=== PATIENT | female | born 1960 | race Caucasian/White ===

== ENCOUNTER → 2016-07-08 | Outpatient (CLI) | payer BC ==
[~2016-07-08] MED LIST: ATV2 PO; BACL10TA PO; BISA1TAB15 PO; CHOL100010 PO; CLC100 PO; CLC100X PO; CNT PO; GABA-112 PO; MGNO400 PO; SIME125C52 PO; SNK PO; ZNT/150 PO; [UNRECOGNIZED DRUG - OTHER] PO
--- NOTE | 2016-07-08 10:30 | DIAGNOSTIC IMAGING REPORT ---
MRI OF THE LUMBAR SPINE WITHOUT IV CONTRAST CLINICAL HISTORY: Right-sided lumbar radiculopathy. COMPARISON STUDY: Abdominal CT dated 08/18/13. TECHNIQUE: MRI of the lumbar spine is performed utilizing various T1 and T2-weighted sequences in the axial and sagittal planes. IV contrast was not administered for this examination. The examination is significantly degraded by open MRI technique. FINDINGS: Lumbar spine: Vertebral body height and alignment are maintained throughout the lumbar spine. There is straightening of the lumbar lordosis. The transverse and spinous processes are grossly intact. There is no evidence of spondylolysis. A hemangioma is again noted in the body of T12. No destructive bony lesion is seen. Intervertebral discs: There is mild degenerative disc desiccation noted throughout the lumbar spine. The disc heights appear preserved. Spinal cord: The visualized spinal cord is normal in morphology and signal intensity. The conus medullaris terminates at the level of L1. The nerve roots of the cauda equina are normal in morphology. L1-L2: Unremarkable. L2-L3: Unremarkable. L3-L4: Unremarkable. L4-L5: There is a small posterior disc bulge with annular fissure. This causes moderate bilateral subarticular stenosis with possible impingement on the exiting left L4 nerve root. The central canal and neural foramina are widely patent. Mild facet arthropathy is of no consequence. L5-S1: There is minimal posterior disc bulge with annular fissure. The central canal and neural foramina are widely patent. Sacrum: Visualized sacrum is normal in morphology and signal intensity. Soft tissues: The paraspinous soft tissues are normal in appearance. The partially imaged retroperitoneal structures are grossly unremarkable but incompletely assessed. IMPRESSION: 1. There is no disc herniation, central canal stenosis, or significant neural foraminal narrowing seen throughout the lumbar spine. 2. Mild degenerative disc disease as above, greatest at L4-L5. See discussion for detailed level by level analysis. Dictated: 07/08/2016 10:19 AM Transcribed: 07/08/2016 10:29 AM [facility] Electronically signed by: Zafar Lima M.D. 07/08/2016 10:43 AM Dictated Date/Time: 07/08/2016 10:19 AM
== END | disposition home or self-care (01) ==
LOC: C.OPENMRI 08:52
PROVIDERS: ATTEND Family Medicine
DX: M54.16 Radiculopathy, lumbar region (principal)

== ENCOUNTER → 2016-07-10 | Day surgery (SDC) | payer BC ==
[2016-07-09 15:46] VITALS: Ht 162.6 cm; Wt 56.4 kg
[~2016-07-10] VITALS: Ht 162.6 cm; Wt 56.4 kg
[~2016-07-10] MED LIST changes: +BUPIVACAINE 0.25% 2.5MG/ML PF 10 ML VIAL ONE; -CLC100 PO; +IOPAMIDOL INJ 61% 15 ML VIAL ONE; +LIDOCAINE HCL 1% MPF 5 ML VIAL ONE; -MGNO400 PO; -SNK PO; -[UNRECOGNIZED DRUG - OTHER] PO
--- NOTE | 2016-07-10 11:10 | History & Physical Bridge - [place] ---
H&P Re-Evaluation Bridge Note: I have examined the patient, reviewed the History & Physical and in the interval since the performance of the History & Physical I have noted the following changes of clinical significance: No changes noted
--- NOTE | 2016-07-10 11:36 | Discharge Instructions ---
Discharge Instructions Visit Reason for Visit: Sacroiliitis Discharge Discharge Diagnosis / Problem: Low back pain Discharge Goals Goal(s): Decrease discomfort, Improve function Activity Recommendations Activity Limitations: resume your previous activity Anesthesia . Post Anesthesia Instructions: If you have had General Anesthesia or IV Sedation: * Do not drive today. * Resume driving when surgeon permits. * Do not make important decisions or sign legal documents today. * Call surgeon for: 1. Temperature elevations greater than 101 degrees F. 2. Uncontrollable pain. 3. Excessive bleeding. 4. Persistent nausea and vomiting. 5. Medication intolerance (nausea, vomiting or rash). * For nausea and vomiting use only clear liquids such as: tea, soda, bouillon until nausea subsides, then gradually increase diet as tolerated. * If you have any concerns or questions, call your surgeon's office. If physician is unavailable and it is an emergency, call 911 or go to the nearest emergency room. . Diet Recommendations Recommended Home Diet: no limitations Pending Studies Studies pending at discharge: no Medical Emergencies . Who to Call and When: Medical Emergencies: If at any time you feel your situation is an emergency, please call 911 immediately. . Non-Emergent Contact Non-Emergency issues call your: Specialist . . "Provider Documentation" section prepared by Jose Hoffman.
[2016-07-10 11:40] VITALS: TEMP 36.4
[2016-07-10 11:54] VITALS: BP 144/83; PULSE 69; O2SAT 100
--- NOTE | 2016-07-10 12:13 | OPERATIVE REPORT ---
DATE OF OPERATION: 07/10/2016 PREOPERATIVE DIAGNOSIS: Right sacroiliitis, history of trauma. POSTOPERATIVE DIAGNOSIS: Same. PROCEDURE: Right SI joint injection under fluoroscopic guidance. INDICATIONS: The patient is a 56-year-old white female who had the development of low back pain following a traumatic fall in which she landed on her sacrum. She has not gotten any relief with conservative treatments including medications, physical therapy, chiropractic and had an MRI of her lumbosacral spine which was normal. She presents today for sacroiliac joint injection as this is determined to be the etiology of her pain through her history and physical. PHYSICAL EXAMINATION: Pleasant female seated comfortably. She is seated off to the side uncomfortably. She has point tenderness to palpation of the right SI joint. She has normal motor and sensory exam of her lower extremities, as well as negative seated straight leg raises. CONSENT: Verbal and written consent was obtained from the patient. Risks and benefits were reviewed. Risks include, but are not limited to, abscess, allergic reaction. She wishes to proceed. PROCEDURE: The patient was taken back to the special procedures room of the [facility] where she was maintained in a prone position. Backside was cleansed with Betadine x3 and a dry sterile dressing was applied. Fluoroscope was used to identify the right SI joint and the overlying skin was anesthetized with 4 mL of lidocaine 1% with a 25 gauge 1-1/2 inch needle. A 25 gauge 3-1/2 inch spinal needle was then directed under fluoroscopic guidance into the joint. Isovue-300 contrast 0.25 mL was injected in which demonstrated intraarticular uptake. This was then followed by injection of 1.5 mL of bupivacaine 0.25% and 40 mg of Depo-Medrol. There was reproduction of familiar discomfort as the injection was placed. DISPOSITION: 1. The patient is taken out into the discharge recovery area where she will be discharged home once discharge criteria have been met. 2. Followup in the [facility] office in 2-4 weeks. I attest to the content of the Intraoperative Record and any orders documented therein. Any exceptio ns are noted below.
== END | disposition home or self-care (01) ==
LOC: X.SURG 09:44
PROVIDERS: ATTEND Physical Medicine & Rehabilitation
DX: M46.1 Sacroiliitis, not elsewhere classified (principal); Z87.828 Personal history of other (healed) physical injury and trauma

== ENCOUNTER → 2016-07-20 | Outpatient (CLI) | payer BC ==
[~2016-07-20] MED LIST changes: -BUPIVACAINE 0.25% 2.5MG/ML PF 10 ML VIAL ONE; -IOPAMIDOL INJ 61% 15 ML VIAL ONE; -LIDOCAINE HCL 1% MPF 5 ML VIAL ONE
== END | disposition home or self-care (01) ==
LOC: C.LAB1850 10:36
PROVIDERS: ATTEND Physical Medicine & Rehabilitation
DX: M54.16 Radiculopathy, lumbar region (principal); M46.1 Sacroiliitis, not elsewhere classified

== ENCOUNTER → 2016-07-27 | Outpatient (CLI) | payer BC ==
--- NOTE | 2016-07-27 14:03 | DIAGNOSTIC IMAGING REPORT ---
THREE-PHASE NUCLEAR BONE SCAN OF THE LUMBAR SPINE CLINICAL HISTORY: Sacroiliitis. Lumbar radiculopathy. COMPARISON STUDY: MRI of the lumbar spine dated 07/08/2016. TECHNIQUE: Following the IV administration of 27 mCi of technetium 99m MDP, three-phase bone scan of the lumbar spine and pelvis was performed. Flow and blood pool phase imaging was acquired both anteriorly and posteriorly. Bone phase imaging of the lumbar spine and bony pelvis was performed at three hours in multiple obliquities. FINDINGS: There is no hyperemia identified in the region of the lumbar spine and bony pelvis on the flow or blood pool phase images. On the bone phase images there is no abnormal tracer deposition seen throughout the lumbar spine or involving the pelvis. There is expected excreted activity within the kidneys and bladder. IMPRESSION: Three-phase negative bone scan of lumbar spine and pelvis. Electronically signed by: Zafar Lima M.D. 07/27/2016 2:02 PM Dictated Date/Time: 07/27/2016 1:54 PM
== END | disposition home or self-care (01) ==
LOC: C.NUCL 09:28
PROVIDERS: ATTEND Physical Medicine & Rehabilitation
DX: M54.16 Radiculopathy, lumbar region (principal); M54.5 Low back pain; M46.1 Sacroiliitis, not elsewhere classified

== ENCOUNTER → 2016-07-31 | Outpatient (CLI) | payer BC | END | disposition home or self-care (01) | LOC: C.LABPVFM 15:54 | PROVIDERS: ATTEND Nurse Practitioner | DX: R53.83 Other fatigue (principal); E55.9 Vitamin D deficiency, unspecified; R41.840 Attention and concentration deficit ==

== ENCOUNTER → 2016-08-12 | Day surgery (SDC) | payer BC ==
[2016-08-03 10:40] VITALS: Ht 162.6 cm; Wt 56.4 kg
[~2016-08-12] VITALS: Ht 162.6 cm; Wt 56.4 kg
[~2016-08-12] MED LIST changes: +BUPIVACAINE 0.25% 2.5MG/ML PF 10 ML VIAL INFIL ONE; +IOPAMIDOL INJ 61% 15 ML VIAL ONE; +LIDOCAINE HCL 1% MPF 5 ML VIAL ONE; +METHYLPREDNISOLONE ACETATE 80 MG/ML VIAL ONE
[2016-08-12 14:26] VITALS: BP 161/84; PULSE 59; TEMP 37; O2SAT 100
--- NOTE | 2016-08-12 14:34 | Discharge Instructions ---
Discharge Instructions Visit Reason for Visit: Low Back Pain Discharge Discharge Diagnosis / Problem: low back pain Activity Recommendations Activity Limitations: resume your previous activity Anesthesia . Post Anesthesia Instructions: If you have had General Anesthesia or IV Sedation: * Do not drive today. * Resume driving when surgeon permits. * Do not make important decisions or sign legal documents today. * Call surgeon for: 1. Temperature elevations greater than 101 degrees F. 2. Uncontrollable pain. 3. Excessive bleeding. 4. Persistent nausea and vomiting. 5. Medication intolerance (nausea, vomiting or rash). * For nausea and vomiting use only clear liquids such as: tea, soda, bouillon until nausea subsides, then gradually increase diet as tolerated. * If you have any concerns or questions, call your surgeon's office. If physician is unavailable and it is an emergency, call 911 or go to the nearest emergency room. . Diet Recommendations Recommended Home Diet: resume previous diet Procedures Procedures Performed: RIGHT L5-S1 FACET JOINT INJECTION Pending Studies Studies pending at discharge: no Medical Emergencies . Who to Call and When: Medical Emergencies: If at any time you feel your situation is an emergency, please call 911 immediately. . Non-Emergent Contact Non-Emergency issues call your: Specialist . . "Provider Documentation" section prepared by Jose Hoffman.
--- NOTE | 2016-08-12 15:28 | OPERATIVE REPORT ---
DATE OF OPERATION: 08/12/2016 PREOPERATIVE DIAGNOSIS: Chronic low back pain, right L5-S1 facet arthropathy. POSTOPERATIVE DIAGNOSIS: Same. PROCEDURE: Right L5-S1 facet joint injection under fluoroscopic guidance. INDICATIONS: The patient is a 56-year-old white female who presents today for a facet joint injection. She did not have sustained benefit from a sacroiliac joint injection. Her MRI shows increased facet signal. Decision is made that the pain could be being generated above the SI joint in the facet area and she presents today for a facet joint injection. PHYSICAL EXAMINATION: Pleasant female seated comfortably in no apparent distress. She has tenderness in the L5-S1 facet area which was worse with extension and rotation, relieved with flexion and lateralization away from that side. She has normal motor and sensory examination. CONSENT: Verbal and written consent was obtained from the patient. Risks and benefits were reviewed. Risks include but are not limited to abscess and allergic reaction. The patient wishes to proceed. DESCRIPTION OF PROCEDURE: The patient was taken back to the special procedures room of [facility]. She was maintained in a prone position. Backside was cleansed with Betadine x3 and a dry sterile dressing was applied. Fluoroscope was used to identify the L5-S1 facet joint in an oblique view. The overlying skin was anesthetized with 5 mL of lidocaine 1% with a 25 gauge 1.5-inch needle. A 25 gauge 3.5 inch spinal needle was then directed under fluoroscopic guidance into the joint. She then underwent Isovue 300 contrast less than a 0.25 mL which showed intraarticular placement and then this was followed by injection after negative aspiration of 40 mg of Depo-Medrol and 1.5 mL and 0.5 mL of lidocaine 1%. Injection was well tolerated. DISPOSITION: 1. The patient was taken out into the discharge recovery area where she will be discharged home once discharge criteria have been met. 2. Follow up in the [facility] office in 2-4 weeks. I attest to the content of the Intraoperative Record and any orders documented therein. Any exceptio ns are noted below.
== END | disposition home or self-care (01) ==
LOC: X.SURG 12:51
PROVIDERS: ATTEND Physical Medicine & Rehabilitation
DX: M47.817 Spondylosis without myelopathy or radiculopathy, lumbosacral region (principal); G89.29 Other chronic pain

== ENCOUNTER → 2016-08-18 | Outpatient (CLI) | payer BC ==
[~2016-08-18] MED LIST changes: -BUPIVACAINE 0.25% 2.5MG/ML PF 10 ML VIAL INFIL ONE; -IOPAMIDOL INJ 61% 15 ML VIAL ONE; -LIDOCAINE HCL 1% MPF 5 ML VIAL ONE; -METHYLPREDNISOLONE ACETATE 80 MG/ML VIAL ONE
== END | disposition home or self-care (01) ==
LOC: C.LABPVFM 12:01
PROVIDERS: ATTEND Family Medicine
DX: J02.9 Acute pharyngitis, unspecified (principal)

== ENCOUNTER → 2016-10-08 | Outpatient (CLI) | payer BC ==
[~2016-10-08] MED LIST changes: +ACET-1047 PO; +ATV/2 PO; +BIOF500C2 PO; +BISA-16 PO; +CHOL1TAB42 PO; +CHOLCAP10 PO; +DOCU-94 PO; +DOCU1TAB6 PO; +HYDR2TAB48 PO; +MULT-506 PO; +MULTTAB58 PO; +ONDA4TAB10 SL; +POLY335019 PO; +SENN-61 PO; +SIME1CAP28 PO; +VITACAP26 PO; +ZNTT/150 PO; +[UNRECOGNIZED DRUG - CODE] PO
[2016-10-08 18:52] LABS: LYME DISEASE AB IGG NEG (NEG)
[2016-10-08 19:33] LABS: LYME DISEASE AB IGM EQUIVOCAL (NEG)
[2016-10-13 01:26] LABS: 18KDIGG BAND NONREACTIVE (NONREACTIVE); 23KDIGG BAND NONREACTIVE (NONREACTIVE); 23KDIGM BAND NONREACTIVE (NONREACTIVE); 28KDIGG BAND NONREACTIVE (NONREACTIVE); 30KDIGG BAND NONREACTIVE (NONREACTIVE); 39KDIGG BAND NONREACTIVE (NONREACTIVE); 39KDIGM BAND NONREACTIVE (NONREACTIVE); 41KDIGG BAND REACTIVE (NONREACTIVE); 41KDIGM BAND NONREACTIVE (NONREACTIVE); 45KDIGG BAND REACTIVE (NONREACTIVE); 58KDIGG BAND NONREACTIVE (NONREACTIVE); 66KDIGG BAND NONREACTIVE (NONREACTIVE); 93KDIGG BAND NONREACTIVE (NONREACTIVE)
== END | disposition home or self-care (01) ==
LOC: C.LABPVFM 14:05
PROVIDERS: ATTEND Nurse Practitioner
DX: M25.50 Pain in unspecified joint (principal); M54.5 Low back pain; M54.10 Radiculopathy, site unspecified

== ENCOUNTER → 2016-11-06 | Day surgery (SDC) | payer BC ==
[2016-10-13 15:17] VITALS: Ht 162.6 cm; Wt 56.4 kg
[~2016-11-06] VITALS: Ht 162.6 cm; Wt 56.4 kg
[~2016-11-06] MED LIST changes: +ACET-1256 PO; -GABA-112 PO; +IOPAMIDOL INJ 61% 15 ML VIAL ONE; +LIDOCAINE HCL 1% MPF 5 ML VIAL ONE; +SODIUM CHLORIDE 0.9% INJ 10 ML VIAL ONE
[2016-11-06 13:32] VITALS: TEMP 37.3
--- NOTE | 2016-11-06 13:38 | Discharge Instructions ---
Discharge Instructions Date of Service November 06, 2016. Visit Reason for Visit: Lumbar Radiculopathy Discharge Discharge Diagnosis / Problem: low back pain Discharge Goals Goal(s): Decrease discomfort, Improve function Activity Recommendations Activity Limitations: resume your previous activity Anesthesia . Post Anesthesia Instructions: If you have had General Anesthesia or IV Sedation: * Do not drive today. * Resume driving when surgeon permits. * Do not make important decisions or sign legal documents today. * Call surgeon for: 1. Temperature elevations greater than 101 degrees F. 2. Uncontrollable pain. 3. Excessive bleeding. 4. Persistent nausea and vomiting. 5. Medication intolerance (nausea, vomiting or rash). * For nausea and vomiting use only clear liquids such as: tea, soda, bouillon until nausea subsides, then gradually increase diet as tolerated. * If you have any concerns or questions, call your surgeon's office. If physician is unavailable and it is an emergency, call 911 or go to the nearest emergency room. . Diet Recommendations Recommended Home Diet: resume previous diet Procedures Procedures Performed: Lumbar Epidural Steroid Injection Pending Studies Studies pending at discharge: no Medical Emergencies . Who to Call and When: Medical Emergencies: If at any time you feel your situation is an emergency, please call 911 immediately. . Non-Emergent Contact Non-Emergency issues call your: Specialist . . "Provider Documentation" section prepared by Jose Hoffman. .
[2016-11-06 13:44] VITALS: BP 154/85; PULSE 64; O2SAT 100
--- NOTE | 2016-11-06 16:12 | OPERATIVE REPORT ---
DATE OF OPERATION: 11/06/2016 PREOPERATIVE DIAGNOSIS: L4-L5 annular tear with bilateral lower extremity radiculopathy. POSTOPERATIVE DIAGNOSIS: Same. PROCEDURE: Right paramedian L4-L5 interlaminar epidural steroid injection under fluoroscopic guidance. SURGEON: Dr. Jose Hoffman. INDICATIONS: The patient is a 56-year-old white female who has developed increasing pain. She is describing pain that radiates into the buttocks and down the legs posteriorly, describes the pain as excruciating. MRI imaging shows a small annular tear centrally at L4-L5. This is felt to be the pain generator. She presents today for an epidural steroid injection to provide her with relief of ongoing pain down the legs. PHYSICAL EXAMINATION: Pleasant female seated comfortably. She has pain inhibition with straight leg testing. She has tenderness to palpation of her lower lumbar spine. CONSENT: Verbal and written consent was obtained from the patient. Risks and benefits were reviewed. Risks include but are not limited to epidural abscess, epidural hematoma, allergic reaction, dural puncture. The patient wishes to proceed. PROCEDURE: The patient was taken back to the special procedures room of [facility] where he was maintained in a prone position. Backside was cleansed with Betadine x3 and a dry sterile dressing was applied. Fluoroscope was used to identify the L4-L5 interlaminar space. Overlying skin on the right side was anesthetized with 4 mL of lidocaine 1% with a 25 gauge 1.5-inch needle. A 22-gauge 3.5 inch spinal needle was then directed down towards the intralaminar space. It was advanced under lateral fluoroscopic guidance and loss of resistance was noted at a depth of 5.5 cm. Isovue-300 contrast 1 mL was injected in which demonstrated epidural uptake pattern which was confirmed with both AP and lateral views, then underwent injection after negative aspiration of 40 mg of Depo-Medrol, 4 mL of preservative free sodium chloride. Injection was well tolerated. DISPOSITION: 1. The patient is taken out into the discharge recovery area where she will be discharged home once discharge criteria have been met. 2. Follow up in the [facility] office in 2-4 weeks. I attest to the content of the Intraoperative Record and any orders documented therein. Any exceptio ns are noted below.
== END | disposition home or self-care (01) ==
LOC: X.SURG 12:23
PROVIDERS: ATTEND Physical Medicine & Rehabilitation
DX: M51.87 Other intervertebral disc disorders, lumbosacral region (principal); M54.16 Radiculopathy, lumbar region

== ENCOUNTER → 2016-12-22 | Outpatient (CLI) | payer BC ==
[~2016-12-22] MED LIST changes: -IOPAMIDOL INJ 61% 15 ML VIAL ONE; -LIDOCAINE HCL 1% MPF 5 ML VIAL ONE; -SODIUM CHLORIDE 0.9% INJ 10 ML VIAL ONE
--- NOTE | 2016-12-22 14:26 | DIAGNOSTIC IMAGING REPORT ---
KUB CLINICAL HISTORY: Constipation. COMPARISON STUDY: KUB February 27, 2016. FINDINGS: Pelvic calcifications likely reflect phleboliths. The bowel gas pattern is normal. There is a moderate amount of stool within the colon and rectum. IMPRESSION: 1. No evidence of a bowel obstruction. 2. Moderate amount of stool within the colon and rectum. Electronically signed by: Vignesh Sylvester M.D. 12/22/2016 2:25 PM Dictated Date/Time: 12/22/2016 2:24 PM
== END | disposition home or self-care (01) ==
LOC: C.RADPV 14:05
PROVIDERS: ATTEND Nurse Practitioner
DX: K59.00 Constipation, unspecified (principal)

== ENCOUNTER → 2016-12-24 | Outpatient (CLI) | payer BC ==
[~2016-12-24] MED LIST changes: -ACET-1047 PO; -ACET-1256 PO; -ATV/2 PO; -BACL10TA PO; -BIOF500C2 PO; -BISA-16 PO; -CHOL1TAB42 PO; -CHOLCAP10 PO; -DOCU-94 PO; -DOCU1TAB6 PO; -HYDR2TAB48 PO; -MULT-506 PO; -MULTTAB58 PO; -ONDA4TAB10 SL; -POLY335019 PO; -SENN-61 PO; -SIME1CAP28 PO; -VITACAP26 PO; -ZNTT/150 PO; -[UNRECOGNIZED DRUG - CODE] PO
[2016-12-24 12:49] LABS: BLOOD UREA NITROGEN 8 mg/dl (7-18); BUN/CREATININE RATIO 9.6 (10-20); CALCIUM 9.3 mg/dl (8.5-10.1); CARBON DIOXIDE 30 mmol/L (21-32); CHLORIDE 105 mmol/L (98-107); CREATININE 0.85 mg/dl (0.60-1.20); GLUCOSE 93 mg/dl (70-99); POTASSIUM 3.9 mmol/L (3.5-5.1); SODIUM 139 mmol/L (136-145)
== END | disposition home or self-care (01) ==
LOC: C.LABPVFM 09:52
PROVIDERS: ATTEND Nurse Practitioner
DX: K59.00 Constipation, unspecified (principal)

== ENCOUNTER 2017-05-16 09:14 | Emergency (ER) | payer BC ==
[~2017-05-16] VITALS: Ht 162.6 cm; Wt 55.0 kg
[2017-05-16 09:19] VITALS: TEMP 36.6; Ht 162.6 cm; Wt 55.0 kg
[2017-05-16] MEDS ORDERED: VITACAP26 PO (09:59)
[2017-05-16] MEDS ORDERED: DOCU1TAB6 PO (09:59)
[2017-05-16] MEDS ORDERED: CHOLCAP10 PO (09:59)
[2017-05-16] MEDS ORDERED: MULTTAB58 PO (09:59)
[2017-05-16] MEDS ORDERED: BACL10TA PO (09:59)
[2017-05-16] MEDS ORDERED: [UNRECOGNIZED DRUG - CODE] PO (09:59)
[2017-05-16] MEDS ORDERED: ONDANSETRON INJ 2 MG/ML 2 ML VIAL IV STA (10:09)
[2017-05-16] MEDS ORDERED: HYDROmorphone INJ 0.5 MG/0.5 ML SYR IV STA ×2 (10:09→13:39)
[2017-05-16] MEDS ORDERED: DEXAMETHASONE **PF** INJ 10 MG/ML VIAL IV ONE (10:15)
[2017-05-16 10:43] LABS: BASO % 0.6 %; BASO ABS # 0.03 K/uL (0-0.2); COMPLETE YES; EOS % 0.4 %; IG% 0.2 %; LYMPH ABS # 1.52 K/uL (1.2-3.4); MEAN CELL VOLUME 90.5 fL (80-100); MEAN CORPUSCULAR HGB CONC 33.2 g/dl (32-36); MEAN PLATELET VOLUME 10.4 fL (7.4-10.4); MONO % 6.1 %; NEUT % 61.7 %; PLATELET COUNT 191 K/uL (130-400); RED BLOOD COUNT 4.53 M/uL (4.2-5.4)
--- NOTE | 2017-05-16 10:57 | EMERGENCY ROOM VISIT NOTE ---
History Report prepared by Adela: Nida Ward Under the Supervision of: Dr. Alvaro Loco M.D. First contact with patient: 09:55 Chief Complaint: BACK PAIN Stated Complaint: LOWER BACK PAIN,NAUSEA History of Present Illness The patient is a 57 year old female who presents to the Emergency Room with complaints of constant lower back pain beginning 2 weeks ago. The patient states that her pain radiates down her left leg and that her toes are numb. The patient reports that she has had right leg pain in the past as well, but that this time it is her left leg that has the pain. She states that she has had back problems for over a year and had a shot once which did not help. The patient reports having X-Rays done and was told she had a tear in her disc. She states that she received 3 shots after this which helped. She reports that it even hurts to sit and that she has to use a cane to walk. She states that she talked Dilaudid. The patient reports that she has been unable to see Dr. Hoffman for her back pain. The patient denies incontinence and pain in the groin area. Pt denies LOC, headache, fevers, chills, diaphoresis, visual changes, neck pain , chest pain, breathing difficulties, nausea, vomiting, abdominal pain, melena, hematochezia, urinary symptoms, numbness, weakness, lymphadenopathy, rash, or other complaints. The patient denies a history of cancer and diabetes, but reports a history of blood clots, ileostomy, tubal ligation, and chronic constipation. Source of History: patient Onset: 2 weeks ago Position: back (lower) Timing: constant Associated Symptoms: + numbness (toes ), No fevers Note: additional symptom: left leg pain Review of Systems See HPI for pertinent positives and negatives. A total of ten systems were reviewed and were otherwise negative. Past Medical & Surgical Medical Problems: (1) Abnormal EKG (2) Chest pain (3) Clostridium difficile colitis (4) Constipation (5) Creation of ileostomy (6) Hx-Venous Thrombosis&Embolism (7) Hypertension Nos (8) Hypothyroidism Nos (9) ileostomy reversal (10) Ileus (11) Laparoscopic Earlene fundoplication using abdominal approach Surgical Problems: (1) H/O ileostomy Family History FHx: cancer Hypertension Social History Smoking Status: Never Smoker Alcohol Use: none Drug Use: none Marital Status: Housing Status: lives with family Current/Historical Medications Scheduled Baclofen (Lioresal), 10 MG PO HS Bisacodyl (Bisacodyl), 2 TAB PO HS Cholecalciferol (D 5000), 5,000 UNITS PO DAILY Docusate Sodium (Docusate Sodium), 100 MG PO BID Lorazepam (Lorazepam), 2 MG PO HS Multiple Vitamin (Multivitamin), 1 TAB PO DAILY Ondasetron Odt (Zofran Odt), 4 MG SL Q6H Ranitidine Hcl (Zantac), 150 MG PO QAM Simethicone (Gas Relief Extra Strength), 1 CAP PO TID Vitamins C & E (Vitamin C), 1 CAP PO DAILY Scheduled PRN Hydromorphone Hcl (Dilaudid), 1 TAB PO Q4 PRN for Pain Allergies Coded Allergies: Rabeprazole (Verified Allergy, Intermediate, SWELLING, 05/16/17) Morphine (Verified Allergy, Mild, UNKNOWN, 05/16/17) Tolerates dilaudid Amitriptyline (Verified Allergy, Unknown, SWELLING, 05/16/17) Tricyclic Antidepressants (Verified Allergy, Unknown, SWELLING, 05/16/17) Ciprofloxacin (Verified Adverse Reaction, Unknown, gi upset, 05/16/17) pt Physical Exam Vital Signs Date Time Temp Pulse Resp B/P (MAP) Pulse Ox O2 Delivery O2 Flow Rate FiO2 05/16/17 13:56 70 18 163/76 98 Room Air 05/16/17 13:15 64 16 159/71 98 Room Air 05/16/17 11:20 67 16 168/93 100 Room Air 05/16/17 09:19 36.6 79 18 153/87 100 Room Air Physical Exam GENERAL: Awake, alert, uncomfortable-appearing, in no distress HENT: Normocephalic, atraumatic. Oropharynx unremarkable. EYES: Normal conjunctiva. Sclera non-icteric. NECK: Supple. No nuchal rigidity. FROM. No JVD. RESPIRATORY: Clear to auscultation. CARDIAC: Regular rate, normal rhythm. Extremities warm and well perfused. Pulses equal. ABDOMEN: Soft, non-distended. No tenderness to palpation. No rebound or guarding. No masses. RECTAL: Deferred. MUSCULOSKELETAL: Chest examination reveals no tenderness. The back is symmetrical on inspection without obvious abnormality. There is no CVA tenderness to palpation. No joint edema. Tenderness in left sciatic notch. Mildly positive left straight leg raise. No saddle paresthesias. LOWER EXTREMITIES: Calves are equal size bilaterally and non-tender. No edema. No discoloration. NEURO: Normal sensorium. No sensory or motor deficits noted. SKIN: No rash or jaundice noted. Medical Decision & Procedures ER Provider Diagnostic Interpretation: Radiology results as stated below per my review and radiologist interpretation: MRI LUMBAR SPINE W/O CONTRAST CLINICAL HISTORY: Low back pain with left leg radiculopathy. INABILITY TO WALK TECHNIQUE: Sagittal and axial T1, T2 and STIR images were obtained. COMPARISON STUDY: 07/08/2016 OBSERVATIONS: The vertebral bodies and posterior elements appear intact. There is no abnormal bony signal present to suggest a marrow replacement process. There is a T12 vertebral body hemangioma. L1-2: No disc protrusions or extrusions. No evidence of spinal canal or neural foraminal compromise. L2-3: No disc protrusions or extrusions. No evidence of spinal canal or neural foraminal compromise. L3-4: There is a minimal circumferential disc bulge. There is no spinal or foraminal stenosis. L4-5: There is a circumferential disc bulge. There is no spinal stenosis. There is mild left-sided foraminal narrowing. L5-S1: There is a mild circumferential disc bulge. There is no significant spinal stenosis. There is mild sided foraminal narrowing. The conus medullaris and cauda equina appear normal. The findings remain similar to the prior June 2016 study. IMPRESSION: 1. No focal disc herniations identified 2. Mild disc bulges at the L4-5 and L5-S1 levels 3. No evidence of spinal stenosis 4. Mild left-sided foraminal narrowing at the L4-5 and L5-S1 levels. Electronically signed by: Timo Haines M.D. 05/16/2017 12:39 PM Dictated Date/Time: 05/16/2017 12:34 PM Laboratory Results 05/16/17 10:22 Red Blood Count 4.53, Mean Corpuscular Volume 90.5, Mean Corpuscular Hemoglobin 30.0, Mean Corpuscular Hemoglobin Concent 33.2, Mean Platelet Volume 10.4, Neutrophils (%) (Auto) 61.7, Lymphocytes (%) (Auto) 31.0, Monocytes (%) (Auto) 6.1, Eosinophils (%) (Auto) 0.4, Basophils (%) (Auto) 0.6, Neutrophils # (Auto) 3.02, Lymphocytes # (Auto) 1.52, Monocytes # (Auto) 0.30, Eosinophils # (Auto) 0.02, Basophils # (Auto) 0.03 05/16/17 10:22 Test 05/16/17 10:22 White Blood Count 4.90 K/uL (4.8-10.8) Red Blood Count 4.53 M/uL (4.2-5.4) Hemoglobin 13.6 g/dL (12.0-16.0) Hematocrit 41.0 % (37-47) Mean Corpuscular Volume 90.5 fL (80-100) Mean Corpuscular Hemoglobin 30.0 pg (25-34) Mean Corpuscular Hemoglobin Concent 33.2 g/dl (32-36) Platelet Count 191 K/uL (130-400) Mean Platelet Volume 10.4 fL (7.4-10.4) Neutrophils (%) (Auto) 61.7 % Lymphocytes (%) (Auto) 31.0 % Monocytes (%) (Auto) 6.1 % Eosinophils (%) (Auto) 0.4 % Basophils (%) (Auto) 0.6 % Neutrophils # (Auto) 3.02 K/uL (1.4-6.5) Lymphocytes # (Auto) 1.52 K/uL (1.2-3.4) Monocytes # (Auto) 0.30 K/uL (0.11-0.59) Eosinophils # (Auto) 0.02 K/uL (0-0.5) Basophils # (Auto) 0.03 K/uL (0-0.2) RDW Standard Deviation 42.5 fL (36.4-46.3) RDW Coefficient of Variation 12.9 % (11.5-14.5) Immature Granulocyte % (Auto) 0.2 % Immature Granulocyte # (Auto) 0.01 K/uL (0.00-0.02) Erythrocyte Sedimentation Rate 6 mm/hr (0-21) Anion Gap 7.0 mmol/L (3-11) Est Creatinine Clear Calc Drug Dose 68.9 ml/min Estimated GFR () 99.5 Estimated GFR (Non- 85.9 BUN/Creatinine Ratio 9.8 (10-20) Calcium Level 9.7 mg/dl (8.5-10.1) C-Reactive Protein < 0.29 mg/dl (0-0.29) Laboratory results reviewed by me Medications Administered Medications (Trade) Dose Ordered Sig/Marvin Route Start Time Stop Time Status Last Admin Dose Admin Ondansetron HCl (Zofran Inj) 4 mg NOW STAT IV 05/16/17 10:09 05/16/17 10:12 DC 05/16/17 10:25 4 MG Hydromorphone HCl (Dilaudid Inj) 0.5 mg NOW STAT IV 05/16/17 10:09 05/16/17 10:12 DC 05/16/17 10:26 0.5 MG Dexamethasone Sodium Phosphate (Dexamethasone Inj Pf) 10 mg NOW ONCE IV 05/16/17 10:15 05/16/17 10:16 DC 05/16/17 10:28 10 MG Hydromorphone HCl (Dilaudid Inj) 0.5 mg NOW STAT IV 05/16/17 13:39 05/16/17 13:40 DC 05/16/17 13:57 0.5 MG ED Course 1005: The patient was evaluated in room B8. A complete history and physical exam was performed. 1009: Ordered Dilaudid Inj 0.5 mg IV, Ondansetron HCl 4 mg IV. 1015: Ordered Dexamethasone Sodium Phosphate 10 mg IV. 1339: Ordered Dilaudid Inj 0.5 mg IV. 1400: I updated the patient and ordered more pain medications. She will be referred to pain management. 1415: I reevaluated the patient. Discussed results and discharge instructions: She verbalized understanding and agreement. The patient is ready for discharge. Medical Decision Triage Nursing notes reviewed. The patient's presentation and history were concerning for back pain. Etiologies such as lumbago, sciatica, cauda equina, epidural abscess, osteomyelitis, fracture, aortic disease, metastatic disease, infection, renal colic, gastrointestinal, as well as others were entertained. The patient was evaluated. Clinically she was uncomfortable. She had a equivocal left-sided straight leg raise. No saddle anesthesia. She is having difficulty with walking secondary to severe pain. The patient was given a dose of Zofran, Dilaudid, and Decadron. She had blood work and imaging performed. MRI as above. Minor findings noted on the left side. The patient was doing better after the above treatment although still had some pain. I discussed conservative management with her. With her blood work being negative and MR imaging not revealing any surgical findings she should hopefully do well but will need pain management referral. She notes that her pain management physician is out of town and not available in the next few weeks. She was referred to [facility] pain management. She notes having problems with constipation. She feels that Dilaudid is the least constipating for her. I did review the prescription monitoring program. She does not have frequent narcotic prescriptions. She was given a small amount of oral Dilaudid. I discussed careful use of this medication. She states she cannot take oral steroids as she has adverse effects and they make her feel "crazy". She was also given prescriptions Zofran case she has any nausea. She worsens in any way she will be back. I gave my usual and customary discussion regarding this issue. By the evaluation outlined above other emergent etiologies such as those listed in the differential, as well as others, were deemed relatively unlikely. The patient was educated about the findings as listed above. All questions were answered and the patient was pleased with the treatment. Return instructions were outlined and the patient was discharged in stable condition. The patient was referred to Pain management and PCP for follow-up for a recheck of the current condition. [place] Drug Monitoring Program Search Results: patient reviewed within database Drug Monitoring Findings: Lorazepam prescription noted. No significant opioid issues noted. Medication Reconcilliation Current Medication List: was personally reviewed by me Blood Pressure Screening Patient's blood pressure: Elevated blood pressure Blood pressure disposition: Referred to PCP Impression Primary Impression: Low back pain Additional Impression: Sciatica Scribe Attestation The scribe's documentation has been prepared under my direction and personally reviewed by me in its entirety. I confirm that the note above accurately reflects all work, treatment, procedures, and medical decision making performed by me. Departure Information Dispostion Home / Self-Care Prescriptions Ondasetron Odt (ZOFRAN ODT) 4 Mg Tab 4 MG SL Q6H for Nausea, #10 TAB Prov: Alvaro Loco MD 05/16/17 Hydromorphone Hcl (DILAUDID) 2 Mg Tab 1 TAB PO Q4 Y for Pain, #20 TAB Prov: Alvaro Loco MD 05/16/17 Referrals Jose Hoffman M.D. (PCP) Forms HOME CARE DOCUMENTATION FORM, IMPORTANT VISIT INFORMATION Patient Instructions My [facility] Additional Instructions BACK PAIN INSTRUCTIONS: DO NOT drive, drink alcohol, operate machinery, or perform dangerous activities today. You were given medications in the ER that can affect your ability to safely function or operate a vehicle. Dilaudid 2 mg: Take 1 pill every four hours for breakthrough pain. Avoid alcohol, operating machinery or dangerous equipment, working on ladders or roofs , DRIVING, or situations where being under the influence may be dangerous. It is recommended to use an folq-ofi-bjqvwoz stool softener such as Colace, 100mg twice daily while taking this medication to avoid constipation. Acetaminophen(Tylenol) may be used for fever or pain. Use 1000mg every six hours as needed. Avoid using more than 4000mg in a 24 hour period. This medication can be taken if you need to drive, work, or perform activities which may be dangerous when taking narcotic pain medication. Rest and avoid heavy lifting until your symptoms resolve and then gradually return to full activity. A good rule of thumb is if it hurts your back to perform a certain activity, then it should be avoided until you are healthy again. A heating pad, warm compresses, or a hot shower may help with tight muscles and can be done several times a day as needed. Continue current medications. Return to the ER immediately for any numbness, tingling, severe pain, loss of control of your bowels or bladder, inability to walk, or as needed. Follow up with [facility] pain management for a recheck of your current condition. Call the number listed below under Dr. Barnes tomorrow. Problem Qualifiers
[2017-05-16 11:10] LABS: BLOOD UREA NITROGEN 8 mg/dl (7-18); BUN/CREATININE RATIO 9.8 (10-20); C-REACTIVE PROTEIN < 0.29 mg/dl (0-0.29); CALCIUM 9.7 mg/dl (8.5-10.1); CARBON DIOXIDE 28 mmol/L (21-32); CHLORIDE 104 mmol/L (98-107); CREATININE 0.76 mg/dl (0.60-1.20); GLUCOSE 83 mg/dl (70-99); POTASSIUM 4.1 mmol/L (3.5-5.1); SODIUM 139 mmol/L (136-145)
--- NOTE | 2017-05-16 12:40 | DIAGNOSTIC IMAGING REPORT ---
MRI LUMBAR SPINE W/O CONTRAST CLINICAL HISTORY: Low back pain with left leg radiculopathy. INABILITY TO WALK TECHNIQUE: Sagittal and axial T1, T2 and STIR images were obtained. COMPARISON STUDY: 07/08/2016 OBSERVATIONS: The vertebral bodies and posterior elements appear intact. There is no abnormal bony signal present to suggest a marrow replacement process. There is a T12 vertebral body hemangioma. L1-2: No disc protrusions or extrusions. No evidence of spinal canal or neural foraminal compromise. L2-3: No disc protrusions or extrusions. No evidence of spinal canal or neural foraminal compromise. L3-4: There is a minimal circumferential disc bulge. There is no spinal or foraminal stenosis. L4-5: There is a circumferential disc bulge. There is no spinal stenosis. There is mild left-sided foraminal narrowing. L5-S1: There is a mild circumferential disc bulge. There is no significant spinal stenosis. There is mild sided foraminal narrowing. The conus medullaris and cauda equina appear normal. The findings remain similar to the prior June 2016 study. IMPRESSION: 1. No focal disc herniations identified 2. Mild disc bulges at the L4-5 and L5-S1 levels 3. No evidence of spinal stenosis 4. Mild left-sided foraminal narrowing at the L4-5 and L5-S1 levels. Electronically signed by: Timo Haines M.D. 05/16/2017 12:39 PM Dictated Date/Time: 05/16/2017 12:34 PM
[2017-05-16 13:56] VITALS: BP 163/76; PULSE 70; O2SAT 98
[2017-05-16] MEDS ORDERED: ONDA4TAB10 SL (14:22)
[2017-05-16] MEDS ORDERED: HYDR2TAB48 PO (14:22)
== END 2017-05-16 14:25 | disposition home or self-care (01) ==
LOC: C.EDB 09:15
DX: M54.42 Lumbago with sciatica, left side (principal); R11.0 Nausea; K59.09 Other constipation; Z86.718 Personal history of other venous thrombosis and embolism; Z80.9 Family history of malignant neoplasm, unspecified; Z82.49 Family history of ischemic heart disease and other diseases of the circulatory system

== ENCOUNTER 2017-05-21 15:53 | Observation (INO) | payer BC ==
[~2017-05-21] VITALS: Ht 162.6 cm; Wt 54.5 kg
[~2017-05-21 15:53] MED LIST changes: -ATV2 PO; +BACL10TA PO; -CHOL100010 PO; +CHOLCAP10 PO; -CLC100X PO; -CNT PO; +DOCU1TAB6 PO; +HYDR2TAB48 PO; +MULTTAB58 PO; +ONDA4TAB10 SL; +VITACAP26 PO; +[UNRECOGNIZED DRUG - CODE] PO
[2017-05-21] MEDS ORDERED: FENTANYL CITRATE INJ 50 MCG/1 ML 2 ML VIAL IV STA (16:12)
[2017-05-21 16:43] LABS: BASO % 0.2 %; BASO ABS # 0.01 K/uL (0-0.2); COMPLETE YES; EOS % 0.6 %; HEMATOCRIT 37.6 % (37-47); LYMPH % 28.5 %; LYMPH ABS # 1.37 K/uL (1.2-3.4); MEAN CELL VOLUME 87.2 fL (80-100); MEAN CORPUSCULAR HEMOGLOBIN 29.9 pg (25-34); MEAN CORPUSCULAR HGB CONC 34.3 g/dl (32-36); MEAN PLATELET VOLUME 10.2 fL (7.4-10.4); MONO % 9.4 %; NEUT % 61.3 %; PLATELET COUNT 183 K/uL (130-400); RED BLOOD COUNT 4.31 M/uL (4.2-5.4)
[2017-05-21] MEDS ORDERED: ZNTT/150 PO (16:46)
[2017-05-21] MEDS ORDERED: SIME1CAP28 PO (16:46)
[2017-05-21] MEDS ORDERED: POLY335019 PO (16:46)
[2017-05-21] MEDS ORDERED: MULT-506 PO (16:46)
[2017-05-21] MEDS ORDERED: BIOF500C2 PO (16:46)
[2017-05-21] MEDS ORDERED: SENN-61 PO (16:46)
[2017-05-21] MEDS ORDERED: CHOL1TAB42 PO (16:46)
[2017-05-21] MEDS ORDERED: BACL10TA PO (16:46)
[2017-05-21] MEDS ORDERED: BISA-16 PO (16:46)
[2017-05-21] MEDS ORDERED: ATV/2 PO (16:46)
[2017-05-21] MEDS ORDERED: DOCU-94 PO (16:46)
[2017-05-21] MEDS ORDERED: HYDR2TAB48 PO (16:49)
[2017-05-21 16:50] LABS: URINE APPEARANCE CLEAR (CLEAR); URINE BILIRUBIN NEG (NEG); URINE COLOR YELLOW; URINE NITRITE NEG (NEG); URINE PH 6.5 (4.5-7.5); URINE SPECIFIC GRAVITY 1.011 (1.000-1.030); UROBILINOGEN NEG (NEG); ZZUR CULT IF INDIC CLEAN CATCH NO
[2017-05-21 16:51] LABS: MANUAL MICROSCOPIC REQUIRED? NO; REVIEW REQ? NO
[2017-05-21] MEDS ORDERED: HYDROmorphone INJ 0.5 MG/0.5 ML SYR IV STA (16:53)
[2017-05-21] MEDS ORDERED: DEXAMETHASONE **PF** INJ 10 MG/ML VIAL IV ONE (17:00)
[2017-05-21 17:01] LABS: BUN/CREATININE RATIO 14.8 (10-20); CALCIUM 9.5 mg/dl (8.5-10.1); CREATININE 1.02 mg/dl (0.60-1.20)
[2017-05-21] MEDS ORDERED: POLYETHYLENE (MIRALAX) 17 GM PACK PO PRN (18:00)
[2017-05-21] MEDS ORDERED: MAGNESIUM HYDROXIDE SUSP 30 ML UDC PO PRN (18:00)
[2017-05-21] MEDS ORDERED: ONDANSETRON INJ 2 MG/ML 2 ML VIAL IV PRN (18:00)
[2017-05-21] MEDS ORDERED: ALUMINUM/MAGNESIUM/SIMETH (MAALOX MAX) 30 ML UDC PO PRN (18:00)
[2017-05-21] MEDS ORDERED: AMLODIPINE BESYLATE 5 MG TAB PO ONE (18:15)
--- NOTE | 2017-05-21 18:22 | History and Physical ---
History & Physical Date & Time of Service: May 21, 2017 at 18:04 Chief Complaint: Pinched Nerve In Back Primary Care Physician: Jose Hoffman M.D. History of Present Illness Source: patient, spouse This is a 57 y/o female with a history of HTN, depression/anxiety, GERD, insomnia, and OCD who presented to the ED on 05/21 with intractable back pain. The patient had first presented to the ED on 05/16 with severe back pain. A lumbar spine MRI was obtained at that time which revealed mild bulging and mild foraminal narrowing at L4-L5 and L5-S1. The patient was discharged and followed up with Dr. Monzon as an outpatient. She was scheduled to follow up with Dr. Monzon again on 05/25 for cortisone injections, but her pain became too severe so she came in to the ED. Her pain was initially a 10/10 sharp stabbing pain in the left lower back that radiates all the way down her leg. After receiving pain meds in the ED she is still at a 7/10 pain. She also notes numbness, tingling and weakness in the LLE. The patient states that she has chronic nausea with meals and after taking the pain meds, as well as chronic constipation. The patient denies fevers, chills, sweats, chest pain, palpitations, claudication, cough, wheezing, shortness of breath, vomiting, abdominal pain, dysuria, hematuria, urinary retention, paralysis. Past Medical/Surgical History Medical Problems: (1) Clostridium difficile colitis Status: Resolved (2) Constipation Status: Chronic (3) Creation of ileostomy Status: Resolved (4) Hx-Venous Thrombosis& PE Status: Resolved (5) Hypertension Nos Status: Chronic (6) Hypothyroidism Nos Status: Chronic (7) ileostomy reversal Status: Resolved (8) Ileus Status: Resolved (9) Laparoscopic Earlene fundoplication using abdominal approach Status: Resolved GERD Anxiety and depression OCD Insomnia Surgical Problems: (1) H/O ileostomy Status: Resolved Family History CABG Coronary artery disease Emphysema FHx: cancer (lymphoma) Hepatic cirrhosis Hypertension Stroke Social History Smoking Status: Never Smoker Smokeless Tobacco Use: No Alcohol Use: none Drug Use: none Marital Status: Housing status: lives with significant other Occupational Status: employed Immunizations History of Influenza Vaccine: Yes History of Tetanus Vaccine?: No History of Pneumococcal: Unknown History of Hepatitis B Vaccine: No Multi-Drug Resistant Organisms History of MDRO: No Allergies Coded Allergies: Rabeprazole (Verified Allergy, Intermediate, SWELLING, 05/21/17) Morphine (Verified Allergy, Mild, UNKNOWN, 05/21/17) Tolerates dilaudid Amitriptyline (Verified Allergy, Unknown, SWELLING, 05/21/17) Tricyclic Antidepressants (Verified Allergy, Unknown, SWELLING, 05/21/17) Ciprofloxacin (Verified Adverse Reaction, Unknown, gi upset, 05/21/17) pt Home Medications Scheduled Baclofen (Lioresal), 10 MG PO QPM Bioflavonoid Products (Vitamin C), 1 TAB PO DAILY Bisacodyl (Dulcolax), 10 MG PO HS Cholecalciferol (Vitamin D), 5,000 UNITS PO DAILY Docusate Sodium (Colace), 100 MG PO TID Lorazepam (Ativan), 2 MG PO HS Multivitamin (Multivitamin), 1 TAB PO DAILY Ranitidine (Zantac), 150 MG PO DAILY Simethicone (Simethicone), 80 MG PO TID Scheduled PRN Hydromorphone Hcl (Dilaudid), 2 MG PO Q4 PRN for Pain Polyethylene Glycol 3350 (Miralax), 17 GM PO DAILY PRN for Constipation Senna (Senokot), 1 TAB PO UD PRN for Constipation Review of Systems Constitutional: No fever, No chills, No sweats Eyes: No worsening of vision, No eye pain, No diplopia ENT: No hearing loss, No nasal symptoms, No trouble swallowing Respiratory: No cough, No wheezing, No shortness of breath Cardiovascular: No chest pain, No claudication, No palpitations Abdomen: +Chronic nausea. No pain, No vomiting Musculoskeletal: +Low back pain radiating down left leg. No muscle pain, No swelling Genitourinary - Female: No dysuria, No urinary retention, No hematuria Neurologic: +LLE weakness, numbness and tingling. No paralysis Integumentary: No rash, No itch, No color change Physical Exam Vital Signs Date Time Temp Pulse Resp B/P (MAP) Pulse Ox O2 Delivery O2 Flow Rate FiO2 05/21/17 17:38 69 16 100 05/21/17 17:31 176/87 05/21/17 17:23 72 21 99 05/21/17 17:08 69 24 99 05/21/17 17:07 196/96 05/21/17 16:23 73 21 99 05/21/17 16:16 79 05/21/17 16:00 178/94 05/21/17 15:58 36.7 78 20 178/94 99 Room Air General appearance: Well-developed, well-nourished, no apparent distress Head: Normocephalic, atraumatic Eyes: Normal inspection, PERRL, EOMI ENT: Normal ENT inspection, hearing grossly normal, pharynx normal Neck: Supple, no JVD, trachea midline Respiratory/Chest: Lungs clear to auscultation, normal breath sounds, no respiratory distress Cardiovascular: Regular rate & rhythm, no gallop, no murmur Abdomen/GI: Normal bowel sounds, non-tender, soft Extremities/Musculoskeletal: +Lumbar spine TTP, left lumbar paraspinal area TTP. LLE TTP. Normal inspection, no calf tenderness, no pedal edema Neurological/Psych: +Decreased sensation LLE. LLE 3/5 strength. Alert, normal mood/affect, oriented x 3 Skin: Normal color, warm/dry, no rash Diagnostics Laboratory Results Results Past 24 Hours Test 05/21/17 16:14 05/21/17 16:31 Range/Units White Blood Count 4.80 4.8-10.8 K/uL Red Blood Count 4.31 4.2-5.4 M/uL Hemoglobin 12.9 12.0-16.0 g/dL Hematocrit 37.6 37-47 % Mean Corpuscular Volume 87.2 80-100 fL Mean Corpuscular Hemoglobin 29.9 25-34 pg Mean Corpuscular Hemoglobin Concent 34.3 32-36 g/dl Platelet Count 183 130-400 K/uL Mean Platelet Volume 10.2 7.4-10.4 fL Neutrophils (%) (Auto) 61.3 % Lymphocytes (%) (Auto) 28.5 % Monocytes (%) (Auto) 9.4 % Eosinophils (%) (Auto) 0.6 % Basophils (%) (Auto) 0.2 % Neutrophils # (Auto) 2.94 1.4-6.5 K/uL Lymphocytes # (Auto) 1.37 1.2-3.4 K/uL Monocytes # (Auto) 0.45 0.11-0.59 K/uL Eosinophils # (Auto) 0.03 0-0.5 K/uL Basophils # (Auto) 0.01 0-0.2 K/uL RDW Standard Deviation 40.5 36.4-46.3 fL RDW Coefficient of Variation 12.5 11.5-14.5 % Immature Granulocyte % (Auto) 0.0 % Immature Granulocyte # (Auto) 0.00 0.00-0.02 K/uL Sodium Level 133 136-145 mmol/L Potassium Level 4.0 3.5-5.1 mmol/L Chloride Level 100 98-107 mmol/L Carbon Dioxide Level 28 21-32 mmol/L Anion Gap 6.0 3-11 mmol/L Blood Urea Nitrogen 15 7-18 mg/dl Creatinine 1.02 0.60-1.20 mg/dl Est Creatinine Clear Calc Drug Dose 51.1 ml/min Estimated GFR () 69.7 Estimated GFR (Non- 60.2 BUN/Creatinine Ratio 14.8 10-20 Random Glucose 99 70-99 mg/dl Calcium Level 9.5 8.5-10.1 mg/dl Total Bilirubin 0.3 0.2-1 mg/dl Direct Bilirubin 0.1 0-0.2 mg/dl Aspartate Amino Transf (AST/SGOT) 18 15-37 U/L Alanine Aminotransferase (ALT/SGPT) 18 12-78 U/L Alkaline Phosphatase 57 45-117 U/L Total Protein 7.1 6.4-8.2 gm/dl Albumin 3.8 3.4-5.0 gm/dl Lipase 236 73-393 U/L Urine Color YELLOW Urine Appearance CLEAR CLEAR Urine pH 6.5 4.5-7.5 Urine Specific [place] 1.011 1.000-1.030 Urine Protein NEG NEG Urine Glucose (UA) NEG NEG Urine Ketones NEG NEG Urine Occult Blood NEG NEG Urine Nitrite NEG NEG Urine Bilirubin NEG NEG Urine Urobilinogen NEG NEG Urine Leukocyte Esterase NEG NEG Diagnostic Radiology Reviewed the following studies and agree with interpretation as follows: Patient Name: MIKAEAL FELICIANO Unit Number: [id number] Dictated: 05/16/171233 Transcribed: 05/16/171233 ARG Printed Date/Time: [~ rep prt dt]/[~ rep prt tm] [~ rep ct labl] - [~ rep ct ivnm] [facility] [place] [address] Dictated: 05/16/17 1234 Transcribed: 05/16/17 1234 ARG Printed Date/Time: [~ rep prt dt]/[~ rep prt tm] [~ rep ct labl] - [~ rep ct ivnm] Patient: MIKAELA FELICIANO Address1: [address] [place] [address] Rec: [id number] Address2: [place] [address] Acct ID: [id number] [facility] Zip: [place] [address] Date: 1960 Sex: F Room/Bed: Ref Phy: Jose Hoffman M.D. SC: CHASE Att Phy: Report #: [id number] Shweta Phy: Jose Hoffman M.D. Test: LSWOC Admit Phy: Clinical Research Administrator: ANG Interpreting Phy: Timo Haines M.D. Diagnosis: LOWER BACK PAIN,NAUSEA Ordering Phy: Alvaro Loco MD Service Date: 05/16/17 Admit Date: 05/16/17 MNE: [id number] CONF: DICTATED BY: Timo Haines M.D.]] CC: Jose Hoffman M.D. Maciejczyk, John F., MD Endcc: [~ rep ct add3]] MRI LUMBAR SPINE W/O CONTRAST CLINICAL HISTORY: Low back pain with left leg radiculopathy. INABILITY TO WALK TECHNIQUE: Sagittal and axial T1, T2 and STIR images were obtained. COMPARISON STUDY: 07/08/2016 OBSERVATIONS: The vertebral bodies and posterior elements appear intact. There is no abnormal bony signal present to suggest a marrow replacement process. There is a T12 vertebral body hemangioma. L1-2: No disc protrusions or extrusions. No evidence of spinal canal or neural foraminal compromise. L2-3: No disc protrusions or extrusions. No evidence of spinal canal or neural foraminal compromise. L3-4: There is a minimal circumferential disc bulge. There is no spinal or foraminal stenosis. L4-5: There is a circumferential disc bulge. There is no spinal stenosis. There is mild left-sided foraminal narrowing. L5-S1: There is a mild circumferential disc bulge. There is no significant spinal stenosis. There is mild sided foraminal narrowing. The conus medullaris and cauda equina appear normal. The findings remain similar to the prior June 2016 study. IMPRESSION: 1. No focal disc herniations identified 2. Mild disc bulges at the L4-5 and L5-S1 levels 3. No evidence of spinal stenosis 4. Mild left-sided foraminal narrowing at the L4-5 and L5-S1 levels. Electronically signed by: Timo Haines M.D. 05/16/2017 12:39 PM Dictated Date/Time: 05/16/2017 12:34 PM The status of this report is Signed. Draft = Not yet reviewed or approved by Radiologist. Signed = Reviewed and approved by Radiologist. <AttendingPhy></AttendingPhy> <FamilyPhy>Jose Hoffman M.D.</FamilyPhy> < PrimaryPhy>Jose Hoffman M.D.</PrimaryPhy> <UnitNumber>[id number]</ UnitNumber> <VisitNumber>[id number]</VisitNumber> <PatientName>MIKAELA FELICIANO</PatientName> <DateOfBirth>1960</DateOfBirth> <Location>[facility]</ Location> <ServiceDate>05/16/17</ServiceDate> <MNE>ESINDI</MNE> <OrderingPhy> Alvaro Loco MD</OrderingPhy> <OrderingPhyMNE>f rep ord dr becker</ OrderingPhyMNE> <DictatingPhyMNE>f rep dict dr becker</DictatingPhyMNE> <CCListMNE> f rep ct rosita</CCListMNE> <AdmittingPhyMNE>f pt admit dr becker</AdmittingPhyMNE> < AttendingPhyMNE>f pt attend dr becker</AttendingPhyMNE> <ConsultingPhyMNE>f pt consult dr becker</ConsultingPhyMNE> <FamilyPhyMNE>f pt fam dr becker</FamilyPhyMNE> <OtherPhyMNE>f pt other dr mne</OtherPhyMNE> < PrimaryPhyMNE>f pt prim care dr becker</PrimaryPhyMNE> <ReferringPhyMNE>f pt referring dr becker</ReferringPhyMNE> Impression Assessment and Plan 57 y/o female with a history of HTN, depression/anxiety, GERD, insomnia, and OCD who presented to the ED on 05/21 with intractable back pain. Pt hypertensive with BP up to 196/96. Otherwise VSS. Pt received Decadron 10 mg IV x 1, Dilaudid and fentanyl in ED. Intractable back pain, bulging disc -Admit to med/surg for observation -Decadron 10 mg IV q6h -Dilaudid 1 mg IV q3h while awake prn pain -Continue Baclofen 10 mg PO hs -Consult orthopedics, appreciate recs. Pt had been seeing Dr. Monzon HTN--Pt had been taking amlodipine 5 mg in the past but this was stopped after BP became too low. She was instructed to take 1 tab prn if BP high. -Amlodipine 5 mg PO qd for now. Elevated BP likely secondary to pain Depression/anxiety, insomnia -Continue Ativan 2 mg PO hs Chronic constipation -Continue Colace 100 mg PO TID, Dulcolax 10 mg PO hs -Milk of magnesia 30 mL PO q6h prn and MiraLAX 17 mg PO qd prn constipation GERD -Continue Zantac 150 mg PO qd DVT prophylaxis -Enoxaparin 40 mg SC q24h -MORENO Barker Code Status -Level I, FULL RESUSCITATION STATUS Level of Care Med/Surg Resuscitation Status FULL RESUSCITATION VTE Prophylaxis VTE Risk Assessment Done? Y/N: Yes Risk Level: Moderate Given or contraindicated: Enoxaparin (Lovenox)SQ, T.E.D. Stockings, SCD's
[2017-05-21 18:43] VITALS: O2SAT 100
[2017-05-21 18:52] LABS: PROTHROMBIN TIME (PATIENT) 10.8 SECONDS (9.0-12.0)
[2017-05-21] MEDS ORDERED: IV FLUIDS COMPLETED PRN (19:30)
[2017-05-21] MEDS: HYDROmorphone INJ 1 MG/ML SYR IV PRN ×2 (20:04→23:35)
[2017-05-21 20:36] VITALS: BP 166/84; PULSE 67; TEMP 36.7; O2SAT 97
--- NOTE | 2017-05-21 20:45 | EMERGENCY ROOM VISIT NOTE ---
History Report prepared by Adela: Nathaly Vences Under the Supervision of: Dr. Alvaro Loco M.D. First contact with patient: 16:05 Chief Complaint: BACK PAIN Stated Complaint: PINCHED NERVE IN BACK History of Present Illness The patient is a 57 year old female who presents to the Emergency Room with complaints of constant severe back pain beginning 6 days ago. The patient was seen in the ED 6 days ago for the same symptoms where she had an MRI done which showed a herniated disc. The patient followed up with Dr. Monzon who looked at her MRI and told her she had a pinched nerve. The patient has another appointment with Dr. Monzon in 4 days to get shots in her back but she states she couldn't wait till then because her pain is so bad. The patient got fentanyl in EMS which she states didn't help. The patient cant take prednisone by mouth. She reports left leg numbness and tingling. She noted her toes are also numb. Pt denies LOC, headache, fevers, chills, diaphoresis, visual changes , neck pain, chest pain, breathing difficulties, nausea, vomiting, abdominal pain, back pain, melena, hematochezia, incontinence, urinary symptoms, lymphadenopathy, rash, or other complaints. Source of History: patient Onset: 6 days ago Position: back Symptom Intensity: severe Timing: constant Associated Symptoms: + numbness Review of Systems See HPI for pertinent positives and negatives. A total of ten systems were reviewed and were otherwise negative. Past Medical & Surgical Medical Problems: (1) Abnormal EKG (2) Chest pain (3) Clostridium difficile colitis (4) Constipation (5) Creation of ileostomy (6) Hx-Venous Thrombosis&Embolism (7) Hypertension Nos (8) Hypothyroidism Nos (9) ileostomy reversal (10) Ileus (11) Intractable back pain (12) Laparoscopic Earlene fundoplication using abdominal approach Surgical Problems: (1) H/O ileostomy Family History FHx: cancer Hypertension Social History Smoking Status: Never Smoker Alcohol Use: none Drug Use: none Marital Status: Housing Status: lives with family Current/Historical Medications Scheduled Baclofen (Lioresal), 10 MG PO QPM Bioflavonoid Products (Vitamin C), 1 TAB PO DAILY Bisacodyl (Dulcolax), 10 MG PO HS Cholecalciferol (Vitamin D), 5,000 UNITS PO DAILY Docusate Sodium (Colace), 100 MG PO TID Lorazepam (Ativan), 2 MG PO HS Multivitamin (Multivitamin), 1 TAB PO DAILY Ranitidine (Zantac), 150 MG PO DAILY Simethicone (Simethicone), 80 MG PO TID Scheduled PRN Hydromorphone Hcl (Dilaudid), 2 MG PO Q4 PRN for Pain Polyethylene Glycol 3350 (Miralax), 17 GM PO DAILY PRN for Constipation Senna (Senokot), 1 TAB PO UD PRN for Constipation Allergies Coded Allergies: Rabeprazole (Verified Allergy, Intermediate, SWELLING, 05/21/17) Morphine (Verified Allergy, Mild, UNKNOWN, 05/21/17) Tolerates dilaudid Amitriptyline (Verified Allergy, Unknown, SWELLING, 05/21/17) Tricyclic Antidepressants (Verified Allergy, Unknown, SWELLING, 05/21/17) Ciprofloxacin (Verified Adverse Reaction, Unknown, gi upset, 05/21/17) pt Physical Exam Vital Signs Date Time Temp Pulse Resp B/P (MAP) Pulse Ox O2 Delivery O2 Flow Rate FiO2 05/21/17 17:38 69 16 100 05/21/17 17:31 176/87 05/21/17 17:23 72 21 99 05/21/17 17:08 69 24 99 05/21/17 17:07 196/96 05/21/17 16:23 73 21 99 05/21/17 16:16 79 05/21/17 16:00 178/94 05/21/17 15:58 36.7 78 20 178/94 99 Room Air Physical Exam GENERAL: Awake, alert, uncomfortable-appearing, in no distress HENT: Normocephalic, atraumatic. Oropharynx unremarkable. EYES: Normal conjunctiva. Sclera non-icteric. NECK: Supple. No nuchal rigidity. FROM. No JVD. RESPIRATORY: Clear to auscultation. CARDIAC: Regular rate, normal rhythm. Extremities warm and well perfused. Pulses equal. ABDOMEN: Soft, non-distended. No tenderness to palpation. No rebound or guarding. No masses. RECTAL: Deferred. MUSCULOSKELETAL: Chest examination reveals no tenderness. The back is symmetrical on inspection without obvious abnormality. There is no CVA tenderness to palpation. No joint edema. LOWER EXTREMITIES: No saddle anthesis, Weakness of EHL. Calves are equal size bilaterally and non-tender. No edema. No discoloration. NEURO: Normal sensorium. No sensory or motor deficits noted. SKIN: No rash or jaundice noted. Medical Decision & Procedures Laboratory Results 05/21/17 16:14 Red Blood Count 4.31, Mean Corpuscular Volume 87.2, Mean Corpuscular Hemoglobin 29.9, Mean Corpuscular Hemoglobin Concent 34.3, Mean Platelet Volume 10.2, Neutrophils (%) (Auto) 61.3, Lymphocytes (%) (Auto) 28.5, Monocytes (%) (Auto) 9.4, Eosinophils (%) (Auto) 0.6, Basophils (%) (Auto) 0.2, Neutrophils # (Auto) 2.94, Lymphocytes # (Auto) 1.37, Monocytes # (Auto) 0.45, Eosinophils # (Auto) 0.03, Basophils # (Auto) 0.01 05/21/17 16:14 Test 05/21/17 16:14 05/21/17 16:31 White Blood Count 4.80 K/uL (4.8-10.8) Red Blood Count 4.31 M/uL (4.2-5.4) Hemoglobin 12.9 g/dL (12.0-16.0) Hematocrit 37.6 % (37-47) Mean Corpuscular Volume 87.2 fL (80-100) Mean Corpuscular Hemoglobin 29.9 pg (25-34) Mean Corpuscular Hemoglobin Concent 34.3 g/dl (32-36) Platelet Count 183 K/uL (130-400) Mean Platelet Volume 10.2 fL (7.4-10.4) Neutrophils (%) (Auto) 61.3 % Lymphocytes (%) (Auto) 28.5 % Monocytes (%) (Auto) 9.4 % Eosinophils (%) (Auto) 0.6 % Basophils (%) (Auto) 0.2 % Neutrophils # (Auto) 2.94 K/uL (1.4-6.5) Lymphocytes # (Auto) 1.37 K/uL (1.2-3.4) Monocytes # (Auto) 0.45 K/uL (0.11-0.59) Eosinophils # (Auto) 0.03 K/uL (0-0.5) Basophils # (Auto) 0.01 K/uL (0-0.2) RDW Standard Deviation 40.5 fL (36.4-46.3) RDW Coefficient of Variation 12.5 % (11.5-14.5) Immature Granulocyte % (Auto) 0.0 % Immature Granulocyte # (Auto) 0.00 K/uL (0.00-0.02) Prothrombin Time 10.8 SECONDS (9.0-12.0) Prothromb Time International Ratio 1.0 (0.9-1.1) Anion Gap 6.0 mmol/L (3-11) Est Creatinine Clear Calc Drug Dose 51.1 ml/min Estimated GFR () 69.7 Estimated GFR (Non- 60.2 BUN/Creatinine Ratio 14.8 (10-20) Calcium Level 9.5 mg/dl (8.5-10.1) Total Bilirubin 0.3 mg/dl (0.2-1) Direct Bilirubin 0.1 mg/dl (0-0.2) Aspartate Amino Transf (AST/SGOT) 18 U/L (15-37) Alanine Aminotransferase (ALT/SGPT) 18 U/L (12-78) Alkaline Phosphatase 57 U/L (45-117) Total Protein 7.1 gm/dl (6.4-8.2) Albumin 3.8 gm/dl (3.4-5.0) Lipase 236 U/L (73-393) Urine Color YELLOW Urine Appearance CLEAR (CLEAR) Urine pH 6.5 (4.5-7.5) Urine Specific [place] 1.011 (1.000-1.030) Urine Protein NEG (NEG) Urine Glucose (UA) NEG (NEG) Urine Ketones NEG (NEG) Urine Occult Blood NEG (NEG) Urine Nitrite NEG (NEG) Urine Bilirubin NEG (NEG) Urine Urobilinogen NEG (NEG) Urine Leukocyte Esterase NEG (NEG) Laboratory results reviewed by me Medications Administered Medications (Trade) Dose Ordered Sig/Marvin Route Start Time Stop Time Status Last Admin Dose Admin Fentanyl Citrate (Fentanyl Inj) 50 mcg NOW STAT IV 05/21/17 16:12 05/21/17 16:13 DC 05/21/17 16:23 50 MCG Dexamethasone Sodium Phosphate (Dexamethasone Inj Pf) 10 mg NOW ONCE IV 05/21/17 17:00 11/24/17 17:01 DC 05/21/17 16:58 10 MG Hydromorphone HCl (Dilaudid Inj) 0.5 mg NOW STAT IV 05/21/17 16:53 05/21/17 16:55 DC 05/21/17 16:58 0.5 MG Hydromorphone HCl (Dilaudid Inj) 1 mg Q3HWA PRN IV 05/21/17 18:00 06/04/17 17:59 05/21/17 20:04 1 MG ED Course 1611: The patient was evaluated in room B11B. A complete history and physical exam was performed. 1612: Ordered Fentanyl Citrate 50 mcg IV. 1647: Discussed the patient's case with Dr. [facility]. He will consult the patient on the hospitalist service. 1653: Ordered Dilaudid Inj 0.5 mg IV. 1656: I updated the patient on her test results and the treatment plan. 1700: Ordered Dexamethasone Sodium Phosphate 10 mg IV. 1705: Discussed the patient's case with Dr. Sims. The patient will be evaluated for further treatment and disposition. Medical Decision Triage Nursing notes reviewed. The patient's presentation and history were concerning for back pain despite spine consultation and outpatient oral pain medication. Etiologies such as lumbago, sciatica, cauda equina, epidural abscess, osteomyelitis, fracture, aortic disease, metastatic disease, infection, renal colic, gastrointestinal, as well as others were entertained. The patient was evaluated. I did see her on the first visit and perform the MRI. She does have some disc disease. She has weakness in the left EHL. She had no saddle anesthesias currently. She had reflexes but they were diminished but equal. The patient was given IV fentanyl prehospital and in the ED. She also received IV Dilaudid. The patient was also given IV Decadron. Blood work was unremarkable. Urinalysis is negative. I did discuss the case with Dr. Lieberman of spine surgery as Dr. monzon her spine physician was currently unavailable. He recommended conservative management and will consult on her in the hospital. I did discuss the case with internal medicine. She will need admission for IV steroids and pain control as she cannot function at home despite her outpatient medications. Blood Pressure Screening Patient's blood pressure: Elevated blood pressure Blood pressure disposition: Referred to PCP (will be evaluated by hospitalist) Consults Time Called: 1640 Consulting Physician: Dr. [facility] Returned Call: [phone] Discussed the patient's case. The patient will be evaluated for further treatment and disposition. Additional Consults: Time Called: 1705 Consulted Physician: Dr. Boston Returned Call: [phone] Additional Comments: Discussed the patient's case. The patient will be evaluated for further treatment and disposition. Impression Primary Impression: Intractable back pain Scribe Attestation The scribe's documentation has been prepared under my direction and personally reviewed by me in its entirety. I confirm that the note above accurately reflects all work, treatment, procedures, and medical decision making performed by me. Departure Information Dispostion Being Evaluated By Hospitalist Referrals Jose Hoffman M.D. (PCP) Patient Instructions My [facility]
[2017-05-21 21:03] VITALS: BP 166/84; PULSE 67; TEMP 36.7; Ht 162.6 cm; Wt 54.5 kg
--- NOTE | 2017-05-21 21:26 | Orthopedic Consultation ---
Orthopedic Consultation Date of Consultation: May 21, 2017. Attending Physician: Joao Rodriguez MD, PhD Reason for Consultation: Left leg radiculopathy with intractable pain History of Present Illness Mrs. Morris is a 57-year-old female who started having pain in her left leg Around 05/09/2017. It worsened over that subsequent weekend she came to the emergency room on 05/16/2017. She then followed up with after in clinic. He scheduled her for injections into her back for May 25. She was placed on oral medication for pain control. Unfortunately, she's continued to have pain despite oral medication and return to the emergency room this evening due to difficulty functioning at home as a result of the pain. Patient was seen and examined on the floor. She denies any urinary retention. She did have a bowel movement today. She says she has pain weightbearing on that leg. She has a history of 2 sets of injections [address] Dr[address] Hoffamn in the past. She says the first set of injections didn't work but the second set of injections did give her significant relief. She reports the pain starts in her left buttock and moves down the posterior lateral aspect of the thigh and lateral leg to involve the entirety of the left foot. Past Medical/Surgical History Medical Problems: (1) Diffuse abdominal pain Status: Acute (2) Low back pain Status: Acute (3) Sciatica Status: Acute (4) Small bowel obstruction Status: Acute Family History CABG Coronary artery disease Emphysema FHx: cancer (lymphoma) Hepatic cirrhosis Hypertension Stroke Social History Smoking Status: Never Smoker Smokeless Tobacco Use: No Alcohol Use: none Drug Use: none Marital Status: Housing Status: lives with family Occupation Status: employed Allergies Coded Allergies: Rabeprazole (Verified Allergy, Intermediate, SWELLING, 05/21/17) Morphine (Verified Allergy, Mild, UNKNOWN, 05/21/17) Tolerates dilaudid Amitriptyline (Verified Allergy, Unknown, SWELLING, 05/21/17) Tricyclic Antidepressants (Verified Allergy, Unknown, SWELLING, 05/21/17) Ciprofloxacin (Verified Adverse Reaction, Unknown, gi upset, 05/21/17) pt Home Medications Scheduled Baclofen (Lioresal), 10 MG PO QPM Bioflavonoid Products (Vitamin C), 1 TAB PO DAILY Bisacodyl (Dulcolax), 10 MG PO HS Cholecalciferol (Vitamin D), 5,000 UNITS PO DAILY Docusate Sodium (Colace), 100 MG PO TID Lorazepam (Ativan), 2 MG PO HS Multivitamin (Multivitamin), 1 TAB PO DAILY Ranitidine (Zantac), 150 MG PO DAILY Simethicone (Simethicone), 80 MG PO TID Scheduled PRN Hydromorphone Hcl (Dilaudid), 2 MG PO Q4 PRN for Pain Polyethylene Glycol 3350 (Miralax), 17 GM PO DAILY PRN for Constipation Senna (Senokot), 1 TAB PO UD PRN for Constipation Current Inpatient Medications Current Inpatient Medications Medications (Trade) Dose Ordered Sig/Marvin Route Start Time Stop Time Status Last Admin Dose Admin Enoxaparin Sodium (Lovenox Inj) 40 mg Q24H SQ 05/21/17 21:00 06/20/17 17:59 Acetaminophen (Tylenol Tab) 650 mg Q4H PRN PO 05/21/17 18:00 06/20/17 17:59 Al Hydrox/Mg Hydrox/Simethicone (Maalox Max Susp) 15 ml Q4H PRN PO 05/21/17 18:00 06/20/17 17:59 Magnesium Hydroxide (Milk Of Magnesia Susp) 30 ml Q6H PRN PO 05/21/17 18:00 06/20/17 17:59 Polyethylene (Miralax Powder Packet) 17 gm DAILY PRN PO 05/21/17 18:00 06/20/17 17:59 Ondansetron HCl (Zofran Inj) 4 mg Q6H PRN IV 05/21/17 18:00 06/20/17 17:59 Dexamethasone Sodium Phosphate 10 mg/Syringe 2.5 ml @ 1 mls/min Q6H IV 05/21/17 22:00 06/20/17 17:59 Hydromorphone HCl (Dilaudid Inj) 1 mg Q3HWA PRN IV 05/21/17 18:00 06/04/17 17:59 05/21/17 20:04 1 MG Baclofen (Lioresal Tab) 10 mg QPM PO 05/21/17 21:00 06/20/17 20:59 Bisacodyl (Dulcolax Tab) 10 mg HS PO 05/21/17 21:00 06/20/17 20:59 Docusate Sodium (coLACE CAP) 100 mg TID PO 05/21/17 21:00 06/20/17 20:59 Lorazepam (Ativan Tab) 2 mg HS PO 05/21/17 21:00 06/20/17 20:59 Multivitamins (Multivitamin Tab) 1 tab DAILY PO 05/22/17 09:00 06/21/17 08:59 Ranitidine HCl (zANTac TAB) 150 mg DAILY PO 05/22/17 09:00 06/21/17 08:59 Simethicone (Mylicon Chew Tab) 80 mg TID PO 05/21/17 21:00 06/20/17 20:59 Amlodipine Besylate (Norvasc Tab) 5 mg QAM PO 05/22/17 09:00 06/21/17 08:59 Miscellaneous (Iv Fluids Completed) 1 ea PRN PRN N/A 05/21/17 19:30 05/21/18 19:29 Review of Systems Constitutional: No fever, No chills Physical Exam Date Time Temp Pulse Resp B/P (MAP) Pulse Ox O2 Delivery O2 Flow Rate FiO2 05/21/17 20:36 36.7 67 16 166/84 (111) 97 Room Air 05/21/17 18:43 36.7 69 16 176/87 100 05/21/17 17:38 69 16 100 05/21/17 17:31 176/87 05/21/17 17:23 72 21 99 05/21/17 17:08 69 24 99 05/21/17 17:07 196/96 05/21/17 16:23 73 21 99 05/21/17 16:16 79 05/21/17 16:00 178/94 05/21/17 15:58 36.7 78 20 178/94 99 Room Air On exam she has decreased sensation to light touch in the L4 and L5 distributions. Also decreased sensation in the S1 distribution although to a lesser extent. Normal sensation in the L3 as well as the S2 through 5 distributions on the buttock. Rectal exam was deferred. She is dropped her patellar reflex on the left. It is intact and 2+ on the right. Her Achilles reflexes are symmetric and 1+ bilaterally. She has weakness on the left lower extremity motor testing compared to the right including 4 out of 5 in EHL tib and gastrocsoleus and quadriceps. 5 out of 5 strength and hamstrings. Exam is however slightly limited secondary to pain with motor testing. Full range motion of her knee and ankle. She has a positive straight leg raise on the left. Negative cross straight leg raise on the right. General Appearance: + mild distress, + thin Head: normocephalic, atraumatic Eyes: normal inspection ENT: hearing grossly normal Respiratory/Chest: no respiratory distress, no accessory muscle use Cardiovascular: normal peripheral pulses Extremities/Musculoskelatal: no pedal edema Neurologic/Psych: alert, oriented x 3, + motor weakness, + abnormal reflexes, + pertinent finding Laboratory Results Last 24 Hours Test 05/21/17 16:14 05/21/17 16:31 White Blood Count 4.80 K/uL Red Blood Count 4.31 M/uL Hemoglobin 12.9 g/dL Hematocrit 37.6 % Mean Corpuscular Volume 87.2 fL Mean Corpuscular Hemoglobin 29.9 pg Mean Corpuscular Hemoglobin Concent 34.3 g/dl Platelet Count 183 K/uL Mean Platelet Volume 10.2 fL Neutrophils (%) (Auto) 61.3 % Lymphocytes (%) (Auto) 28.5 % Monocytes (%) (Auto) 9.4 % Eosinophils (%) (Auto) 0.6 % Basophils (%) (Auto) 0.2 % Neutrophils # (Auto) 2.94 K/uL Lymphocytes # (Auto) 1.37 K/uL Monocytes # (Auto) 0.45 K/uL Eosinophils # (Auto) 0.03 K/uL Basophils # (Auto) 0.01 K/uL RDW Standard Deviation 40.5 fL RDW Coefficient of Variation 12.5 % Immature Granulocyte % (Auto) 0.0 % Immature Granulocyte # (Auto) 0.00 K/uL Prothrombin Time 10.8 SECONDS Prothromb Time International Ratio 1.0 Sodium Level 133 mmol/L Potassium Level 4.0 mmol/L Chloride Level 100 mmol/L Carbon Dioxide Level 28 mmol/L Anion Gap 6.0 mmol/L Blood Urea Nitrogen 15 mg/dl Creatinine 1.02 mg/dl Est Creatinine Clear Calc Drug Dose 51.1 ml/min Estimated GFR () 69.7 Estimated GFR (Non- 60.2 BUN/Creatinine Ratio 14.8 Random Glucose 99 mg/dl Calcium Level 9.5 mg/dl Total Bilirubin 0.3 mg/dl Direct Bilirubin 0.1 mg/dl Aspartate Amino Transf (AST/SGOT) 18 U/L Alanine Aminotransferase (ALT/SGPT) 18 U/L Alkaline Phosphatase 57 U/L Total Protein 7.1 gm/dl Albumin 3.8 gm/dl Lipase 236 U/L Urine Color YELLOW Urine Appearance CLEAR Urine pH 6.5 Urine Specific [place] 1.011 Urine Protein NEG Urine Glucose (UA) NEG Urine Ketones NEG Urine Occult Blood NEG Urine Nitrite NEG Urine Bilirubin NEG Urine Urobilinogen NEG Urine Leukocyte Esterase NEG MRI performed on 05/16/2017 is reviewed. This shows a left lateral disc bulge at L4 5 as well as L5-S1 with foraminal narrowing noted to be compressing the left sided the L4 and L5 nerve roots. Assessment & Plan Assessment 57-year-old female with intractable pain secondary to L4 and L5 radiculopathy of the left leg secondary to disc herniation. Plan: recommend continuing Decadron and current pain control measures. Recommend adding Neurontin as well as scheduled Toradol with monitoring of her kidney function. Also recommend consulting pain management for consideration of epidural steroid injection if I can be formed earlier than Wednesday. I discussed her case with Dr. Monzon. He may be able to move her injection up to Wednesday but is not certain about this at present. Recommend social work consult. Also recommend a new MRI given her new neurologic findings of a dropped left patellar reflex. She should be seen by physical therapy for assistance in mobilization as well as occupational therapy. Orthopedics will continue to follow. Feel free to contact orthopedics with any questions.
[2017-05-21] MEDS: BACLOFEN 10 MG TAB PO SCH (21:36)
[2017-05-21] MEDS: SIMETHICONE 80 MG CHEW PO SCH (21:36)
[2017-05-21] MEDS: DOCUSATE SODIUM 100 MG CAP PO SCH (21:37)
[2017-05-21] MEDS: LORAZEPAM 2 MG TAB PO SCH (21:42)
[2017-05-21] MEDS: BISACODYL 5 MG TABEC PO SCH (21:42)
[2017-05-21] MEDS: DEXAMETHASONE INJ 10 MG in SYRINGE 0 ML IV SCH (21:43)
[2017-05-21] MEDS: ENOXAPARIN 40 MG/0.4 ML SYR SQ SCH (21:43)
[2017-05-21 22:50] VITALS: BP 133/80; PULSE 80; TEMP 37.2; O2SAT 97
[2017-05-22] MEDS: HYDROmorphone INJ 1 MG/ML SYR IV PRN ×2 (03:14→08:34)
[2017-05-22] MEDS: DEXAMETHASONE INJ 10 MG in SYRINGE 0 ML IV SCH ×2 (04:26→10:03)
[2017-05-22 05:57] LABS: HEMATOCRIT 37.9 % (37-47); MEAN CELL VOLUME 88.1 fL (80-100); MEAN CORPUSCULAR HEMOGLOBIN 29.8 pg (25-34); MEAN CORPUSCULAR HGB CONC 33.8 g/dl (32-36); MEAN PLATELET VOLUME 10.2 fL (7.4-10.4); PLATELET COUNT 179 K/uL (130-400); WHITE BLOOD COUNT 4.64 K/uL (4.8-10.8)
[2017-05-22 06:27] LABS: BUN/CREATININE RATIO 24.1 (10-20); CALCIUM 9.7 mg/dl (8.5-10.1); CREATININE 0.74 mg/dl (0.60-1.20); POTASSIUM 4.6 mmol/L (3.5-5.1)
[2017-05-22 07:22] VITALS: BP 133/74; PULSE 72; TEMP 36.8; O2SAT 97
[2017-05-22] MEDS: DOCUSATE SODIUM 100 MG CAP PO SCH ×3 (08:28→21:27)
[2017-05-22] MEDS: SIMETHICONE 80 MG CHEW PO SCH ×3 (08:29→21:27)
[2017-05-22] MEDS: AMLODIPINE BESYLATE 5 MG TAB PO SCH ×2 (08:30→16:33)
[2017-05-22] MEDS: MULTIVITAMIN TAB PO SCH (08:30)
[2017-05-22] MEDS: RANITIDINE HCL 150 MG TAB PO SCH (10:03)
--- NOTE | 2017-05-22 12:31 | Progress Note ---
Subjective Date of Service: May 22, 2017. Subjective left radicular leg pain and weakness, ortho spine has seen and recommends Neurontin and re imaging Problem List Medical Problems: (1) Diffuse abdominal pain Status: Acute (2) Low back pain Status: Acute (3) Sciatica Status: Acute (4) Small bowel obstruction Status: Acute Review of Systems Constitutional: No fever, No chills Respiratory: No cough, No sputum Abdomen: No pain, No nausea Musculoskeletal: + muscle pain, No joint pain Neurologic: + weakness, + numbness/tingling Objective Vital Signs Date Time Temp Pulse Resp B/P (MAP) Pulse Ox O2 Delivery O2 Flow Rate FiO2 05/22/17 07:22 36.8 72 16 133/74 (93) 97 Room Air 05/21/17 23:40 Room Air 05/21/17 22:50 37.2 80 16 133/80 (97) 97 Room Air 05/21/17 21:03 36.7 67 16 166/84 Room Air 05/21/17 20:36 36.7 67 16 166/84 (111) 97 Room Air 05/21/17 18:43 36.7 69 16 176/87 100 05/21/17 17:38 69 16 100 05/21/17 17:31 176/87 05/21/17 17:23 72 21 99 05/21/17 17:08 69 24 99 05/21/17 17:07 196/96 05/21/17 16:23 73 21 99 05/21/17 16:16 79 05/21/17 16:00 178/94 05/21/17 15:58 36.7 78 20 178/94 99 Room Air Physical Exam General Appearance: WD/WN, + mild distress Eyes: PERRL, EOMI Respiratory/Chest: chest non-tender, lungs clear, normal breath sounds Cardiovascular: regular rate, rhythm, no murmur Abdomen: normal bowel sounds, non tender, soft Extremities: + pertinent finding (left weakness and pain) Neurologic/Psychiatric: alert, oriented x 3 Laboratory Results Last 24 Hours Test 05/21/17 16:14 05/21/17 16:31 05/22/17 05:25 White Blood Count 4.80 K/uL 4.64 K/uL Red Blood Count 4.31 M/uL 4.30 M/uL Hemoglobin 12.9 g/dL 12.8 g/dL Hematocrit 37.6 % 37.9 % Mean Corpuscular Volume 87.2 fL 88.1 fL Mean Corpuscular Hemoglobin 29.9 pg 29.8 pg Mean Corpuscular Hemoglobin Concent 34.3 g/dl 33.8 g/dl Platelet Count 183 K/uL 179 K/uL Mean Platelet Volume 10.2 fL 10.2 fL Neutrophils (%) (Auto) 61.3 % Lymphocytes (%) (Auto) 28.5 % Monocytes (%) (Auto) 9.4 % Eosinophils (%) (Auto) 0.6 % Basophils (%) (Auto) 0.2 % Neutrophils # (Auto) 2.94 K/uL Lymphocytes # (Auto) 1.37 K/uL Monocytes # (Auto) 0.45 K/uL Eosinophils # (Auto) 0.03 K/uL Basophils # (Auto) 0.01 K/uL RDW Standard Deviation 40.5 fL 40.8 fL RDW Coefficient of Variation 12.5 % 12.7 % Immature Granulocyte % (Auto) 0.0 % Immature Granulocyte # (Auto) 0.00 K/uL Prothrombin Time 10.8 SECONDS Prothromb Time International Ratio 1.0 Sodium Level 133 mmol/L 136 mmol/L Potassium Level 4.0 mmol/L 4.6 mmol/L Chloride Level 100 mmol/L 102 mmol/L Carbon Dioxide Level 28 mmol/L 30 mmol/L Anion Gap 6.0 mmol/L 5.0 mmol/L Blood Urea Nitrogen 15 mg/dl 18 mg/dl Creatinine 1.02 mg/dl 0.74 mg/dl Est Creatinine Clear Calc Drug Dose 51.1 ml/min 70.5 ml/min Estimated GFR () 69.7 102.8 Estimated GFR (Non- 60.2 88.7 BUN/Creatinine Ratio 14.8 24.1 Random Glucose 99 mg/dl 136 mg/dl Calcium Level 9.5 mg/dl 9.7 mg/dl Total Bilirubin 0.3 mg/dl Direct Bilirubin 0.1 mg/dl Aspartate Amino Transf (AST/SGOT) 18 U/L Alanine Aminotransferase (ALT/SGPT) 18 U/L Alkaline Phosphatase 57 U/L Total Protein 7.1 gm/dl Albumin 3.8 gm/dl Lipase 236 U/L Urine Color YELLOW Urine Appearance CLEAR Urine pH 6.5 Urine Specific [place] 1.011 Urine Protein NEG Urine Glucose (UA) NEG Urine Ketones NEG Urine Occult Blood NEG Urine Nitrite NEG Urine Bilirubin NEG Urine Urobilinogen NEG Urine Leukocyte Esterase NEG Assessment and Plan 57 y/o female with intractable back pain, failed conservative treatment with Dr Monzon, history of HTN, depression/anxiety, GERD, insomnia, Decadron 10 mg IV x 1, Dilaudid and fentanyl in ED. Intractable back pain, bulging disc-Decadron 4 mg IV q6h( states po steroids cause delerium) -Dilaudid 1 mg IV q3h Baclofen 10 mg PO hs, added Neurontin per ortho -Consulted Dr. Monzon, recommend re imaging HTN---Amlodipine 5 mg PO Depression/anxiety, insomnia Ativan 2 mg PO hs Chronic constipation Colace 100 mg PO TID, Dulcolax 10 mg PO hs -Milk of magnesia 30 mL PO q6h prn and MiraLAX 17 mg PO qd prn GERD Zantac 150 mg PO qd DVT prophylaxis-Enoxaparin 40 mg SC q24h -MORENO nash and SCDs Code Status -Level I, FULL RESUSCITATION STATUS
[2017-05-22] MEDS ORDERED: POLYETHYLENE (MIRALAX) 17 GM PACK PO SCH (13:15)
--- NOTE | 2017-05-22 14:30 | DIAGNOSTIC IMAGING REPORT ---
MRI OF THE LUMBAR SPINE WITHOUT CONTRAST CLINICAL HISTORY: Left leg weakness and numbness. Intractable back pain. COMPARISON STUDY: MRI of the lumbar spine May 16, 2017. TECHNIQUE: Utilizing a 1.5 Carmen magnet and dedicated coil, multiplanar, multiecho imaging of the lumbar spine was performed without IV contrast. FINDINGS: For purposes of numbering on this exam, the L5-S1 disc space is assigned to image 28 of 30. Alignment of the lumbar spine is anatomic. Vertebral body heights are maintained and there is no suspicious marrow replacement. Scattered T1 and T2 hyperintense lesions reflect hemangiomas. There is no intracanalicular mass or fluid collection. Conus terminates at the upper L1 level. Paravertebral soft tissues are unremarkable. L1-2: The central canal and neural foramen are patent. L2-3: The central canal and neural foramen are patent. L3-4: The central canal and neural foramen are patent. L4-5: Disc desiccation with a disc bulge and a small left foraminal disc protrusion that results in moderate narrowing of the left neural foramen. This disc protrusion was not evident on prior exam. This contacts the exiting left L4 nerve root. The right neural foramen and central canal are patent. L5-S1: There is disc desiccation. There is a small broad-based left foraminal disc protrusion which is more conspicuous than on prior exam. There is mild facet arthrosis. There is moderate narrowing of the left neural foramen. Central canal and right neural foramen are patent. IMPRESSION: 1. Small left foraminal disc protrusion at L4-L5 that results in moderate narrowing of the left neural foramen. This contacts the exiting left L4 nerve root. 2. Small left foraminal disc protrusion at L5-S1 which contacts the exiting left L5 nerve root and results in moderate narrowing of the left neural foramen. Electronically signed by: Vignesh Sylvester M.D. 05/22/2017 2:28 PM Dictated Date/Time: 05/22/2017 2:08 PM
[2017-05-22 15:23] VITALS: BP 181/95; PULSE 81; TEMP 36.7; O2SAT 100
[2017-05-22] MEDS: DEXAMETHASONE INJ 4 MG in SYRINGE 0 ML IV SCH ×2 (16:33→21:28)
[2017-05-22 18:06] VITALS: BP 157/81; PULSE 77
[2017-05-22 21:15] VITALS: BP 166/86
[2017-05-22] MEDS: LORAZEPAM 2 MG TAB PO SCH (21:26)
[2017-05-22] MEDS: BACLOFEN 10 MG TAB PO SCH (21:27)
[2017-05-22] MEDS: ENOXAPARIN 40 MG/0.4 ML SYR SQ SCH (21:28)
[2017-05-22] MEDS: ACETAMINOPHEN 325 MG TAB PO PRN (21:29)
[2017-05-22] MEDS: BISACODYL 5 MG TABEC PO SCH (21:32)
[2017-05-22 23:00] VITALS: BP 154/81; PULSE 72; TEMP 37; O2SAT 98
[2017-05-23] MEDS: DEXAMETHASONE INJ 4 MG in SYRINGE 0 ML IV SCH ×4 (03:50→20:58)
[2017-05-23 05:33] LABS: HEMATOCRIT 39.5 % (37-47); MEAN CELL VOLUME 88.4 fL (80-100); MEAN CORPUSCULAR HEMOGLOBIN 29.8 pg (25-34); MEAN CORPUSCULAR HGB CONC 33.7 g/dl (32-36); MEAN PLATELET VOLUME 10.5 fL (7.4-10.4); PLATELET COUNT 186 K/uL (130-400); RED BLOOD COUNT 4.47 M/uL (4.2-5.4); WHITE BLOOD COUNT 10.56 K/uL (4.8-10.8)
[2017-05-23 06:00] LABS: BUN/CREATININE RATIO 32.4 (10-20); CALCIUM 9.3 mg/dl (8.5-10.1); CREATININE 0.74 mg/dl (0.60-1.20); POTASSIUM 4.5 mmol/L (3.5-5.1)
[2017-05-23 07:00] VITALS: BP 155/83; PULSE 68; TEMP 36.8; O2SAT 99
[2017-05-23] MEDS ORDERED: BISACODYL 10 MG SUPP PR STA (07:39)
--- NOTE | 2017-05-23 07:43 | Progress Note ---
Subjective Date of Service: May 23, 2017. Subjective pt has not had great improvement in symptoms other than reduction in pain from -12/05. reportedly surgery is considering pain management intervention Problem List Medical Problems: (1) Diffuse abdominal pain Status: Acute (2) Low back pain Status: Acute (3) Sciatica Status: Acute (4) Small bowel obstruction Status: Acute Review of Systems Constitutional: + weakness, + fatigue, No fever, No chills Respiratory: No cough, No shortness of breath Cardiac: No chest pain, No edema Abdomen: + constipation, No pain, No nausea, No vomiting, No diarrhea Musculoskeletal: + muscle pain, No joint pain Female : No dysuria, No urinary frequency Objective Vital Signs Date Time Temp Pulse Resp B/P (MAP) Pulse Ox O2 Delivery O2 Flow Rate FiO2 05/23/17 07:00 36.8 68 18 155/83 (107) 99 Room Air 05/22/17 23:00 37.0 72 16 154/81 (105) 98 Room Air 05/22/17 21:15 166/86 (112) 05/22/17 21:00 Room Air 05/22/17 18:06 77 157/81 (106) 05/22/17 15:23 36.7 81 18 181/95 (123) 100 Room Air 05/22/17 08:34 Room Air Physical Exam General Appearance: WD/WN, + moderate distress Eyes: PERRL, EOMI Respiratory/Chest: chest non-tender, lungs clear, normal breath sounds Cardiovascular: regular rate, rhythm, no murmur Abdomen: normal bowel sounds, non tender, soft Extremities: no pedal edema, no calf tenderness Neurologic/Psychiatric: alert, oriented x 3, + motor weakness, + sensory deficit Laboratory Results Last 24 Hours Test 05/23/17 05:20 White Blood Count 10.56 K/uL Red Blood Count 4.47 M/uL Hemoglobin 13.3 g/dL Hematocrit 39.5 % Mean Corpuscular Volume 88.4 fL Mean Corpuscular Hemoglobin 29.8 pg Mean Corpuscular Hemoglobin Concent 33.7 g/dl RDW Standard Deviation 41.1 fL RDW Coefficient of Variation 12.7 % Platelet Count 186 K/uL Mean Platelet Volume 10.5 fL Sodium Level 134 mmol/L Potassium Level 4.5 mmol/L Chloride Level 100 mmol/L Carbon Dioxide Level 27 mmol/L Anion Gap 7.0 mmol/L Blood Urea Nitrogen 24 mg/dl Creatinine 0.74 mg/dl Est Creatinine Clear Calc Drug Dose 70.5 ml/min Estimated GFR () 102.8 Estimated GFR (Non- 88.7 BUN/Creatinine Ratio 32.4 Random Glucose 125 mg/dl Calcium Level 9.3 mg/dl Assessment and Plan 57 y/o female with intractable back pain, failed conservative treatment with Dr Monzon, history of HTN, depression/anxiety, GERD, insomnia, Decadron 10 mg IV x 1, Dilaudid and fentanyl in ED. Intractable back pain, bulging disc-Decadron 4 mg IV q6h( states po steroids cause delerium) -Dilaudid 1 mg IV q3h Baclofen 10 mg PO hs, added Neurontin will titrate 05/23 -Consulted Dr. Monzon, MRI shows nerve root impingement of L4 and L5 nerve roots , trying to coordinate pain management HTN---Amlodipine 5 mg PO, elevated with pain flair Depression/anxiety, insomnia Ativan 2 mg PO hs. pt states feels well Chronic constipation this is a significant issue adding dulcolax suppository and now fleets, Colace 100 mg PO TID, Dulcolax 10 mg PO hs -Milk of magnesia 30 mL PO q6h prn and MiraLAX 17 mg PO qd prn GERD Zantac 150 mg PO qd DVT prophylaxis-Enoxaparin 40 mg SC q24h -MORENO Barker Code Status -Level I, FULL RESUSCITATION STATUS
[2017-05-23] MEDS: RANITIDINE HCL 150 MG TAB PO SCH (07:48)
[2017-05-23] MEDS: MULTIVITAMIN TAB PO SCH (07:48)
[2017-05-23] MEDS: DOCUSATE SODIUM 100 MG CAP PO SCH ×3 (07:48→20:58)
[2017-05-23] MEDS: SIMETHICONE 80 MG CHEW PO SCH ×3 (07:48→20:58)
--- NOTE | 2017-05-23 08:55 | ORTHOPEDICS PROGRESS NOTE ---
DATE: 05/23/2017 SUBJECTIVE: Pain pretty good shape here at rest. She describes her pain 0 to 10 at 8, but she seems relatively comfortable to me. Her bowels are functioning. She does get out of bed to a bedside commode. OBJECTIVE: NEUROLOGICAL: She has weakness of her great toe on the left hand side. She has slight sensory deficit. She has moderate pain with straight leg raising. Hip and knee examination normal. SKIN: Intact. IMAGES: Demonstrated a small disk protrusion, L4-L5 on the left hand side. IMPRESSION: Small to moderate disk protrusion, left hand side in a 57-year-old female. She also has significant problems with constipation in the past and has needed a colostomy in the past in reversal. She also has a difficulty with narcotics secondary to causing constipation. She also has difficulty with steroids as they increase her anxiety. She also has hypertension, now possibly secondary to pain. PLAN: I put in a consultation today for pain management, hopefully pain management can see her today which is Wednesday or tomorrow morning. I would like to try giving her a transforaminal injection L4-L5 on the affected side, which is the left hand side, L4-L5 would be the area that I can see radiographically as a point of compression. Optimistically, we can get her home and control her pain in the next few days. If she succumbed to need surgical intervention that could possibly be the following week or the first week of May. Will be careful with analgesics control of her hypertension. I explained to the patient that our plan again consultation with pain management, hopefully injection tomorrow the next day and then home resting hopefully controlling her pain and then possible surgery. The one confusing issue is that her disk protrusion does not look that large, yet her pain seems a little bit out of proportion. I have seen to proceed these situation before where the MRI just under read to the disk protrusion or the patient has an acute inflammatory chemical response, which gives her significant pain unrelated to the images.
[2017-05-23] MEDS ORDERED: POLYETHYLENE (MIRALAX) 17 GM PACK PO SCH (09:00)
[2017-05-23] MEDS: AMLODIPINE BESYLATE 5 MG TAB PO SCH (09:06)
[2017-05-23] MEDS: ACETAMINOPHEN 325 MG TAB PO PRN (09:06)
[2017-05-23] MEDS: POLYETHYLENE (MIRALAX) 17 GM PACK PO SCH ×2 (09:07→20:58)
[2017-05-23] MEDS ORDERED: SOD PHOSPHATE/SOD BIPHOSPHATE ENEMA 132 ML BTL PR STA (12:10)
[2017-05-23] MEDS: GABAPENTIN 100 MG CAP PO SCH ×2 (14:49→21:00)
[2017-05-23 15:01] VITALS: BP 138/79; PULSE 80; TEMP 36.8; O2SAT 97
[2017-05-23] MEDS: BACLOFEN 10 MG TAB PO SCH (20:58)
[2017-05-23] MEDS: BISACODYL 5 MG TABEC PO SCH (21:02)
[2017-05-23] MEDS: LORAZEPAM 2 MG TAB PO SCH (21:02)
[2017-05-23 22:55] VITALS: BP 149/82; PULSE 72; TEMP 36.5; O2SAT 97
[2017-05-24] MEDS: DEXAMETHASONE INJ 4 MG in SYRINGE 0 ML IV SCH ×4 (04:09→21:57)
[2017-05-24] MEDS: ACETAMINOPHEN 325 MG TAB PO PRN ×2 (04:15→20:33)
[2017-05-24 06:09] LABS: HEMATOCRIT 39.5 % (37-47); MEAN CORPUSCULAR HGB CONC 33.7 g/dl (32-36); MEAN PLATELET VOLUME 10.2 fL (7.4-10.4); PLATELET COUNT 198 K/uL (130-400); RED BLOOD COUNT 4.44 M/uL (4.2-5.4); WHITE BLOOD COUNT 8.97 K/uL (4.8-10.8)
[2017-05-24 06:44] LABS: BUN/CREATININE RATIO 32.4 (10-20); CALCIUM 9.5 mg/dl (8.5-10.1); CREATININE 0.75 mg/dl (0.60-1.20); POTASSIUM 4.2 mmol/L (3.5-5.1)
--- NOTE | 2017-05-24 07:09 | ORTHOPEDIC CONSULTATION ---
DATE OF ADMISSION: 05/21/2017 ROOM: 362 CHIEF COMPLAINT: Left leg pain. HISTORY OF PRESENT ILLNESS: Brooke is a pleasant young lady. She is 57. She is majorly compromised here today. I have met her in the office approximately 5 days ago. She had a lumbar spine radiculopathy with myopenia disc protrusion lumbar spine at L4-5. The radiology report did not mention more of a mild bulging, I think that is possibly incorrect, but I will talk to her radiologist within the next 24 hours. She was sent home on some analgesics including Dilaudid. The pain became too severe, she reappeared in the Emergency Room on the , the day after Thanksgi. She is admitted to medical service, Dr. Jones, is seeing her as well. He had got a hold of me, I was out of town and I agreed to come in and see her sometime this weekend. The date of my dictation is the and it is approximately at 3:30. Her pain is significant. It is sharp, stabbing, compromising and now associated with some weakness, particularly in the great toe on the left hand side slightly in the quadriceps. She has no fevers, sweats, chills, no bowel and bladder issues. She does have difficulty with chronic constipation, which led eventually to a colostomy at one point and reversal, so she is fairly complicated as far as that is concerned. PAST MEDICAL AND SURGICAL HISTORY: Reviewed. FAMILY HISTORY: Heart disease, diabetes, hypertension. SOCIAL HISTORY: Nonsmoker, non-ET[employer] user. She is employed. Vaccination positive for influenza, negative tetanus. ALLERGIES: TOO MANY MEDICATIONS LISTED ON THE HISTORY AND PHYSICAL. SCHEDULED MEDICATIONS AT HOME: Dilaudid, MiraLax, and Senokot. REVIEW OF SYSTEMS: No fever, sweats, chills, borderline constipation. Denies any head issues or any confusion. Denies chest pain, palpitations. No shortness of breath. No nausea, vomiting. Currently, some constipation. Her major positive review is her lower extremity pain, numbness, tingling, weakness. PHYSICAL EXAMINATION: VITAL SIGNS: Stable. Blood pressure 170/80, pulse of 80, respirations 20. GENERAL: She is afebrile. Her general appearance is relatively healthy, although appears to be in distress, certainly I think worried. HEAD: She is normocephalic. No exostoses. EYES: Normal. Pupils reactive to light. EAR, NOSE AND THROAT: Negative. NECK: Supple. LUNGS: Clear. CARDIOVASCULAR: Regular rate and rhythm. ABDOMEN: Soft, nontender. EXTREMITIES: Of course are intact. She has paresthesias and numbness in the L4-5 nerve root distribution on the left hand side. She has weakness of great toe on the left. She has some pain with straight leg raising on the left. SKIN: No unusual skin markings. NEUROLOGIC: No signs of upper motor neuron issues. Alert, oriented. Mood and affect appropriate, slightly depressed. IMAGING STUDIES: MRI was reviewed in detail. There was, according to the report, a mild disc bulge at L4-L5, no stenosis at L5-S1, mild issues L5-S1. No spinal stenosis or herniation at L3-4, L2-3, L1-2. SUMMARY: Includes that of a delightful patient who is miserable with back and lower extremity difficulty, sciatica, nerve root irritation, weakness of the great toe and slight of the quadriceps on the left hand side with fairly mild radiographic finding. When I looked closely at the images, I do think there is a disc herniation at L4-5, right underneath the facet joints on the left hand side as well, but I will need to clear that with a radiologist. DISPOSITION: Right now on the short run, we will try IV medication and try to get this under control, consult pain management, possibly a transforaminal injection. L4-5 would be my best estimate to give her some pain relief and pain control. There is a possibility of surgical intervention. I have informed the patient that I will be heading out of town next Wednesday, but will be returning in a week. So, if she does need surgery, she will have to wait for me or another spine surgeon of course can take care of her problem if need be. Hopefully, this will respond to conservative nonoperative measures.
[2017-05-24 07:23] VITALS: BP 148/80; PULSE 62; TEMP 36.6; O2SAT 99
[2017-05-24] MEDS: SIMETHICONE 80 MG CHEW PO SCH ×3 (09:00→21:00)
[2017-05-24] MEDS: DOCUSATE SODIUM 100 MG CAP PO SCH ×3 (09:00→20:59)
[2017-05-24] MEDS: AMLODIPINE BESYLATE 5 MG TAB PO SCH (09:00)
[2017-05-24] MEDS: RANITIDINE HCL 150 MG TAB PO SCH (09:00)
[2017-05-24] MEDS: POLYETHYLENE (MIRALAX) 17 GM PACK PO SCH ×2 (09:00→20:59)
[2017-05-24] MEDS: GABAPENTIN 100 MG CAP PO SCH ×3 (09:00→20:59)
[2017-05-24] MEDS: MULTIVITAMIN TAB PO SCH (09:00)
--- NOTE | 2017-05-24 09:38 | Pain Management Consultation ---
Pain Management Consultation Date of Consultation May 24, 2017. Reason for Consultation Left leg radiculapathy Pain Location 1 - Left lateral thigh pain. 2 - Pain tawny all toes 3 - Posterio thigh pain History Brooke Degroot is a 57-year-old female admitted to [facility] for acute left leg radiculopathy. Today she reports that she has been experiencing new onset of left leg pain, numbness and weakness with flexion of the left hip that started without any inciting event several days ago. She reports the pain as being burning and constant nature in the lateral thigh and posterior lateral aspect of her left calf and into all her toes. Pain is associated with weakness in the left hip flexors. Pain occurs spontaneously and is worsened with any weightbearing. Laying in supine position appears most comfortable for her. She rates her pain as 8/10 when severe and 2/10 when minimal. She reports increased symptoms and anxiety due to inability to use opioids as it contributes to her underlying constipation. She denies any saddle anesthesia, bowel or bladder incontinence, or any progressive symptoms since the recurrence of her typical radiculopathy. So far, she has undergone previous SI joint injection in the right side, facet injection and a right side, as well as right paramedian intralaminar injection in October 2016 for right-sided radicular pain. This admission, she has been placed on gabapentin, as well as hydromorphone. However, hydromorphone discontinued as it contributes to her constipation. She has also been placed on IV steroids which reports contributes to hypertension anxiety. This morning she reports that she is scheduled to undergo "shot" later this afternoon and possibly scheduled for surgery tomorrow. She has underlying past medical history with GI symptoms including hypomotility and has been refraining from taking opioids as it contributes to her hypomotility. Past Medical/Surgical History (1) Ileus (2) Constipation (3) Intractable back pain (4) Hx-Venous Thrombosis&Embolism (5) Hypertension Nos (6) Hypothyroidism Nos (7) Laparoscopic Earlene fundoplication using abdominal approach (8) Clostridium difficile colitis (9) H/O ileostomy Family History CABG Coronary artery disease Emphysema FHx: cancer (lymphoma) Hepatic cirrhosis Hypertension Stroke Social / Work History Smokeless Tobacco Use: No Alcohol Use: none Marital Status: Housing Status: lives with significant other Occupation: employed Allergies Coded Allergies: Rabeprazole (Verified Allergy, Intermediate, SWELLING, 05/21/17) Morphine (Verified Allergy, Mild, UNKNOWN, 05/21/17) Tolerates dilaudid Amitriptyline (Verified Allergy, Unknown, SWELLING, 05/21/17) Tricyclic Antidepressants (Verified Allergy, Unknown, SWELLING, 05/21/17) Ciprofloxacin (Verified Adverse Reaction, Unknown, gi upset, 05/21/17) pt Medications Current Inpatient Medications Medications (Trade) Dose Ordered Sig/Marvin Route Start Time Stop Time Status Last Admin Dose Admin Enoxaparin Sodium (Lovenox Inj) 40 mg Q24H SQ 05/21/17 21:00 06/20/17 17:59 Future Hold 05/22/17 21:28 40 MG Acetaminophen (Tylenol Tab) 650 mg Q4H PRN PO 05/21/17 18:00 06/20/17 17:59 05/24/17 04:15 650 MG Al Hydrox/Mg Hydrox/Simethicone (Maalox Max Susp) 15 ml Q4H PRN PO 05/21/17 18:00 06/20/17 17:59 Magnesium Hydroxide (Milk Of Magnesia Susp) 30 ml Q6H PRN PO 05/21/17 18:00 06/20/17 17:59 Ondansetron HCl (Zofran Inj) 4 mg Q6H PRN IV 05/21/17 18:00 06/20/17 17:59 05/22/17 03:20 4 MG Hydromorphone HCl (Dilaudid Inj) 1 mg Q3HWA PRN IV 05/21/17 18:00 06/04/17 17:59 05/22/17 08:34 1 MG Baclofen (Lioresal Tab) 10 mg QPM PO 05/21/17 21:00 06/20/17 20:59 05/23/17 20:58 10 MG Bisacodyl (Dulcolax Tab) 10 mg HS PO 05/21/17 21:00 06/20/17 20:59 05/23/17 21:02 10 MG Docusate Sodium (coLACE CAP) 100 mg TID PO 05/21/17 21:00 06/20/17 20:59 05/23/17 20:58 100 MG Lorazepam (Ativan Tab) 2 mg HS PO 05/21/17 21:00 06/20/17 20:59 05/23/17 21:02 2 MG Multivitamins (Multivitamin Tab) 1 tab DAILY PO 05/22/17 09:00 06/21/17 08:59 05/23/17 07:48 1 TAB Ranitidine HCl (zANTac TAB) 150 mg DAILY PO 05/22/17 09:00 06/21/17 08:59 05/23/17 07:48 150 MG Simethicone (Mylicon Chew Tab) 80 mg TID PO 05/21/17 21:00 06/20/17 20:59 05/23/17 20:58 80 MG Amlodipine Besylate (Norvasc Tab) 5 mg QAM PO 05/22/17 09:00 06/21/17 08:59 05/23/17 09:06 5 MG Miscellaneous (Iv Fluids Completed) 1 ea PRN PRN N/A 05/21/17 19:30 05/21/18 19:29 Dexamethasone Sodium Phosphate 4 mg/Syringe 1 ml @ 1 mls/min Q6H IV 05/22/17 16:00 06/20/17 17:59 05/24/17 04:09 1 MLS/MIN Polyethylene (Miralax Powder Packet) 17 gm BID PO 05/23/17 09:00 06/22/17 08:59 05/23/17 09:07 17 GM Gabapentin (Neurontin Cap) 100 mg TID PO 05/23/17 14:30 06/22/17 14:29 05/23/17 14:49 100 MG Review of Systems Denies any recent history of fever, night sweats, unexplained weight loss, or constitutional symptoms. Otherwise, 8 point review of system has been reported to be negative. Physical Exam Height & Weight: Height 5 feet, 4.00 inches. Weight 54.540 (Kilograms) 120 (Pounds) Last Vital Signs Documentation Date Time Temp Pulse Resp B/P (MAP) Pulse Ox O2 Delivery O2 Flow Rate FiO2 05/24/17 08:00 Room Air 05/24/17 07:23 36.6 62 17 148/80 (102) 99 Exam: Exam shows patient to be awake, alert, oriented to times, place and person. She appears frail and anxious. She appears comfortable in supine position. Inspection of the spine demonstrated loss of lumbar lordosis. Palpation in the midline of the spinous processes and interspinous ligaments is unremarkable. Palpation over the left proximal paraspinous region produces mild myofascial pain. Provocative testing of the facet joints is unremarkable. Neurological, straight leg raising is marginally positive at 60 in supine position and no changes noted with dorsiflexion of the left foot. SLR is negative on the right side. Sensory exam demonstrates numbness in the L5 and S1 distribution on left side. Motor exam demonstrates weakness in left hip flexors. Deep tendon reflexes symmetrical. Laboratory Laboratory Results (Last CBC): 05/24/17 05:58 Imaging MRI: non enhanced MRI Findings MRI L/S Spine: IMPRESSION: 1. Small left foraminal disc protrusion at L4-L5 that results in moderate narrowing of the left neural foramen. This contacts the exiting left L4 nerve root. 2. Small left foraminal disc protrusion at L5-S1 which contacts the exiting left L5 nerve root and results in moderate narrowing of the left neural foramen. Electronically signed by: Vignesh Sylvester M.D. 05/22/2017 2:28 PM Dictated Date/Time: 05/22/2017 2:08 PM [place] Drug Monitoring Program Search Results: patient reviewed within database Opioid Risk Assessment minimal risk identified, moderate risk identified Assessment 1. Lumbar radiculopathy, left lower extremity. 2. Anxiety. 3. Opiate intolerance due to underlying ileus. Recommendations 1. Recommend his contention of gabapentin and initiation of Lyrica. 2. Recommend left-sided L4/L5 and L5/S1 transforaminal epidural steroid injection. 3. Recommend mild opiate such as tramadol.
--- NOTE | 2017-05-24 11:16 | PROGRESS NOTE ---
DATE: 05/24/2017 TIME: At 8:00 a.m. this morning. CHIEF COMPLAINT: Left lower extremity difficulty. WORKING DIAGNOSIS: Small disc protrusion L4-L5, L5-S1 with radiculopathy on the left hand side. Neurologically, she is intact. Slight weakness of the great toe, also battles constipation and anxiety with steroids. OBJECTIVE: Vital signs stable. No bowel and bladder incontinence. Images reviewed. IMPRESSION: Discogenic back pain, lower extremity radiculopathy, small disc at L4-L5, moderate narrowing of the nerve roots, small disc at L5-S1, minimal pressure. DISPOSITION: I will recommend medication such as gabapentin and Lyrica. I will recommend some epidural steroids hopefully transforaminal by Dr. Mendes and Dr. Barnes. We are not planning on surgical intervention at least in the short run. I would like to get her out a week or two. Hopefully, we can get her improve with conservative nonoperative measures in accordance with a difficult situation. PLAN: Either an injection today or tomorrow and then get the patient discharged home. We are not planning any surgery this week.
[2017-05-24 14:59] VITALS: BP 178/80; PULSE 76; TEMP 36.9; O2SAT 97
--- NOTE | 2017-05-24 15:07 | Hospitalist Progress Note ---
Hospitalist Progress Note Date of Service May 24, 2017. (Jordyn Wang ., JAYLAC) Subjective Pt evaluation today including: conversation w/ patient, physical exam, chart review, lab review, review of studies, review of inpatient medication list Pain: 6/10 sharp RLE pain PO Intake: NPO Voiding: no voiding problems Patient complains of a 6/10 pain in her RLE that radiates down from her right hip to her foot. She complains of numbness and tingling in the RLE as well as weakness. She states that her RLE feels like it weighs 80 pounds, and she cannot lift it up off the bed without using her arms. The patient denies fevers , chills, sweats, chest pain, palpitations, claudication, cough, wheezing, shortness of breath, nausea, vomiting, abdominal pain, dysuria, hematuria, urinary retention, paralysis. Additional Comments: See HPI for pertinent positives and negatives. All other systems reviewed and negative. (Jordyn Wang ., JAYLAC) Objective Vital Signs Date Time Temp Pulse Resp B/P (MAP) Pulse Ox O2 Delivery O2 Flow Rate FiO2 05/24/17 08:00 Room Air 05/24/17 07:23 36.6 62 17 148/80 (102) 99 Room Air 05/23/17 23:30 Room Air 05/23/17 22:55 36.5 72 16 149/82 (104) 97 Room Air 05/23/17 15:45 Room Air 05/23/17 15:01 36.8 80 18 138/79 (98) 97 Room Air (Jordyn Wang PA-C) Physical Exam Notes: General appearance: Well-developed, well-nourished, no apparent distress Head: Normocephalic, atraumatic Eyes: Normal inspection, PERRL, EOMI ENT: Normal ENT inspection, hearing grossly normal, pharynx normal Neck: Supple, no JVD, trachea midline Respiratory/Chest: Lungs clear to auscultation, normal breath sounds, no respiratory distress Cardiovascular: Regular rate & rhythm, no gallop, no murmur Abdomen/GI: Normal bowel sounds, non-tender, soft Extremities/Musculoskeletal: +LLE TTP. Normal inspection, no calf tenderness, no pedal edema Neurological/Psych: +Decreased sensation LLE lateral aspect. LLE 2/5 strength. Alert, normal mood/affect, oriented x 3 Skin: Normal color, warm/dry, no rash (Jordyn Wang ., PA-C) Laboratory Results Last 24 Hours Test 05/24/17 05:58 White Blood Count 8.97 K/uL Red Blood Count 4.44 M/uL Hemoglobin 13.3 g/dL Hematocrit 39.5 % Mean Corpuscular Volume 89.0 fL Mean Corpuscular Hemoglobin 30.0 pg Mean Corpuscular Hemoglobin Concent 33.7 g/dl RDW Standard Deviation 41.8 fL RDW Coefficient of Variation 12.9 % Platelet Count 198 K/uL Mean Platelet Volume 10.2 fL Sodium Level 134 mmol/L Potassium Level 4.2 mmol/L Chloride Level 100 mmol/L Carbon Dioxide Level 26 mmol/L Anion Gap 8.0 mmol/L Blood Urea Nitrogen 24 mg/dl Creatinine 0.75 mg/dl Est Creatinine Clear Calc Drug Dose 69.5 ml/min Estimated GFR () 101.1 Estimated GFR (Non- 87.2 BUN/Creatinine Ratio 32.4 Random Glucose 125 mg/dl Calcium Level 9.5 mg/dl (Jordyn Wang ., PA-C) Assessment and Plan 57 y/o female with a history of HTN, depression/anxiety, GERD, insomnia, and OCD who presented to the ED on 05/21 with intractable back pain. Pt hypertensive with BP up to 196/96. Otherwise VSS. Pt received Decadron 10 mg IV x 1, Dilaudid and fentanyl in ED. Intractable back pain, bulging disc--ongoing -Admit to med/surg for observation -Decadron 4 mg IV q6h -Dilaudid 1 mg IV q3h while awake prn pain -Continue Baclofen 10 mg PO hs -Consult orthopedics, appreciate recs: Steroid injection today or tomorrow. Avoid surgery. -Pain management consulted, appreciate recs: Recommend gabapentin, Lyrica and tramadol. Will plan for transforaminal epidural steroid injection. -Pt states she has tried gabapentin and Lyrica in the past and did not do well on them. She states gabapentin "made her crazy" but is currently tolerating low dose -Continue gabapentin 100 mg PO TID -Pt currently NPO for ultrasound guided epidural steroid injection today w/ conscious sedation HTN--Pt had been taking amlodipine 5 mg in the past but this was stopped after BP became too low. She was instructed to take 1 tab prn if BP high. -Amlodipine 5 mg PO qd for now. Elevated BP likely secondary to pain Depression/anxiety, insomnia -Continue Ativan 2 mg PO hs Chronic constipation -Continue Colace 100 mg PO TID, Dulcolax 10 mg PO hs -Milk of magnesia 30 mL PO q6h prn -Scheduled MiraLAX added BID GERD -Continue Zantac 150 mg PO qd DVT prophylaxis -Enoxaparin 40 mg SC q24h -MORENO nash and SCDs Code Status -Level I, FULL RESUSCITATION STATUS (Jordyn Wang ., PA-C) Reviewed: Pt Seen/Exam by Me (Norma Hansen, ) History Pt is awaiting her injection. Ongoing pain and numbness as described above. Otherwise no new concerns. Tolerating PO prior, but NPO status currently. No chest pain or SOB. Agree with HPI/ROS as noted. (Norma Hansen, ) General Appearance: no apparent distress, thin Respiratory: normal breath sounds, no respiratory distress Cardiovascular: normal peripheral pulses, regular rate, rhythm Gastrointestinal: non tender, soft Extremities: non-tender, no pedal edema Neurologic/Psychiatric: alert, normal mood/affect, oriented x 3 Skin Characteristics: normal color, warm/dry (Norma Hansen, DO) Assessment/Plan Agree with plan as outlined above PM recs for injection, ongoing gabapentin, start lyrica and possibly tramadol Also discussed acupuncture and yoga Not planning OR this week Chronic constipation: discussed probiotics Acupuncture and yoga can help with this as well (Norma Hansen, DO)
[2017-05-24] MEDS: BACLOFEN 10 MG TAB PO SCH (20:59)
[2017-05-24] MEDS: BISACODYL 5 MG TABEC PO SCH (20:59)
[2017-05-24] MEDS: LORAZEPAM 2 MG TAB PO SCH (20:59)
[2017-05-25 00:05] VITALS: BP 158/84; PULSE 65; TEMP 36.9; O2SAT 97
[2017-05-25] MEDS: DEXAMETHASONE INJ 4 MG in SYRINGE 0 ML IV SCH ×3 (04:00→16:00)
[2017-05-25 07:16] VITALS: BP 165/73; PULSE 69; TEMP 36.9; O2SAT 99
[2017-05-25] MEDS: GABAPENTIN 100 MG CAP PO SCH ×2 (09:00→13:44)
[2017-05-25] MEDS: AMLODIPINE BESYLATE 5 MG TAB PO SCH (09:00)
[2017-05-25] MEDS: POLYETHYLENE (MIRALAX) 17 GM PACK PO SCH (09:00)
[2017-05-25] MEDS: RANITIDINE HCL 150 MG TAB PO SCH (09:21)
[2017-05-25] MEDS: MULTIVITAMIN TAB PO SCH (09:21)
[2017-05-25] MEDS: DOCUSATE SODIUM 100 MG CAP PO SCH ×2 (09:21→13:43)
[2017-05-25] MEDS: SIMETHICONE 80 MG CHEW PO SCH ×2 (09:22→13:44)
[2017-05-25] MEDS ORDERED: ACET-1047 PO (11:15)
[2017-05-25] MEDS ORDERED: POLY335019 PO (11:15)
[2017-05-25] MEDS ORDERED: HYDR2TAB48 PO (11:15)
--- NOTE | 2017-05-25 11:16 | Discharge Instructions ---
Discharge Instructions Date of Service May 25, 2017. Admission Reason for Admission: Intractable Back Pain Discharge Discharge Diagnosis / Problem: radicular leg pain and weakness Discharge Goals Goal(s): Diagnostic testing, Therapeutic intervention Activity Recommendations Activity Limitations: as noted below Lifting Limitations: until after follow-up appointment (with dr lima or pain management) Exercise/Sports Limitations: none Shower/Bathe: no limitations . Current Hospital Diet Patient's current hospital diet: AHA Diet (Heart Healthy) Discharge Diet Recommended Diet: Regular Diet Pending Studies Studies pending at discharge: no Medical Emergencies . Who to Call and When: Medical Emergencies: If at any time you feel your situation is an emergency, please call 911 immediately. . Non-Emergent Contact Non-Emergency issues call your: Primary Care Provider, Surgeon Call Non-Emergent contact if: temperature is above 101, your pain is worsening . . "Provider Documentation" section prepared by Jose R Foss. . VTE Core Measure Inpt VTE Proph given/why not?: Enoxaparin (Lovenox)RAFA, Jennifer Lima, SCD's
[2017-05-25] MEDS: ACETAMINOPHEN 325 MG TAB PO PRN (12:09)
[2017-05-25 12:36] VITALS: BP 136/88; PULSE 73; TEMP 36.4; O2SAT 98
--- NOTE | 2017-05-25 12:57 | Pain Management Progress Note ---
Pain Management Progress Note Date of Service May 25, 2017. Subjective Mrs. Morris continues to report low back pain with radiation and numbness along the left leg. She reports difficulty with ambulation due to pain. She refuses IV Decadron because it has been increasing her anxiety. Patient demands an injection today. She has been NPO since midnight. No bowel/bladder incontinence, saddle anesthesia, foot drop. Case discussed with Dr. Mendes Objective Vital Signs: Last Vital Signs Documentation Date Time Temp Pulse Resp B/P (MAP) Pulse Ox O2 Delivery O2 Flow Rate FiO2 05/25/17 07:16 36.9 69 18 165/73 (103) 99 Room Air Physical Exam: GENERAL: Mrs. Morris is a 57 y/o white female that appears moderately anxious. Speech and cognition is intact. BACK: There is no midline, SI joint, or facet joint tenderness. Left quadratus lumborum spasm. LOWER EXTREMITIES: Positive SLR on the left, negative on the right. Laboratory Laboratory Findings 05/24/17 05:58 Assessment 1. Lumbar radiculopathy, left lower extremity. 2. Anxiety. 3. Opiate intolerance due to underlying ileus. Recommendations I have explained to the patient that an epidural injection cannot be performed in the hospital today. Imaging enhancer is malfunctioning as it is unable to receive lateral imaging. We have discussed options on performing an injection on an outpatient basis. Patient has previously seen Dr. Hoffman and Dr. Monzon and received several injections without relief. She was scheduled for an [facility] Patient demands the procedure to be performed today or she will leave the hospital. Patient has refused IV Decadron as it is increasing her anxiety. She does have difficulty tolerating opioids. I have explained to the patient that we could perform an injection on an outpatient basis and that it could be done in a timely manner but will not be performed today. She does need to decide who she wants to perform the procedure - Dr. Hoffman, Dr. Monzon, or Dr. Mendes and arrangements will be made. Patient has been contacted and offered an epidural injection on an outpatient basis in [facility] on 05/27/17
--- NOTE | 2017-05-25 14:04 | Discharge Summary ---
Discharge Summary Date of Service May 25, 2017. (Jordyn Wang PA-C) Discharge Summary Admission Date: May 21, 2017 at 18:02 Discharge Date: May 25, 2017 Discharge Disposition: Home Principal Diagnosis: Intractable back pain Problems/Secondary Diagnoses: HTN, depression/anxiety, GERD, insomnia, and OCD Immunizations: Have You Had Influenza Vaccine: Yes History of Tetanus Vaccine?: No History of Pneumococcal: Unknown History of Hepatitis B Vaccine: No Procedures: MRI OF THE LUMBAR SPINE WITHOUT CONTRAST CLINICAL HISTORY: Left leg weakness and numbness. Intractable back pain. COMPARISON STUDY: MRI of the lumbar spine May 16, 2017. TECHNIQUE: Utilizing a 1.5 Carmen magnet and dedicated coil, multiplanar, multiecho imaging of the lumbar spine was performed without IV contrast. FINDINGS: For purposes of numbering on this exam, the L5-S1 disc space is assigned to image 28 of 30. Alignment of the lumbar spine is anatomic. Vertebral body heights are maintained and there is no suspicious marrow replacement. Scattered T1 and T2 hyperintense lesions reflect hemangiomas. There is no intracanalicular mass or fluid collection. Conus terminates at the upper L1 level. Paravertebral soft tissues are unremarkable. L1-2: The central canal and neural foramen are patent. L2-3: The central canal and neural foramen are patent. L3-4: The central canal and neural foramen are patent. L4-5: Disc desiccation with a disc bulge and a small left foraminal disc protrusion that results in moderate narrowing of the left neural foramen. This disc protrusion was not evident on prior exam. This contacts the exiting left L4 nerve root. The right neural foramen and central canal are patent. L5-S1: There is disc desiccation. There is a small broad-based left foraminal disc protrusion which is more conspicuous than on prior exam. There is mild facet arthrosis. There is moderate narrowing of the left neural foramen. Central canal and right neural foramen are patent. IMPRESSION: 1. Small left foraminal disc protrusion at L4-L5 that results in moderate narrowing of the left neural foramen. This contacts the exiting left L4 nerve root. 2. Small left foraminal disc protrusion at L5-S1 which contacts the exiting left L5 nerve root and results in moderate narrowing of the left neural foramen. Consultations: Ortho surgery Pain management (Jordyn Wang PA-C) Medication Reconciliation New Medications: Acetaminophen (Mapap) 325 Mg Tab 1000 MG PO TID, #120 TAB Changed Medications: Polyethylene Glycol 3350 (Miralax) 1 17 GM PO BID, #60 DOSE (Changed from: DAILY; Removed Reason) Continued Medications: Baclofen (Lioresal) 10 Mg Tab 10 MG PO QPM Bioflavonoid Products (Vitamin C) 1 Chw Chw 1 TAB PO DAILY Bisacodyl (Dulcolax) 5 Mg Tab 10 MG PO HS TWO 5 MG TABLETS Cholecalciferol (Vitamin D) 5,000 Unit Tab 5000 UNITS PO DAILY Docusate Sodium (Colace) 100 Mg Cap 100 MG PO TID Hydromorphone Hcl (Dilaudid) 2 Mg Tab 2 MG PO Q4 PRN for Pain, #20 DOSE (This prescription has been renewed) Lorazepam (Ativan) 2 Mg Tab 2 MG PO HS Multivitamin (Multivitamin) Tab 1 TAB PO DAILY Ranitidine (Zantac) 150 Mg Tab 150 MG PO DAILY PER PATIENT, 125 MG Senna (Senokot) 8.6 Mg Tab 1 TAB PO UD PRN for Constipation Simethicone (Simethicone) Unknown Strength Cap 80 MG PO TID Discharge Exam Patient complains of 6/10 sharp pain in her left leg that remains unchanged. She complains of LLE weakness, numbness and tingling. She also complains of fatigue as well as nausea which is chronic. The patient denies fevers, chills, sweats, chest pain, palpitations, claudication, cough, wheezing, shortness of breath, vomiting, abdominal pain, dysuria, hematuria, urinary retention, paralysis. Constitutional: No fever, No chills, No sweats Eyes: No worsening of vision, No eye pain, No diplopia ENT: No hearing loss, No nasal symptoms, No trouble swallowing Respiratory: No cough, No wheezing, No shortness of breath Cardiovascular: No chest pain, No claudication, No palpitations Abdomen: +Nausea (chronic). No pain, No vomiting Musculoskeletal: No joint pain, No muscle pain, No swelling Genitourinary - Female: No dysuria, No urinary retention, No hematuria Neurologic: +LLE weakness, numbness and tingling. No paralysis Integumentary: No rash, No itch, No color change General appearance: Well-developed, well-nourished, no apparent distress Head: Normocephalic, atraumatic Eyes: Normal inspection, PERRL, EOMI ENT: Normal ENT inspection, hearing grossly normal, pharynx normal Neck: Supple, no JVD, trachea midline Respiratory/Chest: Lungs clear to auscultation, normal breath sounds, no respiratory distress Cardiovascular: Regular rate & rhythm, no gallop, no murmur Abdomen/GI: Normal bowel sounds, non-tender, soft Extremities/Musculoskeletal: Normal inspection, no calf tenderness, no pedal edema Neurological/Psych: +Anxious. Decreased sensation lateral aspect of LLE. LLE 2/5 strength. Alert, oriented x 3 Skin: Normal color, warm/dry, no rash (Jordyn Wang ., PAVaniC) Hospital Course 57 y/o female with a history of HTN, depression/anxiety, GERD, insomnia, and OCD who presented to the ED on 05/21 with intractable back pain. Pt hypertensive with BP up to 196/96. Otherwise VSS. Pt received Decadron 10 mg IV x 1, Dilaudid and fentanyl in ED. Intractable back pain, bulging disc--ongoing -Admit to med/surg for observation -Decadron 4 mg IV q6h. Pt refusing, makes her more anxious -Dilaudid 1 mg IV q3h while awake prn pain. D/C with renewed Dilaudid 2 mg PO q4h prn x 20 tabs -Continue Baclofen 10 mg PO hs -Consult orthopedics, appreciate recs: Steroid injectio with pain management. Avoid surgery as not good candidate. -Pain management consulted, appreciate recs: Recommend gabapentin, Lyrica and tramadol. Will plan for transforaminal epidural steroid injection. -Pt states she has tried gabapentin and Lyrica in the past and did not do well on them. She states gabapentin "made her crazy" and Lyrica didn't work. Refusing gabapentin -D/C gabapentin as pt refusing to take -Pt scheduled for epidural steroid injection with Dr. Mendes on 05/27 at 1300 HTN--Pt had been taking amlodipine 5 mg in the past but this was stopped after BP became too low. She was instructed to take 1 tab prn if BP high. -Amlodipine 5 mg PO qd for now. Elevated BP likely secondary to pain. Can d/c amlodipine on d/c as HTN should resolved when pain controlled Depression/anxiety, insomnia -Continue Ativan 2 mg PO hs Chronic constipation -Continue Colace 100 mg PO TID, Dulcolax 10 mg PO hs -Milk of magnesia 30 mL PO q6h prn -Scheduled MiraLAX added BID GERD -Continue Zantac 150 mg PO qd DVT prophylaxis -Enoxaparin 40 mg SC q24h -MORENO mckeone and SCDs Code Status -Level I, FULL RESUSCITATION STATUS Dispo -Pt declines home health services. States daughter and sister in law will assist at home -Scheduled steroid injection 05/27 with pain management -F/u with PCP Total Time Spent: Greater than 30 minutes This includes examination of the patient, discharge planning, medication reconciliation, and communication with other providers. (Jordyn Wang ., ALEXIS) LELA Physician Supervision Note: I interviewed and examined the patient. Discussed with Jordyn Wang PAC and agree with findings and plan as documented in the note. Any exceptions or clarifications are listed here: None Patient is seen prior to discharge. Patient cannot have a epidural foramen injection on 05/25 due to equipment malfunction arrangements were made for the patient to be seen in outpatient office on 05/[address] Cohen. The patient voiced an understanding and was pleased with this compromise she was discharged home on oral pain medication scheduled Tylenol and increase use of MiraLAX to combat her constipation ex I did see the patient who continued to have persistent leg weakness on the left she however had regular heart rate clear lungs and a benign abdomen exam The patient did have a episode prior to going home where she felt weak during this episode her vitals were stable her blood glucose was normal she ate lunch and felt better she was discharged home in the company of her family Documented By: Jose R Foss (Jose R Foss M.D.) Discharge Instructions Please refer to the electronic Patient Visit Report (Discharge Instructions) for additional information. (Jordyn Wang ., ALEXIS) Additional Copies To Nathalie South C.R.N.P
[2017-05-25 16:28] VITALS: BP 136/88; PULSE 73; TEMP 36.4; O2SAT 98
== END 2017-05-25 17:00 | disposition home or self-care (01) ==
LOC: EDBD 15:53 → C.EDB 15:54 → C.MSW 18:02 → ENRESERV 18:36
PROVIDERS: ADMIT Hospitalist; ATTEND Internal Medicine
DX: M54.16 Radiculopathy, lumbar region (principal); I10 Essential (primary) hypertension; F32.9 Major depressive disorder, single episode, unspecified; F41.9 Anxiety disorder, unspecified; K21.9 Gastro-esophageal reflux disease without esophagitis; G47.00 Insomnia, unspecified; Z79.899 Other long term (current) drug therapy; Z93.2 Ileostomy status; Z88.5 Allergy status to narcotic agent; Z88.1 Allergy status to other antibiotic agents; Z82.49 Family history of ischemic heart disease and other diseases of the circulatory system; Z83.3 Family history of diabetes mellitus; Z82.3 Family history of stroke; Z80.7 Family history of other malignant neoplasms of lymphoid, hematopoietic and related tissues

== ENCOUNTER 2017-06-11 11:11 | Emergency (ER) | payer BC ==
[~2017-06-11] VITALS: Ht 162.6 cm; Wt 54.1 kg
[~2017-06-11 11:11] MED LIST changes: -APIX1TAB3 PO
[2017-06-11 11:15] VITALS: TEMP 37.1; Ht 162.6 cm; Wt 54.1 kg
[2017-06-11 12:43] LABS: BASO % 0.2 %; BASO ABS # 0.01 K/uL (0-0.2); COMPLETE YES; HEMATOCRIT 39.2 % (37-47); IG% 0.2 %; LYMPH % 19.2 %; LYMPH ABS # 1.07 K/uL (1.2-3.4); MEAN CELL VOLUME 90.1 fL (80-100); MEAN CORPUSCULAR HEMOGLOBIN 30.6 pg (25-34); MEAN CORPUSCULAR HGB CONC 33.9 g/dl (32-36); MEAN PLATELET VOLUME 9.5 fL (7.4-10.4); MONO % 6.3 %; NEUT % 74.1 %; PLATELET COUNT 184 K/uL (130-400); RED BLOOD COUNT 4.35 M/uL (4.2-5.4); WHITE BLOOD COUNT 5.57 K/uL (4.8-10.8)
[2017-06-11 12:52] LABS: PARTIAL THROMBOPLASTIN RATIO 0.9
[2017-06-11 13:01] LABS: BUN/CREATININE RATIO 11.4 (10-20); CALCIUM 9.5 mg/dl (8.5-10.1); CREATININE 0.76 mg/dl (0.60-1.20); POTASSIUM 3.3 mmol/L (3.5-5.1)
--- NOTE | 2017-06-11 14:07 | DIAGNOSTIC IMAGING REPORT ---
L ART DOP DUPLEX LWR EXT UNI CLINICAL HISTORY: eval fro aterial blockage claudication TECHNIQUE: Arterial Doppler COMPARISON STUDY: Venous Doppler same date FINDINGS: Minimal plaque formation is identified throughout the arterial structures of the left lower leg. There is no abnormality of velocity. There is somewhat dampened flow within the dorsalis pedis artery and peroneal artery. Monophasic waveforms are present. IMPRESSION: 1. Moderate arterial occlusive change of the left dorsalis pedis artery and peroneal artery. 2. No additional significant stenosis is appreciated. 3. Specifically, the arterial structures of the left thigh show no abnormality. The above report was generated using voice recognition software. It may contain grammatical, syntax or spelling errors. Electronically signed by: Dagoberto Lim M.D. 06/11/2017 2:06 PM Dictated Date/Time: 06/11/2017 2:03 PM
[2017-06-11] MEDS ORDERED: APIXABAN 2.5 MG TAB PO STA (15:12)
[2017-06-11] MEDS ORDERED: APIX1TAB3 PO (15:16)
[2017-06-11 15:27] VITALS: BP 167/76; PULSE 81; O2SAT 98
--- NOTE | 2017-06-11 17:47 | EMERGENCY ROOM VISIT NOTE ---
History Report prepared by Adela: Negin Moore Under the Supervision of: Dr. Jose R Moreira M.D. First contact with patient: 11:54 Chief Complaint: REFERRED BY DOCTOR Stated Complaint: SENT FROM ULTRASOUND History of Present Illness The patient is a 57 year old female who presents to the Emergency Room with complaints of persistent left leg swelling that began several days ago. The patient states that she has also been experiencing waxing and waning left leg pain since before Thanksgiving. At the same time she also developed left leg numbness. She states that her neuro surgeon took an MRI and discovered a pinched nerve between the disks. She is followed by pain management and received an injection in her lower back which seemed to help with her leg pain except in her calf currently. The patient states that she had an ultrasound that showed a blood clot in her left leg. The patient denies any incontinence, fever, melena, hematochezia, chest pain, shortness of breath, or upper back pain. Source of History: patient Onset: several days Position: leg (left) Quality: other (left leg pain) Timing: other (persistent ) Associated Symptoms: No melena, No hematochezia Note: Swelling to left ankle Review of Systems See HPI for pertinent positives & negatives. A total of 10 systems reviewed and were otherwise negative. Past Medical & Surgical Medical Problems: (1) Abnormal EKG (2) Chest pain (3) Clostridium difficile colitis (4) Constipation (5) Creation of ileostomy (6) Hx-Venous Thrombosis&Embolism (7) Hypertension Nos (8) Hypothyroidism Nos (9) ileostomy reversal (10) Ileus (11) Intractable back pain (12) Laparoscopic Earlene fundoplication using abdominal approach Surgical Problems: (1) H/O ileostomy Family History CABG Coronary artery disease Emphysema FHx: cancer (lymphoma) Hepatic cirrhosis Hypertension Stroke Social History Smoking Status: Never Smoker Alcohol Use: none Drug Use: none Marital Status: Housing Status: lives with family Occupation Status: employed Current/Historical Medications Scheduled Acetaminophen (Tylenol), 2 TAB PO Q6 Apixaban (Eliquis), 5 MG PO BID Apixaban (Eliquis), 10 MG PO BID Baclofen (Lioresal), 10 MG PO QPM Bioflavonoid Products (Vitamin C), 1 TAB PO DAILY Bisacodyl (Dulcolax), 10 MG PO HS Cholecalciferol (Vitamin D), 5,000 UNITS PO DAILY Docusate Sodium (Colace), 100 MG PO BID Lorazepam (Ativan), 2 MG PO HS Multivitamin (Multivitamin), 1 TAB PO DAILY Ranitidine (Zantac), 150 MG PO DAILY Simethicone (Simethicone), 80 MG PO TID Allergies Coded Allergies: Gabapentin (Unverified Allergy, Intermediate, confusion,forgetfullness, itchiness, 06/11/17) Pregabalin (Unverified Allergy, Intermediate, confusion, forgetfullness, itchy, 06/11/17) Rabeprazole (Verified Allergy, Intermediate, SWELLING, 06/11/17) Morphine (Verified Allergy, Mild, UNKNOWN, 06/11/17) Tolerates dilaudid Amitriptyline (Verified Allergy, Unknown, SWELLING, 06/11/17) Tricyclic Antidepressants (Verified Allergy, Unknown, SWELLING, 06/11/17) Ciprofloxacin (Verified Adverse Reaction, Unknown, gi upset, 06/11/17) pt Physical Exam Vital Signs Date Time Temp Pulse Resp B/P (MAP) Pulse Ox O2 Delivery O2 Flow Rate FiO2 06/11/17 15:27 81 16 167/76 98 06/11/17 14:47 81 16 167/76 98 Room Air 06/11/17 14:16 82 20 146/91 98 Room Air 06/11/17 11:15 37.1 86 20 184/94 99 Room Air Physical Exam Constitutional: Vital signs reviewed. Eyes: Pupils are equal round reactive to light. Conjunctiva are noninjected. ENT: Pharynx is clear without erythema or exudate. Mucous membranes are moist. Neck supple without meningeal signs. Respiratory: Clear to auscultation bilaterally. Breath sounds are equal bilaterally. Cardiovascular: Regular rate and rhythm. No rubs or gallops. GI: Soft, nondistended and nontender. Bowel sounds are present. Musculoskeletal: Left ankle edema with diminished temperature on left foot compared to right with 1+ dorsalis pedal pulse compared to 2+ on left side. Integumentary: No cyanosis. Neurological: The patient is awake and alert. Psychiatric: Anxious. Medical Decision & Procedures ER Provider Diagnostic Interpretation: Radiology results as stated below per my review and the radiologist's interpretation: L ART DOP DUPLEX LWR EXT UNI CLINICAL HISTORY: eval fro aterial blockage claudication TECHNIQUE: Arterial Doppler COMPARISON STUDY: Venous Doppler same date FINDINGS: Minimal plaque formation is identified throughout the arterial structures of the left lower leg. There is no abnormality of velocity. There is somewhat dampened flow within the dorsalis pedis artery and peroneal artery. Monophasic waveforms are present. IMPRESSION: 1. Moderate arterial occlusive change of the left dorsalis pedis artery and peroneal artery. 2. No additional significant stenosis is appreciated. 3. Specifically, the arterial structures of the left thigh show no abnormality. The above report was generated using voice recognition software. It may contain grammatical, syntax or spelling errors. Electronically signed by: Dagoberto Lim M.D. 06/11/2017 2:06 PM Laboratory Results 06/11/17 12:30 Red Blood Count 4.35, Mean Corpuscular Volume 90.1, Mean Corpuscular Hemoglobin 30.6, Mean Corpuscular Hemoglobin Concent 33.9, Mean Platelet Volume 9.5, Neutrophils (%) (Auto) 74.1, Lymphocytes (%) (Auto) 19.2, Monocytes (%) (Auto) 6.3, Eosinophils (%) (Auto) 0.0, Basophils (%) (Auto) 0.2, Neutrophils # (Auto) 4.13, Lymphocytes # (Auto) 1.07, Monocytes # (Auto) 0.35, Eosinophils # (Auto) 0.00, Basophils # (Auto) 0.01 06/11/17 12:30 Test 06/11/17 12:30 White Blood Count 5.57 K/uL (4.8-10.8) Red Blood Count 4.35 M/uL (4.2-5.4) Hemoglobin 13.3 g/dL (12.0-16.0) Hematocrit 39.2 % (37-47) Mean Corpuscular Volume 90.1 fL (80-100) Mean Corpuscular Hemoglobin 30.6 pg (25-34) Mean Corpuscular Hemoglobin Concent 33.9 g/dl (32-36) Platelet Count 184 K/uL (130-400) Mean Platelet Volume 9.5 fL (7.4-10.4) Neutrophils (%) (Auto) 74.1 % Lymphocytes (%) (Auto) 19.2 % Monocytes (%) (Auto) 6.3 % Eosinophils (%) (Auto) 0.0 % Basophils (%) (Auto) 0.2 % Neutrophils # (Auto) 4.13 K/uL (1.4-6.5) Lymphocytes # (Auto) 1.07 K/uL (1.2-3.4) Monocytes # (Auto) 0.35 K/uL (0.11-0.59) Eosinophils # (Auto) 0.00 K/uL (0-0.5) Basophils # (Auto) 0.01 K/uL (0-0.2) RDW Standard Deviation 43.7 fL (36.4-46.3) RDW Coefficient of Variation 13.4 % (11.5-14.5) Immature Granulocyte % (Auto) 0.2 % Immature Granulocyte # (Auto) 0.01 K/uL (0.00-0.02) Prothrombin Time 10.0 SECONDS (9.0-12.0) Prothromb Time International Ratio 1.0 (0.9-1.1) Activated Partial Thromboplast Time 23.5 SECONDS (21.0-31.0) Partial Thromboplastin Ratio 0.9 Anion Gap 7.0 mmol/L (3-11) Est Creatinine Clear Calc Drug Dose 68.1 ml/min Estimated GFR () 99.5 Estimated GFR (Non- 85.9 BUN/Creatinine Ratio 11.4 (10-20) Calcium Level 9.5 mg/dl (8.5-10.1) Total Bilirubin 0.3 mg/dl (0.2-1) Direct Bilirubin 0.1 mg/dl (0-0.2) Aspartate Amino Transf (AST/SGOT) 13 U/L (15-37) Alanine Aminotransferase (ALT/SGPT) 19 U/L (12-78) Alkaline Phosphatase 64 U/L (45-117) Total Protein 7.4 gm/dl (6.4-8.2) Albumin 3.8 gm/dl (3.4-5.0) Laboratory results as reviewed by me. Medications Administered Medications (Trade) Dose Ordered Sig/Marvin Route Start Time Stop Time Status Last Admin Dose Admin Apixaban (Eliquis Tab) 10 mg NOW STAT PO 06/11/17 15:12 06/11/17 15:14 DC 06/11/17 15:27 10 MG ED Course 1220: The patient was evaluated in room B9. A complete history and physical exam was performed. 1435: I discussed the patient's test results with Dr. Rankin, who will be postponing the patient's upcoming surgery. 1512:I consulted with Dr. Cornejo of [facility] [place] and he agrees with giving the patient Apixaban. Ordered Apixaban 10mg PO. 1515: I reevaluated the patient, who was resting comfortably. The patient appeared to have improvement of her symptoms. I had a long talk with the patient and discussed tonight's findings with her. The patient verbalized agreement of the treatment plan. She was discharged home. Medical Decision This is a 57-year-old female who presents with left leg pain and was just diagnosed with a DVT. I did perform a limited focused review of portions of the patient's old chart on the electronic medical record. The patient has a left leg DVT and Lumbar radiculitis for L4 and L5. I did discuss the case with Dr. Cornejo who sent the patient in for evaluation. I did evaluate the patient as noted above. The patient has a DVT in the calf of the left leg. She does have pain to the calf. She has been having pain to the left leg with numbness in that leg since before . This was attributed to lumbar disc disease. She is planning on having surgery next week. The pain in her leg has improved with injections by pain management except for the calf. The Pain is likely secondary to the DVT. She denies any chest pain or shortness of breath. She does state that she has a prior history of PE and has no symptoms consistent with a PE. IV access was established. The patient was placed on a continuous jet dyeing machine tender. I did order and personally review the patient's 12-lead EKG and chest x-ray as described above. I did order and review the patient's blood work as noted in the electronic medical record. Because of the patient has diminished pulses on the left foot I did order a Doppler ultrasound of the left leg. I did review the images myself as well as the radiology report as described above. She does have peripheral artery disease but no occlusion. I did discuss the test results with Dr. Cornejo. I also spoke to Dr Monzon he stated that he would have to cancel the surgery next week. I did discuss the test results with the patient and her corporate strategy associate. I did recommend we anticoagulate her with Eliquis. I did discuss risks and benefits. Patient was started on Eliquis here and discharged with a prescription for Eliquis. She will follow up closely with her doctor as well as vascular surgery and orthopedic spine. Medication Reconcilliation Current Medication List: was personally reviewed by me Blood Pressure Screening Patient's blood pressure: Elevated blood pressure Blood pressure disposition: Referred to PCP Consults Time Called: 151 Consulting Physician: Dr. Cornejo, [facility] [place] Returned Call: [address] Cornejo of [facility] [place]. We discussed the patient and test results. She agrees with giving the patient Eliquis. Additional Consults: Time Called: 143 Consulted Physician: Dr. Rankin, Surgeon Returned Call: [phone] Impression Primary Impression: Left leg DVT Additional Impressions: Peripheral arterial disease Lumbar disc disease Scribe Attestation The scribe's documentation has been prepared under my direct and personally reviewed by me in its entirety. I confirm that the note above accurately reflects all work, treatment, procedures, and medical decision making performed by me. Departure Information Dispostion Home / Self-Care Prescriptions Apixaban (ELIQUIS) 5 Mg Tab 10 MG PO BID for 7 Days, #28 TAB Prov: Jose R Moreira M.D. 06/11/17 Apixaban (ELIQUIS) 5 Mg Tab 5 MG PO BID for 14 Days, #28 TAB Prov: Jose R Moreira M.D. 06/11/17 Referrals Nathalie South C.RMelvinN.P (PCP) Forms HOME CARE DOCUMENTATION FORM, IMPORTANT VISIT INFORMATION, WORK / SCHOOL INSTRUCTIONS Patient Instructions My [facility] Additional Instructions You have been examined and treated today on an emergency basis only. This is not a substitute for, or an effort to provide, complete comprehensive medical care. It is impossible to recognize and treat all injuries or illnesses in a single emergency department visit. It is therefore important that you follow up closely with your physician. Call as soon as possible for an appointment. Return for worsening symptoms or if you develop fever, vomiting, chest pain, shortness of breath, if your left foot turns blue or very red or extremely cold or any other concerning symptoms. Take your dose of Eliquis tonight at midnight. Then start your next dose Problem Qualifiers Primary Impression: Left leg DVT Affected thrombotic vein of extremity: unspecified vein of extremity Chronicity: acute Qualified Codes: I82.402 - Acute embolism and thrombosis of unspecified deep veins of left lower extremity
== END 2017-06-11 15:28 | disposition home or self-care (01) ==
LOC: C.EDB 11:12
DX: I82.4Z2 Acute embolism and thrombosis of unspecified deep veins of left distal lower extremity (principal); I73.9 Peripheral vascular disease, unspecified; M51.36 Other intervertebral disc degeneration, lumbar region; I10 Essential (primary) hypertension; E03.9 Hypothyroidism, unspecified; K56.7 Ileus, unspecified; Z86.718 Personal history of other venous thrombosis and embolism; Z82.49 Family history of ischemic heart disease and other diseases of the circulatory system; Z80.9 Family history of malignant neoplasm, unspecified; Z79.01 Long term (current) use of anticoagulants; Z79.899 Other long term (current) drug therapy

== ENCOUNTER → 2017-06-11 | Outpatient (CLI) | payer BC ==
[~2017-06-11] MED LIST changes: +ACET-1256 PO; +APIX1TAB3 PO; +ATV/2 PO; +BIOF500C2 PO; +BISA-16 PO; -BISA1TAB15 PO; +CHOL1TAB42 PO; -CHOLCAP10 PO; +DOCU-94 PO; -DOCU1TAB6 PO; -HYDR2TAB48 PO; +MULT-506 PO; -MULTTAB58 PO; -ONDA4TAB10 SL; +SENN-61 PO; -SIME125C52 PO; +SIME1CAP28 PO; -VITACAP26 PO; -ZNT/150 PO; +ZNTT/150 PO; -[UNRECOGNIZED DRUG - CODE] PO
--- NOTE | 2017-06-11 10:48 | DIAGNOSTIC IMAGING REPORT ---
LEFT LOWER EXTREMITY VENOUS DOPPLER CLINICAL HISTORY: Left ankle edema. History of pulmonary emboli. COMPARISON STUDY: Bilateral lower extremity venous Doppler September 06, 2006. TECHNIQUE: Sonography of the deep venous system of the left lower extremity was performed. Compression and augmentation were evaluated. FINDINGS: The common femoral, superficial femoral and popliteal veins were compressible. Augmentation was normal. Note was made of occlusive deep venous thrombus within the left posterior tibial and peroneal veins. IMPRESSION: Deep venous thrombus within the left posterior tibial and peroneal veins. Electronically signed by: Vignesh Sylvester M.D. 06/11/2017 10:47 AM Dictated Date/Time: 06/11/2017 10:45 AM
== END | disposition home or self-care (01) ==
LOC: C.ULTR 10:15
PROVIDERS: ATTEND Family Medicine Adult Medicine
DX: I82.492 Acute embolism and thrombosis of other specified deep vein of left lower extremity (principal)

== ENCOUNTER 2017-06-18 15:07 | Emergency (ER) | payer BC ==
[~2017-06-18] VITALS: Ht 162.6 cm; Wt 54.7 kg
[~2017-06-18 15:07] MED LIST changes: +APIX1TAB3 PO; -BIOF500C2 PO; -BISA-16 PO; -CHOL1TAB42 PO; -DOCU-94 PO; -MULT-506 PO; -SENN-61 PO; -ZNTT/150 PO
[2017-06-18 15:15] VITALS: TEMP 36.8; Ht 162.6 cm; Wt 54.7 kg
--- NOTE | 2017-06-18 15:44 | EMERGENCY ROOM VISIT NOTE ---
History First contact with patient: 15:20 Chief Complaint: SHORTNESS OF BREATH Stated Complaint: COUGH AND BREATHS Nursing Triage Summary: Report DVT in LLE, dx last Wednesday. Pt is on Elequis. Pt now c/o SOB, dry cough, tenderness to RLE. Sent by PCP for r/o PE History of Present Illness The patient is a 57 year old female who presents to the Emergency Room with complaints of shortness of breath that has gotten progressively worse throughout the day. The patient has a history of a DVT that was diagnosed 2 weeks ago in her left lower extremity. She was put on Eliquis, which she has been taking as prescribed. She has had a mild dry cough. She denies any fever or chills. She denies any chest pain. She says that the source of breath is worse with lying down. It is not associated with exertion. Review of Systems 10 system review performed and negative unless noted in HPI or below Past Medical/Surgical History Medical Problems: (1) Abnormal EKG (2) Chest pain (3) Clostridium difficile colitis (4) Constipation (5) Creation of ileostomy (6) Hx-Venous Thrombosis&Embolism (7) Hypertension Nos (8) Hypothyroidism Nos (9) ileostomy reversal (10) Ileus (11) Intractable back pain (12) Laparoscopic Earlene fundoplication using abdominal approach Surgical Problems: (1) H/O ileostomy Family History CABG Coronary artery disease Emphysema FHx: cancer (lymphoma) Hepatic cirrhosis Hypertension Stroke Social History Smoking Status: Never Smoker Alcohol Use: none Drug Use: none Marital Status: Housing Status: lives with family Occupation Status: employed Current/Historical Medications Scheduled Apixaban (Eliquis), 5 MG PO BID Baclofen (Lioresal), 10 MG PO QPM Bioflavonoid Products (Vitamin C), 1 TAB PO DAILY Bisacodyl (Dulcolax), 10 MG PO HS Cholecalciferol (Vitamin D), 5,000 INTER.UNIT PO DAILY Docusate Sodium (Colace), 100 MG PO BID Lorazepam (Lorazepam), 2 MG PO HS Multivitamin (Multivitamin), 1 TAB PO DAILY Ranitidine (Zantac), 150 MG PO DAILY Simethicone (Gas-X), 80 MG PO TID Scheduled PRN Acetaminophen (Tylenol), 1,000 MG PO Q6H PRN for Pain or Fever Physical Exam Vital Signs Date Time Temp Pulse Resp B/P (MAP) Pulse Ox O2 Delivery O2 Flow Rate FiO2 06/18/17 17:47 73 20 173/84 98 06/18/17 16:08 67 06/18/17 15:29 Room Air 06/18/17 15:15 36.8 70 18 188/95 99 Room Air Physical Exam VITALS: Vitals are noted on the nurse's note and reviewed by myself. Vital signs stable. GENERAL: 57-year-old female, in no acute distress, nondiaphoretic, SKIN: The skin was without rashes, erythema, edema, or bruising. HEAD: Normocephalic atraumatic. MOUTH: Mucous membranes moist. NECK: . No JVD. HEART: Regular rate and rhythm faint murmur noted, best heard at the left lower sternal border LUNGS: Clear to auscultation bilaterally without wheezes, rales or rhonchi. No accessory muscle use. ABDOMEN: Positive bowel sounds x 4.Soft, nontender, without organomegaly. No guarding or rebound tenderness. MUSCULOSKELETAL: No muscle atrophy, erythema, or edema noted. Strength 5/5 throughout. DP pulses palpable right greater than left NEURO: Patient was alert and oriented to person place and time. Normal sensation to touch. No focal neurological deficits. Medical Decision & Procedures ER Provider Diagnostic Interpretation: CT chest with contrast for PE IMPRESSION: 1. No evidence of acute pulmonary embolism 2. No evidence of focal pulmonary consolidation Electronically signed by: Timo Haines M.D. 06/18/2017 5:25 PM Dictated Date/Time: 06/18/2017 5:20 PM The status of this report is Signed. Draft = Not yet reviewed or approved by Radiologist. Signed = Reviewed and approved by Radiologist. <AttendingPhy></AttendingPhy> <FamilyPhy>Nathalie South C.R.N.P</FamilyPhy> < PrimaryPhy>Nathalie South C.R.N.P</PrimaryPhy> <UnitNumber>[id number]</ UnitNumber> <VisitNumber>[id number] Laboratory Results 06/18/17 16:00 Red Blood Count 4.31, Mean Corpuscular Volume 89.6, Mean Corpuscular Hemoglobin 30.9, Mean Corpuscular Hemoglobin Concent 34.5, Mean Platelet Volume 9.1, Neutrophils (%) (Auto) 64.6, Lymphocytes (%) (Auto) 25.3, Monocytes (%) (Auto) 9.3, Eosinophils (%) (Auto) 0.2, Basophils (%) (Auto) 0.4, Neutrophils # (Auto) 3.07, Lymphocytes # (Auto) 1.20, Monocytes # (Auto) 0.44, Eosinophils # (Auto) 0.01, Basophils # (Auto) 0.02 06/18/17 16:00 Test 06/18/17 16:00 White Blood Count 4.75 K/uL (4.8-10.8) Red Blood Count 4.31 M/uL (4.2-5.4) Hemoglobin 13.3 g/dL (12.0-16.0) Hematocrit 38.6 % (37-47) Mean Corpuscular Volume 89.6 fL (80-100) Mean Corpuscular Hemoglobin 30.9 pg (25-34) Mean Corpuscular Hemoglobin Concent 34.5 g/dl (32-36) Platelet Count 212 K/uL (130-400) Mean Platelet Volume 9.1 fL (7.4-10.4) Neutrophils (%) (Auto) 64.6 % Lymphocytes (%) (Auto) 25.3 % Monocytes (%) (Auto) 9.3 % Eosinophils (%) (Auto) 0.2 % Basophils (%) (Auto) 0.4 % Neutrophils # (Auto) 3.07 K/uL (1.4-6.5) Lymphocytes # (Auto) 1.20 K/uL (1.2-3.4) Monocytes # (Auto) 0.44 K/uL (0.11-0.59) Eosinophils # (Auto) 0.01 K/uL (0-0.5) Basophils # (Auto) 0.02 K/uL (0-0.2) RDW Standard Deviation 44.5 fL (36.4-46.3) RDW Coefficient of Variation 13.5 % (11.5-14.5) Immature Granulocyte % (Auto) 0.2 % Immature Granulocyte # (Auto) 0.01 K/uL (0.00-0.02) Anion Gap 6.0 mmol/L (3-11) Est Creatinine Clear Calc Drug Dose 80.5 ml/min Estimated GFR () 112.6 Estimated GFR (Non- 97.2 BUN/Creatinine Ratio 11.8 (10-20) Calcium Level 9.7 mg/dl (8.5-10.1) Troponin I < 0.015 ng/ml (0-0.045) Medications Administered Medications (Trade) Dose Ordered Sig/Marvin Route Start Time Stop Time Status Last Admin Dose Admin Potassium Chloride (Klor-Con M10) 40 meq NOW STAT PO 06/18/17 17:44 06/18/17 17:45 DC 06/18/17 17:52 40 MEQ ED Course Patient was seen and examined Vital signs including blood pressure were reviewed medications list was verified with patient Labs were obtained, and a saline lock was established An EKG was performed. The patient was put on a monitor. Imaging was performed The patient was reassessed and resting comfortably in bed. We discussed the results of her workup. She voiced understanding. The case was also discussed with my supervising physician who is in agreement with my plan. The patient was given potassium chloride 40 mEq by mouth I reviewed discharge instructions the patient. They voiced understanding and had no further questions. Medical Decision Differential diagnosis: Pulmonary embolus, pneumonia, pneumothorax, cardiac arrhythmia, heart failure This patient is a 57-year-old female that presents to emergency department with shortness of breath. She has a known history of a DVT on anticoagulation. On exam, the patient is not hypoxic. There is no tachycardia. She is not tachypneic. Her lungs are clear. Imaging was performed in addition to an EKG and blood work. There are no signs of a PE per CT. no signs of heart failure or pneumonia. Her EKG shows no signs of ischemia. Her troponin is negative. I believe she is stable to be discharged home with her current medical regimen. She and her significant other are comfortable with this plan. They will follow up with her primary care physician as soon as possible, and agreed to return to the emergency department with any new or worsening symptoms. This chart was completed in part utilizing [employer] Voice Recognition software. Attempts were made to minimize the grammatical errors, random word insertions, pronoun errors and incomplete sentences. Any formal questions or concerns about the content, text or information contained within the body of this dictation should be directly addressed to the provider for clarification. Medication Reconcilliation Current Medication List: was personally reviewed by me Blood Pressure Screening Patient's blood pressure: Elevated blood pressure Blood pressure disposition: Did not require urgent referral Impression Primary Impression: Dyspnea Departure Information Dispostion Home / Self-Care Condition GOOD Referrals Nathalie South C.R.N.P (PCP) Patient Instructions My [facility] Additional Instructions You were evaluated in the emergency department for shortness of breath. A CAT scan was performed. No evidence of a blood clot in your lungs was found. Please continue your current medications as prescribed Please call your primary care physician as soon as possible for a follow-up appointment. Do not hesitate to return to the emergency department with any new, worsening or concerning symptoms
[2017-06-18 16:13] LABS: BASO % 0.4 %; BASO ABS # 0.02 K/uL (0-0.2); COMPLETE YES; EOS % 0.2 %; HEMATOCRIT 38.6 % (37-47); IG% 0.2 %; LYMPH % 25.3 %; MEAN CELL VOLUME 89.6 fL (80-100); MEAN CORPUSCULAR HEMOGLOBIN 30.9 pg (25-34); MEAN CORPUSCULAR HGB CONC 34.5 g/dl (32-36); MEAN PLATELET VOLUME 9.1 fL (7.4-10.4); MONO % 9.3 %; NEUT % 64.6 %; PLATELET COUNT 212 K/uL (130-400); RED BLOOD COUNT 4.31 M/uL (4.2-5.4); WHITE BLOOD COUNT 4.75 K/uL (4.8-10.8)
[2017-06-18] MEDS ORDERED: ATV1 PO (16:20)
[2017-06-18] MEDS ORDERED: APIX1TAB3 PO (16:20)
[2017-06-18] MEDS ORDERED: BACL1TAB PO (16:20)
[2017-06-18] MEDS ORDERED: SIME80CH PO (16:25)
[2017-06-18 16:32] LABS: BLOOD UREA NITROGEN 8 mg/dl (7-18); BUN/CREATININE RATIO 11.8 (10-20); CALCIUM 9.7 mg/dl (8.5-10.1); CARBON DIOXIDE 28 mmol/L (21-32); CHLORIDE 100 mmol/L (98-107); CREATININE 0.65 mg/dl (0.60-1.20); GLUCOSE 92 mg/dl (70-99); POTASSIUM 3.3 mmol/L (3.5-5.1); SODIUM 134 mmol/L (136-145)
[2017-06-18] MEDS ORDERED: BISA-16 PO (16:46)
[2017-06-18] MEDS ORDERED: ZNTT/150 PO (16:46)
[2017-06-18] MEDS ORDERED: MULT-506 PO (16:46)
[2017-06-18] MEDS ORDERED: CHOL1TAB42 PO (16:46)
[2017-06-18] MEDS ORDERED: BIOF500C2 PO (16:46)
[2017-06-18] MEDS ORDERED: DOCU-94 PO (16:46)
--- NOTE | 2017-06-18 17:26 | DIAGNOSTIC IMAGING REPORT ---
CT ANGIOGRAM OF THE CHEST CLINICAL HISTORY: Cough, shortness of breath, known DVT. COMPARISON STUDY: 08/18/2013 TECHNIQUE: Following the IV administration of 111 mL of Optiray-320, CT angiogram of the thorax was performed from the thoracic inlet to the lung bases utilizing the pulmonary embolus protocol. Images are reviewed in the axial, sagittal, and coronal planes. IV contrast was administered without complication. MIP imaging was performed. A dose lowering technique was utilized adhering to the principles of ALARA. CT DOSE: 214.05 mGy.cm FINDINGS: No pathologically enlarged axillary mediastinal or hilar lymph nodes were visualized. There was no evidence of thoracic aortic dilatation. There were no pulmonary artery filling defects to indicate acute pulmonary embolism. No pleural effusions are visualized. There is no focal pulmonary consolidation. There are mild dependent atelectatic changes. IMPRESSION: 1. No evidence of acute pulmonary embolism 2. No evidence of focal pulmonary consolidation Electronically signed by: Timo Haines M.D. 06/18/2017 5:25 PM Dictated Date/Time: 06/18/2017 5:20 PM
[2017-06-18] MEDS ORDERED: POTASSIUM CHLORIDE 10 MEQ TABCR PO STA (17:44)
[2017-06-18 17:47] VITALS: BP 173/84; PULSE 73; O2SAT 98
== END 2017-06-18 18:06 | disposition home or self-care (01) ==
LOC: C.EDB 15:08 → C.EDC 18:06
DX: R06.00 Dyspnea, unspecified (principal); I10 Essential (primary) hypertension; Z79.01 Long term (current) use of anticoagulants; Z86.718 Personal history of other venous thrombosis and embolism; Z82.49 Family history of ischemic heart disease and other diseases of the circulatory system; Z82.5 Family history of asthma and other chronic lower respiratory diseases; Z80.7 Family history of other malignant neoplasms of lymphoid, hematopoietic and related tissues; Z83.79 Family history of other diseases of the digestive system; Z82.3 Family history of stroke

== ENCOUNTER → 2017-07-12 | Outpatient (CLI) | payer BC ==
[~2017-07-12] MED LIST changes: -ATV/2 PO; +ATV1 PO; -BACL10TA PO; +BACL1TAB PO; +BIOF500C2 PO; +BISA-16 PO; +CHOL1TAB42 PO; +DOCU-94 PO; +MULT-506 PO; -SIME1CAP28 PO; +SIME80CH PO; +ZNTT/150 PO
--- NOTE | 2017-07-12 10:56 | DIAGNOSTIC IMAGING REPORT ---
L VENOUS DOPP LOWER EXT UNILAT CLINICAL HISTORY: I82.409 DVT deep venous thrombosis TECHNIQUE: Venous Doppler COMPARISON STUDY: 06/11/2017 FINDINGS: Continued components of deep venous thrombosis within the left posterior tibial and peroneal veins. Geographic extent is slightly diminished. There is no evidence for progressive process. All remaining venous structures are intact. IMPRESSION: Continued components of deep venous thrombosis the left posterior tibial and peroneal veins, slightly improved in geographic distribution/extent as compared to the prior study. No evidence for progressive thrombophlebitis. The above report was generated using voice recognition software. It may contain grammatical, syntax or spelling errors. Electronically signed by: Dagobetro Lim M.D. 07/12/2017 10:55 AM Dictated Date/Time: 07/12/2017 10:53 AM
== END | disposition home or self-care (01) ==
LOC: C.ULTRBC 10:18
PROVIDERS: ATTEND Nurse Practitioner
DX: I82.409 Acute embolism and thrombosis of unspecified deep veins of unspecified lower extremity (principal)

== ENCOUNTER → 2017-08-02 | Outpatient (CLI) | payer BC | END | disposition home or self-care (01) | LOC: C.LABPVFM 11:23 | PROVIDERS: ATTEND Nurse Practitioner | DX: R79.0 Abnormal level of blood mineral (principal); E55.9 Vitamin D deficiency, unspecified; M79.2 Neuralgia and neuritis, unspecified ==

== ENCOUNTER → 2017-08-13 | Outpatient (CLI) | payer BC ==
[~2017-08-13] MED LIST changes: +RANI150T85 PO; -ZNTT/150 PO
--- NOTE | 2017-08-13 13:23 | DIAGNOSTIC IMAGING REPORT ---
BILATERAL LOWER EXTREMITY VENOUS DOPPLER HISTORY: Right leg pain. M54.10 Radicular leg pain COMPARISON STUDY: Left leg venous doppler 07/12/2017. FINDINGS: Small focus of nonocclusive thrombus seen within the distal right superficial femoral vein. This may be chronic. No additional areas of DVT within the right lower extremity. The left common femoral, superficial femoral, popliteal, and intervertebral veins appear patent. Thrombus within the left posterior tibial vein has improved. There is broken flow seen within the left peroneal vein suggestive of persistent nonocclusive thrombus. IMPRESSION: 1. Small focus of nonocclusive thrombus seen within the distal right superficial femoral vein which is likely chronic. 2. Improvement in the chronic thrombus within the left posterior tibial vein. 3. No change in the nonocclusive thrombus within the left peroneal vein. Electronically signed by: Champ Tejada M.D. 08/13/2017 1:22 PM Dictated Date/Time: 08/13/2017 1:20 PM
== END | disposition home or self-care (01) ==
LOC: C.ULTR 12:34
PROVIDERS: ATTEND Family Medicine
DX: I82.411 Acute embolism and thrombosis of right femoral vein (principal); M54.10 Radiculopathy, site unspecified; M79.2 Neuralgia and neuritis, unspecified

== ENCOUNTER 2017-08-24 17:47 | Emergency (ER) | payer BC ==
[~2017-08-24] VITALS: Ht 162.6 cm; Wt 54.7 kg
[2017-08-24 18:02] VITALS: TEMP 36.8; Ht 162.6 cm; Wt 54.7 kg
[2017-08-24] MEDS ORDERED: DiphenhydrAMINE HCL 50 MG/ML VIAL IV STA (18:24)
[2017-08-24] MEDS ORDERED: SODIUM CHLORIDE 0.9% 1000ML 1,000 ML IV STA (18:24)
[2017-08-24] MEDS ORDERED: METOCLOPRAMIDE HCL INJ 5 MG/ML 2 ML VIAL IV STA (18:24)
--- NOTE | 2017-08-24 18:43 | EMERGENCY ROOM VISIT NOTE ---
History Report prepared by Adela: Negin Moore Under the Supervision of: Dr. Jay Valenzuela M.D. First contact with patient: 18:15 Chief Complaint: NEURO SYMPTOMS Stated Complaint: NUMBNESS IN FACE, DOWN SIDE , B/L LEGS Nursing Triage Summary: Patient ambulatory to triage with the use of a cane, states "I have numbness that started back in April in my back. I have a pinched nerve in my back that is in-operable. I have a blood clot in my left leg. When I stand up, my leg gets purple and blue. I have had numbness in my right leg on and off for months. I developed left sided facial numbness today around noon." History of Present Illness The patient is a 57 year old female who presents to the Emergency Room with complaints of persistent left sided facial numbness that began about 6 hours ago. She states a history of numbness in her back due to an in operable pinched nerve that was diagnosed in April, 3 months ago, noting she followed up with Dr. Monzon. After her diagnosis, the patient was ambulating with a wheelchair and has recently started walking with a cane. She was diagnosed a few weeks ago with a blood clot in her left leg, noting her leg, knee, and the side of her foot turns purple/blue when she stands up. The patient reports that she has recently been experiencing right leg numbness and discoloration. She notes that her primary care physician prescribed her Gabapentin, which has not helped relieve her symptoms. Today, the patient states that all of the sudden she began experiencing left sided facial numbness, which she describes as "pins and needles". She reports some dizziness, changes in vision, and a headache. The patient states that she has a history of migraines, but it has been years since she has had one. She reports that she takes blood thinners. The patient states that she has an appointment to see Dr. Ruiz (neurology) soon. Source of History: patient Onset: 6 hours ago Position: other (face) Quality: other (facial numbness) Timing: other (persistent) Associated Symptoms: + headache Note: Associated symptoms include: dizziness and changes in vision. Review of Systems See HPI for pertinent positives and negatives. A total of ten systems were reviewed and were otherwise negative. Past Medical & Surgical Medical Problems: (1) Abnormal EKG (2) Chest pain (3) Clostridium difficile colitis (4) Constipation (5) Creation of ileostomy (6) Hx-Venous Thrombosis&Embolism (7) Hypertension Nos (8) Hypothyroidism Nos (9) ileostomy reversal (10) Ileus (11) Intractable back pain (12) Laparoscopic Earlene fundoplication using abdominal approach Surgical Problems: (1) H/O ileostomy Family History CABG Coronary artery disease Emphysema FHx: cancer (lymphoma) Hepatic cirrhosis Hypertension Stroke Social History Smoking Status: Never Smoker Alcohol Use: none Drug Use: none Marital Status: Housing Status: lives with family Occupation Status: employed Current/Historical Medications Scheduled Apixaban (Eliquis), 5 MG PO BID Baclofen (Lioresal), 10 MG PO QPM Bisacodyl (Dulcolax), 10 MG PO HS Cholecalciferol (Vitamin D), 5,000 INTER.UNIT PO DAILY Docusate Sodium (Colace), 1 CAP PO BID Gabapentin (Gabapentin), 100 MG PO BID Lorazepam (Lorazepam), 2 MG PO HS Metoprolol Succinate (Metoprolol Succinate ER), 25 MG PO QPM Multivitamin (Multivitamin), 1 TAB PO DAILY Ranitidine (Zantac), 150 MG PO DAILY Simethicone (Gas-X), 80 MG PO BID Scheduled PRN Acetaminophen (Tylenol), 1,000 MG PO TID PRN for Pain or Fever Ondasetron Odt (Zofran Odt), 4 MG PO Q6 PRN for Nausea Promethazine Hcl (Phenergan), 25 MG PO Q6H PRN for Nausea Tramadol HCl (Tramadol HCl), 50 MG PO Q6 PRN for Pain Allergies Coded Allergies: Pregabalin (Unverified Allergy, Intermediate, confusion, forgetfullness, itchy, 08/24/17) Rabeprazole (Verified Allergy, Intermediate, SWELLING, 08/24/17) Morphine (Verified Allergy, Mild, UNKNOWN, 08/24/17) Tolerates dilaudid Amitriptyline (Verified Allergy, Unknown, SWELLING, 08/24/17) Tricyclic Antidepressants (Verified Allergy, Unknown, SWELLING, 08/24/17) Ciprofloxacin (Verified Adverse Reaction, Unknown, gi upset, 08/24/17) pt Physical Exam Vital Signs Date Time Temp Pulse Resp B/P (MAP) Pulse Ox O2 Delivery O2 Flow Rate FiO2 08/24/17 23:21 75 18 148/89 98 08/24/17 21:05 79 18 180/82 98 Room Air 08/24/17 21:03 71 08/24/17 20:22 75 18 181/100 98 Room Air 08/24/17 18:02 36.8 76 18 174/93 98 Room Air Physical Exam GENERAL: Awake, alert, in no distress HENT: Dry mucous membranes. Normocephalic, atraumatic. Oropharynx otherwise unremarkable. EYES: No dysconjugate gaze. Sclera non-icteric. NECK: Supple. No nuchal rigidity. FROM. No JVD. RESPIRATORY: Clear to auscultation. CARDIAC: Regular rate, normal rhythm. Extremities warm and well perfused. Pulses equal. ABDOMEN: Soft, non-distended. No tenderness to palpation. No rebound or guarding. No masses. BACK: Mild left paraspinal tenderness to palpation. No step offs. RECTAL: Deferred. MUSCULOSKELETAL: Chest examination reveals no tenderness. The back is symmetrical on inspection without obvious abnormality. There is no CVA tenderness to palpation. No joint edema. LOWER EXTREMITIES: Calves are equal size bilaterally and non-tender. No edema. No discoloration. NEURO: Normal motor and sensory. Normal cerebellar function with [id number] , alternating palms, pzgg-[id number]-mayg SKIN: Triphasic pulses on left. Palpable pedal pulses on right. No rash or jaundice noted. Medical Decision & Procedures ER Provider Diagnostic Interpretation: Radiology results as stated below per my review and radiologist interpretation: CHEST ONE VIEW PORTABLE CLINICAL HISTORY: Abdominal pain. Facial and lower extremity numbness. COMPARISON STUDY: Chest CT June 18, 2017. FINDINGS: Lung volumes are normal. No pneumothorax or pleural effusion is noted. There is no evidence for pulmonary edema. Cardiac size is normal. Mediastinal contours are normal. IMPRESSION: No acute cardiopulmonary findings. Electronically signed by: Vignesh Sylvester M.D. 08/24/2017 7:03 PM Dictated Date/Time: 08/24/2017 7:02 PM LEFT LOWER EXTREMITY VENOUS DOPPLER CLINICAL HISTORY: position swelling numbness COMPARISON STUDY: Bilateral lower extremity venous Doppler August 13, 2017. TECHNIQUE: Sonography of the deep venous system of the left lower extremity was performed. Compression and augmentation were evaluated. FINDINGS: Nonocclusive thrombus is noted within the left peroneal vein. This is similar to exam of August 13, 2017. No additional sites of deep venous thrombus within the left lower extremity are identified. The suspected chronic thrombus within the left posterior tibial vein shown on prior exam is not well depicted on the study. IMPRESSION: No significant change in nonocclusive deep venous thrombus within the left peroneal vein since exam of August 13, 2017 although comparison by sonography is difficult. Electronically signed by: Vignesh Sylvester M.D. 08/24/2017 8:00 PM Dictated Date/Time: 08/24/2017 7:[address] ANGIOGRAPHY OF THE NECK WITH CONTRAST CLINICAL HISTORY: Left facial numbness. COMPARISON STUDY: No previous studies for comparison. Technique: CT angiography of the carotid and vertebral arteries was obtained using Optiray 320 IV and 3D reconstruction on an independent workstation. NASCET criteria was utilized. A dose lowering technique was utilized adhering to the principles of ALARA. CT DOSE: 1001.11 mGy.cm Findings: The bilateral common carotid, internal carotid and vertebral arteries are patent without evidence of a significant stenosis. There is mild plaque within the proximal bilateral internal carotid arteries there is no dissection. The bilateral vertebral arteries are patent. Lung apices are clear. There is no cervical lymphadenopathy. There is mild plaque within the bilateral cavernous carotids with mild stenosis of these 2 vessels. IMPRESSION: Mild atherosclerotic plaque without evidence of a significant stenosis within the bilateral common carotid, internal carotid or vertebral arteries. Electronically signed by: Vignesh Sylvester M.D. 08/24/2017 9:07 PM Dictated Date/Time: 08/24/2017 9:05 PM ANGIOGRAPHY HEAD COMBO CLINICAL HISTORY: Left facial numbness. COMPARISON STUDY: Head CT August 21, 2013. TECHNIQUE: Unenhanced and arterial phase imaging of the head was performed. Injection of 116 cc of Optiray 320 IV was uneventful. Sagittal and coronal reconstructions were viewed as well as maximal intensity projections on an independent 3-D workstation. FINDINGS: No acute intracranial hemorrhage, midline shift or mass effect is present. Intratesticular system is normal. Basilar cisterns are patent. There are no extra-axial collections. Linares-white differentiation is preserved. There are no findings to suggest acute dural sinus thrombosis or acute territorial infarct. There are no significant calvarial abnormalities. Visualized portions of the sinuses and mastoid air cells are clear. The bilateral M1, M2, A1 and A2 segments are patent. There is mild plaque within the bilateral cavernous carotids. There is no high-grade stenosis. There is no abrupt vessel cut off. There is no dissection or intracranial aneurysm. IMPRESSION: 1. No acute intracranial findings. 2. No intracranial aneurysm or abrupt vessel cut off. Electronically signed by: Vignesh Sylvester M.D. 08/24/2017 9:05 PM Dictated Date/Time: 08/24/2017 9:00 PM Laboratory Results 08/24/17 18:40 Red Blood Count 4.38, Mean Corpuscular Volume 89.5, Mean Corpuscular Hemoglobin 30.8, Mean Corpuscular Hemoglobin Concent 34.4, Mean Platelet Volume 9.6, Neutrophils (%) (Auto) 59.1, Lymphocytes (%) (Auto) 32.4, Monocytes (%) (Auto) 7.5, Eosinophils (%) (Auto) 0.4, Basophils (%) (Auto) 0.4, Neutrophils # (Auto) 3.22, Lymphocytes # (Auto) 1.76, Monocytes # (Auto) 0.41, Eosinophils # (Auto) 0.02, Basophils # (Auto) 0.02 08/24/17 18:40 Test 08/24/17 18:40 08/24/17 19:08 White Blood Count 5.44 K/uL (4.8-10.8) Red Blood Count 4.38 M/uL (4.2-5.4) Hemoglobin 13.5 g/dL (12.0-16.0) Hematocrit 39.2 % (37-47) Mean Corpuscular Volume 89.5 fL (80-100) Mean Corpuscular Hemoglobin 30.8 pg (25-34) Mean Corpuscular Hemoglobin Concent 34.4 g/dl (32-36) Platelet Count 211 K/uL (130-400) Mean Platelet Volume 9.6 fL (7.4-10.4) Neutrophils (%) (Auto) 59.1 % Lymphocytes (%) (Auto) 32.4 % Monocytes (%) (Auto) 7.5 % Eosinophils (%) (Auto) 0.4 % Basophils (%) (Auto) 0.4 % Neutrophils # (Auto) 3.22 K/uL (1.4-6.5) Lymphocytes # (Auto) 1.76 K/uL (1.2-3.4) Monocytes # (Auto) 0.41 K/uL (0.11-0.59) Eosinophils # (Auto) 0.02 K/uL (0-0.5) Basophils # (Auto) 0.02 K/uL (0-0.2) RDW Standard Deviation 41.1 fL (36.4-46.3) RDW Coefficient of Variation 12.7 % (11.5-14.5) Immature Granulocyte % (Auto) 0.2 % Immature Granulocyte # (Auto) 0.01 K/uL (0.00-0.02) Anion Gap 6.0 mmol/L (3-11) Est Creatinine Clear Calc Drug Dose 60.1 ml/min Estimated GFR () 84.5 Estimated GFR (Non- 72.9 BUN/Creatinine Ratio 8.4 (10-20) Calcium Level 9.6 mg/dl (8.5-10.1) Magnesium Level 2.0 mg/dl (1.8-2.4) Total Bilirubin 0.3 mg/dl (0.2-1) Direct Bilirubin < 0.1 mg/dl (0-0.2) Aspartate Amino Transf (AST/SGOT) 19 U/L (15-37) Alanine Aminotransferase (ALT/SGPT) 22 U/L (12-78) Alkaline Phosphatase 66 U/L (45-117) Troponin I < 0.015 ng/ml (0-0.045) Total Protein 7.8 gm/dl (6.4-8.2) Albumin 4.2 gm/dl (3.4-5.0) Lipase 250 U/L (73-393) Lyme Disease IgG Antibody NEG (NEG) Urine Color YELLOW Urine Appearance CLEAR (CLEAR) Urine pH 5.5 (4.5-7.5) Urine Specific Dailey 1.006 (1.000-1.030) Urine Protein NEG (NEG) Urine Glucose (UA) NEG (NEG) Urine Ketones NEG (NEG) Urine Occult Blood NEG (NEG) Urine Nitrite NEG (NEG) Urine Bilirubin NEG (NEG) Urine Urobilinogen NEG (NEG) Urine Leukocyte Esterase NEG (NEG) Laboratory results reviewed by me Medications Administered Medications (Trade) Dose Ordered Sig/Marvin Route Start Time Stop Time Status Last Admin Dose Admin Sodium Chloride 1,000 ml @ 999 mls/hr Q1H1M STAT IV 08/24/17 18:24 08/24/17 19:24 DC 08/24/17 19:00 999 MLS/HR Lorazepam (Ativan Tab) 0.5 mg STK-MED ONCE .ROUTE 08/24/17 22:06 08/24/17 22:07 DC 08/24/17 22:06 0.5 MG Miscellaneous Information (Nursing Verbal Med Order) 1 ea ONE ONCE N/A 08/24/17 22:15 08/24/17 22:16 DC 08/24/17 22:17 1 EA ECG Per My Interpretation Indication: other (neuro symptoms) Rate (beats per minute): 65 Rhythm: normal sinus Findings: no acute ischemic change, other (normal axis) ED Course 1815: The patient was evaluated in room C1. A complete history and physical exam was performed. 2220: I reevaluated the patient and updated her on test findings. She refuses an MRI. The patient will be discharged. Medical Decision I reviewed the patient's past medical history, medications, and the nursing notes as described above. Differential diagnosis: Etiologies such as metabolic, infection, hypo/hyperglycemia, electrolyte abnormalities, cardiac sources, intracerebral event, toxicologic, neurologic, as well as others were entertained. The patient is a 57-year-old woman with a past medical history of chronic lumbar radiculopathy and left lower extremity DVT on [facility] presents emergency Department with new onset left facial numbness that began earlier today as well as persistent positional left lower extremity discoloration and numbness that has been ongoing for the past several months after diagnosis of a DVT per hpi. On arrival, the patient is in no acute distress, afebrile stable vital signs. She has positive straight leg raise bilaterally consistent with her history. The patient reports subjective numbness to the left side of her face the patient and otherwise has no objective neurologic findings. Neuro intact including normal cerebellar function with [id number], alternating palms, yegm-qc-ratt. Patient does have position LLE venous stasis when standing, likely related to patient's DVT. Otherwise, patient has string triphasic dopplerable pedal pulses. Labs unremarkable including WBC wnl. UA negative. Lyme screen with IgM equivocal, however given no risk factors for lyme exposures will wait for reflex WB. CXR negative. LLE duplex unchanged. CTA head/ neck negative for infarct or large vessel occlusion. Given patient's multiple chronic complaints of paresthesias MRI brain ordered to assess for possible MS however patient unable to tolerate exam 2/2 claustrophobia despite anxiolysis. Given longstanding sx for past several months unlikely to have emergent process. Plan to f/u with pcp to arrange for open-MRI. Additionally, patient was counseled on use of compression stockings to help with positional venous stasis in LLE. Findings and plan for follow-up reviewed with patient. Patient agreeable and d/c'd per discharge instructions. Medication Reconcilliation Current Medication List: was personally reviewed by me Blood Pressure Screening Patient's blood pressure: Elevated blood pressure Blood pressure disposition: Elevated BP felt to be situational Impression Primary Impression: Facial paresthesia Scribe Attestation The scribe's documentation has been prepared under my direction and personally reviewed by me in its entirety. I confirm that the note above accurately reflects all work, treatment, procedures, and medical decision making performed by me. Departure Information Dispostion Home / Self-Care Referrals No Doctor, Assigned (PCP) Forms HOME CARE DOCUMENTATION FORM, IMPORTANT VISIT INFORMATION, WORK / SCHOOL INSTRUCTIONS Patient Instructions ED Paraesthesias, ED Sciatica, My [facility] Additional Instructions Please follow up with your primary care physician and neurologist in the next week as scheduled for re-evaluation. The cause of your facial symptoms are unclear at this time. Otherwise, your exam, EKG, chest xray, lab results, CT scan of your head and neck with contrast did not show signs of an emergent condition at this time. Continue your current medications. Drink plenty of fluids to ensure hydration. Return to the emergency department for worsening symptoms as described in the accompanying instructions.
[2017-08-24] MEDS ORDERED: OPTIRAY 320 IV PRN (18:45)
[2017-08-24 18:57] LABS: BASO % 0.4 %; BASO ABS # 0.02 K/uL (0-0.2); EOS % 0.4 %; EOS ABS # 0.02 K/uL (0-0.5); HEMATOCRIT 39.2 % (37-47); HEMOGLOBIN 13.5 g/dL (12.0-16.0); IG# 0.01 K/uL (0.00-0.02); LYMPH % 32.4 %; LYMPH ABS # 1.76 K/uL (1.2-3.4); MEAN CELL VOLUME 89.5 fL (80-100); MEAN CORPUSCULAR HEMOGLOBIN 30.8 pg (25-34); MEAN CORPUSCULAR HGB CONC 34.4 g/dl (32-36); MEAN PLATELET VOLUME 9.6 fL (7.4-10.4); MONO % 7.5 %; MONO ABS # 0.41 K/uL (0.11-0.59); NEUT % 59.1 %; NEUT ABS # 3.22 K/uL (1.4-6.5); PLATELET COUNT 211 K/uL (130-400); RED CELL DISTRIBUTION WIDTH CV 12.7 % (11.5-14.5); RED CELL DISTRIBUTION WIDTH SD 41.1 fL (36.4-46.3); WHITE BLOOD COUNT 5.44 K/uL (4.8-10.8)
--- NOTE | 2017-08-24 19:04 | DIAGNOSTIC IMAGING REPORT ---
CHEST ONE VIEW PORTABLE CLINICAL HISTORY: Abdominal pain. Facial and lower extremity numbness. COMPARISON STUDY: Chest CT June 18, 2017. FINDINGS: Lung volumes are normal. No pneumothorax or pleural effusion is noted. There is no evidence for pulmonary edema. Cardiac size is normal. Mediastinal contours are normal. IMPRESSION: No acute cardiopulmonary findings. Electronically signed by: Vignesh Sylvester M.D. 08/24/2017 7:03 PM Dictated Date/Time: 08/24/2017 7:02 PM
[2017-08-24 19:21] LABS: ALBUMIN 4.2 gm/dl (3.4-5.0); ALT/SGPT 22 U/L (12-78); AST/SGOT 19 U/L (15-37); BLOOD UREA NITROGEN 7 mg/dl (7-18); CALCIUM 9.6 mg/dl (8.5-10.1); CARBON DIOXIDE 29 mmol/L (21-32); CREATININE 0.87 mg/dl (0.60-1.20); GLUCOSE 84 mg/dl (70-99); LIPASE 250 U/L (73-393); POTASSIUM 3.9 mmol/L (3.5-5.1); SODIUM 136 mmol/L (136-145)
[2017-08-24] MEDS ORDERED: TPRSR/25 PO (19:39)
[2017-08-24] MEDS ORDERED: PROM25TA9 PO (19:39)
[2017-08-24] MEDS ORDERED: ULT50 PO (19:39)
[2017-08-24] MEDS ORDERED: NRN100 PO (19:39)
[2017-08-24] MEDS ORDERED: ONDA4TAB10 PO (19:39)
[2017-08-24] MEDS ORDERED: DOCU-94 PO (19:39)
--- NOTE | 2017-08-24 20:01 | DIAGNOSTIC IMAGING REPORT ---
LEFT LOWER EXTREMITY VENOUS DOPPLER CLINICAL HISTORY: position swelling numbness COMPARISON STUDY: Bilateral lower extremity venous Doppler August 13, 2017. TECHNIQUE: Sonography of the deep venous system of the left lower extremity was performed. Compression and augmentation were evaluated. FINDINGS: Nonocclusive thrombus is noted within the left peroneal vein. This is similar to exam of August 13, 2017. No additional sites of deep venous thrombus within the left lower extremity are identified. The suspected chronic thrombus within the left posterior tibial vein shown on prior exam is not well depicted on the study. IMPRESSION: No significant change in nonocclusive deep venous thrombus within the left peroneal vein since exam of August 13, 2017 although comparison by sonography is difficult. Electronically signed by: Vignesh Sylvester M.D. 08/24/2017 8:00 PM Dictated Date/Time: 08/24/2017 7:58 PM
[2017-08-24 20:53] LABS: ALKALINE PHOSPHATASE 66 U/L (45-117); TOTAL PROTEIN 7.8 gm/dl (6.4-8.2)
--- NOTE | 2017-08-24 21:06 | DIAGNOSTIC IMAGING REPORT ---
ANGIOGRAPHY HEAD COMBO CLINICAL HISTORY: Left facial numbness. COMPARISON STUDY: Head CT August 21, 2013. TECHNIQUE: Unenhanced and arterial phase imaging of the head was performed. Injection of 116 cc of Optiray 320 IV was uneventful. Sagittal and coronal reconstructions were viewed as well as maximal intensity projections on an independent 3-D workstation. FINDINGS: No acute intracranial hemorrhage, midline shift or mass effect is present. Intratesticular system is normal. Basilar cisterns are patent. There are no extra-axial collections. Linares-white differentiation is preserved. There are no findings to suggest acute dural sinus thrombosis or acute territorial infarct. There are no significant calvarial abnormalities. Visualized portions of the sinuses and mastoid air cells are clear. The bilateral M1, M2, A1 and A2 segments are patent. There is mild plaque within the bilateral cavernous carotids. There is no high-grade stenosis. There is no abrupt vessel cut off. There is no dissection or intracranial aneurysm. IMPRESSION: 1. No acute intracranial findings. 2. No intracranial aneurysm or abrupt vessel cut off. Electronically signed by: Vignesh Sylvester M.D. 08/24/2017 9:05 PM Dictated Date/Time: 08/24/2017 9:00 PM
--- NOTE | 2017-08-24 21:09 | DIAGNOSTIC IMAGING REPORT ---
CT ANGIOGRAPHY OF THE NECK WITH CONTRAST CLINICAL HISTORY: Left facial numbness. COMPARISON STUDY: No previous studies for comparison. Technique: CT angiography of the carotid and vertebral arteries was obtained using mydala 320 IV and 3D reconstruction on an independent workstation. NASCET criteria was utilized. A dose lowering technique was utilized adhering to the principles of ALARA. CT DOSE: 1001.11 mGy.cm Findings: The bilateral common carotid, internal carotid and vertebral arteries are patent without evidence of a significant stenosis. There is mild plaque within the proximal bilateral internal carotid arteries there is no dissection. The bilateral vertebral arteries are patent. Lung apices are clear. There is no cervical lymphadenopathy. There is mild plaque within the bilateral cavernous carotids with mild stenosis of these 2 vessels. IMPRESSION: Mild atherosclerotic plaque without evidence of a significant stenosis within the bilateral common carotid, internal carotid or vertebral arteries. Electronically signed by: Vignesh Sylvester M.D. 08/24/2017 9:07 PM Dictated Date/Time: 08/24/2017 9:05 PM
[2017-08-24] MEDS ORDERED: LORAZEPAM 0.5 MG TAB ONE (22:06)
[2017-08-24] MEDS ORDERED: NURSING VERBAL MED ORDER ONE (22:15)
[2017-08-24 23:21] VITALS: BP 148/89; PULSE 75; O2SAT 98
== END 2017-08-24 23:26 | disposition home or self-care (01) ==
LOC: C.EDB 17:48 → C.EDC 23:26
DX: R20.2 Paresthesia of skin (principal); I10 Essential (primary) hypertension; E03.9 Hypothyroidism, unspecified; Z86.718 Personal history of other venous thrombosis and embolism; Z82.49 Family history of ischemic heart disease and other diseases of the circulatory system; Z82.3 Family history of stroke; Z79.899 Other long term (current) drug therapy; Z79.01 Long term (current) use of anticoagulants; Z88.5 Allergy status to narcotic agent; Z88.8 Allergy status to other drugs, medicaments and biological substances

== ENCOUNTER → 2017-09-01 | Outpatient (CLI) | payer BC ==
[~2017-09-01] MED LIST changes: -BIOF500C2 PO; +NRN100 PO; +ONDA4TAB10 PO; +PROM25TA9 PO; +TPRSR/25 PO; +ULT50 PO
== END | disposition home or self-care (01) ==
LOC: C.LABPVFM 08:26
PROVIDERS: ATTEND Nurse Practitioner
DX: I70.90 Unspecified atherosclerosis (principal)

== ENCOUNTER → 2017-09-28 | Outpatient (CLI) | payer BC ==
[~2017-09-28] MED LIST changes: +ASCA500 PO; +ATV/1 PO
--- NOTE | 2017-09-28 12:24 | DIAGNOSTIC IMAGING REPORT ---
ULTRASOUND BILATERAL LOWER EXTREMITY VENOUS CLINICAL HISTORY: Lower extremity venous thrombosis. COMPARISON STUDY: Bilateral lower extremity venous ultrasound dated 08/13/2017. TECHNIQUE: Real-time, grayscale, and color Doppler sonography of the deep veins of the right and left lower extremity was performed from the inguinal crease to the calf. Compression and augmentation were utilized. FINDINGS: Right lower extremity: There is no sonographic evidence of deep venous thrombosis identified in the right lower extremity. The common femoral, superficial femoral, and popliteal veins are patent and normally compressible. The greater saphenous vein and the profunda femoris vein at the junction with the common femoral vein are clear. The visualized calf veins are patent. Left lower extremity: Mild stranding is noted in the left peroneal vein, likely representing trace chronic thrombus. The remaining left calf vessels are patent. There is no sonographic evidence of above knee deep venous thrombosis in the left lower extremity. The common femoral, superficial femoral, and popliteal veins are patent and normally compressible. The greater saphenous vein and the profunda femoris vein at the junction with the common femoral vein are clear. IMPRESSION: 1. There is no sonographic evidence of deep venous thrombosis identified in the right lower extremity. 2. Suspect trace chronic thrombus in the left calf within the peroneal veins. 3. No above knee deep venous thrombosis is seen in the left lower extremity. Electronically signed by: Zafar Lima M.D. 09/28/2017 12:23 PM Dictated Date/Time: 09/28/2017 12:21 PM
== END | disposition home or self-care (01) ==
LOC: C.ULTR 11:44
PROVIDERS: ATTEND Family Medicine
DX: I82.403 Acute embolism and thrombosis of unspecified deep veins of lower extremity, bilateral (principal)

== ENCOUNTER 2017-10-11 08:20 | Observation (INO) | payer BC ==
[2017-10-01 11:00] LABS: BASO % 0.4 %; BASO ABS # 0.02 K/uL (0-0.2); EOS % 0.4 %; EOS ABS # 0.02 K/uL (0-0.5); HEMATOCRIT 38.6 % (37-47); HEMOGLOBIN 13.3 g/dL (12.0-16.0); LYMPH % 23.2 %; LYMPH ABS # 1.29 K/uL (1.2-3.4); MEAN CELL VOLUME 89.4 fL (80-100); MEAN CORPUSCULAR HEMOGLOBIN 30.8 pg (25-34); MEAN CORPUSCULAR HGB CONC 34.5 g/dl (32-36); MEAN PLATELET VOLUME 9.5 fL (7.4-10.4); MONO % 6.1 %; MONO ABS # 0.34 K/uL (0.11-0.59); NEUT % 69.9 %; NEUT ABS # 3.88 K/uL (1.4-6.5); PLATELET COUNT 220 K/uL (130-400); RED CELL DISTRIBUTION WIDTH SD 39.2 fL (36.4-46.3); WHITE BLOOD COUNT 5.55 K/uL (4.8-10.8)
[2017-10-01 11:18] LABS: INR 1.1 (0.9-1.1); PTT PATIENT 28.5 SECONDS (21.0-31.0)
--- NOTE | 2017-10-10 19:11 | HISTORY & PHYSICAL EXAMINATION ---
DATE OF ADMISSION: 10/11/2017 CHIEF COMPLAINT: Back lower extremity difficulty, severe leg pain, weakness lower extremity difficulty, progressive pain, progressive weakness. 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 She is miserable, minimally functional, is doing terribly. MEDICAL HISTORY: Positive for DVT. No hypertension, diabetes, heart disease, kidney disease, liver disease, carcinoma. SURGICAL HISTORY: Hysterectomy, ileostomy, reverse of the ileostomy. FAMILY HISTORY: Negative heart disease, diabetes, stroke. SOCIAL HISTORY: She is , two children. No alcohol, tobacco. Minimal activity because of pain. REVIEW OF SYSTEMS: Denies any blurred vision, double vision, fevers, sweats, chills. Ear, nose and throat negative. Denies chest pain, palpitations, swelling hands or feet. Denies asthma, wheezing, shortness of breath. Denies nausea or vomiting, loss of bowel and bladder function. Denies memory loss, confusion, depression. Admits to numbness and tingling, paralyzing leg pain, inability to ambulate. MEDICATIONS: Lorazepam, Dulcolax, baclofen and stool softener. PHYSICAL EXAMINATION: GENERAL: She is alert, oriented young lady, miserable. VITAL SIGNS: She is 5 feet 4 inches, 120, in distress. Blood pressure 130/80, pulse 80, respiration 16. HEENT: Pupils reactive to light and accommodation. Ear, nose and throat clear. CARDIAC: Normal S1, S2, no S3. LUNGS: Clear to auscultation. No rales, rhonchi, wheezing. ABDOMEN: Nontender, good bowel sounds present. ORTHOPEDIC, MUSCULOSKELETAL AND NEUROLOGICAL: Demonstrates cranial and facial nerves to be intact. Adequate motor strength to the upper extremities, weakness of the lower extremities, weakness with dorsiflexors of the foot. Gait abnormality. Pain with straight leg raising, supine and sitting. IMAGES: Demonstrated disc herniation, lumbar spine L4-5. PLAN: Includes lumbar spine discectomy L4-5 lumbar spine. MTDD
[2017-10-11] VITALS (10 sets, daily range): BP systolic 137–182; BP diastolic 70–94; PULSE 55–114; TEMP 36.4–36.7; O2SAT 97–100; Ht 162.6 cm; Wt 54.6 kg
[~2017-10-11] VITALS: Ht 162.6 cm; Wt 54.6 kg
[~2017-10-11 08:20] MED LIST changes: +ATROPINE SULFATE 0.1 MG/ML 5ML SYR IV PRN; +CEFAZOLIN 1000MG IV PUSH 7.5 ML IV SCH; -CHOL1TAB42 PO; +EpHEDrine SULFATE INJ 50 MG/ML AMP IV PRN; +LACTATED RINGER'S 1000ML 1,000 ML IV SCH; +LACTATED RINGER'S 1000ML IV SCH; -MULT-506 PO; +NSS 1000ML IV SCH; -ONDA4TAB10 PO; +ONDANSETRON INJ 2 MG/ML 2 ML VIAL IV PRN; +PHENYLEPHRINE 100MCG/ML 5ML SYR IV PRN; +SCOPOLAMINE 1.5 MG TDSY TD SCH; -ULT50 PO
[2017-10-11] MEDS ORDERED: ENOX40IN SQ (08:53)
[2017-10-11] MEDS ORDERED: GELATIN SPONGE SZ 100 ONE (10:14)
[2017-10-11] MEDS ORDERED: THROMBIN FOR SOLN 20000 UNIT KIT ONE (10:14)
[2017-10-11] MEDS ORDERED: VANCOMYCIN HCL 1000MG/20ML VIAL ONE (10:14)
[2017-10-11] MEDS ORDERED: BUPIVACAINE/EPINEPHRINE 0.5% MPF 1:200,000 30 ML VIAL ONE (10:15)
[2017-10-11] MEDS ORDERED: BACITRACIN 50000 UNIT VIAL ONE (10:15)
--- NOTE | 2017-10-11 11:47 | [facility] Post Operative Brief Note ---
Immediate Operative Summary Operative Date Oct 11, 2017. Pre-Operative Diagnosis Disc herniation, lumbar spine L4-5. Post-Operative Diagnosis SAME Procedure(s) Performed discectomy, L4-L5 Surgeon Dr. Monzon Yarn Washer Surgeon(s) Kenneth Landon PA-C Estimated Blood Loss 30ml Findings Consistent with Post-Op Diagnosis Specimens none per surgeon Drains hemovac Anesthesia Type General Complication(s) none Disposition Disposition: Recovery Room / PACU
[2017-10-11] MEDS ORDERED: HYDROmorphone INJ 2 MG/ML SYR/VIAL IV PRN (12:00)
[2017-10-11] MEDS ORDERED: PROMETHAZINE HCL INJ 12.5 MG in SODIUM CHLORIDE 0.9% 50ML 50 ML IV PRN (12:00)
[2017-10-11] MEDS ORDERED: MAGNESIUM HYDROXIDE SUSP 30 ML UDC PO PRN (12:00)
[2017-10-11] MEDS ORDERED: METOCLOPRAMIDE HCL INJ 5 MG/ML 2 ML VIAL IV PRN (12:00)
[2017-10-11] MEDS ORDERED: LORAZEPAM INJ 1 MG in SYRINGE 0 ML IV PRN (12:00)
[2017-10-11] MEDS ORDERED: PROMETHAZINE HCL 25 MG TAB PO PRN (12:00)
[2017-10-11] MEDS ORDERED: ONDANSETRON INJ 2 MG/ML 2 ML VIAL IV PRN (12:00)
[2017-10-11] MEDS ORDERED: OXYCODONE/ACETAMINOPHEN 5-325 TAB PO PRN (12:00)
[2017-10-11] MEDS ORDERED: LORAZEPAM 1 MG TAB PO PRN ×2 (12:00)
[2017-10-11] MEDS ORDERED: HYDROmorphone INJ 1 MG/ML SYR IV PRN (12:00)
--- NOTE | 2017-10-11 12:08 | DIAGNOSTIC IMAGING REPORT ---
LUMBAR SPINE, INTRAOPERATIVE FLUOROSCOPY HISTORY: L4-5 discectomy. FLUOROSCOPY TIME: 6 seconds. FINDINGS: Intraoperative fluoroscopy was provided for the lumbar spine. 2 fluoroscopic spot images were obtained. There is a spinal needle and skin retractors posterior to the L4-L5 levels. IMPRESSION: Fluoroscopy provided for a L4-L5 discectomy. Electronically signed by: Champ Tejada M.D. 10/11/2017 12:07 PM Dictated Date/Time: 10/11/2017 12:07 PM
[2017-10-11] MEDS: HYDROmorphone INJ 2 MG/ML SYR/VIAL IV PRN ×6 (12:18→12:53)
[2017-10-11] MEDS ORDERED: NURSING VERBAL MED ORDER ONE ×3 (12:45→18:15)
[2017-10-11] MEDS ORDERED: PROMETHAZINE HCL INJ 6.25 MG in SODIUM CHLORIDE 0.9% 50ML 50 ML IV ONE ×2 (13:00→14:00)
--- NOTE | 2017-10-11 13:27 | OPERATIVE REPORT ---
DATE OF OPERATION: 10/11/2017 PREOPERATIVE DIAGNOSIS: Disc herniation, L4-L5 lumbar spine. POSTOPERATIVE DIAGNOSIS: Same. PROCEDURE: Included discectomy lumbar spine, foraminotomy, partial facetectomy, left-sided. SURGEON: Alvaro Monzon DO UTILITY TELLER: Kenneth Landon PA-C. COMPLICATIONS: Zero. BLOOD LOSS: Less than 30 mL. DESCRIPTION OF PROCEDURE: The patient was taken to the operating room, a general intubated anesthetic provided to patient, placed prone, scrubbed, prepped and draped sterile. We made a skin incision, fascial incision, first coming down at the 5-1 interspace, went up to the 4-5 interspace. I got nice wide exposure. We did an upgoing laminotomy at 4 down at 5, foraminotomy took out ligamentum flavum. I was able to retract the dura and the associated nerve root medial. I did medially. I did a complete discectomy at 4-5. I focused underneath the facet joints where anatomically on the MRI indicated the herniation. All conceivable visible disc material was removed. No nerves were injured during the process. We irrigated and closed in layers over vancomycin powder and a Hemovac drain. Sterile dressing applied. The patient returned supine, extubated to PACU stable. No complications. I attest to the content of the Intraoperative Record and any orders documented therein. Any exception s are noted below.
[2017-10-11] MEDS ORDERED: IV FLUIDS COMPLETED PRN (14:15)
--- NOTE | 2017-10-11 14:30 | Anesthesiology Progress Note ---
Anesthesia Post Op Note Date & Time Oct 11, 2017 at 14:29 Vital Signs Pain Intensity: 8 Vital Signs Past 12 Hours Date Time Temp Pulse Resp B/P (MAP) Pulse Ox O2 Delivery O2 Flow Rate FiO2 10/11/17 14:23 36.4 100 Nasal Cannula 4 10/11/17 14:17 55 16 10/11/17 14:17 54 16 100 18 14:16 151/77 10/11/17 14:12 77 17 100 10/11/17 14:12 76 17 10/11/17 14:11 146/81 10/11/17 14:07 66 7 100 10/11/17 14:07 64 7 10/11/17 14:06 157/85 10/11/17 14:04 77 16 100 10/11/17 14:04 76 16 10/11/17 14:01 142/84 10/11/17 13:59 53 16 10/11/17 13:59 52 16 100 10/11/17 13:56 163/73 10/11/17 13:54 75 20 10/11/17 13:54 79 20 100 10/11/17 13:52 193/59 10/11/17 13:49 53 16 100 18 13:49 54 16 10/11/17 13:46 144/69 10/11/17 13:44 52 16 100 10/11/17 13:44 52 16 10/11/17 13:41 147/73 10/11/17 13:39 53 16 100 18 13:39 52 16 10/11/17 13:38 58 10 100 10/11/17 13:38 57 10 10/11/17 13:37 176/81 10/11/17 13:36 176/106 10/11/17 13:33 52 10 18 13:33 51 7 100 18 13:31 165/85 18 13:28 52 10 100 18 13:28 52 10 18 13:26 154/78 18 13:23 55 10 149/75 100 18 13:23 55 10 18 13:21 172/75 10/11/17 13:19 155/72 10/11/17 13:18 57 12 4/16/18 13:18 57 12 100 16/18 13:17 60 7 178/84 100 /16/18 13:17 60 7 16/18 13:16 183/80 /16/18 13:12 56 6 4/16/18 13:12 55 6 100 /16/18 13:11 139/77 16/18 13:07 53 6 16/18 13:07 53 6 100 16/18 13:06 152/80 16/18 13:02 76 12 100 16/18 13:02 76 12 16/18 13:01 167/81 16/18 12:57 69 12 100 16/18 12:57 69 12 16/18 12:56 168/84 16/18 12:52 82 8 100 16/18 12:52 81 8 16/18 12:51 193/89 16/18 12:47 64 16 100 16/18 12:47 67 16 16/18 12:46 163/85 16/18 12:42 73 13 16/18 12:42 74 13 100 16/18 12:41 185/81 16/18 12:40 74 14 16/18 12:40 74 14 100 16/18 12:36 169/81 16/18 12:35 74 22 /16/18 12:35 75 22 100 16/18 12:31 163/78 /16/18 12:30 68 12 100 16/18 12:30 68 12 16/18 12:25 67 16 172/79 100 16/18 12:25 67 16 16/18 12:21 176/78 16/18 12:20 73 16 100 /16/18 12:20 74 16 /16/18 12:16 181/86 16/18 12:15 80 22 /16/18 12:15 81 22 100 /16/18 12:11 152/79 /16/18 12:10 63 16 4/16/18 12:10 62 16 100 /16/18 12:06 160/81 4/16/18 12:05 36.7 72 16 160/81 100 Oxymask 10 10/11/17 12:05 74 10/11/17 12:05 74 100 10/11/17 08:40 36.7 76 20 137/83 (101) 97 Room Air Notes Mental Status: alert / awake / arousable, participated in evaluation Pt Amnestic to Procedure: Yes Nausea / Vomiting: adequately controlled Pain: adequately controlled Airway Patency, RR, SpO2: stable & adequate BP & HR: stable & adequate Hydration State: stable & adequate Anesthetic Complications: no major complications apparent Patient required 4mg of zofran and 12.5mg of phenergan in pacu for nausea. she did not vomit. at the time of pacu discharge, her nausea was improving and she was saturating 100% on nasal cannula.
[2017-10-11] MEDS: KETOROLAC TROMETHAMINE 30 MG/ML VIAL IV SCH ×2 (15:13→21:38)
[2017-10-11] MEDS: CHECK SCOPOLAMINE PATCH PLACEMENT SCH ×2 (15:15→23:39)
[2017-10-11] MEDS: SODIUM CHLORIDE 0.9% 1000ML 1,000 ML IV SCH (17:33)
[2017-10-11] MEDS: SIMETHICONE 80 MG CHEW PO SCH ×2 (17:35→20:26)
[2017-10-11] MEDS: DEXAMETHASONE INJ 10 MG in SYRINGE 0 ML IV SCH (17:35)
[2017-10-11] MEDS: CEFAZOLIN IV 1,000 MG in SYRINGE 0 ML IV SCH (17:36)
[2017-10-11] MEDS: OXYCODONE/ACETAMINOPHEN 5-325 TAB PO PRN ×2 (17:53→23:34)
[2017-10-11 20:19] LABS: HEMATOCRIT 34.8 % (37-47); MEAN CELL VOLUME 89.7 fL (80-100); MEAN CORPUSCULAR HEMOGLOBIN 30.9 pg (25-34); MEAN CORPUSCULAR HGB CONC 34.5 g/dl (32-36); MEAN PLATELET VOLUME 9.9 fL (7.4-10.4); PLATELET COUNT 176 K/uL (130-400); RED CELL DISTRIBUTION WIDTH SD 39.2 fL (36.4-46.3); WHITE BLOOD COUNT 9.94 K/uL (4.8-10.8)
[2017-10-11] MEDS: BISACODYL 5 MG TABEC PO SCH (20:23)
[2017-10-11] MEDS: DOCUSATE SODIUM 100 MG CAP PO SCH (20:27)
[2017-10-11] MEDS: APIXABAN 2.5 MG TAB PO SCH (20:30)
[2017-10-11] MEDS: BACLOFEN 10 MG TAB PO SCH (20:31)
[2017-10-11] MEDS: GABAPENTIN 100 MG CAP PO SCH (20:31)
[2017-10-11] MEDS: LORAZEPAM 1 MG TAB PO SCH (20:31)
[2017-10-11 20:36] LABS: CALCIUM 8.9 mg/dl (8.5-10.1); CREATININE 1.02 mg/dl (0.60-1.20); POTASSIUM 3.9 mmol/L (3.5-5.1)
--- NOTE | 2017-10-11 20:49 | Medical Consult ---
Consultation Date of Consultation: Oct 11, 2017. Attending Physician: Alvaro Monzon DO Reason for Consultation: Hypertension Management History of Present Illness Brooke is a 57 year old female with a PMH of DVT, PE, and Generalized anxiety disorder. She had surgery today for a L4-L5 disc herniation. We have been asked to see the patient due to her elevated blood pressure. Her blood pressure since the beginning of surgery earlier today has been elevated. It has ranged from 152-->193/69-->89. She says that at home her blood pressure ranges from 144 --> 167/ 90-->99. She measures her blood pressure once a week. A couple months ago she was started on 25mg of metoprolol for her high blood pressure which she says has helped a little bit with bringing down her blood pressure. She did take 25mg of metoprolol at 530pm today but this has not helped with her blood pressure. The patient notes that she is in pain and rates her pain as an 8 /10 in severity. She has taken 30mg of toradol as well as 5mg of oxycodone. She says she does not want to take pain medication because it makes her constipated. She says she has as a high pain threshold and would like to hold off on pain medication as much as possible. She also notes that her anxiety has been mildly worse while being in the hospital. For the past 4-5 days she has been taking 0.5mg of lorazepam in the afternoon due to increased anxiety. She regularly takes 2mg of lorazepam at night before she goes to bed. She has a past medical history of PE and DVT. She is on eliquis and she was bridged adequately with lovenox injections. She plans on restarting her eliquis this evening. Past Medical/Surgical History Medical Problems: (1) Diffuse abdominal pain Status: Acute (2) Dyspnea Status: Acute (3) Facial paresthesia Status: Acute (4) Low back pain Status: Acute (5) Sciatica Status: Acute (6) Small bowel obstruction Status: Acute Family History CABG Coronary artery disease Emphysema FHx: cancer (lymphoma) Hepatic cirrhosis Hypertension Stroke Social History Smoking Status: Never Smoker Alcohol Use: none Drug Use: none Marital Status: Housing Status: lives with family Occupation Status: employed Allergies Coded Allergies: Pregabalin (Verified Allergy, Intermediate, confusion, forgetfullness, itchy, 10/06/17) Rabeprazole (Verified Allergy, Intermediate, SWELLING, 10/01/17) Morphine (Verified Allergy, Mild, SEVERE ITCHING, SHORTNESS OF BREATH, 10/01) Tolerates dilaudid Amitriptyline (Verified Allergy, Unknown, SWELLING, 10/01/17) Tricyclic Antidepressants (Verified Allergy, Unknown, SWELLING, 10/01/17) Ciprofloxacin (Verified Adverse Reaction, Mild, gi upset, 10/06/17) pt Gabapentin (Verified Adverse Reaction, Unknown, dizzy;nauseated;blurred vision, 10/11/17) Current Inpatient Medications Current Inpatient Medications Medications (Trade) Dose Ordered Sig/Marvin Route Start Time Stop Time Status Last Admin Dose Admin Miscellaneous (Remove Transderm-Scop Patch) 1 ea Q72H N/A 10/14/17 06:00 10/14/17 06:01 Miscellaneous Information (Check Scopolamine Patch Placement) 1 ea QS N/A 10/11/17 16:00 10/14/17 15:59 10/11/17 15:15 1 EA Acetaminophen (Tylenol Tab) 650 mg Q6H PRN PO 10/11/17 12:00 11/10/17 11:59 Hydromorphone HCl (Dilaudid Inj) 1-1.5MG 1MG FOR P... Q3H PRN IV 10/11/17 12:00 10/25/17 11:59 Ketorolac Tromethamine (Toradol Inj) 30 mg Q6H IV 10/11/17 16:00 10/12/17 16:01 10/11/17 15:13 30 MG Promethazine HCl 12.5 mg/Sodium Chloride 50.5 ml @ 202 mls/hr Q6H PRN IV 10/11/17 12:00 11/10/17 11:59 Ondansetron HCl (Zofran Inj) 4 mg Q6H PRN IV 10/11/17 12:00 11/10/17 11:59 Metoclopramide HCl (Reglan Inj) 10 mg Q6H PRN IV 10/11/17 12:00 11/10/17 11:59 10/11/17 15:13 10 MG Lorazepam 1 mg/ Syringe 0.5 ml @ 1 mls/min Q6H PRN IV 10/11/17 12:00 11/10/17 11:59 Polyethylene (Miralax Powder Packet) 17 gm DAILY PO 10/12/17 09:00 11/11/17 08:59 Bisacodyl (Dulcolax Tab) 5 mg DAILY PRN PO 10/12/17 06:00 11/11/17 05:59 Bisacodyl (Dulcolax Supp) 10 mg DAILY PRN DE 10/12/17 06:00 11/11/17 05:59 Magnesium Hydroxide (Milk Of Magnesia Susp) 30 ml DAILY PRN PO 10/11/17 12:00 11/10/17 11:59 Diphenhydramine HCl (Benadryl Cap) 25 mg Q6H PRN PO 10/11/17 12:00 11/10/17 11:59 Oxycodone/ Acetaminophen (Percocet 5-325mg Tab) 1 tab Q4H PRN PO 10/11/17 12:00 10/25/17 11:59 10/11/17 17:53 1 TAB Oxycodone/ Acetaminophen (Percocet 5-325mg Tab) 2 tab Q4H PRN PO 10/11/17 12:00 10/25/17 11:59 Cefazolin Sodium 1000 mg/Syringe 7.5 ml @ 2.5 mls/min Q8H IV 10/11/17 18:00 10/12/17 10:02 10/11/17 17:36 2.5 MLS/MIN Dexamethasone Sodium Phosphate 10 mg/Syringe 2.5 ml @ 1 mls/min Q8H IV 10/11/17 18:00 10/13/17 02:03 10/11/17 17:35 1 MLS/MIN Ascorbic Acid (Vitamin C Tab) 500 mg QAM PO 10/12/17 09:00 11/11/17 08:59 Baclofen (Lioresal Tab) 10 mg QPM PO 10/11/17 21:00 11/10/17 20:59 Bisacodyl (Dulcolax Tab) 10 mg HS PO 10/11/17 21:00 11/10/17 20:59 Docusate Sodium (coLACE CAP) 100 mg BID PO 10/11/17 21:00 11/10/17 20:59 Gabapentin (Neurontin Cap) 100 mg BID PO 10/11/17 21:00 11/10/17 20:59 Lorazepam (Ativan Tab) 2 mg HS PO 10/11/17 21:00 11/10/17 20:59 Lorazepam (Ativan Tab) 1 mg Q6H PRN PO 10/11/17 12:00 11/10/17 11:59 Promethazine HCl (Phenergan Tab) 25 mg Q6H PRN PO 10/11/17 12:00 11/10/17 11:59 Ranitidine HCl (zANTac TAB) 150 mg QAM PO 10/12/17 09:00 11/11/17 08:59 Simethicone (Mylicon Chew Tab) 80 mg TID PO 10/11/17 16:00 11/10/17 15:59 10/11/17 17:35 80 MG Apixaban (Eliquis Tab) 5 mg BID PO 10/11/17 21:00 11/10/17 20:59 Sodium Chloride 1,000 ml @ 80 mls/hr [id number] IV 10/11/17 12:30 11/10/17 12:29 10/11/17 17:33 80 MLS/HR Miscellaneous (Iv Fluids Completed) 1 ea PRN PRN N/A 10/11/17 14:15 10/11/18 14:14 Metoprolol Succinate (Toprol Xl Tab) 25 mg DAILY@1700 PO 10/12/17 17:00 11/11/17 16:59 Review of Systems Constitutional: No fever, No chills, No weight loss, No fatigue ENT: No sore throat, No trouble swallowing Respiratory: No cough, No sputum, No shortness of breath, No hemoptysis Cardiovascular: No chest pain, No orthopnea, No edema, No palpitations Abdomen: No pain, No nausea, No vomiting, No diarrhea, No constipation Musculoskeletal: + joint pain, + muscle pain, No calf pain Genitourinary - Female: No dysuria, No urinary frequency, No urinary urgency Neurologic: No paralysis, No weakness, No balance problems Hematologic / Lymphatic: No abnormal bleeding/bruising, No night sweats Integumentary: No rash, No itch, No new/changing skin lesions Physical Exam Date Time Temp Pulse Resp B/P (MAP) Pulse Ox O2 Delivery O2 Flow Rate FiO2 4/16/18 19:00 169/70 (103) 10/11/17 17:45 36.6 87 16 170/81 (110) 98 Room Air 10/11/17 16:40 100 Nasal Cannula 4.0 10/11/17 16:00 60 10/11/17 15:44 114 20 153/76 (101) 100 Nasal Cannula 2.0 10/11/17 15:15 36.6 56 20 168/85 (112) 100 Nasal Cannula 4.0 10/11/17 14:45 36.4 55 13 174/83 (113) 100 Nasal Cannula 4.0 10/11/17 14:45 100 Nasal Cannula 4.0 10/11/17 14:33 54 16 10/11/17 14:33 54 16 100 10/11/17 14:28 53 16 100 10/11/17 14:28 53 16 10/11/17 14:26 140/71 10/11/17 14:23 67 12 100 10/11/17 14:23 36.4 100 Nasal Cannula 4 10/11/17 14:23 65 12 10/11/17 14:21 167/100 10/11/17 14:18 57 16 10/11/17 14:18 59 16 100 10/11/17 14:17 55 16 10/11/17 14:17 54 16 100 10/11/17 14:16 151/77 10/11/17 14:12 77 17 100 10/11/17 14:12 76 17 10/11/17 14:11 146/81 10/11/17 14:07 66 7 100 10/11/17 14:07 64 7 10/11/17 14:06 157/85 10/11/17 14:04 77 16 100 10/11/17 14:04 76 16 10/11/17 14:01 142/84 10/11/17 13:59 53 16 10/11/17 13:59 52 16 100 18 13:56 163/73 18 13:54 75 20 18 13:54 79 20 100 18 13:52 193/59 18 13:49 53 16 100 18 13:49 54 16 18 13:46 144/69 4/16/18 13:44 52 16 100 4/16/18 13:44 52 16 4/16/18 13:41 147/73 4/16/18 13:39 53 16 100 4/16/18 13:39 52 16 4/16/18 13:38 58 10 100 4/16/18 13:38 57 10 4/16/18 13:37 176/81 4/16/18 13:36 176/106 4/16/18 13:33 52 10 4/16/18 13:33 51 7 100 4/16/18 13:31 165/85 4/16/18 13:28 52 10 100 4/16/18 13:28 52 10 4/16/18 13:26 154/78 4/16/18 13:23 55 10 149/75 100 4/16/18 13:23 55 10 4/16/18 13:21 172/75 4/16/18 13:19 155/72 4/16/18 13:18 57 12 4/16/18 13:18 57 12 100 4/16/18 13:17 60 7 178/84 100 4/16/18 13:17 60 7 /16/18 13:16 183/80 4/16/18 13:12 56 6 4/16/18 13:12 55 6 100 4/16/18 13:11 139/77 4/16/18 13:07 53 6 4/16/18 13:07 53 6 100 4/16/18 13:06 152/80 4/16/18 13:02 76 12 100 4/16/18 13:02 76 12 /16/18 13:01 167/81 4/16/18 12:57 69 12 100 4/16/18 12:57 69 12 4/16/18 12:56 168/84 4/16/18 12:52 82 8 100 4/16/18 12:52 81 8 4/16/18 12:51 193/89 4/16/18 12:47 64 16 100 4/16/18 12:47 67 16 4/16/18 12:46 163/85 4/16/18 12:42 73 13 4/16/18 12:42 74 13 100 4/16/18 12:41 185/81 4/16/18 12:40 74 14 4/16/18 12:40 74 14 100 4/16/18 12:36 169/81 10/11/17 12:35 74 22 10/11/17 12:35 75 22 100 10/11/17 12:31 163/78 10/11/17 12:30 68 12 100 10/11/17 12:30 68 12 10/11/17 12:25 67 16 172/79 100 10/11/17 12:25 67 16 10/11/17 12:21 176/78 10/11/17 12:20 73 16 100 10/11/17 12:20 74 16 10/11/17 12:16 181/86 10/11/17 12:15 80 22 10/11/17 12:15 81 22 100 10/11/17 12:11 152/79 10/11/17 12:10 63 16 10/11/17 12:10 62 16 100 10/11/17 12:06 160/81 10/11/17 12:05 36.7 72 16 160/81 100 Oxymask 10 10/11/17 12:05 74 10/11/17 12:05 74 100 10/11/17 08:40 36.7 76 20 137/83 (101) 97 Room Air General Appearance: WD/WN, no apparent distress Head: normocephalic, atraumatic ENT: hearing grossly normal, pharynx normal Neck: supple, no adenopathy, no JVD, no carotid bruits, trachea midline Respiratory/Chest: chest non-tender, lungs clear, no respiratory distress, no accessory muscle use Cardiovascular: regular rate, rhythm, no gallop, no murmur, normal peripheral pulses Abdomen/GI: normal bowel sounds, non tender, soft, + pertinent finding (left side abdominal hernia, central scars from previous ileostomy) Back: no muscle spasm, + pertinent finding (large white dressing over lumbar spine, no surrounding erythema or discharge) Extremities/Musculoskelatal: normal inspection, no calf tenderness, no pedal edema, non-tender Neurologic/Psych: no motor/sensory deficits, alert, normal mood/affect, oriented x 3, + abnormal reflexes (decreased patella reflex on the left side. 0 on the left patella and +2 on the right) Skin: normal color, warm/dry, no rash Laboratory Results Last 24 Hours Test 10/11/17 19:58 White Blood Count 9.94 K/uL Red Blood Count 3.88 M/uL Hemoglobin 12.0 g/dL Hematocrit 34.8 % Mean Corpuscular Volume 89.7 fL Mean Corpuscular Hemoglobin 30.9 pg Mean Corpuscular Hemoglobin Concent 34.5 g/dl RDW Standard Deviation 39.2 fL RDW Coefficient of Variation 12.0 % Platelet Count 176 K/uL Mean Platelet Volume 9.9 fL Assessment & Plan Patient is a 57 year old female who we have been asked to see in consult due to HTN Patient is currently refusing to take pain meds due to the worry that she will become constipated. I discussed this with the patient and instructed her that she has a bowel regimen in place in order to prevent this from happening. She currently rates her pain as a 8/10. She has other pain meds ordered on a PRN basis but she does not want to take them. She is also feeling more anxious that she usually does secondary to being in the hospital. I believe the combination of pain, anxiety and post surgical sympathetic state are causing her blood pressure to be elevated at this point. Plan 1) Encourage patient to seek out pain medication as this will help control her blood pressure and will allow her to rest 2) Continue her ativan 2mg qhs in order to prevent her from having any worsening anxiety 3) Order CBC and BMP to rule out anemia, or electrolyte abnormality post operatively 4) Encourage to seek follow up with PCP for better outpatient blood pressure control as it sounds as if her blood pressure is not adequately controlled at home 5) Order metoprolol 12.5mg q12 prn SBP >180
[2017-10-11] MEDS ORDERED: METOPROLOL SUCC 25MG EXT REL TAB PO SCH (21:00)
[2017-10-11] MEDS ORDERED: METOPROLOL TARTRATE 25 MG TAB PO PRN (21:00)
[2017-10-12] MEDS: SODIUM CHLORIDE 0.9% 1000ML 1,000 ML IV SCH (01:46)
[2017-10-12] MEDS: CEFAZOLIN IV 1,000 MG in SYRINGE 0 ML IV SCH ×2 (01:46→10:00)
[2017-10-12] MEDS: DEXAMETHASONE INJ 10 MG in SYRINGE 0 ML IV SCH ×3 (01:47→17:52)
[2017-10-12 03:27] VITALS: BP 157/79; PULSE 67; TEMP 36.5; O2SAT 98
[2017-10-12] MEDS: KETOROLAC TROMETHAMINE 30 MG/ML VIAL IV SCH ×3 (04:08→15:45)
[2017-10-12] MEDS ORDERED: BISACODYL 5 MG TABEC PO PRN (06:00)
[2017-10-12] MEDS ORDERED: BISACODYL 10 MG SUPP PR PRN (06:00)
[2017-10-12] MEDS ORDERED: NURSING DECISION MEDICATION ORDER SCH (06:30)
[2017-10-12] MEDS ORDERED: COUGH DROP (SUGAR FREE) LOZ 24 LOZ/1 BOX LOZ PRN (06:30)
[2017-10-12] MEDS ORDERED: NURSING VERBAL MED ORDER ONE ×2 (07:15)
[2017-10-12] MEDS ORDERED: CHLORASEPTIC 1.4% SOLN 180 ML BTL MT PRN (07:30)
[2017-10-12] MEDS: SIMETHICONE 80 MG CHEW PO SCH ×3 (07:32→21:34)
[2017-10-12] MEDS: RANITIDINE HCL 150 MG TAB PO SCH (07:33)
[2017-10-12] MEDS: APIXABAN 2.5 MG TAB PO SCH ×2 (07:33→21:34)
[2017-10-12] MEDS: DOCUSATE SODIUM 100 MG CAP PO SCH ×2 (07:33→21:34)
[2017-10-12] MEDS: POLYETHYLENE (MIRALAX) 17 GM PACK PO SCH (07:33)
[2017-10-12] MEDS: ASCORBIC ACID 500 MG TAB PO SCH (07:34)
[2017-10-12] MEDS: GABAPENTIN 100 MG CAP PO SCH ×2 (07:34→21:34)
[2017-10-12] MEDS: CHECK SCOPOLAMINE PATCH PLACEMENT SCH ×2 (07:35→15:38)
[2017-10-12 07:36] VITALS: BP 167/88; PULSE 61; TEMP 36.7; O2SAT 99
--- NOTE | 2017-10-12 07:41 | Anesthesiology Progress Note ---
Anesthesia Post Op Note Date & Time Oct 12, 2017 at 07:40 Vital Signs Vital Signs Past 12 Hours Date Time Temp Pulse Resp B/P (MAP) Pulse Ox O2 Delivery O2 Flow Rate FiO2 10/12/17 07:36 36.7 61 18 167/88 (114) 99 Room Air 10/12/17 03:27 36.5 67 16 157/79 (105) 98 Room Air 10/11/17 23:15 Room Air 10/11/17 23:10 36.7 75 16 153/83 (106) 98 Room Air 10/11/17 20:51 100 Room Air 10/11/17 20:32 36.5 78 16 182/94 (123) 100 Room Air Notes Mental Status: alert / awake / arousable, participated in evaluation Pt Amnestic to Procedure: Yes Nausea / Vomiting: adequately controlled Pain: adequately controlled Airway Patency, RR, SpO2: stable & adequate BP & HR: stable & adequate Hydration State: stable & adequate Anesthetic Complications: no major complications apparent
[2017-10-12] MEDS: OXYCODONE/ACETAMINOPHEN 5-325 TAB PO PRN (07:42)
--- NOTE | 2017-10-12 08:06 | Discharge Instructions ---
Discharge Instructions Date of Service Oct 12, 2017. Admission Reason for Admission: Lumbar Disc Herniation L4-L5, Spinal Stenosis Discharge Discharge Diagnosis / Problem: same Discharge Goals Goal(s): Improve function Activity Recommendations Activity Limitations: as noted below Lifting Limitations: gradually increase as tolerated May Resume Sexual Activity: after follow-up appointment . Instructions / Follow-Up Instructions / Follow-Up MEDICATIONS: Please take your prescriptions as instructed at your pre-op appointment. SPECIAL CARE: The following information is intended to answer some of the common questions and concerns regarding your surgery. Each patient is an individual and receives individual counselling throughout the course of treatment, from diagnosis to surgery all the way through recovery. What follows is not an exhaustive list, but should be a useful guide to some of the common questions and concerns patients have regarding their surgeries. These are not provided to keep you from calling us; rather, they give you something accurate and concrete to reference as you recover from your procedure. If you need us, we are available to you. As always, if you are not sure about something, call us at [phone]. MEDICAL EMERGENCIES: For these conditions, call 911 or go to your local hospital-based Emergency Department - not [facility] or equivalent. * Paralysis * Severe chest pain or difficulty breathing * Swelling or redness of either leg Spine procedures can be rather complex and though complications are rare, they do occur. In such cases, effective advice regarding emergency situations cannot always be addressed over the telephone. You may be referred to the emergency department for more effective management of your problem. Activity Limitations: It is important to give your body time to heal, so please limit your activities : * In general, don't do anything that moves your spine too much. You should avoid contact sports, twisting or heavy lifting while you recover. * 5-10 pounds is all you should attempt to lift. * You should not plan on driving for approximately 3 weeks and you should avoid traveling more than 30-45 minutes at a time. Longer trips should be broken down with walking breaks spaced appropriately. * Physical therapy is not usually required. * Walking and good posture practices will help you recover and regain your function. * Avoid straining or sudden changes in position. * In general, the goal is to take it easy and recover. Don't cause any new problems. Just relax. Showers: * Do not take a bath, use a Jacuzzi or hot tub or otherwise submerge your incision. * It is usually safe to take a shower 4-5 days after your surgery. * Your incision does not require any special creams or ointments. * Simply clean it with soap and water, dry and re-dress with a clean bandage afterwards. Incision: * Keep incision clean, dry and protected until your first follow-up appointment. * Some amount of drainage and redness is normal. Any drainage should be fairly clear and not have a foul odor. * If you feel anything is wrong or you have excessive drainage, please call us. * Your stitches and ignacio will be removed 10-14 days after your surgery. At the time of your first post-op visit. * Neck surgeries are typically closed with a suture underneath the skin. The steri-strips over the incision should be maintained until we see you in the office. Bracing: * You may be provided with a back or neck brace to encourage good posture and prevent injury. It will remind you not to do too much as you heal and will alert others to the fact that you have had a surgery. * Back braces may be removed for showers and when you are resting at home. They must be worn when you are walking around for any period of time or for travel. * For neck surgery, you will likely be provided with two cervical collars. The soft collar ([place] or foam rubber) is worn most commonly throughout the day and while sleeping. The plastic collar (provided at the hospital) is for showering/bathing. * Except while eating, collars should remain in place. More specifically, bracing is provided for a purpose and should be worn. * Please obtain your brace or collars prior to your operation and bring them to the hospital with you on the day of surgery. * You should also bring your collars to your post-op appointment with Dr. Monzon. You should always take good care of your body and practice healthy habits, especially following surgery. You should: * Follow your doctor's treatment plan * Sit and stand properly with good posture (ears over shoulders, shoulders over hips) Don't slouch * Learn to lift correctly * Exercise regularly (low-impact aerobic exercise is especially good, but check with your doctor first) * Generally, be up and walking for 5-10 minutes at a time at least 3-4 times per day from the day you get home * Increasing walking to tolerance until you can walk for 20-30 minutes at a time * Attain and maintain a healthy body weight * Eat healthy foods ( a well-balanced, low-fat diet rich in fruits and vegetables) and get enough calcium * Avoid excessive use of alcohol When to call our office - If you notice any of the following: * Increased pain not relieve by pain medicine * Fevers greater then 100 degrees F, chills or flu symptoms * Increased redness around incision * Drainage from the incision that is not clear * Any foul smelling drainage * Swelling or fluid collection beneath the skin Miscellaneous: * In the hospital, you may be given a walker or cane for support while walking. These are temporary needs and are intended to prevent injuries due to falls. You may discontinue them when you feel strong and steady enough on your feet. * Sleep in a comfortable position. We find that many patients find a lounge chair or recliner with several pillows to be beneficial in the early post-operative period. * The support stockings should be used for 7-10 days and may be discontinued when you are back to walking more and conducting usual household activities. No problem is insignificant. We are here to help you and get you well. Contact us at [phone]. Definitions: Foraminotomy: If part of the disc or a bone spur (osteophyte) is pressing on a nerve as it leaves the vertebra (through an exit called the foramen), a foraminotomy may be done. Otomy means "to make an opening." A foraminotomy is making the opening of the foramen larger, so the nerve can exit without being compressed. Laminotomy: Similar to the foraminotomy, a laminotomy makes a larger opening, this time in your bony plate protecting your spinal canal and spinal cord (the lamina). The lamina may be pressing on your nerve, so the surgeon may make more room for the nerves using a laminotomy. Laminectomy: Sometimes, a laminotomy is not sufficient. The surgeon may need to remove all or part of the lamina. This procedure is called a laminectomy. This can often be done at many levels without any harmful effects. Current Hospital Diet Patient's current hospital diet: Regular Diet Discharge Diet Recommended Diet: Regular Diet Procedures Procedures Performed: discectomy, L4-L5 Pending Studies Studies pending at discharge: no Laboratory Results Lipid Panel Test 09/01/17 08:35 Range/Units Triglycerides Level 137 0-150 mg/dl Cholesterol Level 261 H 0-200 mg/dl HDL Cholesterol 90 mg/dl Cholesterol/HDL Ratio 2.9 LDL Cholesterol, Calculated 144 mg/dl Medical Emergencies . Who to Call and When: Medical Emergencies: If at any time you feel your situation is an emergency, please call 911 immediately. . Non-Emergent Contact Non-Emergency issues call your: Primary Care Provider . "Provider Documentation" section prepared by Alvaro Monzon. .
[2017-10-12 09:53] LABS: HEMOGLOBIN 11.8 g/dL (12.0-16.0); MEAN CELL VOLUME 90.2 fL (80-100); MEAN CORPUSCULAR HEMOGLOBIN 30.4 pg (25-34); MEAN CORPUSCULAR HGB CONC 33.7 g/dl (32-36); PLATELET COUNT 161 K/uL (130-400); RED CELL DISTRIBUTION WIDTH CV 11.9 % (11.5-14.5); RED CELL DISTRIBUTION WIDTH SD 39.2 fL (36.4-46.3); WHITE BLOOD COUNT 14.62 K/uL (4.8-10.8)
[2017-10-12 10:22] LABS: CREATININE 1.19 mg/dl (0.60-1.20)
[2017-10-12 10:23] LABS: CALCIUM 9.2 mg/dl (8.5-10.1); POTASSIUM 3.6 mmol/L (3.5-5.1)
[2017-10-12 11:36] VITALS: BP 141/84; PULSE 66; TEMP 36.7; O2SAT 99
[2017-10-12] MEDS: ACETAMINOPHEN 325 MG TAB PO PRN ×2 (14:45→21:33)
[2017-10-12 15:36] VITALS: BP 169/82; PULSE 65; TEMP 36.8; O2SAT 99
--- NOTE | 2017-10-12 16:08 | Hospitalist Progress Note ---
Hospitalist Progress Note Date of Service Oct 12, 2017. (Jordyn Wang ., JAYLAC) Subjective Pt evaluation today including: conversation w/ patient, conversation w/ family ( at bedside), physical exam, chart review, lab review, review of inpatient medication list Voiding: maxwell catheter in place Patient complains of feeling bloated and notes she has not yet passed gas since the surgery. She also feels that she needs to burp but can't, and reports a resulting fullness in her chest. She had some difficulty eating her breakfast and taking her pills this morning due to this feeling in her chest. She is otherwise feeling well. Maxwell catheter is in place at time of my exam. She does report some mild nausea but is eating and denies vomiting. The patient denies fevers, chills, sweats, chest pain, palpitations, claudication, cough, wheezing, shortness of breath, vomiting, abdominal pain, dysuria, hematuria, urinary retention, paralysis, weakness, numbness and tingling. Additional Comments: See HPI for pertinent positives and negatives. All other systems reviewed and negative. (Jordyn Wang ., LELA-C) Objective Vital Signs Date Time Temp Pulse Resp B/P (MAP) Pulse Ox O2 Delivery O2 Flow Rate FiO2 10/12/17 15:36 36.8 65 17 169/82 (111) 99 Room Air 10/12/17 11:36 36.7 66 18 141/84 (103) 99 Room Air 10/12/17 07:36 36.7 61 18 167/88 (114) 99 Room Air 10/12/17 07:35 Room Air 10/12/17 03:27 36.5 67 16 157/79 (105) 98 Room Air 10/11/17 23:15 Room Air 10/11/17 23:10 36.7 75 16 153/83 (106) 98 Room Air 10/11/17 20:51 100 Room Air 10/11/17 20:32 36.5 78 16 182/94 (123) 100 Room Air 10/11/17 19:00 169/70 (103) 10/11/17 17:45 36.6 87 16 170/81 (110) 98 Room Air 10/11/17 16:40 100 Nasal Cannula 4.0 10/11/17 16:00 60 (Wang, Jordyn ., PA-C) Physical Exam Notes: General appearance: Well-developed, well-nourished, no apparent distress Head: Normocephalic, atraumatic Eyes: Normal inspection, PERRL, EOMI ENT: Normal ENT inspection, hearing grossly normal, pharynx normal Neck: Supple, no JVD, trachea midline Respiratory/Chest: Lungs clear to auscultation, normal breath sounds, no respiratory distress Cardiovascular: Regular rate & rhythm, no gallop, no murmur Abdomen/GI: +Mildly distended. Lower quadrants mildly TTP. Normal bowel sounds, soft Extremities/Musculoskeletal: +Hemovac in place. Normal inspection, no calf tenderness, no pedal edema Neurological/Psych: Alert, normal mood/affect, oriented x 3 Skin: Normal color, warm/dry, no rash (Jordyn Wang ., PA-C) Laboratory Results Last 24 Hours Test 10/11/17 19:58 10/12/17 09:43 White Blood Count 9.94 K/uL 14.62 K/uL Red Blood Count 3.88 M/uL 3.88 M/uL Hemoglobin 12.0 g/dL 11.8 g/dL Hematocrit 34.8 % 35.0 % Mean Corpuscular Volume 89.7 fL 90.2 fL Mean Corpuscular Hemoglobin 30.9 pg 30.4 pg Mean Corpuscular Hemoglobin Concent 34.5 g/dl 33.7 g/dl RDW Standard Deviation 39.2 fL 39.2 fL RDW Coefficient of Variation 12.0 % 11.9 % Platelet Count 176 K/uL 161 K/uL Mean Platelet Volume 9.9 fL 10.0 fL Sodium Level 133 mmol/L 132 mmol/L Potassium Level 3.9 mmol/L 3.6 mmol/L Chloride Level 99 mmol/L 99 mmol/L Carbon Dioxide Level 26 mmol/L 23 mmol/L Anion Gap 8.0 mmol/L 10.0 mmol/L Blood Urea Nitrogen 8 mg/dl 9 mg/dl Creatinine 1.02 mg/dl 1.19 mg/dl Est Creatinine Clear Calc Drug Dose 51.2 ml/min 43.9 ml/min Estimated GFR () 69.7 57.9 Estimated GFR (Non- 60.2 49.9 BUN/Creatinine Ratio 8.2 7.2 Random Glucose 245 mg/dl 217 mg/dl Calcium Level 8.9 mg/dl 9.2 mg/dl (Jordyn Wang ., JAYLAC) Assessment and Plan 57 y/o female with a history of HTN, depression, anxiety, h/o DVT/PE, insomnia, IBS, neuropathy, PAD, OCD and GERD who presents s/p L4-L5 discectomy with Dr. Monzon on 10/11 for medical management. S/p L4-L5 discectomy--POD #1 -Pain management, DVT prophylaxis, and PT/OT as per primary team -Home Eliquis 5 mg PO BID resumed per ortho -Maxwell removed this afternoon after my visit Distention, not passing gas, dysphagia--resolving -Continue DulcoLax 10 mg PO hs and Simethicone 80 mg PO TID -Given DulcoLax 10 mg suppository in afternoon, now passing gas. Dysphagia resolved HTN--stable, had been elevated likely secondary to pain/anxiety -Continue Toprol XL 25 mg PO qd Depression, anxiety, insomnia -Continue Ativan 2 mg PO hs and 0.5 mg PO TID prn anxiety H/o DVT/PE -Eliquis resumed as above -Hgb stable at 11.8 on 10/12 Neuropathy -Continue gabapentin 100 mg PO BID Code Status -Level I, FULL RESUSCITATION STATUS Pt. is stable from a medical standpoint, we will sign off. Clear for discharge as per primary team. 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 Discussed with LELA Wang and agree with findings and plan as documented in the note. Any exceptions or clarifications are listed here: Patient was having gas pains at the time I saw her, however she has not been able to belch and the previous chest pressure was now relieved after that. Otherwise, some burning pain in the lower back. No other concerns. Has a long history of ileostomy for constipation and then reversal after had high output ileostomy. Vitals reviewed Gen: AAOx3, NAD HEENT: anicteric sclerae, EOMI CV: RRR no mgr nl S1S2 Pulm: CTAB no wcr Abd: +BS soft, minimal tenderness in the lower quadrants without guarding or rebound tenderness, ND no masses or hernias, previous surgical incision sites well-healed Ext: no edema, 2+ DP pulses Skin: no rashes, warm/dry Neuro: full strength throughout 57-year-old female here with lumbar surgery, now with postop ileus -Bisacodyl suppository now -Continue other medications as above Thank you for this consultation-we will sign off at this time Documented By: Niru Douglass (Niru Douglass MD)
[2017-10-12] MEDS ORDERED: METOPROLOL SUCC 25MG EXT REL TAB PO SCH (17:00)
[2017-10-12] MEDS: LORAZEPAM 1 MG TAB PO SCH (21:33)
[2017-10-12] MEDS: BISACODYL 5 MG TABEC PO SCH (21:33)
[2017-10-12] MEDS: BACLOFEN 10 MG TAB PO SCH (22:00)
[2017-10-12 23:05] VITALS: BP 144/77; PULSE 65; TEMP 36.7; O2SAT 98
[2017-10-13 00:05] VITALS: O2SAT 98
[2017-10-13] MEDS: CHECK SCOPOLAMINE PATCH PLACEMENT SCH ×2 (00:15→07:49)
[2017-10-13] MEDS: DEXAMETHASONE INJ 10 MG in SYRINGE 0 ML IV SCH (02:07)
[2017-10-13 06:13] LABS: HEMATOCRIT 32.6 % (37-47); HEMOGLOBIN 11.5 g/dL (12.0-16.0); MEAN CELL VOLUME 89.3 fL (80-100); MEAN CORPUSCULAR HEMOGLOBIN 31.5 pg (25-34); MEAN CORPUSCULAR HGB CONC 35.3 g/dl (32-36); MEAN PLATELET VOLUME 10.3 fL (7.4-10.4); PLATELET COUNT 162 K/uL (130-400); RED CELL DISTRIBUTION WIDTH SD 39.1 fL (36.4-46.3); WHITE BLOOD COUNT 11.93 K/uL (4.8-10.8)
[2017-10-13 06:48] LABS: CALCIUM 9.4 mg/dl (8.5-10.1); CREATININE 0.8 mg/dl (0.60-1.20)
[2017-10-13 07:24] VITALS: BP 170/91; PULSE 60; TEMP 36.6; O2SAT 98
--- NOTE | 2017-10-13 07:42 | DISCHARGE SUMMARY ---
SUBJECTIVE: She is alert, oriented. No chest pain, no shortness of breath, no confusion. No extremity difficulty. She has improvement in her preop status. OBJECTIVE: Vital signs stable. Wound clean protected. ASSESSMENT: Status post lumbar spine surgery, doing well in short run. DISPOSITION: Will discharge her home this morning in improved stable condition. Back brace for support. She takes only Tylenol at home for pain and that is all that she will be doing at home. She has a walker coming in from a friend. She has instructions and precautions and we will see her back in approximately 10 days.
[2017-10-13] MEDS: ACETAMINOPHEN 325 MG TAB PO PRN (07:52)
[2017-10-13] MEDS: SIMETHICONE 80 MG CHEW PO SCH (07:54)
[2017-10-13] MEDS: POLYETHYLENE (MIRALAX) 17 GM PACK PO SCH (09:00)
[2017-10-13] MEDS: RANITIDINE HCL 150 MG TAB PO SCH (09:50)
[2017-10-13] MEDS: ASCORBIC ACID 500 MG TAB PO SCH (09:50)
[2017-10-13] MEDS: DOCUSATE SODIUM 100 MG CAP PO SCH (10:39)
[2017-10-13] MEDS: GABAPENTIN 100 MG CAP PO SCH (10:39)
[2017-10-13] MEDS: APIXABAN 2.5 MG TAB PO SCH (10:39)
[2017-10-13 10:46] VITALS: BP 170/91; PULSE 60; TEMP 36.6; O2SAT 98
== END 2017-10-13 11:40 | disposition home health service (06) ==
LOC: C.ACU 08:20 → C.3E 10:00 → ENRESERV 12:51
PROVIDERS: ADMIT Orthopaedic Surgery Orthopaedic Surgery of the Spine; ATTEND Orthopaedic Surgery Orthopaedic Surgery of the Spine
DX: M51.36 Other intervertebral disc degeneration, lumbar region (principal); G47.00 Insomnia, unspecified; F32.9 Major depressive disorder, single episode, unspecified; F41.1 Generalized anxiety disorder; Z86.718 Personal history of other venous thrombosis and embolism; Z79.899 Other long term (current) drug therapy; Z82.49 Family history of ischemic heart disease and other diseases of the circulatory system; Z83.6 Family history of other diseases of the respiratory system; Z82.3 Family history of stroke; Z88.8 Allergy status to other drugs, medicaments and biological substances; Z88.5 Allergy status to narcotic agent

== ENCOUNTER 2017-10-21 11:37 | Emergency (ER) | payer BC ==
[~2017-10-21] VITALS: Ht 162.6 cm; Wt 54.4 kg
[~2017-10-21 11:37] MED LIST changes: -ATROPINE SULFATE 0.1 MG/ML 5ML SYR IV PRN; -CEFAZOLIN 1000MG IV PUSH 7.5 ML IV SCH; +ENOX40IN SQ; -EpHEDrine SULFATE INJ 50 MG/ML AMP IV PRN; -LACTATED RINGER'S 1000ML 1,000 ML IV SCH; -LACTATED RINGER'S 1000ML IV SCH; -NSS 1000ML IV SCH; -ONDANSETRON INJ 2 MG/ML 2 ML VIAL IV PRN; -PHENYLEPHRINE 100MCG/ML 5ML SYR IV PRN; -SCOPOLAMINE 1.5 MG TDSY TD SCH
[2017-10-21 11:50] VITALS: TEMP 36.7; Ht 162.6 cm; Wt 54.4 kg
[2017-10-21 12:28] LABS: BASO % 0.6 %; BASO ABS # 0.04 K/uL (0-0.2); EOS % 1.4 %; EOS ABS # 0.09 K/uL (0-0.5); HEMATOCRIT 36.3 % (37-47); HEMOGLOBIN 12.6 g/dL (12.0-16.0); IG# 0.02 K/uL (0.00-0.02); LYMPH % 21.7 %; LYMPH ABS # 1.37 K/uL (1.2-3.4); MEAN CELL VOLUME 89.4 fL (80-100); MEAN CORPUSCULAR HGB CONC 34.7 g/dl (32-36); MEAN PLATELET VOLUME 9.2 fL (7.4-10.4); MONO % 8.6 %; MONO ABS # 0.54 K/uL (0.11-0.59); NEUT % 67.4 %; NEUT ABS # 4.24 K/uL (1.4-6.5); PLATELET COUNT 263 K/uL (130-400); RED CELL DISTRIBUTION WIDTH CV 12.3 % (11.5-14.5); RED CELL DISTRIBUTION WIDTH SD 39.8 fL (36.4-46.3)
[2017-10-21 12:40] LABS: PTT PATIENT 25.6 SECONDS (21.0-31.0)
[2017-10-21 12:46] LABS: CALCIUM 9.6 mg/dl (8.5-10.1); CREATININE 0.71 mg/dl (0.60-1.20); POTASSIUM 3.8 mmol/L (3.5-5.1)
[2017-10-21] MEDS ORDERED: SCOP1DIS17 (13:42)
--- NOTE | 2017-10-21 15:27 | DIAGNOSTIC IMAGING REPORT ---
ULTRASOUND BILATERAL LOWER EXTREMITY VENOUS CLINICAL HISTORY: Lower extremity edema. COMPARISON STUDY: Bilateral lower extremity venous ultrasound dated 09/28/2017. TECHNIQUE: Real-time, grayscale, and color Doppler sonography of the deep veins of the right and left lower extremity was performed from the inguinal crease to the calf. Compression and augmentation were utilized. FINDINGS: There is no sonographic evidence of deep venous thrombosis identified in the right or left lower extremity. The common femoral, superficial femoral, and popliteal veins are patent and normally compressible bilaterally. The greater saphenous vein and the profunda femoris vein at the junction with the common femoral vein are clear in both legs. The visualized calf veins are patent bilaterally. IMPRESSION: There is no sonographic evidence of deep venous thrombosis identified in the right or left lower extremity. Electronically signed by: Zafar Lima M.D. 10/21/2017 3:25 PM Dictated Date/Time: 10/21/2017 3:22 PM
--- NOTE | 2017-10-21 15:47 | DIAGNOSTIC IMAGING REPORT ---
ULTRASOUND LEFT LOWER EXTREMITY ARTERIAL; ANKLE BRACHIAL INDICES CLINICAL HISTORY: Discoloration of the left lower extremity. COMPARISON STUDY: No priors. TECHNIQUE: Real-time, grayscale, and color Doppler sonography of the arteries of the left lower extremities performed from the inguinal crease to the foot. Ankle brachial indices are calculated. FINDINGS: Ankle brachial indices: Left brachial pressure measures 166. Pressures in the right posterior tibial artery measure 190 for an AMAIRANI of 1.14, and pressures in the right dorsalis pedis artery measure 181 for an AMARIANI of 1.09. Left posterior tibial artery pressures measure 176 for an AMAIRANI of 1.06, and pressures in the left dorsalis pedis artery measure 170 for an AMAIRANI of 1.02. Left lower extremity: No significant atherosclerotic plaque is identified. The lower external arteries are widely patent. There are triphasic arterial waveforms in the left common femoral artery, with velocities measuring up to 114 cm/s. There are triphasic arterial waveforms seen throughout the superficial femoral artery, with velocities measuring up to 107 cm/s. The profunda femoris artery is patent, with velocities measuring up to 76 cm/s. The popliteal artery is patent, with velocities measuring up to 72 cm/s. Triphasic waveforms are present in the popliteal artery. There is three-vessel runoff to the calf with normal waveforms present in the calf arteries. Velocities within the calf vessels measure up to 108 cm/s. The dorsalis pedis appears artery is patent with velocities measuring up to 40 cm/s. IMPRESSION: 1. There is no sonographic evidence of high grade stenosis or focal vessel cut off seen throughout the arteries of the left lower extremity. 2. Ankle-brachial indices as above. Dictated: 10/21/2017 3:26 PM Transcribed: 10/21/2017 3:46 PM ARTUR_Niyah Electronically signed by: Zafar Lima M.D. 10/21/2017 3:52 PM Dictated Date/Time: 10/21/2017 3:26 PM
[2017-10-21] MEDS ORDERED: KETOROLAC TROMETHAMINE 30 MG/ML VIAL IV STA (16:00)
[2017-10-21 16:09] VITALS: BP 165/97; PULSE 77; O2SAT 97
--- NOTE | 2017-10-21 18:47 | EMERGENCY ROOM VISIT NOTE ---
History Report prepared by Adela: Doyle Espinosa Under the Supervision of: Dr. Brian Babcock D.O. First contact with patient: 11:53 Chief Complaint: LEG PAIN,LEG INJURY Stated Complaint: POSSIBLE BLOOD CLOT IN LEG History of Present Illness The patient is a 57 year old female who presents to the Emergency Room with complaints of worsening pain and swelling in her legs bilaterally that began on Wednesday two days ago. The patient states that her pain and swelling is worsened with standing and walking around. When she is up and standing she can tell that the swelling worsens, and she notices a purplish discoloration begin. The patient also complains of numbness in the left lower extremity that begins below the hip and radiates all the way down the leg into the left foot. There is similar symptoms in the right lower extremity. There is no numbness in either groin. The patient has had these symptoms before. She had similar symptoms in April of last year 5 months ago. She was then diagnosed with a blood clot on June 11 and was started on ELIQUIS. Since starting ELIQUIS the patient was cleared for surgery and had back surgery 10 days ago to relieve pain from two pinched nerves. Since the surgery these symptoms have began again. The surgeons were unable to tell her if the leg pain she was having was from the blood blot or from the pinched nerves. The patient does feel as though the left leg is weak, but she notes that this is not new. The patient denies any other chest pain, shortness of breath, or urinary symptoms. Source of History: patient Onset: Two days ago Position: leg (bilateral) Quality: other (swelling purple discoloration) Timing: worsening Associated Symptoms: + back pain ((surgery)), + weakness, + numbness, No chest pain, No SOB, No urinary symptoms Review of Systems See HPI for pertinent positives & negatives. A total of 10 systems reviewed and were otherwise negative. Past Medical & Surgical Medical Problems: (1) Abnormal EKG (2) Chest pain (3) Clostridium difficile colitis (4) Constipation (5) Creation of ileostomy (6) Hx-Venous Thrombosis&Embolism (7) Hypertension Nos (8) Hypothyroidism Nos (9) ileostomy reversal (10) Ileus (11) Intractable back pain (12) Laparoscopic Earlene fundoplication using abdominal approach (13) Lumbar disc herniation Surgical Problems: (1) H/O ileostomy Family History CABG Coronary artery disease Emphysema FHx: cancer (lymphoma) Hepatic cirrhosis Hypertension Stroke Social History Smoking Status: Never Smoker Alcohol Use: none Drug Use: none Marital Status: Housing Status: lives with family Occupation Status: employed Current/Historical Medications Scheduled Apixaban (Eliquis), 5 MG PO BID Ascorbic Acid (Vitamin C), 1 TAB PO QAM Baclofen (Lioresal), 10 MG PO QPM Bisacodyl (Dulcolax), 10 MG PO HS Docusate Sodium (Colace), 1 CAP PO BID Gabapentin (Gabapentin), 100 MG PO BID Lorazepam (Lorazepam), 2 MG PO HS Metoprolol Succinate (Metoprolol Succinate ER), 25 MG PO QPM Ranitidine (Zantac), 150 MG PO QAM Scopolamine (Scopolamine), UD Simethicone (Gas-X), 80 MG PO TID Scheduled PRN Acetaminophen (Tylenol), 1,000 MG PO TID PRN for Pain or Fever Lorazepam (Ativan), 1 MG PO Q6H PRN for Anxiety Promethazine Hcl (Phenergan), 25 MG PO Q6H PRN for Nausea Allergies Coded Allergies: Pregabalin (Verified Allergy, Intermediate, confusion, forgetfullness, itchy, 10/21/17) Rabeprazole (Verified Allergy, Intermediate, SWELLING, 10/21/17) Morphine (Verified Allergy, Mild, SEVERE ITCHING, SHORTNESS OF BREATH, ) Tolerates dilaudid Amitriptyline (Verified Allergy, Unknown, SWELLING, 10/21/17) Tricyclic Antidepressants (Verified Allergy, Unknown, SWELLING, 10/21/17) Ciprofloxacin (Verified Adverse Reaction, Mild, gi upset, 10/21/17) pt Gabapentin (Verified Adverse Reaction, Unknown, dizzy;nauseated;blurred vision, 10/21/17) Physical Exam Vital Signs Date Time Temp Pulse Resp B/P (MAP) Pulse Ox O2 Delivery O2 Flow Rate FiO2 10/21/17 16:09 77 18 165/97 97 Room Air 10/21/17 13:51 76 19 175/84 98 Room Air 10/21/17 11:50 36.7 82 17 144/89 99 Room Air Physical Exam GENERAL: Sitting up in bed, alert, disheveled, well appearing, non-toxic EYE EXAM: normal conjunctiva. OROPHARYNX: no exudate, no erythema, lips, buccal mucosa, and tongue normal and mucous membranes are moist NECK: supple, no nuchal rigidity, no adenopathy, non-tender LUNGS: Clear to auscultation. Normal chest wall mechanics HEART: no murmurs, S1 normal and S2 normal ABDOMEN: abdomen soft, non-tender, normo-active bowel sounds, no masses, no rebound or guarding. BACK: Back is symmetrical on inspection and there is no deformity, no midline tenderness, no CVA tenderness. Back surgery dressing is in place and clean/dry. No surrounding erythema. SKIN: no rashes and no bruising UPPER EXTREMITIES: upper extremities are grossly normal. LOWER EXTREMITIES: Flexion/extension of the hip, knees, ankle, and EHL are 5/5 bilaterally. Gross sensation is intact. DP and PT are 2/4 on the right and 1/4 on the left. Calves are equal bilaterally. NEURO EXAM: Normal sensorium, cranial nerves II-XII grossly intact, normal speech, no gross weakness of arms, no weakness of legs. Medical Decision & Procedures ER Provider Diagnostic Interpretation: Radiology results as stated below per my review and the radiologist's interpretation: ULTRASOUND LEFT LOWER EXTREMITY ARTERIAL; ANKLE BRACHIAL INDICES CLINICAL HISTORY: Discoloration of the left lower extremity. COMPARISON STUDY: No priors. TECHNIQUE: Real-time, grayscale, and color Doppler sonography of the arteries of the left lower extremities performed from the inguinal crease to the foot. Ankle brachial indices are calculated. FINDINGS: Ankle brachial indices: Left brachial pressure measures 166. Pressures in the right posterior tibial artery measure 190 for an AMAIRANI of 1.14, and pressures in the right dorsalis pedis artery measure 181 for an AMAIRANI of 1.09. Left posterior tibial artery pressures measure 176 for an AMAIRANI of 1.06, and pressures in the left dorsalis pedis artery measure 170 for an AMAIRANI of 1.02. Left lower extremity: No significant atherosclerotic plaque is identified. The lower external arteries are widely patent. There are triphasic arterial waveforms in the left common femoral artery, with velocities measuring up to 114 cm/s. There are triphasic arterial waveforms seen throughout the superficial femoral artery, with velocities measuring up to 107 cm/s. The profunda femoris artery is patent, with velocities measuring up to 76 cm/s. The popliteal artery is patent, with velocities measuring up to 72 cm/s. Triphasic waveforms are present in the popliteal artery. There is three-vessel runoff to the calf with normal waveforms present in the calf arteries. Velocities within the calf vessels measure up to 108 cm/s. The dorsalis pedis appears artery is patent with velocities measuring up to 40 cm/s. IMPRESSION: 1. There is no sonographic evidence of high grade stenosis or focal vessel cut off seen throughout the arteries of the left lower extremity. 2. Ankle-brachial indices as above. Dictated: 10/21/2017 3:26 PM Transcribed: 10/21/2017 3:46 PM [email or web address] Electronically signed by: Zafar Lima M.D. 10/21/2017 3:52 PM Dictated Date/Time: 10/21/2017 3:26 PM ULTRASOUND BILATERAL LOWER EXTREMITY VENOUS CLINICAL HISTORY: Lower extremity edema. COMPARISON STUDY: Bilateral lower extremity venous ultrasound dated 09/28/2017. TECHNIQUE: Real-time, grayscale, and color Doppler sonography of the deep veins of the right and left lower extremity was performed from the inguinal crease to the calf. Compression and augmentation were utilized. FINDINGS: There is no sonographic evidence of deep venous thrombosis identified in the right or left lower extremity. The common femoral, superficial femoral, and popliteal veins are patent and normally compressible bilaterally. The greater saphenous vein and the profunda femoris vein at the junction with the common femoral vein are clear in both legs. The visualized calf veins are patent bilaterally. IMPRESSION: There is no sonographic evidence of deep venous thrombosis identified in the right or left lower extremity. Electronically signed by: Zafar Lima M.D. 10/21/2017 3:25 PM Dictated Date/Time: 10/21/2017 3:22 PM Laboratory Results 10/21/17 12:20 Red Blood Count 4.06, Mean Corpuscular Volume 89.4, Mean Corpuscular Hemoglobin 31.0, Mean Corpuscular Hemoglobin Concent 34.7, Mean Platelet Volume 9.2, Neutrophils (%) (Auto) 67.4, Lymphocytes (%) (Auto) 21.7, Monocytes (%) (Auto) 8.6, Eosinophils (%) (Auto) 1.4, Basophils (%) (Auto) 0.6, Neutrophils # (Auto) 4.24, Lymphocytes # (Auto) 1.37, Monocytes # (Auto) 0.54, Eosinophils # (Auto) 0.09, Basophils # (Auto) 0.04 10/21/17 12:20 Test 10/21/17 12:20 White Blood Count 6.30 K/uL (4.8-10.8) Red Blood Count 4.06 M/uL (4.2-5.4) Hemoglobin 12.6 g/dL (12.0-16.0) Hematocrit 36.3 % (37-47) Mean Corpuscular Volume 89.4 fL (80-100) Mean Corpuscular Hemoglobin 31.0 pg (25-34) Mean Corpuscular Hemoglobin Concent 34.7 g/dl (32-36) Platelet Count 263 K/uL (130-400) Mean Platelet Volume 9.2 fL (7.4-10.4) Neutrophils (%) (Auto) 67.4 % Lymphocytes (%) (Auto) 21.7 % Monocytes (%) (Auto) 8.6 % Eosinophils (%) (Auto) 1.4 % Basophils (%) (Auto) 0.6 % Neutrophils # (Auto) 4.24 K/uL (1.4-6.5) Lymphocytes # (Auto) 1.37 K/uL (1.2-3.4) Monocytes # (Auto) 0.54 K/uL (0.11-0.59) Eosinophils # (Auto) 0.09 K/uL (0-0.5) Basophils # (Auto) 0.04 K/uL (0-0.2) RDW Standard Deviation 39.8 fL (36.4-46.3) RDW Coefficient of Variation 12.3 % (11.5-14.5) Immature Granulocyte % (Auto) 0.3 % Immature Granulocyte # (Auto) 0.02 K/uL (0.00-0.02) Prothrombin Time 10.9 SECONDS (9.0-12.0) Prothromb Time International Ratio 1.0 (0.9-1.1) Activated Partial Thromboplast Time 25.6 SECONDS (21.0-31.0) Partial Thromboplastin Ratio 1.0 Anion Gap 3.0 mmol/L (3-11) Est Creatinine Clear Calc Drug Dose 73.3 ml/min Estimated GFR () 108.1 Estimated GFR (Non- 93.2 BUN/Creatinine Ratio 13.6 (10-20) Calcium Level 9.6 mg/dl (8.5-10.1) Laboratory results per my review. Medications Administered Medications (Trade) Dose Ordered Sig/Marvin Route Start Time Stop Time Status Last Admin Dose Admin Ketorolac Tromethamine (Toradol Inj) 30 mg NOW STAT IV 10/21/17 16:00 10/21/17 16:01 DC 10/21/17 16:07 30 MG ED Course ED COURSE: Vital signs were reviewed and showed normal vital signs. The patients medical record was reviewed The above diagnostic studies were performed and reviewed. ED treatments and interventions as stated above. 1156: The patient was evaluated in room B8. A complete history and physical examination was performed. 1600: Ordered Toradol 30 mg IV. 1613: Upon reevaluation, the patient is resting in bed. She is requesting Tylenol for pain. I discussed my findings with the patient and she understands and agrees with the treatment plan. Based on the patients age, coexisting illnesses, exam and lab findings the decision to treat as an outpatient was made. The patient remained stable while under my care. The patient appeared well at the time of discharge. Medical Decision Differential diagnosis: Etiologies such as DVT, musculoskeletal, infection, joint effusion, trauma, lymphedema, idiopathic, CHF, as well as others were entertained. Patient is a 57-year-old female who presents the ER for left lower extremity intermittent swelling, pain and paresthesias. After multiple conversations it appears as though this is been present since April. She has no focal deficit. Recent back surgery. CBC along with BMP was unremarkable. No signs of cauda equina. No fevers. There is currently no swelling of the legs. Left DP is slightly weaker than right. Duplex for DVT was performed and was unremarkable and she is on anticoagulation. Arterial ultrasound was performed and shows no rate limiting flow or obstruction. Foot is well perfused. No pain on palpation to suggest bony abnormality. She is neurologically intact. She is updated at bedside. She is given IV Toradol. She is discharged follow- up with PCP as an outpatient in her spine surgeon. Discussed with Pt concerning signs and symptoms to watch out for. Pt was instructed to follow up with their PCP and discussed with the patient their option to return to the ED at anytime for persistent or worsening symptoms. The appropriate anticipatory guidance and out-patient management, including indications for return to the emergency department, were explained at length to the patient and understood. Medication Reconcilliation Current Medication List: was personally reviewed by me Blood Pressure Screening Patient's blood pressure: Elevated blood pressure Blood pressure disposition: Elevated BP felt to be situational Impression Primary Impression: Leg pain, left Scribe Attestation The scribe's documentation has been prepared under my direction and personally reviewed by me in its entirety. I confirm that the note above accurately reflects all work, treatment, procedures, and medical decision making performed by me. Departure Information Dispostion Home / Self-Care Referrals Judy Wood M.D. (PCP) Forms HOME CARE DOCUMENTATION FORM, IMPORTANT VISIT INFORMATION Patient Instructions My [facility] Additional Instructions Please follow up with your primary care doctor with in the next 24 hours. Any worsening of your symptoms, please return to the ED immediately. This includes any fevers greater than 100.4, worsening pain, chest pain, shortness breath, persistent nausea, vomiting, unable to eat or drink, or any other concerning signs or symptoms from your standpoint. Please take Tylenol or Motrin as needed for pain. Please follow-up with your surgeon.
== END 2017-10-21 16:30 | disposition home or self-care (01) ==
LOC: C.EDB 12:44
DX: M79.605 Pain in left leg (principal); I10 Essential (primary) hypertension; Z86.718 Personal history of other venous thrombosis and embolism; Z88.1 Allergy status to other antibiotic agents; Z88.5 Allergy status to narcotic agent; Z88.8 Allergy status to other drugs, medicaments and biological substances; Z82.49 Family history of ischemic heart disease and other diseases of the circulatory system; Z82.5 Family history of asthma and other chronic lower respiratory diseases; Z80.7 Family history of other malignant neoplasms of lymphoid, hematopoietic and related tissues; Z82.3 Family history of stroke; Z83.79 Family history of other diseases of the digestive system; Z79.01 Long term (current) use of anticoagulants; Z79.899 Other long term (current) drug therapy

== ENCOUNTER 2017-11-11 14:04 | Emergency (ER) | payer BC ==
[~2017-11-11] VITALS: Ht 162.6 cm; Wt 54.2 kg
[~2017-11-11 14:04] MED LIST changes: -ENOX40IN SQ; +SCOP1DIS17
[2017-11-11 14:10] VITALS: TEMP 37; Ht 162.6 cm; Wt 54.2 kg
[2017-11-11] MEDS ORDERED: OPTIRAY 320 IV PRN (15:00)
[2017-11-11] MEDS ORDERED: CYAN10005 PO (15:10)
[2017-11-11 15:24] LABS: ISTAT CREATININE 0.7 mg/dl (0.6-1.3); ISTAT IONIZED CALCIUM 1.32 mmol/l (1.12-1.32); ISTAT POTASSIUM 3.5 mEq/L (3.3-5.0)
--- NOTE | 2017-11-11 16:25 | DIAGNOSTIC IMAGING REPORT ---
CT SCAN OF LUMBAR SPINE WITHOUT IV CONTRAST CLINICAL HISTORY: Low back pain. Back surgery one month ago. Leg pain. COMPARISON STUDY: Radiographs of the lumbar spine dated 05/27/2010. MRI of the lumbar spine dated 05/22/2017. TECHNIQUE: CT scan of the lumbar spine is performed from the lower thoracic spine to the sacrum. Images are reviewed in the axial, sagittal, and coronal planes. IV contrast was not administered for this examination. A dose lowering technique was utilized adhering to the principles of ALARA. CT DOSE: 1069.91 mGy.cm FINDINGS: The skeletal structures are osteopenic. There is no evidence of fracture or malalignment. Vertebral body height and alignment are maintained throughout the lumbar spine. The transverse and spinous processes are intact. There is no spondylolysis. A hemangioma is noted in the body of T12. No lytic or blastic lesion is seen. There is evidence of left hemilaminectomy at L5. The disc spaces are preserved. There is no evidence of large disc herniation or high-grade central canal stenosis by CT criteria. Large disc bulges are seen at L4-L5 and L5-S1. There is left-sided subarticular stenosis at L4-L5 and L5-S1 which may abut the exiting left L4 and L5 nerve roots. Postoperative change is noted in the left paraspinous soft tissues at the operative level. The paraspinous soft tissues are otherwise normal in appearance. There is moderate atherosclerotic calcification of the abdominal aorta. The sacrum is intact as visualized. IMPRESSION: 1. No acute bony abnormality is seen involving the lumbar spine. 2. There is evidence of left hemilaminectomy at L5. 3. Mild degenerative change as above. Dictated: 11/11/2017 4:10 PM Transcribed: 11/11/2017 4:25 PM [facility] Electronically signed by: Zafar Lima M.D. 11/11/2017 4:32 PM Dictated Date/Time: 11/11/2017 4:10 PM
--- NOTE | 2017-11-11 16:35 | DIAGNOSTIC IMAGING REPORT ---
ULTRASOUND LEFT LOWER EXTREMITY VENOUS CLINICAL HISTORY: Left leg pain. COMPARISON STUDY: Left lower extremity venous ultrasound dated 08/24/2017. TECHNIQUE: Real-time, grayscale, and color Doppler sonography of the deep veins of the left lower extremity was performed from the inguinal crease to the calf. Compression and augmentation were utilized. FINDINGS: There is no sonographic evidence of deep venous thrombosis identified in the left lower extremity. The common femoral, superficial femoral, and popliteal veins are patent and normally compressible. The greater saphenous vein and the profunda femoris vein at the junction with the common femoral vein are clear. The visualized calf veins are patent. IMPRESSION: There is no sonographic evidence of deep venous thrombosis identified in the left lower extremity. Electronically signed by: Zafar Lima M.D. 11/11/2017 4:33 PM Dictated Date/Time: 11/11/2017 4:33 PM
--- NOTE | 2017-11-11 16:39 | DIAGNOSTIC IMAGING REPORT ---
ABDOMEN, PELVIS, BILATERAL LOWER EXTREMITY CT ANGIOGRAM HISTORY: Leg pain. Back pain. TECHNIQUE: Multiaxial CT images of the abdomen, pelvis, bilateral lower extremity venous were performed following the use of intravenous contrast about the major arterial structures. Maximal intensity projection images were also obtained. COMPARISON STUDY: Abdomen and pelvis CT 08/18/2013. FINDINGS: The lung bases are clear. No fractures within the visualized osseous structures. Evidence for prior midline incision within the lumbar region. There is subcutaneous edema at this location. Left L4 hemilaminectomy is noted. The liver, gallbladder, spleen, adrenal glands, and pancreas are unremarkable. No retroperitoneal lymphadenopathy. The kidneys enhance normally. No hydronephrosis. Hysterectomy. The bladder is unremarkable. Multiple pelvic phleboliths are noted. No bowel wall thickening or obstruction. Suture material within the distal ileum consistent with prior anastomosis. Mild to moderate calcified plaque within the normal caliber abdominal aorta. The celiac artery, superior mesenteric artery, and inferior mesenteric arteries are widely patent. The bilateral renal arteries are patent. The bilateral iliac arteries are patent. No significant stenosis, occlusion, or aneurysm within the bilateral lower extremity arterial systems which demonstrate three-vessel runoff. IMPRESSION: 1. Postoperative changes within the lumbar spine consistent with recent left L4 hemilaminectomy. 2. No significant stenosis, occlusion, or aneurysm seen within the aorta, iliac arteries, or bilateral lower extremity arteries. 3. No bowel wall thickening or obstruction. Electronically signed by: Champ Tejada M.D. 11/11/2017 4:37 PM Dictated Date/Time: 11/11/2017 4:25 PM
[2017-11-11] MEDS ORDERED: NIFEdipine 10 MG CAP PO STA (17:07)
[2017-11-11] MEDS ORDERED: LORAZEPAM 1 MG TAB SL STA (17:07)
--- NOTE | 2017-11-11 17:55 | EMERGENCY ROOM VISIT NOTE ---
History Report prepared by Adela: Flores Hurst Under the Supervision of: Dr. Genevieve Carreno D.O. First contact with patient: 14:17 Chief Complaint: LEG PAIN,LEG INJURY Stated Complaint: LEG TURNS PURPLE, UNABLE TO STAND FOR PERIOD OF TI History of Present Illness The patient is a 57 year old female who presents to the Emergency Room with complaints of persistent leg pain starting 6 months ago. The patient has seen multiple doctors and been to the ED several times for this. She has been told it is likely a vascular issue. She describes the pain as a burning which worsens with standing for longer periods of time. Her leg also turns red and purple with standing. This initially started with her left leg, but is now happening in her right leg. She has been taking hydrocodone and gabapentin to no significant relief. Her feet and toes also feel very cold with the leg pain. 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 She had back surgery 1 month ago. She denies any history of autoimmune disease. Source of History: patient Onset: 6 months ago Position: leg (bilateral) Quality: burning Timing: other (persistent) Modifying Factors (Worsening): other (standing) Note: Pt reports cold feet, purple/red legs. Review of Systems See HPI for pertinent positives & negatives. A total of 10 systems reviewed and were otherwise negative. Past Medical & Surgical Medical Problems: (1) Abnormal EKG (2) Chest pain (3) Clostridium difficile colitis (4) Constipation (5) Creation of ileostomy (6) Hx-Venous Thrombosis&Embolism (7) Hypertension Nos (8) Hypothyroidism Nos (9) ileostomy reversal (10) Ileus (11) Intractable back pain (12) Laparoscopic Earlene fundoplication using abdominal approach (13) Lumbar disc herniation Surgical Problems: (1) H/O ileostomy Family History CABG Coronary artery disease Emphysema FHx: cancer (lymphoma) Hepatic cirrhosis Hypertension Stroke Social History Smoking Status: Never Smoker Alcohol Use: none Drug Use: none Marital Status: Housing Status: lives with family Occupation Status: employed Current/Historical Medications Scheduled Apixaban (Eliquis), 5 MG PO BID Ascorbic Acid (Vitamin C), 1 TAB PO QAM Baclofen (Lioresal), 10 MG PO QPM Bisacodyl (Dulcolax), 10 MG PO HS Cyanocobalamin (Vitamin B-12), 1,000 MCG PO DAILY Docusate Sodium (Colace), 1 CAP PO BID Gabapentin (Gabapentin), 100 MG PO QPM Lorazepam (Lorazepam), 2 MG PO HS Metoprolol Succinate (Metoprolol Succinate ER), 25 MG PO QPM Ranitidine (Zantac), 150 MG PO QAM Scopolamine (Scopolamine), UD Simethicone (Gas-X), 80 MG PO TID Scheduled PRN Acetaminophen (Tylenol), 1,000 MG PO TID PRN for Pain or Fever Lorazepam (Ativan), 0.5-1 MG PO Q6H PRN for Anxiety Promethazine Hcl (Phenergan), 25 MG PO Q6H PRN for Nausea Allergies Coded Allergies: Pregabalin (Verified Allergy, Intermediate, confusion, forgetfullness, itchy, 11/11/17) Rabeprazole (Verified Allergy, Intermediate, SWELLING, 11/11/17) Morphine (Verified Allergy, Mild, SEVERE ITCHING, SHORTNESS OF BREATH, ) Tolerates dilaudid Amitriptyline (Verified Allergy, Unknown, SWELLING, 11/11/17) Tricyclic Antidepressants (Verified Allergy, Unknown, SWELLING, 11/11/17) Ciprofloxacin (Verified Adverse Reaction, Mild, gi upset, 11/11/17) pt Gabapentin (Verified Adverse Reaction, Unknown, "HIGHER DOSES" CAUSE BLURRED VISION, DIZZINESS,NAUSEA, 11/11/17) Physical Exam Vital Signs Date Time Temp Pulse Resp B/P (MAP) Pulse Ox O2 Delivery O2 Flow Rate FiO2 11/11/17 19:04 74 20 129/72 99 11/11/17 17:15 169/95 11/11/17 16:38 78 20 179/86 98 Room Air 11/11/17 14:10 37.0 84 18 154/87 97 Room Air Physical Exam GENERAL: alert, tearful, anxious, well nourished, no distress, non-toxic EYE EXAM: normal conjunctiva, PERRL and EOM's grossly intact OROPHARYNX: no exudate, no erythema, lips, buccal mucosa, and tongue normal and mucous membranes are moist NECK: supple, no nuchal rigidity, no adenopathy, non-tender LUNGS: Clear to auscultation. Normal chest wall mechanics HEART: no murmurs, S1 normal and S2 normal ABDOMEN: abdomen soft, non-tender, normo-active bowel sounds, no masses, no rebound or guarding. BACK: Back is symmetrical on inspection and there is no deformity, no midline tenderness, no CVA tenderness. SKIN: no rashes and no bruising UPPER EXTREMITIES: upper extremities are grossly normal. LOWER EXTREMITIES: With standing, patient with increasing pain in lower extremities, left greater than right, as well as slow evolution of discoloration of the skin that begins like Livedo reticularis. No true mottling. Feet are cold to touch left greater than right, still with DP and PT pulses present bilaterally. Mildly increased cap refill time of the feet. NEURO EXAM: Normal sensorium, cranial nerves II-XII grossly intact, normal speech, no gross weakness of arms, no gross weakness of legs. Slightly antalgic gait. Medical Decision & Procedures ER Provider Diagnostic Interpretation: Radiology results have been interpreted by the radiologist and reviewed by me. ULTRASOUND LEFT LOWER EXTREMITY VENOUS CLINICAL HISTORY: Left leg pain. COMPARISON STUDY: Left lower extremity venous ultrasound dated 08/24/2017. TECHNIQUE: Real-time, grayscale, and color Doppler sonography of the deep veins of the left lower extremity was performed from the inguinal crease to the calf. Compression and augmentation were utilized. FINDINGS: There is no sonographic evidence of deep venous thrombosis identified in the left lower extremity. The common femoral, superficial femoral, and popliteal veins are patent and normally compressible. The greater saphenous vein and the profunda femoris vein at the junction with the common femoral vein are clear. The visualized calf veins are patent. IMPRESSION: There is no sonographic evidence of deep venous thrombosis identified in the left lower extremity. Electronically signed by: Zafar Lima M.D. 11/11/2017 4:33 PM Dictated Date/Time: 11/11/2017 4:33 PM ABDOMEN, PELVIS, BILATERAL LOWER EXTREMITY CT ANGIOGRAM HISTORY: Leg pain. Back pain. TECHNIQUE: Multiaxial CT images of the abdomen, pelvis, bilateral lower extremity venous were performed following the use of intravenous contrast about the major arterial structures. Maximal intensity projection images were also obtained. COMPARISON STUDY: Abdomen and pelvis CT 08/18/2013. FINDINGS: The lung bases are clear. No fractures within the visualized osseous structures. Evidence for prior midline incision within the lumbar region. There is subcutaneous edema at this location. Left L4 hemilaminectomy is noted. The liver, gallbladder, spleen, adrenal glands, and pancreas are unremarkable. No retroperitoneal lymphadenopathy. The kidneys enhance normally. No hydronephrosis. Hysterectomy. The bladder is unremarkable. Multiple pelvic phleboliths are noted. No bowel wall thickening or obstruction. Suture material within the distal ileum consistent with prior anastomosis. Mild to moderate calcified plaque within the normal caliber abdominal aorta. The celiac artery, superior mesenteric artery, and inferior mesenteric arteries are widely patent. The bilateral renal arteries are patent. The bilateral iliac arteries are patent. No significant stenosis, occlusion, or aneurysm within the bilateral lower extremity arterial systems which demonstrate three-vessel runoff. IMPRESSION: 1. Postoperative changes within the lumbar spine consistent with recent left L4 hemilaminectomy. 2. No significant stenosis, occlusion, or aneurysm seen within the aorta, iliac arteries, or bilateral lower extremity arteries. 3. No bowel wall thickening or obstruction. Electronically signed by: Champ Tejada M.D. 11/11/2017 4:37 PM Dictated Date/Time: 11/11/2017 4:[address] SCAN OF LUMBAR SPINE WITHOUT IV CONTRAST CLINICAL HISTORY: Low back pain. Back surgery one month ago. Leg pain. COMPARISON STUDY: Radiographs of the lumbar spine dated 05/27/2010. MRI of the lumbar spine dated 05/22/2017. TECHNIQUE: CT scan of the lumbar spine is performed from the lower thoracic spine to the sacrum. Images are reviewed in the axial, sagittal, and coronal planes. IV contrast was not administered for this examination. A dose lowering technique was utilized adhering to the principles of ALARA. CT DOSE: 1069.91 mGy.cm FINDINGS: The skeletal structures are osteopenic. There is no evidence of fracture or malalignment. Vertebral body height and alignment are maintained throughout the lumbar spine. The transverse and spinous processes are intact. There is no spondylolysis. A hemangioma is noted in the body of T12. No lytic or blastic lesion is seen. There is evidence of left hemilaminectomy at L5. The disc spaces are preserved. There is no evidence of large disc herniation or high-grade central canal stenosis by CT criteria. Large disc bulges are seen at L4-L5 and L5-S1. There is left-sided subarticular stenosis at L4-L5 and L5-S1 which may abut the exiting left L4 and L5 nerve roots. Postoperative change is noted in the left paraspinous soft tissues at the operative level. The paraspinous soft tissues are otherwise normal in appearance. There is moderate atherosclerotic calcification of the abdominal aorta. The sacrum is intact as visualized. IMPRESSION: 1. No acute bony abnormality is seen involving the lumbar spine. 2. There is evidence of left hemilaminectomy at L5. 3. Mild degenerative change as above. Dictated: 11/11/2017 4:10 PM Transcribed: 11/11/2017 4:25 PM [facility] Electronically signed by: Zafar Lima M.D. 11/11/2017 4:32 PM Dictated Date/Time: 11/11/2017 4:10 PM Laboratory Results Test 11/11/17 15:10 Bedside Hemoglobin 13.3 g/dl (12.0-16.0) Bedside Hematocrit 39 % (37-47) Bedside Sodium 140 mEq/L (135-144) Bedside Potassium 3.5 mEq/L (3.3-5.0) Bedside Chloride 98 mEq/L (101-112) Bedside Total CO2 30 mEq/l (24-31) Anion Gap 17.0 mmol/L (16-25) Bedside Blood Urea Nitrogen 7 mg/dl (7-18) Bedside Creatinine 0.7 mg/dl (0.6-1.3) Bedside Glucose (other) 138 mg/dl (70-99) Bedside Ionized Calcium (Hermilo) 1.32 mmol/l (1.12-1.32) Laboratory results per my review. Medications Administered Medications (Trade) Dose Ordered Sig/Marvin Route Start Time Stop Time Status Last Admin Dose Admin Lorazepam (Ativan Tab) 1 mg NOW STAT SL 11/11/17 17:07 11/11/17 17:09 DC 11/11/17 17:14 1 MG Nifedipine (Procardia Cap) 10 mg NOW STAT PO 11/11/17 17:07 11/11/17 17:09 DC 11/11/17 17:15 10 MG ED Course 1420: The patient was evaluated in room A11B. A complete history and physical exam was performed. 1707: Procardia Cap 10 mg PO, Lorazepam 1 mg SL. 1759: I discussed the patient's case with Anastacio Macedo and [facility] orthopedic surgery. He has nothing else to add. The patient can check back in with the office for a referral to pain management. 1830: Upon reevaluation, the patient is feeling better. I discussed the findings and the treatment plan with the patient. She verbalizes agreement and understanding. She was discharged home. Medical Decision Differential diagnoses includes but is not limited to Raynaud disease, vasculitis, Buerger disease. Patient with normal ankle-brachial indices noted within the last month, and normal arterial lower extremity Doppler. Repeat venous Doppler today reassuring. No evidence of any other vascular etiology on CT imaging from a more proximal point. I do feel patient has a component of anxiety which is contributing to this. Case was discussed with Dr. Monzon given the recent surgery 4 weeks ago. I do not feel this is an acute vascular phenomenon. He agrees patient may benefit from referral to pain management for possible complex regional pain syndrome. This was discussed with the patient at bedside also. Also discussed possible atypical presentation of a vasculitis or other rheumatologic disease which her family doctor can evaluate on an outpatient basis. Discussed symptoms to watch and return for, she verbalized understanding was agreeable with plan. Medication Reconcilliation Current Medication List: was personally reviewed by me Blood Pressure Screening Patient's blood pressure: Elevated blood pressure Blood pressure disposition: Elevated BP felt to be situational Consults Time Called: 1749 Consulting Physician: Anastacio Macedo and [facility] orthopedic surgery Returned Call: [phone] I discussed the patient's case with him. He has nothing else to add. The patient can check back in with the office for a referral to pain management. Impression Primary Impression: Leg pain, left Additional Impressions: Complex regional pain syndrome Anxiety Scribe Attestation The scribe's documentation has been prepared under my direction and personally reviewed by me in its entirety. I confirm that the note above accurately reflects all work, treatment, procedures, and medical decision making performed by me. Departure Information Dispostion Home / Self-Care Referrals Judy Wood M.D. (PCP) Patient Instructions My [facility] Additional Instructions Please call and follow-up with your airport operations specialist and discuss with them possible referral to a supervisor painting shipyard. Please continue your regular medications as prescribed. If you have any new or worsening symptoms, please return the emergency room. Please discuss with them the possibility of Complex Regional Pain Syndrome. Please consider physical therapy to help rehabilitate your leg since your surgery. You may continue your medications as prescribed. Problem Qualifiers Additional Impressions: Complex regional pain syndrome Complex regional pain syndrome type: type I Complex regional pain syndrome affected site: lower extremity Laterality: left Qualified Codes: G90.522 - Complex regional pain syndrome i of left lower limb
[2017-11-11 19:04] VITALS: BP 129/72; PULSE 74; O2SAT 99
--- NOTE | 2017-11-11 20:03 | EMERGENCY ROOM VISIT NOTE ---
History Chief Complaint: LEG PAIN,LEG INJURY Stated Complaint: LEG TURNS PURPLE, UNABLE TO STAND FOR PERIOD OF TI History of Present Illness 57F who presents to the Emergency Room with complaints of worsening Left Lower Leg Pain. The pain started in April 2017 and she has been dealing with it ever since. She states that her 1st steroid injection by Dr. Lieberman did help the pain for several weeks - she had a second steroid injection that made the pain much worse. The pain in April started on the anterior left hip. The patient complains that she cannot walk on the leg without significant pain. She describes the pain as a diffuse ache that is on all aspects of the leg from the left hip to the toes. The pain is in the skin. The pain is made worse by standing and walking. She also experiences a purple and blue honeycombing of her skin when the pain is present. She also states that she is starting to get a similar pain in her right foot. The patient has had a recent back surgery for concurrent back pain by Dr. Monzon four weeks ago (L4-L5). She states that her back pain has improved but her left leg pain persists. Associated symptoms: When she stands she states that her leg pain gets worse and discolored. At times she may be walking and have a sudden onset of pain and her knee will buckle. She has seen many specialists and has had arterial and venous studies. Patient also states she has hypersensitivity at times, she cannot wear pants because it makes her skin hurt so much. PMHx: She has had a blood clot in the left ankle in May 2017 for which is on Eliquis. Review of Systems See HPI for pertinent positives and negatives. A total of ten systems were reviewed and were otherwise negative. Constitutional: No fever, No chills Respiratory: No cough, No sputum, No shortness of breath Cardiovascular: No chest pain Abdomen: No pain, No nausea Musculoskeletal: + joint pain, + muscle pain, + calf pain Past Medical/Surgical History Medical Problems: (1) Abnormal EKG (2) Chest pain (3) Clostridium difficile colitis (4) Constipation (5) Creation of ileostomy (6) Hx-Venous Thrombosis&Embolism (7) Hypertension Nos (8) Hypothyroidism Nos (9) ileostomy reversal (10) Ileus (11) Intractable back pain (12) Laparoscopic Earlene fundoplication using abdominal approach (13) Lumbar disc herniation Surgical Problems: (1) H/O ileostomy Family History CABG Coronary artery disease Emphysema FHx: cancer (lymphoma) Hepatic cirrhosis Hypertension Stroke Social History Smoking Status: Never Smoker Alcohol Use: none Drug Use: none Marital Status: Housing Status: lives with family Occupation Status: employed Current/Historical Medications Scheduled Apixaban (Eliquis), 5 MG PO BID Ascorbic Acid (Vitamin C), 1 TAB PO QAM Baclofen (Lioresal), 10 MG PO QPM Bisacodyl (Dulcolax), 10 MG PO HS Cyanocobalamin (Vitamin B-12), 1,000 MCG PO DAILY Docusate Sodium (Colace), 1 CAP PO BID Gabapentin (Gabapentin), 100 MG PO QPM Lorazepam (Lorazepam), 2 MG PO HS Metoprolol Succinate (Metoprolol Succinate ER), 25 MG PO QPM Ranitidine (Zantac), 150 MG PO QAM Scopolamine (Scopolamine), UD Simethicone (Gas-X), 80 MG PO TID Scheduled PRN Acetaminophen (Tylenol), 1,000 MG PO TID PRN for Pain or Fever Lorazepam (Ativan), 0.5-1 MG PO Q6H PRN for Anxiety Promethazine Hcl (Phenergan), 25 MG PO Q6H PRN for Nausea Physical Exam Vital Signs Date Time Temp Pulse Resp B/P (MAP) Pulse Ox O2 Delivery O2 Flow Rate FiO2 11/11/17 19:04 74 20 129/72 99 11/11/17 17:15 169/95 11/11/17 16:38 78 20 179/86 98 Room Air 11/11/17 14:10 37.0 84 18 154/87 97 Room Air Physical Exam GENERAL: alert, tearful, anxious, well nourished, no distress, non-toxic EYE EXAM: normal conjunctiva, PERRL and EOM's grossly intact OROPHARYNX: no exudate, no erythema, lips, buccal mucosa, and tongue normal and mucous membranes are moist NECK: supple, no nuchal rigidity, no adenopathy, non-tender LUNGS: Clear to auscultation. Normal chest wall mechanics HEART: no murmurs, S1 normal and S2 normal ABDOMEN: abdomen soft, non-tender, normo-active bowel sounds, no masses, no rebound or guarding. BACK: Back is symmetrical on inspection and there is no deformity, no midline tenderness, no CVA tenderness. SKIN: no rashes and no bruising UPPER EXTREMITIES: upper extremities are grossly normal. LOWER EXTREMITIES: FROM passively and actively, left calf, knee, ankle is non tender to palpation. No swelling or discoloration noted. R leg is normal in appearance, passive and active range of motion. Sensation intact over light touch over the lower extremities bilaterally. NEURO EXAM: Normal sensorium, cranial nerves II-XII grossly intact, normal speech, no gross weakness of arms, no gross weakness of legs. Slightly antalgic gait. Medical Decision & Procedures ER Provider Diagnostic Interpretation: CT SCAN OF LUMBAR SPINE WITHOUT IV CONTRAST CLINICAL HISTORY: Low back pain. Back surgery one month ago. Leg pain. COMPARISON STUDY: Radiographs of the lumbar spine dated 05/27/2010. MRI of the lumbar spine dated 05/22/2017. TECHNIQUE: CT scan of the lumbar spine is performed from the lower thoracic spine to the sacrum. Images are reviewed in the axial, sagittal, and coronal planes. IV contrast was not administered for this examination. A dose lowering technique was utilized adhering to the principles of ALARA. CT DOSE: 1069.91 mGy.cm FINDINGS: The skeletal structures are osteopenic. There is no evidence of fracture or malalignment. Vertebral body height and alignment are maintained throughout the lumbar spine. The transverse and spinous processes are intact. There is no spondylolysis. A hemangioma is noted in the body of T12. No lytic or blastic lesion is seen. There is evidence of left hemilaminectomy at L5. The disc spaces are preserved. There is no evidence of large disc herniation or high-grade central canal stenosis by CT criteria. Large disc bulges are seen at L4-L5 and L5-S1. There is left-sided subarticular stenosis at L4-L5 and L5-S1 which may abut the exiting left L4 and L5 nerve roots. Postoperative change is noted in the left paraspinous soft tissues at the operative level. The paraspinous soft tissues are otherwise normal in appearance. There is moderate atherosclerotic calcification of the abdominal aorta. The sacrum is intact as visualized. IMPRESSION: 1. No acute bony abnormality is seen involving the lumbar spine. 2. There is evidence of left hemilaminectomy at L5. 3. Mild degenerative change as above. ABDOMEN, PELVIS, BILATERAL LOWER EXTREMITY CT ANGIOGRAM HISTORY: Leg pain. Back pain. TECHNIQUE: Multiaxial CT images of the abdomen, pelvis, bilateral lower extremity venous were performed following the use of intravenous contrast about the major arterial structures. Maximal intensity projection images were also obtained. COMPARISON STUDY: Abdomen and pelvis CT 08/18/2013. FINDINGS: The lung bases are clear. No fractures within the visualized osseous structures. Evidence for prior midline incision within the lumbar region. There is subcutaneous edema at this location. Left L4 hemilaminectomy is noted. The liver, gallbladder, spleen, adrenal glands, and pancreas are unremarkable. No retroperitoneal lymphadenopathy. The kidneys enhance normally. No hydronephrosis. Hysterectomy. The bladder is unremarkable. Multiple pelvic phleboliths are noted. No bowel wall thickening or obstruction. Suture material within the distal ileum consistent with prior anastomosis. Mild to moderate calcified plaque within the normal caliber abdominal aorta. The celiac artery, superior mesenteric artery, and inferior mesenteric arteries are widely patent. The bilateral renal arteries are patent. The bilateral iliac arteries are patent. No significant stenosis, occlusion, or aneurysm within the bilateral lower extremity arterial systems which demonstrate three-vessel runoff. IMPRESSION: 1. Postoperative changes within the lumbar spine consistent with recent left L4 hemilaminectomy. 2. No significant stenosis, occlusion, or aneurysm seen within the aorta, iliac arteries, or bilateral lower extremity arteries. 3. No bowel wall thickening or obstruction. ULTRASOUND LEFT LOWER EXTREMITY VENOUS CLINICAL HISTORY: Left leg pain. COMPARISON STUDY: Left lower extremity venous ultrasound dated 08/24/2017. TECHNIQUE: Real-time, grayscale, and color Doppler sonography of the deep veins of the left lower extremity was performed from the inguinal crease to the calf. Compression and augmentation were utilized. FINDINGS: There is no sonographic evidence of deep venous thrombosis identified in the left lower extremity. The common femoral, superficial femoral, and popliteal veins are patent and normally compressible. The greater saphenous vein and the profunda femoris vein at the junction with the common femoral vein are clear. The visualized calf veins are patent. IMPRESSION: There is no sonographic evidence of deep venous thrombosis identified in the left lower extremity. Laboratory Results Test 11/11/17 15:10 Bedside Hemoglobin 13.3 g/dl (12.0-16.0) Bedside Hematocrit 39 % (37-47) Bedside Sodium 140 mEq/L (135-144) Bedside Potassium 3.5 mEq/L (3.3-5.0) Bedside Chloride 98 mEq/L (101-112) Bedside Total CO2 30 mEq/l (24-31) Anion Gap 17.0 mmol/L (16-25) Bedside Blood Urea Nitrogen 7 mg/dl (7-18) Bedside Creatinine 0.7 mg/dl (0.6-1.3) Bedside Glucose (other) 138 mg/dl (70-99) Bedside Ionized Calcium (Hermilo) 1.32 mmol/l (1.12-1.32) Medications Administered Medications (Trade) Dose Ordered Sig/Marvin Route Start Time Stop Time Status Last Admin Dose Admin Lorazepam (Ativan Tab) 1 mg NOW STAT SL 11/11/17 17:07 11/11/17 17:09 DC 11/11/17 17:14 1 MG Nifedipine (Procardia Cap) 10 mg NOW STAT PO 11/11/17 17:07 11/11/17 17:09 DC 11/11/17 17:15 10 MG Medical Decision The patient's care and disposition was discussed with Dr. Carreno, Attending ED Physician. This is a 57F with chronic left leg pain. Differential diagnosis include Complex Regional Pain syndrome, DVT, arteriolar occlusion, venous insufficiency , peripheral neuropathy, alcoholism, substance use disorder, fibromyalgia, malingering, CVA and claudication were entertained. Triage Nursing notes were reviewed. ED Course included an extensive history and physical exam, labs and venous duplex of the LLE, CTA of the LLE. The symptoms are very interesting and nonspecific. In fact this is almost a classic presentation of complex regional pain syndrome. The patient was educated on this condition and encouraged to read up about it herself. Patient in the past has tried Amitriptyline and cannot tolerate more than 100mg of Gabapentin. She has also tried physical therapy for her back and states she is very active when she can be. ie. going up stairs, walking around the house. Patient was very tearful and crying stating multiple times "what is wrong with me, I'm in so much pain". was present in the room and supportive. Patient denied wanting to end her life or harm herself. She was advised to return to the ER if she does develop thoughts of self harm. In my estimation further outpatient treatment and management for complex regional patient syndrome should be done with possible referral to PT and a pain management center. Rest from my education is not the best treatment but rather to exercise the leg. This will require further education and follow up on an outpatient treatment. Pt will be referred to the [facility] clinic for treatment of this condition. The pt was informed about the findings as listed above. All questions were answered. Return instructions were outlined and the patient was discharged in good condition. The patient was referred to PCP for recheck of the current condition. Head Trauma GCS Score: 15 Impression Primary Impression: Leg pain, left Additional Impressions: Anxiety Complex regional pain syndrome Departure Information Dispostion Home / Self-Care Condition GOOD Referrals Judy Wood M.D. (PCP) Alvaro Monzon, DO Forms HOME CARE DOCUMENTATION FORM, IMPORTANT VISIT INFORMATION Patient Instructions My [facility] Additional Instructions You are being discharge with a tentative diagnosis of "Complex Regional Pain Syndrome". Complex regional pain syndrome is a complicated disease with many causes and treatments. You would benefit by reading up on this illness. You are being discharged with follow up at the [facility] next week. The purpose of this visit will be to use shared decision making regarding how you want to approach your treatment plan for Complex Regional Pain Syndrome. Please keep any future appointments you have arranged with Dr. Park and your customer relations specialist. Please continue your regular medications as prescribed. If you have any new or worsening symptoms, please return the emergency room. Resident Involvement: Resident Care Provided Care Provided: Adult ED Problem Qualifiers
== END 2017-11-11 19:05 | disposition home or self-care (01) ==
LOC: C.EDB 14:06 → C.EDA 19:05
DX: M79.605 Pain in left leg (principal); G90.522 Complex regional pain syndrome I of left lower limb; F41.9 Anxiety disorder, unspecified; I10 Essential (primary) hypertension; E03.9 Hypothyroidism, unspecified; Z79.01 Long term (current) use of anticoagulants; Z86.718 Personal history of other venous thrombosis and embolism; Z79.899 Other long term (current) drug therapy; Z88.5 Allergy status to narcotic agent; Z88.8 Allergy status to other drugs, medicaments and biological substances; Z88.1 Allergy status to other antibiotic agents

== ENCOUNTER → 2018-01-20 | Outpatient (CLI) | payer BC ==
[~2018-01-20] MED LIST changes: +CYAN10005 PO; -TPRSR/25 PO
== END | disposition home or self-care (01) ==
LOC: C.LABPVFM 15:23
PROVIDERS: ATTEND Family Medicine
DX: R74.8 Abnormal levels of other serum enzymes (principal)

== ENCOUNTER 2021-04-01 00:18 | Inpatient (IN) ==
[2021-04-01 00:43] LABS: Basophils # (auto) 0.02 K/uL (0-0.2); Basophils % (auto) 0.2 %; Hematocrit (blood only) 37.4 % (37-47); Hemoglobin 12.7 g/dL (12.0-16.0); Immature Granulocytes # (auto) 0.01 K/uL (0.00-0.02); Immature Granulocytes % (auto) 0.1 %; Lymphocytes # (auto) 0.85 K/uL (1.2-3.4); Lymphocytes % (auto) 8.9 %; Mean Corpuscular Hemoglobin 29.1 pg (25-34); Mean Corpuscular Volume 85.6 fL (80-100); Mean Platelet Volume 9.6 fL (7.4-10.4); Monocytes # (auto) 0.48 K/uL (0.11-0.59); Neutrophils # (auto) 8.16 K/uL (1.4-6.5); Neutrophils % (auto) 85.8 %; Platelet Count 207 K/uL (130-400); RDW Coefficient of Variation 12.5 % (11.5-14.5); RDW Standard Deviation 39.4 fL (36.4-46.3); Red Blood Count 4.37 M/uL (4.2-5.4); White Blood Count 9.52 K/uL (4.8-10.8)
[2021-04-01 01:00] LABS: Albumin Level 3.5 gm/dl (3.4-5.0); Calcium 10.1 mg/dl (8.5-10.1); Creatinine Clr Calc Pharmacy 59.3 ml/min; Est GFR (African American) 85.1 ml/min; Est GFR (Non-African American) 73.4 ml/min; Potassium 3.9 mmol/L (3.5-5.1)
[2021-04-01 01:03] LABS: Albumin Globulin Ratio 0.9 (0.9-2); Bilirubin,Total 0.4 mg/dl (0.2-1); Globulin 3.9 gm/dl (2.5-4.0); Total Protein 7.4 gm/dl (6.4-8.2)
[2021-04-01 01:26] LABS: Appearance Urine Clear (Clear); Bacteria Urine Automated Negative (Negative); Blood Urine Negative (Negative); Color Urine Dark Yellow; Glucose Urine UA Negative (Negative); Ketones Urine 1+ (Negative); Leukocyte Esterase Urine Negative (Negative); Nitrite Urine Negative (Negative); Protein Urine Trace (Negative); Urobilinogen Urine Negative (Negative)
[2021-04-01 01:28] LABS: Bilirubin Urine 1+ (Negative)
[2021-04-01] MEDS ORDERED: HYDROmorphone INJ 1 MG/ML SYRINGE IV STA (02:24)
[2021-04-01] MEDS ORDERED: HYDROmorphone INJ 0.5 MG/0.5 ML SYR IV PRN ×2 (02:24→08:26)
[2021-04-01] MEDS ORDERED: ONDANSETRON INJ 2 MG/ML 2 ML VIAL IV STA (02:24)
--- NOTE | 2021-04-01 02:28 | Emergency Department Note ---
Impression & Plan Diffuse abdominal pain, SBO (small bowel obstruction), Abdominal distension, Nausea ED Provider Note NAME: MIKAELA FELICIANO AGE: 60 SEX: F : 1960 ARRIVES VIA: Ambulance INFORMANT: [Patient] ED PROVIDER(S): [Zafar Wyman MD] CHIEF COMPLAINT: Abdominal pain HISTORY OF PRESENT ILLNESS: The patient is a 60-year-old female presents to the ER with lower abdominal pain that has been present all day, for almost 24 hours. She states that yesterday, she did not have any bowel movements but was not in pain. The patient has noticed some nausea with the pain, no vomiting. The pain does radiate to her back. The pain is bilateral and in the lower abdomen. She feels bloated. She has had no urinary issues. No fever, no cough or congestion or shortness of breath. She has had previous bowel obstructions. Patient did receive fentanyl in route to the hospital. She cannot have morphine. She describes her pain as severe. REVIEW OF SYSTEMS: See HPI for pertinent positives and negatives. A total of ten systems were reviewed and were otherwise negative. PMHx/PSHx: See Below SOCIAL HISTORY: See Below. PHYSICAL EXAM: GENERAL: Patient is in moderate distress from pain. HEENT: No acute trauma, normocephalic atraumatic, mucous membranes moist, no nasal congestion, no scleral icterus. NECK: No stridor, no adenopathy, no meningismus, trachea is midline. LUNGS: Clear to auscultation bilaterally, no wheeze, no rhonchi, breath sounds equal. HEART: Without murmurs gallops or rubs, regular rate and rhythm. ABDOMEN: Diffusely moderately tender. There is some tympany with percussion. Bowel sounds are positive. There is some abdominal distention. EXTREMITIES: No cyanosis or edema, full range of motion of all the joints without pain or difficulty, no signs for acute trauma. NEUROLOGIC: Oriented x 3, no acute motor or sensory deficits, no focal weakness. SKIN: No rash, no jaundice, no diaphoresis. Pale. DIFFERENTIAL DIAGNOSIS: Appendicitis, ovarian cyst, ovarian torsion, diverticulitis, UTI, obstruction, mesenteric ischemia, aortic pathology, inflammatory bowel disease, renal colic, PUD, pancreatitis, biliary pathology, hernia, volvulus, constipation, as well as other pathologies. EMERGENCY DEPARTMENT COURSE/PROCEDURES: Critical Care Note: I have personally spent 42 minutes of critical care time in the direct management of this patient. This includes bedside care, interpretation of diagnostic studies, and testing, discussion with consultants, patient, and family members, and other required patient management activities. This 42 minutes is in excess of all separately billable procedures. MEDICAL DECISION MAKING: There is no leukocytosis or concerning anemia. There is a normal platelet count. No significant electrolyte abnormality in need of emergent correction. No concerning liver enzyme elevation. No evidence for pancreatitis. Urinalysis does not show evidence for infection, some contamination was seen. Abdominal and pelvis CT shows a small bowel obstruction with significant intraluminal air. No evidence for bowel rupture. On exam, the patient was quite uncomfortable and diffusely tender about the abdomen. There was some abdominal distention and tympany with percussion. The patient was aggressively managed. She seemed quite uncomfortable. The patient was given IV Zofran, she was given IV Dilaudid. An NG tube was ordered. An order for IV Ativan was placed to help with NG tube placement. The patient does seem improved. She seems more comfortable. She is in need of a hospital stay. I did speak with general surgery, I spoke with the hospitalist service. Admission is warranted. Past Med/Surg History Medical History Anxiety Anxiety disorder Chronic constipation Depressive disorder GERD (gastroesophageal reflux disease) History of thrombophlebitis Lumbar disc disease Lumbar disc herniation Lumbar radiculopathy Peripheral arterial disease Recurrent deep vein thrombosis (DVT) Surgical History History of colon resection History of hysterectomy History of lumbar surgery Left L5 hemilaminectomy by Dr. 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 Has not returned since back pain. Feels Safe at Home: Yes caffeine: Yes (2 cups of coffee QAM) Dental Care, Regularly: Yes Physical Activity Frequency: Daily Physical Activity Frequency Comment: Daily walking and and occasional house cleaning Seatbelt Use: always Sunscreen Use: Yes Assistive Devices: Glasses Allergies Allergies Allergy/AdvReac Type Severity Reaction Status Date / Time amitriptyline Allergy Intermediate SWELLING Verified 04/01/21 00:56 pregabalin Allergy Intermediate confusion, Verified 04/01/21 00:56 forgetfullness,itchy rabeprazole Allergy Intermediate SWELLING Verified 04/01/21 00:56 Tricyclic Compounds Allergy Intermediate SWELLING Verified 04/01/21 08:38 morphine Allergy Mild SEVERE Verified 04/01/21 00:56 ITCHING, SHORTNESS OF BREATH gabapentin AdvReac Intermediate "HIGHER Verified 04/01/21 00:56 DOSES" CAUSE BLURRED VISION, DIZZINESS,NAUSEA ciprofloxacin AdvReac Mild gi upset Verified 04/01/21 00:56 Home Meds Home Medications Medication Instructions Recorded Confirmed ascorbic acid (vitamin C) 500 mg 500 mg PO DAILY 08/22/18 04/01/21 tablet bisacodyl 5 mg tablet,delayed 10 mg PO HS 08/22/18 04/01/21 release (Dulcolax (bisacodyl)) docusate sodium 100 mg capsule 100 mg PO BID 08/22/18 04/01/21 (Colace) promethazine 25 mg tablet 25 mg PO Q6H PRN 08/22/18 04/01/21 simethicone 80 mg chewable tablet 80 mg PO BID tab 08/22/18 04/01/21 cholecalciferol (vitamin D3) 100 4,000 units PO DAILY 08/24/19 04/01/21 mcg (4,000 unit) tablet lorazepam 1 mg tablet 1.5 mg PO HS 04/01/21 04/01/21 Previous Rx's Medication Instructions Recorded apixaban 5 mg tablet (Eliquis) 5 mg PO BID #180 tab 03/12/21 metoprolol succinate 25 mg 25 mg PO DAILY #90 tab 03/12/21 tablet,extended release 24 hr omeprazole 20 mg capsule,delayed 20 mg PO DAILY #90 cap 03/12/21 release Results & Data (ED) Vital Signs Vital Signs - 24 hr 04/01/21 00:35 04/01/21 02:30 04/01/21 03:00 Temperature 37.1 C Temperature Source Oral Pulse Rate 78 82 74 Pulse Rate from SpO2 Sensor 74 Respiratory Rate 20 20 19 Blood Pressure 159/86 H 167/95 H 125/72 Blood Pressure Mean 110 119 89 Blood Pressure Position Lying Pulse Oximetry 98 98 94 Oxygen Delivery Method Room Air Room Air Sepsis Recent Fever Within 48 Hours No Sepsis New/Unexplained Change in Mental Status N/A Sepsis Action Taken by Nursing No Action Required 04/01/21 03:30 04/01/21 04:00 04/01/21 04:30 Temperature Temperature Source Pulse Rate 90 89 80 Pulse Rate from SpO2 Sensor 80 Respiratory Rate 17 18 12 Blood Pressure 159/95 H 183/113 H 142/82 H Blood Pressure Mean 116 136 102 Blood Pressure Position Pulse Oximetry 98 97 95 Oxygen Delivery Method Room Air Room Air Room Air Sepsis Recent Fever Within 48 Hours Sepsis New/Unexplained Change in Mental Status Sepsis Action Taken by [facility] Medications Current Medication List: was personally reviewed by me Laboratory Data Attestation: I reviewed the patient's lab results. Result diagrams: 04/01/21 00:30 04/01/21 00:30 Lab Results 04/01/21 04/01/21 04/01/21 Range/Units 00:30 00:30 00:47 WBC 9.52 (4.8-10.8) K/uL RBC 4.37 (4.2-5.4) M/uL Hgb 12.7 (12.0-16.0) g/dL Hct 37.4 (37-47) % MCV 85.6 (80-100) fL MCH 29.1 (25-34) pg MCHC 34.0 (32-36) g/dL RDW Std Deviation 39.4 (36.4-46.3) fL RDW Coeff of Niya 12.5 (11.5-14.5) % Plt Count 207 (130-400) K/uL MPV 9.6 (7.4-10.4) fL Immature Gran % (Auto) 0.1 % Neut % (Auto) 85.8 % Lymph % (Auto) 8.9 % [place] % (Auto) 5.0 % Eos % (Auto) 0.0 % Baso % (Auto) 0.2 % Neut # (Auto) 8.16 H (1.4-6.5) K/uL Lymph # (Auto) 0.85 L (1.2-3.4) K/uL [place] # (Auto) 0.48 (0.11-0.59) K/uL Eos # (Auto) 0.00 (0-0.5) K/uL Baso # (Auto) 0.02 (0-0.2) K/uL Immature Gran # (Auto) 0.01 (0.00-0.02) K/uL Sodium 138 (136-145) mmol/L Potassium 3.9 (3.5-5.1) mmol/L Chloride 105 (98-107) mmol/L Carbon Dioxide 30 (21-32) mmol/L Anion Gap 3.0 (3-11) BUN 16 (7-18) mg/dl Creatinine 0.85 (0.6-1.2) mg/dl Est Cr Clr Drug Dosing 59.3 ml/min Est GFR ( Amer) 85.1 ml/min Est GFR (Non-Af Amer) 73.4 ml/min BUN/Creatinine Ratio 19.0 (10-20) Glucose 151 H (70-99) mg/dl Calcium 10.1 (8.5-10.1) mg/dl Total Bilirubin 0.4 (0.2-1) mg/dl AST 21 (15-37) U/L ALT 23 (12-78) U/L Alkaline Phosphatase 81 (45-117) U/L Total Protein 7.4 (6.4-8.2) gm/dl Albumin 3.5 (3.4-5.0) gm/dl Globulin 3.9 (2.5-4.0) gm/dl Albumin/Globulin Ratio 0.9 (0.9-2) Lipase 143 (73-393) U/L Urine Color Dark Yellow Urine Appearance Clear (Clear) Urine pH 5.0 (4.5-7.5) Ur Specific [place] 1.030 (1.000-1.030) Urine Protein Trace H (Negative) Urine Glucose (UA) Negative (Negative) Urine Ketones 1+ H (Negative) Urine Blood Negative (Negative) Urine Nitrite Negative (Negative) Urine Bilirubin 1+ H (Negative) Urine Urobilinogen Negative (Negative) Ur Leukocyte Esterase Negative (Negative) Urine WBC (Auto) 1-5 (0-5) /hpf Urine RBC (Auto) 5-10 H (0-4) /hpf U Hyaline Cast (Auto) 5-10 H (0-5) /lpf U Epithel Cells (Auto) 10-20 H (0-5) /lpf Urine Bacteria (Auto) Negative (Negative) COVID-19 Eval Order SARS-CoV-2 (PCR) (Negative) 04/01/21 04/01/21 Range/Units 04:45 04:45 WBC (4.8-10.8) K/uL RBC (4.2-5.4) M/uL Hgb (12.0-16.0) g/dL Hct (37-47) % MCV (80-100) fL MCH (25-34) pg MCHC (32-36) g/dL RDW Std Deviation (36.4-46.3) fL RDW Coeff of Ni[place] (11.5-14.5) % Plt Count (130-400) K/uL MPV (7.4-10.4) fL Immature Gran % (Auto) % Neut % (Auto) % Lymph % (Auto) % [place] % (Auto) % Eos % (Auto) % Baso % (Auto) % Neut # (Auto) (1.4-6.5) K/uL Lymph # (Auto) (1.2-3.4) K/uL [place] # (Auto) (0.11-0.59) K/uL Eos # (Auto) (0-0.5) K/uL Baso # (Auto) (0-0.2) K/uL Immature Gran # (Auto) (0.00-0.02) K/uL Sodium (136-145) mmol/L Potassium (3.5-5.1) mmol/L Chloride (98-107) mmol/L Carbon Dioxide (21-32) mmol/L Anion Gap (3-11) BUN (7-18) mg/dl Creatinine (0.6-1.2) mg/dl Est Cr Clr Drug Dosing ml/min Est GFR ( Amer) ml/min Est GFR (Non-Af Amer) ml/min BUN/Creatinine Ratio (10-20) Glucose (70-99) mg/dl Calcium (8.5-10.1) mg/dl Total Bilirubin (0.2-1) mg/dl AST (15-37) U/L ALT (12-78) U/L Alkaline Phosphatase (45-117) U/L Total Protein (6.4-8.2) gm/dl Albumin (3.4-5.0) gm/dl Globulin (2.5-4.0) gm/dl Albumin/Globulin Ratio (0.9-2) Lipase (73-393) U/L Urine Color Urine Appearance (Clear) Urine pH (4.5-7.5) Ur Specific [place] (1.000-1.030) Urine Protein (Negative) Urine Glucose (UA) (Negative) Urine Ketones (Negative) Urine Blood (Negative) Urine Nitrite (Negative) Urine Bilirubin (Negative) Urine Urobilinogen (Negative) Ur Leukocyte Esterase (Negative) Urine WBC (Auto) (0-5) /hpf Urine RBC (Auto) (0-4) /hpf U Hyaline Cast (Auto) (0-5) /lpf U Epithel Cells (Auto) (0-5) /lpf Urine Bacteria (Auto) (Negative) COVID-19 Eval Order Covid19 at [facility] SARS-CoV-2 (PCR) NEGATIVE (Negative) Administered Medications Enoxaparin Sodium (Enoxaparin Inj 60 Mg/0.6 Ml Syr) 60 mg SQ Q12H JAN Stop: 05/01/21 08:59 Last Admin: 04/01/21 10:39 Dose: 60 mg Documented by: [id number] Lactated Ringer's (Lr) 1,000 mls @ 100 mls/hr IV .Q10H JAN Stop: 04/02/21 04:25 Last Admin: 04/01/21 09:48 Dose: 100 mls/hr Documented by: [id number] Famotidine 20 mg/ Syringe 5 mls @ 2.5 mls/min IV DAILY JAN Stop: 05/01/21 08:59 Last Admin: 04/01/21 09:48 Dose: 2.5 mls/min Documented by: [id number] Discontinued Medications Hydromorphone HCl (Hydromorphone Inj 1 Mg/Ml Syringe) 1 mg IV NOW STA Stop: 04/01/21 02:25 Last Admin: 04/01/21 02:32 Dose: 1 mg Documented by: [id number] Lorazepam (Ativan) 1 mg in 2 mls @ 2 mls/min IV NOW STA Stop: 04/01/21 03:10 Last Admin: 04/01/21 03:44 Dose: 2 mls/min Documented by: [id number] Ioversol (Optiray 320 100ml) 100 ml IV ONCE ONE Stop: 04/01/21 02:46 Last Admin: 04/01/21 02:45 Dose: 93 ml Documented by: [id number] Ondansetron HCl (Ondansetron Inj 2 Mg/Ml 2 Ml Vial) 4 mg IV NOW STA Stop: 04/01/21 02:25 Last Admin: 04/01/21 02:32 Dose: 4 mg Documented by: [id number] Imaging Data Radiologist's Impression: Abdomen/Pelvis CT 04/01/21 02:07 CT OF THE ABDOMEN AND PELVIS WITH CONTRAST CLINICAL HISTORY: pain, poss obstruction COMPARISON STUDY: CT of the abdomen and pelvis August 18, 2013. TECHNIQUE: Following IV administration of 93 mL of Optiray, axial images of the abdomen and pelvis were obtained from the lung bases to the proximal femurs. Images were reviewed in the axial, sagittal, and coronal planes. IV contrast was administered without complication. Automated exposure control was utilized for the study. A dose lowering technique was utilized adhering to the principles of ALARA. CT DOSE: 322.81 mGy.cm FINDINGS: Lung bases are unremarkable. No pneumatosis, free air or portal venous gas is present. The liver, spleen, adrenal glands, kidneys and pancreas are unremarkable. There is no biliary or pancreatic ductal dilatation. No peripancreatic or pericholecystic infiltration. A small amount of ascites is present. The stomach is distended and fluid-filled. The near entirety of the small bowel is also moderately distended and fluid-filled. Transition point is noted within the pelvis on axial image 383 of 486. This is just proximal to a small bowel anastomosis. The terminal ileum is decompressed. The colon is mildly fluid-filled. Major vasculature is patent. There is no lymphadenopathy. No acute fracture or suspicious lesion is identified within the visualized skeletal structures. IMPRESSION: Findings consistent with a small bowel obstruction with transition point within the distal ileum. Transition point just proximal to a small bowel anastomosis. Terminal ileum decompressed. Small amount of ascites. ACT 112: Negative or not required by law. Electronically signed by: Vignesh Sylvester M.D. 04/01/2021 7:58 AM Discharge Plan Visit Data Chief Complaint: Abdominal Pain Stated Complaint: Abdominal Pain ED Provider: Zafar Wyman Discharge Problem: Diffuse abdominal pain, SBO (small bowel obstruction), Abdominal distension, Nausea Patient Disposition: Admitted As Inpatient Condition: Fair Discharge Instructions Interventions: ED Discharge Assessment Last Done: 04/01/21 08:49
[2021-04-01] MEDS ORDERED: OPTIRAY 320 100ml IV ONE (02:45)
[2021-04-01] MEDS ORDERED: LORazepam 1 MG/2 ML VIAL IV STA (03:09)
--- NOTE | 2021-04-01 03:29 | Surgery Consultation ---
Date of Consultation April 01, 2021 Assessment & Plan (1) Small bowel obstruction: I discussed with the treating emergency room physician he is planning on having the hospitalist admit patient. We recommend proceeding as follows: Implement bowel rest and n.p.o. status Hydrate with IV fluids Provide antiemetics Provide analgesics Treating emergency room physician has ordered an NG tube. I recommend continuous modality low continuous suction until patient has return of bowel function in the form of flatus and/or bowel movements. Would be ideal to treat this patient in a conservative manner due to her extensive past surgical history Additional recommendations will be forthcoming based on her clinical course as unfolds. Dr. Donovan-patient seen in the emergency room-she has an NG tube in place and does have some pain in her abdomen She actually had an ileostomy many years ago and then reversal-she likely has adhesions and hopefully her obstruction will resolve Without surgery . I do not think she tolerates pain well-she may be difficult to assess in some ways-she does not have any significant tenderness. May consider CT with contrast or small bowel follow-through in 1 to 2 days depending on progress. She states that normally she may use enemas but we will hold off for now possibly later today History of Present Illness Reason for Consultation: Small bowel obstruction History of Present Illness This 60-year-old female with an extensive surgical history. Reports that several years ago she had a colostomy performed at [facility]. I asked the patient why she had this colostomy and she said it was due to chronic abdominal pain and constipation. She notes that the colostomy did not function properly and she ultimately sought a second opinion at [facility] where she had her colostomy reversed several years ago. In addition the patient had a Earlene fundoplication multiple years ago and this was performed at [facility]. Patient does note that her most recent abdominal surgery was the colostomy reversal. She says that since her colostomy reversal she has suffered several small bowel obstructions. She says most recent small bowel obstruction was several years ago and was treated at [facility]. She does note that her small bowel obstructions have all been successfully treated with nonoperative interventions and conservative management with bowel rest, IV fluids, and NG tube placement. Patient presents to [facility] today she is not had a bowel movement approximately 2 days. Earlier this morning the patient noted some worsening abdominal pain along with abdominal distention. She notes that the pain is located throughout her abdomen in a generalized fashion and does not radiate. She does not note any palliative or provocative factors. In addition she notes some nausea vomiting with dry heaves. In addition to not having any bowel movement in several days she is also not passing any flatus. She denies any fevers, shakes, chills. Because of her symptoms and her past history she presented to the emergency department. In the emergency department patient had labs and imaging which I independently reviewed. CBC revealed white blood cell count, hemoglobin, hematocrit, and platelet count are all within normal range. A chemistry profile showed sodium was 133. Her potassium, BUN, and creatinine were within normal range. There were no significant elevation of her LFTs or lipase. Urinalysis was not indicative of infection. Patient did have a CT scan of her abdomen and pelvis. Although the official radiology read has not available at this time patient did appear to have a gas and fluid-filled stomach along with multiple loops of dil ated small bowel that were concerning for small bowel obstruction. I did not appreciate any hernias causing obstruction on this study. At the time of my interview the patient was resting comfortably in bed she was in no distress. Allergies Allergy/AdvReac Type Severity Reaction Status Date / Time amitriptyline Allergy Intermediate SWELLING Verified 04/01/21 00:56 pregabalin Allergy Intermediate confusion, Verified 04/01/21 00:56 forgetfullness,itchy rabeprazole Allergy Intermediate SWELLING Verified 04/01/21 00:56 morphine Allergy Mild SEVERE Verified 04/01/21 00:56 ITCHING, SHORTNESS OF BREATH gabapentin AdvReac Intermediate "HIGHER Verified 04/01/21 00:56 DOSES" CAUSE BLURRED VISION, DIZZINESS,NAUSEA ciprofloxacin AdvReac Mild gi upset Verified 04/01/21 00:56 Tricyclic Antidepressants Allergy Intermediate SWELLING Uncoded 04/01/21 00:56 Home Medications Medication Instructions Recorded Confirmed Type ascorbic acid (vitamin C) 500 mg 500 mg PO DAILY 08/22/18 04/01/21 History tablet bisacodyl 5 mg tablet,delayed 10 mg PO HS 08/22/18 04/01/21 History release (Dulcolax (bisacodyl)) docusate sodium 100 mg capsule 100 mg PO BID 08/22/18 04/01/21 History (Colace) promethazine 25 mg tablet 25 mg PO Q6H PRN 08/22/18 04/01/21 History simethicone 80 mg chewable tablet 80 mg PO BID tab 08/22/18 04/01/21 History cholecalciferol (vitamin D3) 100 4,000 units PO DAILY 08/24/19 04/01/21 History mcg (4,000 unit) tablet apixaban 5 mg tablet (Eliquis) 5 mg PO BID #180 tab 03/12/21 04/01/21 Rx metoprolol succinate 25 mg 25 mg PO DAILY #90 tab 03/12/21 04/01/21 Rx tablet,extended release 24 hr omeprazole 20 mg capsule,delayed 20 mg PO DAILY #90 cap 03/12/21 04/01/21 Rx release lorazepam 1 mg tablet 1.5 mg PO HS 04/01/21 04/01/21 History Patient History Medical History Anxiety Anxiety disorder Chronic constipation Depressive disorder GERD (gastroesophageal reflux disease) History of thrombophlebitis Lumbar disc disease Lumbar disc herniation Lumbar radiculopathy Peripheral arterial disease Recurrent deep vein thrombosis (DVT) Surgical History History of colon resection History of hysterectomy History of lumbar surgery Left L5 hemilaminectomy by Dr. 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 Has not returned since back pain. Feels Safe at Home: Yes caffeine: Yes (2 cups of coffee QAM) Dental Care, Regularly: Yes Physical Activity Frequency: Daily Physical Activity Frequency Comment: Daily walking and and occasional house cleaning Seatbelt Use: always Sunscreen Use: Yes Review of Systems Constitutional: no fever and no chills Eyes: + corrective lenses Ear, Nose, Mouth, Throat: no ear pain Respiratory: no cough and no dyspnea Cardiovascular: no chest pain Gastrointestinal: + abdominal pain, + nausea, + vomiting and + change in bowel habits Genitourinary: no dysuria Musculoskeletal: no back pain Integumentary: no rash Neurologic: no localized weakness Physical Exam Constitutional: well developed and well nourished; no acute distress Eyes: Wears glasses ENMT: Ears: no hearing impairment Mouth: no oropharynx abnormality Neck: trachea midline Respiratory: normal respiratory effort; no respiratory distress and no labored breathing Cardiovascular: Rate/Rhythm: regular rate and regular rhythm Gastrointestinal (Abdomen): Patient's abdomen is distended. It is tympanic to percussion. There is no rebound tenderness or guarding. Patient had a well- healed midline incision noted. Bowel sounds are absent. Generalized pain is noted with palpation. Patient did appear to have a small fascial defect noted just inferior to the umbilicus with palpation. Musculoskeletal: No calf tenderness Skin: no rashes Neurologic: moves all extremities Psychiatric: A+Ox3, euthymic affect Results & Data ([facility]) Vital Signs (Past 12 Hours) Vital Signs Temp Pulse Resp BP Pulse Ox 04/01/21 02:30 82 20 167/95 H 98 04/01/21 00:35 37.1 C 78 20 159/86 H 98 PG Care Time/CCT Total # of Minutes Spent Total Time Spent with Patient: Total time spent is greater than 50% in coordination of care (as documented) at patient's floor/unit and/or counseling patient: Coding Level of Care Code 81136 Inpt Consult Level 5 Diagnoses Small bowel obstruction K56.609
--- NOTE | 2021-04-01 05:06 | History & Physical Report ---
Date of Service April 01, 2021 Assessment & Plan (1) Small bowel obstruction: Plan: Patient with history of the same. Multiple SBOs in the past which have resolved with conservative measures. Appreciate surgical input. Conservative management for now. -Admit to medical -Keep NPO -Aspiration precautions -NGT to low continuous suction -IVF and electrolyte repletion -Zofran PRN -Dilaudid PRN pain (2) HTN (hypertension), benign: Plan: Chronic. Elevated now in setting of pain and stress -Hold oral agents -Metoprolol 5mg IV q 6 hours -Continue to monitor (3) Recurrent deep vein thrombosis (DVT): Plan: Patient on long-term Eliquis -Hold Eliquis -Lovenox 1mg/kg BID for anticoagulation while NPO (4) Insomnia: Plan: Chronic -Ativan 1mg IV qHS as needed for insomnia (5) GERD (gastroesophageal reflux disease): Plan: Chronic. -Hold oral agents -Pepcid 20mg IV daily Plan: F/E/N - LR at 100mL/hr x 1 liter, replete electrolytes as needed, NPO Ppx - Lovenox 1mg/kg BID for history of prior DVT Code - DNR/DNI per discussion with patient Dispo - Admit to medical History of Present Illness Chief Complaint: abdominal pain Primary Care Provider: Judy Wood MD Brooke Morris is a pleasant 60yo female with history of prior colostomy with reversal, Earlene fundoplication, hysterectomy with prior SBOs presenting with abdominal pain. Patient develooped diffuse abdominal pain, distention, nausea x 1 days. Last BM was 2 days ago. Feels similar to prior SBO. Denies fevers/chills/diarrhea/CP/SOB NGT placed in ER with 250mL of bilious output Patient evaluated by General Surgery while in the ER. Opt for conservative management at this time. No further questions at this time. ER Course: Dilaudid, Ativan, Zofran Allergies Allergy/AdvReac Type Severity Reaction Status Date / Time amitriptyline Allergy Intermediate SWELLING Verified 04/01/21 00:56 pregabalin Allergy Intermediate confusion, Verified 04/01/21 00:56 forgetfullness,itchy rabeprazole Allergy Intermediate SWELLING Verified 04/01/21 00:56 morphine Allergy Mild SEVERE Verified 04/01/21 00:56 ITCHING, SHORTNESS OF BREATH gabapentin AdvReac Intermediate "HIGHER Verified 04/01/21 00:56 DOSES" CAUSE BLURRED VISION, DIZZINESS,NAUSEA ciprofloxacin AdvReac Mild gi upset Verified 04/01/21 00:56 Tricyclic Antidepressants Allergy Intermediate SWELLING Uncoded 04/01/21 00:56 Home Medications Medication Instructions Recorded Confirmed Type ascorbic acid (vitamin C) 500 mg 500 mg PO DAILY 08/22/18 04/01/21 History tablet bisacodyl 5 mg tablet,delayed 10 mg PO HS 08/22/18 04/01/21 History release (Dulcolax (bisacodyl)) docusate sodium 100 mg capsule 100 mg PO BID 08/22/18 04/01/21 History (Colace) promethazine 25 mg tablet 25 mg PO Q6H PRN 08/22/18 04/01/21 History simethicone 80 mg chewable tablet 80 mg PO BID tab 08/22/18 04/01/21 History cholecalciferol (vitamin D3) 100 4,000 units PO DAILY 08/24/19 04/01/21 History mcg (4,000 unit) tablet apixaban 5 mg tablet (Eliquis) 5 mg PO BID #180 tab 03/12/21 04/01/21 Rx metoprolol succinate 25 mg 25 mg PO DAILY #90 tab 03/12/21 04/01/21 Rx tablet,extended release 24 hr omeprazole 20 mg capsule,delayed 20 mg PO DAILY #90 cap 03/12/21 04/01/21 Rx release lorazepam 1 mg tablet 1.5 mg PO HS 04/01/21 04/01/21 History Past Med/Surg History Medical History Anxiety Anxiety disorder Chronic constipation Depressive disorder GERD (gastroesophageal reflux disease) History of thrombophlebitis Lumbar disc disease Lumbar disc herniation Lumbar radiculopathy Peripheral arterial disease Recurrent deep vein thrombosis (DVT) Surgical History History of colon resection History of hysterectomy History of lumbar surgery Left L5 hemilaminectomy by Dr. 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 Has not returned since back pain. Feels Safe at Home: Yes caffeine: Yes (2 cups of coffee QAM) Dental Care, Regularly: Yes Physical Activity Frequency: Daily Physical Activity Frequency Comment: Daily walking and and occasional house cleaning Seatbelt Use: always Sunscreen Use: Yes Review of Systems Review of Systems: All systems reviewed & are unremarkable except as noted in HPI & below Physical Exam Physical Exam: General: patient resting, NGT in place, non-toxic in appearance, AA&O x 4 Skin: warm, dry, intact, no rashes or lesions HEENT: NC/AT, PERRL, EOMI, anicteric sclera, conjunctiva without injection, external ear normal to inspection and nontender, nares patent, moist mucus membranes, dentition intact, no oropharyngeal lesions, neck supple, trachea midline, no LAD, no thyromegaly, no JVD Heart: +S1/S2, regular, no m/r/g Lungs: equal air entry bilaterally, no rales/rhonchi/wheezes Abd: +BS, soft, mild diffuse tenderness with no rebound/guarding/peritoneal signs, no masses/organomegaly/ascites Ext: warm, 2+ pulses in UE/LE bilaterally, no clubbing/cyanosis or edema Neuro: nonfocal, patient AA&O x 4, speech intact, no facial droop, moving all extremities on command with equal strength 5/5 Results & Data Results & Data ([facility]) Vital Signs (Past 12 Hours) Vital Signs Temp Pulse Resp BP Pulse Ox 04/01/21 04:00 89 18 183/113 H 97 04/01/21 03:30 90 17 159/95 H 98 04/01/21 03:00 74 19 125/72 94 04/01/21 02:30 82 20 167/95 H 98 04/01/21 00:35 37.1 C 78 20 159/86 H 98 Laboratory Results Laboratory Results WBC 9.52 K/uL (4.8-10.8) 04/01/21 00:30 RBC 4.37 M/uL (4.2-5.4) 04/01/21 00:30 Hgb 12.7 g/dL (12.0-16.0) 04/01/21 00:30 Hct 37.4 % (37-47) 04/01/21 00:30 MCV 85.6 fL (80-100) 04/01/21 00:30 MCH 29.1 pg (25-34) 04/01/21 00:30 MCHC 34.0 g/dL (32-36) 04/01/21 00:30 RDW Std Deviation 39.4 fL (36.4-46.3) 04/01/21 00:30 RDW Coeff of Niya 12.5 % (11.5-14.5) 04/01/21 00:30 Plt Count 207 K/uL (130-400) 04/01/21 00:30 MPV 9.6 fL (7.4-10.4) 04/01/21 00:30 Immature Gran % (Auto) 0.1 % 04/01/21 00:30 Neut % (Auto) 85.8 % 04/01/21 00:30 Lymph % (Auto) 8.9 % 04/01/21 00:30 Kendall % (Auto) 5.0 % 04/01/21 00:30 Eos % (Auto) 0.0 % 04/01/21 00:30 Baso % (Auto) 0.2 % 04/01/21 00:30 Neut # (Auto) 8.16 K/uL (1.4-6.5) H 04/01/21 00:30 Lymph # (Auto) 0.85 K/uL (1.2-3.4) L 04/01/21 00:30 Kendall # (Auto) 0.48 K/uL (0.11-0.59) 04/01/21 00:30 Eos # (Auto) 0.00 K/uL (0-0.5) 04/01/21 00:30 Baso # (Auto) 0.02 K/uL (0-0.2) 04/01/21 00:30 Immature Gran # (Auto) 0.01 K/uL (0.00-0.02) 04/01/21 00:30 Sodium 133 mmol/L (136-145) L 04/01/21 00:30 Potassium 3.9 mmol/L (3.5-5.1) 04/01/21 00:30 Chloride 105 mmol/L (98-107) 04/01/21 00:30 Carbon Dioxide 30 mmol/L (21-32) 04/01/21 00:30 Anion Gap -2.0 (3-11) L 04/01/21 00:30 BUN 16 mg/dl (7-18) 04/01/21 00:30 Creatinine 0.85 mg/dl (0.6-1.2) 04/01/21 00:30 Est Cr Clr Drug Dosing 59.3 ml/min 04/01/21 00:30 Est GFR ( Amer) 85.1 ml/min 04/01/21 00:30 Est GFR (Non-Af Amer) 73.4 ml/min 04/01/21 00:30 BUN/Creatinine Ratio 19.0 (10-20) 04/01/21 00:30 Glucose 151 mg/dl (70-99) H 04/01/21 00:30 Calcium 10.1 mg/dl (8.5-10.1) 04/01/21 00:30 Total Bilirubin 0.4 mg/dl (0.2-1) 04/01/21 00:30 AST 21 U/L (15-37) 04/01/21 00:30 ALT 23 U/L (12-78) 04/01/21 00:30 Alkaline Phosphatase 81 U/L (45-117) 04/01/21 00:30 Total Protein 7.4 gm/dl (6.4-8.2) 04/01/21 00:30 Albumin 3.5 gm/dl (3.4-5.0) 04/01/21 00:30 Globulin 3.9 gm/dl (2.5-4.0) 04/01/21 00:30 Albumin/Globulin Ratio 0.9 (0.9-2) 04/01/21 00:30 Lipase 143 U/L (73-393) 04/01/21 00:30 Urine Color Dark Yellow 04/01/21 00:47 Urine Appearance Clear (Clear) 04/01/21 00:47 Urine pH 5.0 (4.5-7.5) 04/01/21 00:47 Ur Specific [place] 1.030 (1.000-1.030) 04/01/21 00:47 Urine Protein Trace (Negative) H 04/01/21 00:47 Urine Glucose (UA) Negative (Negative) 04/01/21 00:47 Urine Ketones 1+ (Negative) H 04/01/21 00:47 Urine Blood Negative (Negative) 04/01/21 00:47 Urine Nitrite Negative (Negative) 04/01/21 00:47 Urine Bilirubin 1+ (Negative) H 04/01/21 00:47 Urine Urobilinogen Negative (Negative) 04/01/21 00:47 Ur Leukocyte Esterase Negative (Negative) 04/01/21 00:47 Urine WBC (Auto) 1-5 /hpf (0-5) 04/01/21 00:47 Urine RBC (Auto) 5-10 /hpf (0-4) H 04/01/21 00:47 U Hyaline Cast (Auto) 5-10 /lpf (0-5) H 04/01/21 00:47 U Epithel Cells (Auto) 10-20 /lpf (0-5) H 04/01/21 00:47 Urine Bacteria (Auto) Negative (Negative) 04/01/21 00:47 COVID-19 Eval Order Covid19 at [facility] 04/01/21 04:[address] Abdomen - per STAT rad - Comparison is made to CT abdomen/pelvis on 08/18/19 14. Stomach is distended with ingested material, fluid, gas. Dilated fluid and gas-filled small bowel loops with transition point in the lower abdomen/pelvis at the anastamosis. These are compatible with small bowel obstruction. Small amount of ascites. Small hiatal hernia. Phleboliths in the pelvis. Atherosclerotic changes of the vasculature. No aortic aneurysm or dissection. Probably small hemangioma in the T12 vertebral body. Decompressed bladder limits evaluation. Prior hysterectomy. Protrusion of bowel along the anterior abdominal wall. Code Status & VTE Plan VTE Prophylaxis Plan VTE Prophylaxis will be ordered: Yes PG Care Time/CCT Total # of Minutes Spent Total Time Spent with Patient: Total time spent is greater than 50% in coordination of care (as documented) at patient's floor/unit and/or counseling patient: Coding Level of Care Code 00154 Initial In Care Lvl 3 Diagnoses Small bowel obstruction K56.609 HTN (hypertension), benign I10 Recurrent deep vein thrombosis (DVT) I82.409 Insomnia G47.00 GERD (gastroesophageal reflux disease) K21.9
--- NOTE | 2021-04-01 07:59 | CT Scan Report ---
CT OF THE ABDOMEN AND PELVIS WITH CONTRAST CLINICAL HISTORY: pain, poss obstruction COMPARISON STUDY: CT of the abdomen and pelvis August 18, 2013. TECHNIQUE: Following IV administration of 93 mL of Optiray, axial images of the abdomen and pelvis we re obtained from the lung bases to the proximal femurs. Images were reviewed in the axial, sagittal, and coronal planes. IV contrast was administered without complication. Automated exposure control wa s utilized for the study. A dose lowering technique was utilized adhering to the principles of ALARA . CT DOSE: 322.81 mGy.cm FINDINGS: Lung bases are unremarkable. No pneumatosis, free air or portal venous gas is present. The liver, spleen, adrenal glands, kidneys and pancreas are unremarkable. There is no biliary or pancreat ic ductal dilatation. No peripancreatic or pericholecystic infiltration. A small amount of ascites is present. The stomach is distended and fluid-filled. The near entirety of the small bowel is also mod erately distended and fluid-filled. Transition point is noted within the pelvis on axial image 383 of 486. This is just proximal to a small bowel anastomosis. The terminal ileum is decompressed. The col on is mildly fluid-filled. Major vasculature is patent. There is no lymphadenopathy. No acute fractur e or suspicious lesion is identified within the visualized skeletal structures. IMPRESSION: Findings consistent with a small bowel obstruction with transition point within the dist al ileum. Transition point just proximal to a small bowel anastomosis. Terminal ileum decompressed. S mall amount of ascites. ACT 112: Negative or not required by law. Electronically signed by: Vignesh Sylvester M.D. 04/01/2021 7:58 AM
[2021-04-01] MEDS ORDERED: ONDANSETRON INJ 2 MG/ML 2 ML VIAL IV PRN (08:26)
[2021-04-01] MEDS ORDERED: LORazepam 1 MG/2 ML VIAL IV PRN (08:26)
[2021-04-01] MEDS ORDERED: ENOXAPARIN 1 MG/KG SQ SCH (09:00)
[2021-04-01 09:17] LABS: Magnesium 1.8 mg/dl (1.8-2.4); Phosphorus 5.4 mg/dl (2.5-4.9)
[2021-04-01] MEDS: FAMOTIDINE 20 MG in SYRINGE 3 ML IV SCH (09:48)
[2021-04-01] MEDS: LACTATED RINGER'S 1,000 ML IV SCH ×2 (09:48→19:29)
[2021-04-01] MEDS: ENOXAPARIN INJ 60 MG/0.6 ML SYR SQ SCH ×2 (10:39→21:19)
[2021-04-01] MEDS: METOPROLOL TARTRATE 1 MG/ML VIAL IV SCH ×3 (14:01→17:11)
[2021-04-01] MEDS: SOD PHOSPHATE/SOD BIPHOSPHATE ENEMA 132 ML BTL PR SCH (15:38)
[2021-04-01] MEDS ORDERED: hydrALAZINE HCL 20 MG/ML VIAL IV PRN (19:42)
[2021-04-01] MEDS: SENNOSIDES 8.8 MG/5 ML UDC PO SCH (21:19)
[2021-04-02] MEDS ORDERED: LACTATED RINGER'S 1,000 ML IV SCH (04:45)
[2021-04-02 06:32] LABS: Basophils # (auto) 0.03 K/uL (0-0.2); Basophils % (auto) 0.6 %; Eosinophils # (auto) 0.02 K/uL (0-0.5); Eosinophils % (auto) 0.4 %; Hematocrit (blood only) 36.2 % (37-47); Hemoglobin 12.1 g/dL (12.0-16.0); Immature Granulocytes # (auto) 0.01 K/uL (0.00-0.02); Immature Granulocytes % (auto) 0.2 %; Lymphocytes % (auto) 21.8 %; Mean Corpuscular Hemoglobin 28.5 pg (25-34); Mean Corpuscular Hgb Conc 33.4 g/dL (32-36); Mean Corpuscular Volume 85.4 fL (80-100); Mean Platelet Volume 9.7 fL (7.4-10.4); Monocytes # (auto) 0.66 K/uL (0.11-0.59); Monocytes % (auto) 13.1 %; Neutrophils # (auto) 3.22 K/uL (1.4-6.5); Neutrophils % (auto) 63.9 %; Platelet Count 224 K/uL (130-400); RDW Standard Deviation 40.8 fL (36.4-46.3); Red Blood Count 4.24 M/uL (4.2-5.4); White Blood Count 5.04 K/uL (4.8-10.8)
[2021-04-02 07:19] LABS: Albumin Level 2.7 gm/dl (3.4-5.0); BUN Creatinine Ratio 31.9 (10-20); Bilirubin Direct 0.1 mg/dl (0-0.2); Bilirubin,Total 0.5 mg/dl (0.2-1); Calcium 9.4 mg/dl (8.5-10.1); Creatinine Clr Calc Pharmacy 82.6 ml/min; Est GFR (African American) 112.6 ml/min; Est GFR (Non-African American) 97.2 ml/min; Potassium 3.6 mmol/L (3.5-5.1); Total Protein 6.1 gm/dl (6.4-8.2)
--- NOTE | 2021-04-02 07:35 | Surgery Progress Note ---
Date of Service April 02, 2021 Assessment & Plan (1) SBO (small bowel obstruction): Plan: I think she has been improved We will check a contrast CT this morning and assess transit of the contrast Hopefully we can remove her NG tube later this morning I suspect she may have a narrowing at her anastomosis in the small bowel which even could have been Transiently obstructed with certain foods very high in fiber There is a possibility she could be discharged home tomorrow if all goes well-I am somewhat optimistic Admission and Anticipated Discharge Date Admission Date: April 01, 2021 Subjective Patient appears to be improved having a couple bowel movements Much less pain-she wants her NG tube out We did give her a fleets enema and some senna syrup via the NG tube Review of Systems Review of Systems: All systems reviewed & are unremarkable except as noted in HPI & below Physical Exam Physical Exam: She is alert in no distress Her abdomen is much less distended Her NG output is nonbilious Constitutional: well developed; no acute distress Eyes: + anicteric sclerae Respiratory: normal respiratory effort; no respiratory distress Cardiovascular: Rate/Rhythm: regular rate Gastrointestinal (Abdomen): Inspection/Auscultation: abdomen not distended Her abdomen is much less distended and soft with minimal if any discomfort Musculoskeletal: Head/Neck/Chest: head atraumatic Skin: no rashes, warm and dry Neurologic: awake Psychiatric: Orientation: alert Results & Data ([facility]) Vital Signs (Past 12 Hours) Vital Signs Temp Pulse Pulse Resp BP BP Pulse Ox 04/02/21 07:20 36.6 C 93 H 16 153/74 H 97 04/01/21 23:10 37.2 C 97 H 16 133/70 95 04/01/21 21:26 99 H 136/75 PG Care Time/CCT Total # of Minutes Spent Total Time Spent with Patient: Total time spent is greater than 50% in coordination of care (as documented) at patient's floor/unit and/or counseling patient: Coding Level of Care Code 47960 Inpt Consult Level 4 Diagnoses SBO (small bowel obstruction) K56.609
[2021-04-02] MEDS: SENNOSIDES 8.8 MG/5 ML UDC PO SCH (08:46)
[2021-04-02] MEDS: SOD PHOSPHATE/SOD BIPHOSPHATE ENEMA 132 ML BTL PR SCH (08:46)
[2021-04-02] MEDS: FAMOTIDINE 20 MG in SYRINGE 3 ML IV SCH (08:46)
[2021-04-02] MEDS: ENOXAPARIN INJ 60 MG/0.6 ML SYR SQ SCH ×2 (08:46→20:18)
[2021-04-02] MEDS ORDERED: OPTIRAY 320 100ml IV ONE (10:53)
--- NOTE | 2021-04-02 11:20 | CT Scan Report ---
CT abd pelvis oral and IV con CLINICAL INDICATION: [place] ^1015 gastro ^sbo ^one bottle contrast via NG. TECHNIQUE: Helical axial images of the abdomen and pelvis were obtained and displayed. Automated dose lowering techniques and/or adjustment according to patient size were utilized for this exam. This e xam was performed with intravenous contrast. COMPARISON: Comparison is made to CT abdomen and pelvis 04/01/2021 FINDINGS: Lower chest: Small right pleural effusion with associated atelectasis. Liver: Focal fatty changes are noted about the falciform ligament. Gallbladder and biliary tree: A phrygian cap is incidentally noted. Layering hyperdense material is f avored to represent sludge.. No intra- or extrahepatic biliary ductal dilation. Pancreas: Unremarkable, no focal lesions. Spleen: Unremarkable. Adrenals: Unremarkable. Kidneys and ureters: Unremarkable. Bladder: Limited evaluation due to underdistention. Reproductive organs: Patient is status post hysterectomy. Bowel: Again noted are multiple dilated loops of small bowel, which are less distended than in the pr ior exam, measuring up to 30 mm in diameter compared to 40 mm previously. Oral contrast is seen to pa ss into the colon. Lymph nodes Retroperitoneal: Unremarkable. Mesenteric: Unremarkable. Pelvic: Unremarkable. Peritoneum: Normal Vessels: Atherosclerotic calcifications are seen. Abdominal wall: A fat-containing umbilical hernia is seen. Bones: Degenerative changes in the visualized spine. IMPRESSION: Interval improvement in distention of multiple small bowel loops compatible with resolving small abdelrahman l obstruction. Contrast is seen to pass into the colon. ACT 112: Negative or not required by law. Electronically signed by: Agustín Gonsales M.D. 04/02/2021 11:19 AM
[2021-04-02] MEDS ORDERED: METOPROLOL TARTRATE 25 MG TAB PO ONE (15:15)
[2021-04-02] MEDS: METOPROLOL SUCC 25MG EXT REL TAB PO SCH (20:18)
[2021-04-02] MEDS ORDERED: LORazepam 1 MG TAB PO SCH (21:00)
--- NOTE | 2021-04-02 21:00 | Hospitalist Progress Note ---
Date of Service April 02, 2021 Assessment & Plan (1) Small bowel obstruction: Plan: Patient with history of the same. Multiple SBOs in the past which have resolved with conservative measures. Appreciate surgical input. Conservative management for now. -Admit to medical -On full liquid..\ -removed NGT -Aspiration precautions -IVF and electrolyte repletion -Zofran PRN -Dilaudid PRN pain (2) HTN (hypertension), benign: Plan: Chronic. Elevated now in setting of pain and stress -resume metoprolol -Metoprolol 5mg IV q 6 hours -Continue to monitor (3) Recurrent deep vein thrombosis (DVT): Plan: Patient on long-term Eliquis -Hold Eliquis -Lovenox 1mg/kg BID for anticoagulation while NPO (4) Insomnia: Plan: Chronic -Ativan 1mg IV qHS as needed for insomnia (5) GERD (gastroesophageal reflux disease): Plan: Chronic. -Hold oral agents -Pepcid 20mg IV daily Plan: F/E/N - LR at 100mL/hr x 1 liter, replete electrolytes as needed, NPO Ppx - Lovenox 1mg/kg BID for history of prior DVT Code - DNR/DNI per discussion with patient Dispo - Admit to medical Admission and Anticipated Discharge Date Admission Date: April 01, 2021 Subjective Patien treports feeling better. Review of Systems Review of Systems: All systems reviewed & are unremarkable except as noted in HPI & below Physical Exam Physical Exam: General: patient resting, NGT in place, non-toxic in appearance, AA&O x 4 Skin: warm, dry, intact, no rashes or lesions HEENT: NC/AT, PERRL, EOMI, anicteric sclera, conjunctiva without injection, external ear normal to inspection and nontender, nares patent, moist mucus membranes, dentition intact, no oropharyngeal lesions, neck supple, trachea midline, no LAD, no thyromegaly, no JVD Heart: +S1/S2, regular, no m/r/g Lungs: equal air entry bilaterally, no rales/rhonchi/wheezes Abd: +BS, soft, nontender, no masses/organomegaly/ascites Ext: warm, 2+ pulses in UE/LE bilaterally, no clubbing/cyanosis or edema Neuro: nonfocal, patient AA&O x 4, speech intact, no facial droop, moving all extremities on command with equal strength 5/5 Results & Data Results & Data ([facility]) Vital Signs (Past 12 Hours) Vital Signs Temp Pulse Pulse Resp BP BP Pulse Ox 04/02/21 20:22 36.9 C 76 18 154/84 H 97 04/02/21 14:53 36.7 C 88 16 163/72 H 98 04/02/21 13:50 105 H 16 PG Care Time/CCT Total # of Minutes Spent Total Time Spent with Patient: Total time spent is greater than 50% in coordination of care (as documented) at patient's floor/unit and/or counseling patient: Coding Level of Care Code 65171 Subseq Hosp Care Lvl 2 Diagnoses Small bowel obstruction K56.609 HTN (hypertension), benign I10 Recurrent deep vein thrombosis (DVT) I82.409 Insomnia G47.00 GERD (gastroesophageal reflux disease) K21.9
[2021-04-03] MEDS: FAMOTIDINE 20 MG in SYRINGE 3 ML IV SCH (08:16)
[2021-04-03] MEDS: SOD PHOSPHATE/SOD BIPHOSPHATE ENEMA 132 ML BTL PR SCH (08:16)
[2021-04-03] MEDS: ENOXAPARIN INJ 60 MG/0.6 ML SYR SQ SCH (08:17)
[2021-04-03] MEDS: METOPROLOL SUCC 25MG EXT REL TAB PO SCH (08:17)
[2021-04-03] MEDS ORDERED: SENNOSIDES 8.8 MG/5 ML UDC PO SCH (09:00)
--- NOTE | 2021-04-03 10:17 | Surgery Progress Note ---
Date of Service April 03, 2021 Assessment & Plan (1) SBO (small bowel obstruction): Plan: We will advance diet to low fiber I believe the patient can be discharged home from a surgical standpoint She feels she is doing very well We will get her some information for low fiber diet Admission and Anticipated Discharge Date Admission Date: April 01, 2021 Subjective Patient seems to be doing very well Tolerating full liquids She would like to go home Review of Systems Review of Systems: All systems reviewed & are unremarkable except as noted in HPI & below Physical Exam Physical Exam: She is alert in no distress Constitutional: well developed; no acute distress Eyes: + anicteric sclerae Respiratory: normal respiratory effort; no respiratory distress Cardiovascular: Rate/Rhythm: regular rate Gastrointestinal (Abdomen): Inspection/Auscultation: abdomen not distended Her abdomen is much less distended and soft with minimal if any discomfort Musculoskeletal: Head/Neck/Chest: head atraumatic Skin: no rashes, warm and dry Neurologic: awake Psychiatric: Orientation: alert Results & Data ([facility]) Vital Signs (Past 12 Hours) Vital Signs Temp Pulse Resp BP Pulse Ox 04/03/21 09:45 36.8 C 81 16 126/78 95 PG Care Time/CCT Total # of Minutes Spent Total Time Spent with Patient: Total time spent is greater than 50% in coordination of care (as documented) at patient's floor/unit and/or counseling patient: Coding Level of Care Code 84129 Inpt Consult Level 3 Diagnoses SBO (small bowel obstruction) K56.609
[2021-04-04] MEDS ORDERED: FAMOTIDINE 20 MG TAB PO SCH (09:00)
--- NOTE | 2021-04-06 07:30 | Discharge Summary ---
Date of Service April 03, 2020 Admission HPI Per Admitting Provider Brooke Morris is a pleasant 60yo female with history of prior colostomy with reversal, Earlene fundoplication, hysterectomy with prior SBOs presenting with abdominal pain. Patient develooped diffuse abdominal pain, distention, nausea x 1 days. Last BM was 2 days ago. Feels similar to prior SBO. Denies fevers/chills/diarrhea/CP/SOB NGT placed in ER with 250mL of bilious output Patient evaluated by General Surgery while in the ER. Opt for conservative management at this time. No further questions at this time. ER Course: Dilaudid, Ativan, Zofran Principal Diagnosis SBO Discharge Exam General: patient resting, NGT in place, non-toxic in appearance, AA&O x 4 Skin: warm, dry, intact, no rashes or lesions HEENT: NC/AT, PERRL, EOMI, anicteric sclera, conjunctiva without injection, external ear normal to inspection and nontender, nares patent, moist mucus membranes, dentition intact, no oropharyngeal lesions, neck supple, trachea midline, no LAD, no thyromegaly, no JVD Heart: +S1/S2, regular, no m/r/g Lungs: equal air entry bilaterally, no rales/rhonchi/wheezes Abd: +BS, soft, nontender, no masses/organomegaly/ascites Ext: warm, 2+ pulses in UE/LE bilaterally, no clubbing/cyanosis or edema Neuro: nonfocal, patient AA&O x 4, speech intact, no facial droop, moving all extremities on command with equal strength 5/5 Discharge Data Allergies Allergy/AdvReac Type Severity Reaction Status Date / Time amitriptyline Allergy Intermediate SWELLING Verified 04/01/21 00:56 pregabalin Allergy Intermediate confusion, Verified 04/01/21 00:56 forgetfullness,itchy rabeprazole Allergy Intermediate SWELLING Verified 04/01/21 00:56 Tricyclic Compounds Allergy Intermediate SWELLING Verified 04/01/21 08:38 morphine Allergy Mild SEVERE Verified 04/01/21 00:56 ITCHING, SHORTNESS OF BREATH gabapentin AdvReac Intermediate "HIGHER Verified 04/01/21 00:56 DOSES" CAUSE BLURRED VISION, DIZZINESS,NAUSEA ciprofloxacin AdvReac Mild gi upset Verified 04/01/21 00:56 Consultations 04/01/21 03:06 Consult General Surgery Stat 04/01/21 04:17 ED Decision to Admit Stat Ordered Studies 04/01/21 02:07 CT abd pelvis IV con only Urgent 04/02/21 07:18 CT abd pelvis oral and IV con Urgent Hospital Course (1) Small bowel obstruction: Patient with history of the same. Multiple SBOs in the past which have resolved with conservative measures. Appreciate surgical input. Conservative management for now. -Admit to medical -On full liquid.. -removed NGT -Aspiration precautions -IVF and electrolyte repletion -Zofran PRN -Dilaudid PRN pain On day of discharge, Patient tolerating diet. Will be placed on a low fiber diet. Appreciate input from Gen surg (2) HTN (hypertension), benign: Chronic. Elevated now in setting of pain and stress -resume metoprolol -Metoprolol 5mg IV q 6 hours -Continue to monitor (3) Recurrent deep vein thrombosis (DVT): Patient on long-term Eliquis -Hold Eliquis -Lovenox 1mg/kg BID for anticoagulation while NPO (4) Insomnia: Chronic -Ativan 1mg IV qHS as needed for insomnia (5) GERD (gastroesophageal reflux disease): Chronic. -Hold oral agents -Pepcid 20mg IV daily F/E/N - LR at 100mL/hr x 1 liter, replete electrolytes as needed, NPO Ppx - Lovenox 1mg/kg BID for history of prior DVT Code - DNR/DNI per discussion with patient Dispo - Admit to medical Total Time Total Time Spent Total Time Spent (In Minutes): 32 Discharge Plan Discharge Items Patient Disposition: Home - Self-Care Reason For Visit: SBO Discharge Diagnosis: SBO Condition on Discharge: Fair Activity: Resume your previous activity Non-emergency contact: Primary Care Provider Call non-emergency contact if: you have any medication questions Follow-up/Referrals: Judy Wood MD [Primary Care Provider] - 04/07/21 10:00 am Diet: Low Fiber Addtl Attending Provider Instructions: Low-fiber diet do's and don'ts By [facility] Staff Definition Fiber is the part of fruits, vegetables and grains not digested by your body. A low-fiber diet restricts these foods. As a result, the amount of undigested material passing through your large intestine is limited and stool bulk is lessened. A low-fiber diet may be recommended for a number of conditions or situations. It is sometimes called a restricted-fiber diet. Purpose Your doctor may prescribe a low-fiber diet if: You have narrowing of the bowel due to a tumor or an inflammatory disease You have had bowel surgery You are having treatment, such as radiation, that damages or irritates your digestive tract As your digestive system returns to normal, you usually can slowly add more fiber back into your diet. Diet details A low-fiber diet limits the types of vegetables, fruits and grains that you can eat. Occasionally, your doctor also may want you to limit the amount of milk and milk products in your diet. Milk doesn't contain fiber, but it may contribute to discomfort or diarrhea, especially if you're lactose intolerant. The ability to digest food varies from person to person. Depending on your condition and tolerance, your doctor may recommend a diet that is more or less restricted. If you're eating a low-fiber diet, be sure to read food labels. Foods you might not expect such as yogurt, ice cream, cereal and even beverages can have added fiber. Look for foods that have no more than 1-2 grams of fiber in one serving. Avoid these foods and products made with them: Nuts, seeds, dried fruit and coconut Whole grains, popcorn, wheat germ and bran Brown rice, wild rice, oatmeal, granola, shredded wheat, quinoa, bulgur and barley Dried beans, baked beans, fountain beans, peas and lentils [place] peanut butter Fruits and vegetables except those noted below Choose these foods: Tender meat, fish and poultry, ham, luevano, shellfish, and lunch meat Eggs, tofu and creamy peanut butter Dairy products if tolerated White rice and pasta Baked goods made with refined wheat or rye flour, such as bread, biscuits, pancakes, waffles, bagels, saltines and sonali crackers Hot and cold cereals that have less than 2 grams of dietary fiber in a single serving, such as those made from rice Canned or well-cooked potatoes, carrots and green beans Plain tomato sauce Vegetable and fruit juices Bananas, melons, applesauce and canned peaches (no skin) Butter, margarine, oils and salad dressings without seeds A typical menu might look like this: Breakfast Cornflakes with milk White toast, creamy peanut butter, jelly Fruit juice Coffee Mid-morning snack Yogurt without seeds Water or other beverage Noon meal [place] sandwich on white bread with mayonnaise Tomato soup Canned peaches Milk or other beverage Afternoon snack Cheese slices Saltine crackers Water or other beverage Evening meal Meat loaf Mashed potatoes with butter Cooked carrots Applesauce Milk or other beverage Prepare all foods so that they're tender. Good cooking methods include simmering, poaching, stewing, steaming and braising. Baking or microwaving in a covered dish is another option. Keep in mind that you may have fewer bowel movements and smaller stools while you're following a low-fiber diet. To avoid constipation, you may need to drink extra fluids. Drink plenty of water unless your doctor tells you otherwise. Pending Studies at Discharge: No Stand-Alone Forms: My [facility], Work/School Release, Smoking Cessation Medications and DC Order Prescriptions: Continued ascorbic acid (vitamin C) 500 mg tablet 500 mg PO DAILY RF: 0 promethazine 25 mg tablet 25 mg PO Q6H PRN (Reason: NAUSEA/VOMITING) RF: 0 docusate sodium [Colace] 100 mg capsule 100 mg PO BID RF: 0 bisacodyl [Dulcolax (bisacodyl)] 5 mg tablet,delayed release (DR/EC) 10 mg PO HS RF: 0 simethicone 80 mg tablet,chewable 80 mg PO BID RF: 0 Eliquis 5 mg tablet 5 mg PO BID Qty: 180 RF: 1 omeprazole 20 mg capsule,delayed release(DR/EC) 20 mg PO DAILY Qty: 90 RF: 1 metoprolol succinate 25 mg tablet extended release 24 hr 25 mg PO DAILY Qty: 90 RF: 1 cholecalciferol (vitamin D3) 4,000 unit tablet 4,000 units PO DAILY RF: 0 lorazepam 1 mg tablet 1.5 mg PO HS RF: 0 Discharge Orders: Discharge Order (Routine); Ordered 04/03/21 Ordered By: Nhan Wong/Other Patient Handouts: Small Bowel Obstruction, Anatomy of the Digestive System Admission Data Admit Date/Time: 04/01/21 04:54 Attending Provider: Nhan Reynoso Admit Provider: Jessie Chaves Primary Care Provider: Judy Wood Other Providers: Magdy Donovan ; Jessie Chaves Other Interventions: Discharge Summary Assessment (RN) Last Done: 04/03/21 13:05 Coding Level of Care Code D/C DAY MANAGEMENT >30 MINS Diagnoses Small bowel obstruction K56.609 HTN (hypertension), benign I10 Recurrent deep vein thrombosis (DVT) I82.409 Insomnia G47.00 GERD (gastroesophageal reflux disease) K21.9
== END 2021-04-03 14:16 | disposition home or self-care (01) | DRG 390 ==
LOC: ED 00:18 → 3E 04:54 → SUATTDRO 04:54 → 3E 08:49

== ENCOUNTER 2022-03-23 03:20 | Inpatient (IN) ==
[2022-03-23] MEDS ORDERED: HYDROmorphone INJ 0.5 MG/0.5 ML SYR IV STA (03:38)
[2022-03-23] MEDS ORDERED: ONDANSETRON INJ 2 MG/ML 2 ML VIAL IV STA (03:38)
[2022-03-23] MEDS ORDERED: SODIUM CHLORIDE 0.9% 1000ML 1,000 ML IV STA (03:38)
[2022-03-23 03:54] LABS: Basophils # (auto) 0.04 K/uL (0-0.2); Basophils % (auto) 0.3 %; Eosinophils # (auto) 0.01 K/uL (0-0.50); Eosinophils % (auto) 0.1 %; Hematocrit (blood only) 43.9 % (34.1-44.9); Hemoglobin 14.8 g/dl (12.0-16.0); Immature Granulocytes # (auto) 0.04 K/uL (0.00-0.02); Immature Granulocytes % (auto) 0.3 %; Lymphocytes # (auto) 0.66 K/uL (1.2-3.4); Lymphocytes % (auto) 5.5 %; Mean Corpuscular Hemoglobin 28.8 pg (25.0-34.0); Mean Corpuscular Hgb Conc 33.7 g/dL (32.0-36.0); Mean Corpuscular Volume 85.4 fL (80.0-100.0); Mean Platelet Volume 10.2 fL (9.4-12.3); Monocytes # (auto) 0.54 K/uL (0.24-0.82); Monocytes % (auto) 4.5 %; Neutrophils # (auto) 10.68 K/uL (1.4-6.5); Neutrophils % (auto) 89.3 %; Platelet Count 238 K/uL (130-400); RDW Coefficient of Variation 12.5 % (11.5-14.5); RDW Standard Deviation 38.9 fL (36.4-46.3); Red Blood Count 5.14 M/uL (3.93-5.22); White Blood Count 11.97 K/ul (4.8-10.8)
--- NOTE | 2022-03-23 04:03 | Emergency Department Note ---
Impression & Plan Small bowel obstruction Admit to the [facility] ED Provider Note NAME: MIKAELA FELICIANO AGE: 61 SEX: F ARRIVES VIA: Ambulance INFORMANT: Patient ED PROVIDER(S): Raissa Aleman DO CHIEF COMPLAINT: Abdominal pain PLAN: Disposition: Admit to the [facility] Condition: Stable MEDICAL DECISION MAKING: This is a 61-year-old female patient who presents to the emergency department with abdominal pain. The patient has had a previous Paulino, with complications. She had previous bowel obstructions. She has had intermittent pain throughout the day with dry heaves. She went for CT scan of the abdomen/pelvis which confirms a small bowel obstruction. The patient was kept n.p.o. and started on normal saline drip. She received IV analgesia and IV antiemetics here in the emergency department. I discussed the case with the [facility] and they will evaluate for further management. Triage Nursing notes reviewed and agree with them. Prior medical records reviewed Vital Signs: reviewed and unremarkable Differential diagnosis: Small bowel obstruction, perforated viscus, colitis ER treatment provided: IV Dilaudid IV Zofran Diagnostics interpreted by me: Cardiac Monitoring: Normal sinus rhythm at a rate of 72 Laboratory studies: See below Imaging studies: As per stat rad CT abdomen and pelvis, 04/02/2021. FINDINGS: Imaged portions of the heart are normal. Lung bases are clear. Liver and gallbladder are within normal limits. No biliary ductal dilation per Spleen, pancreas, and adrenal glands are within normal limits. Kidneys have normal size and contour. Symmetric enhancement of the renal parenchyma. No hydronephrosis or evidence of renal stone. Bladder is decompressed, limiting evaluation. Pelvic phleboliths. Small amount of free fluid in the pelvis. Calcific sclerosis of the aorta and its branches. No abdominal pelvic lymphadenopathy. No free intraperitoneal air. The stomach and small bowel are distended with fluid and air, with multiple air-fluid levels. Transition point in the pelvis at site of anastomotic suture. No abdominal wall hernia. Rectus abdominis diastases. No acute osseous abnormality. IMPRESSION: Findings consistent with small bowel obstruction with transition point in the pelvis at site of anastomotic suture. No evidence of bowel perforation HPI: 61/F arrives for evaluation of abdominal pain. Patient developed epigastric abdominal pain around noon time today. She then began to develop hot and cold episodes and dry heaving. The patient has a history of Earlene fundoplication in the past with previous bowel obstructions. ROS: See above HPI for pertinent positives & negatives. A total of 10 systems reviewed and were otherwise negative. PAST MEDICAL HISTORY:Earlene fundoplication; hypertension; depression PAST SURGICAL HISTORY:See Below FAMILY HISTORY:See Below SOCIAL HISTORY:See Below HOME MEDICATIONS: See list ALLERGIES: See list VITALS:See Below PHYSICAL EXAMINATION: HEENT: Head - normocephalic and atraumatic. Pupils are equal, round, and reactive to light. Extraocular eye muscles are intact, and sclera are anicteri c. Nose - moist nasal mucosa without discharge. Mouth - moist buccal mucosa. Oropharynx is nonerythematous and there is no tonsillar exudate or edema noted. Neck: Supple; no JVD, nuchal rigidity, cervical lymphadenopathy, or auscultated bruits. Heart: Regular rate and rhythm. There is a normal S1 and S2 with no murmurs, clicks, or gallops appreciated. Lungs: Clear to auscultation bilaterally with no wheezes, rales, or rhonchi. Abdomen: Soft, moderate tenderness to palpation in the epigastrium, nondistended, with good bowel sounds. There are no palpable pulsatile masses or hepatosplenomegaly. There is no guarding, rigidity, or rebound noted. Extremities: No evidence of cyanosis, clubbing, or edema. There are easily palpable peripheral pulses. Skin: warm and dry with good turgor and no rashes. ED COURSE: Times/Reassessments: 330: Patient was evaluated in room B3. An order was placed for continuous cardiac monitoring. Patient was in a normal sinus rhythm at a rate of 72. An IV lock was initiated and labs were drawn as above. The patient was treated with IV Dilaudid and IV Zofran. She was started on IV normal saline solution. She went for CT scan of the abdomen/pelvis. Upon returning from radiology, I reviewed the results of the CT scan with the patient. An NG tube will be placed. I discussed case with the [facility] Hospitalist and they will evaluate for further management. Raissa Aleman DO Past Med/Surg History Medical History Anxiety Anxiety disorder Chronic constipation Depressive disorder Diffuse abdominal pain GERD (gastroesophageal reflux disease) History of thrombophlebitis Lumbar disc disease Lumbar disc herniation Lumbar radiculopathy Peripheral arterial disease Recurrent deep vein thrombosis (DVT) SBO (small bowel obstruction) URI (upper respiratory infection) Surgical History History of colon resection History of hysterectomy History of lumbar surgery History of Earlene fundoplication Family History Mother Heart disease Sister Heart disease Denies family history of Ovarian cancer Prostate cancer Myocardial infarction Breast cancer Colorectal cancer Social History Smoking Status: Never smoker Second Hand Exposure: No; Hx Alcohol Use: No Hx Substance Use: No Preferred Language: Polish Communication Ability: Effective Retail Reset Merchandiser Required: No Beliefs That Will Affect Care: None marital status: Current Living Situation: Spouse current occupational status: other 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 Has not returned since back pain. How many Children do You have: 2 Feels Safe at Home: Yes Childhood Exposure to Second-Hand Smoke: Yes caffeine: Yes (2 cups of coffee QAM) Dental Care, Regularly: Yes Physical Activity Frequency: Daily Physical Activity Frequency Comment: Daily walking and and occasional house cleaning Seatbelt Use: always Sunscreen Use: Yes Assistive Devices: Denture - Upper, Denture - Lower and Glasses Allergies Allergies Allergy/AdvReac Type Severity Reaction Status Date / Time amitriptyline Allergy Intermediate SWELLING Verified 03/23/22 07:46 pregabalin Allergy Intermediate confusion, Verified 03/23/22 07:46 forgetfullness,itchy rabeprazole Allergy Intermediate SWELLING Verified 03/23/22 07:46 Tricyclic Compounds Allergy Intermediate SWELLING Verified 03/23/22 07:46 morphine Allergy Mild SEVERE Verified 03/23/22 07:46 ITCHING, SHORTNESS OF BREATH gabapentin AdvReac Intermediate "HIGHER Verified 03/23/22 07:46 DOSES" CAUSE BLURRED VISION, DIZZINESS,NAUSEA ciprofloxacin AdvReac Mild gi upset Verified 03/23/22 07:46 Home Meds Home Medications Medication Instructions Recorded Confirmed ascorbic acid (vitamin C) 500 mg 500 mg PO DAILY 08/22/18 03/23/22 tablet bisacodyl 5 mg tablet,delayed 10 mg PO HS 08/22/18 03/23/22 release (Dulcolax (bisacodyl)) docusate sodium 100 mg capsule 100 mg PO BID 08/22/18 03/23/22 (Colace) simethicone 80 mg chewable tablet 80 mg PO BID 08/22/18 03/23/22 cholecalciferol (vitamin D3) 100 4,000 units PO DAILY 08/24/19 03/23/22 mcg (4,000 unit) tablet Previous Rx's Medication Instructions Recorded promethazine 25 mg tablet 25 mg PO Q6H PRN NAUSEA/VOMITING 06/25/21 #30 tabs apixaban 5 mg tablet (Eliquis) 5 mg PO BID #180 tabs 12/22/21 metoprolol succinate 25 mg 25 mg PO DAILY #90 tabs 12/22/21 tablet,extended release 24 hr omeprazole 40 mg capsule,delayed 40 mg PO DAILY #90 caps 01/26/22 release lorazepam 1 mg tablet 2.5 mg PO BID PRN anxiety #60 tabs 02/20/22 Results & Data (ED) Vital Signs Vital Signs - 24 hr 03/23/22 03:23 03/23/22 03:23 03/23/22 03:52 Temperature 36.5 C Temperature Source Oral Pulse Rate 82 Pulse Rate [Apical] Respiratory Rate 21 Respiratory Depth Normal Normal Blood Pressure [Right Arm] Blood Pressure Mean [Right Arm] Pulse Oximetry 99 Oxygen Delivery Method Room Air Sepsis Recent Fever Within 48 Hours No Sepsis New/Unexplained Change in Mental Status No Sepsis Action Taken by Nursing No Action Required 03/23/22 05:00 Temperature Temperature Source Pulse Rate Pulse Rate [Apical] 82 Respiratory Rate 16 Respiratory Depth Blood Pressure [Right Arm] 131/72 Blood Pressure Mean [Right Arm] 91 Pulse Oximetry 97 Oxygen Delivery Method Sepsis Recent Fever Within 48 Hours Sepsis New/Unexplained Change in Mental Status Sepsis Action Taken by Nursing Laboratory Data Result diagrams: 03/23/22 03:25 03/23/22 03:25 Lab Results 03/23/22 03/23/22 03/23/22 Range/Units 03:25 03:25 06:14 WBC 11.97 H (4.8-10.8) K/ul RBC 5.14 (3.93-5.22) M/uL Hgb 14.8 (12.0-16.0) g/dl Hct 43.9 (34.1-44.9) % MCV 85.4 (80.0-100.0) fL MCH 28.8 (25.0-34.0) pg MCHC 33.7 (32.0-36.0) g/dL RDW Std Deviation 38.9 (36.4-46.3) fL RDW Coeff of Inya 12.5 (11.5-14.5) % Plt Count 238 (130-400) K/uL MPV 10.2 (9.4-12.3) fL Immature Gran % (Auto) 0.3 % Neut % (Auto) 89.3 % Lymph % (Auto) 5.5 % [place]kin % (Auto) 4.5 % Eos % (Auto) 0.1 % Baso % (Auto) 0.3 % Neut # (Auto) 10.68 H (1.4-6.5) K/uL Lymph # (Auto) 0.66 L (1.2-3.4) K/uL Pitkin # (Auto) 0.54 (0.24-0.82) K/uL Eos # (Auto) 0.01 (0-0.50) K/uL Baso # (Auto) 0.04 (0-0.2) K/uL Immature Gran # (Auto) 0.04 H (0.00-0.02) K/uL Sodium 135 L (136-145) mmol/L Potassium 4.0 (3.5-5.1) mmol/L Chloride 98 (98-107) mmol/L Carbon Dioxide 27 (21-32) mmol/L Anion Gap 10 (3-11) BUN 19 (6-23) mg/dl Creatinine 0.86 (0.6-1.2) mg/dl Est Cr Clr Drug Dosing 57.8 ml/min Est GFR ( Amer) 83.3 ml/min Est GFR (Non-Af Amer) 71.9 ml/min BUN/Creatinine Ratio 22.1 H (10-20) Glucose 143 H (70-99(Fasting)) mg/dl Calcium 10.5 H (8.5-10.1) mg/dl Total Bilirubin 0.6 (0.2-1.0) mg/dl AST 31 (13-39) U/L ALT 18 (7-52) U/L Alkaline Phosphatase 83 (34-104) U/L Total Protein 7.9 (6.0-8.3) gm/dl Albumin 4.5 (3.4-5.0) gm/dl Globulin 3.4 (2.5-4.0) gm/dl Albumin/Globulin Ratio 1.3 (0.9-2) Lipase 19 (11-82) U/L SARS-CoV-2, RNA, NAAT NEGATIVE (NEGATIVE) Administered Medications Enoxaparin Sodium (Enoxaparin Inj 60 Mg/0.6 Ml Syr) 60 mg SQ Q12H JAN Stop: 04/22/22 10:29 Last Admin: 03/23/22 10:57 Dose: 60 mg Documented By: MG Lactated Ringer's (Lr) 1,000 mls @ 80 mls/hr IV .[id number] JAN Stop: 03/24/22 10:10 Last Admin: 03/23/22 09:24 Dose: 80 mls/hr Documented By: MG Pantoprazole Sodium 40 mg/ (Syringe) 10 mls @ 5 mls/min IV DAILY@1100 JAN Stop: 04/22/22 10:59 Last Admin: 03/23/22 11:14 Dose: 5 mls/min Documented By: MG Acetaminophen (Ofirmev) 1,000 mg in 100 mls @ 400 mls/hr IV Q8H JAN Stop: 03/26/22 10:29 Last Infusion: 03/23/22 12:00 Dose: 0 mls/hr Documented By: Admin: 03/23/22 11:41 Dose: 400 mls/hr Documented By: MG Metoprolol Tartrate (Metoprolol Tartrate 1 Mg/Ml Vial) 5 mg IV Q6 JAN Stop: 04/22/22 11:59 Last Admin: 03/23/22 17:54 Dose: 5 mg Documented By: Admin: 03/23/22 11:25 Dose: 5 mg Documented By: MG Discontinued Medications Hydromorphone HCl (Hydromorphone Inj 0.5 Mg/0.5 Ml Syr) 1 mg IV NOW STA Stop: 03/23/22 03:39 Last Admin: 03/23/22 03:46 Dose: 1 mg Documented By: EMB Sodium Chloride (Nss 1000ml) 1,000 mls @ 999 mls/hr IV .Q1H1M STA Stop: 03/23/22 04:38 Last Infusion: 03/23/22 05:39 Dose: 0 mls/hr Documented By: Admin: 03/23/22 03:46 Dose: 999 mls/hr Documented By: CYNTHIA Sodium Chloride (Nss) 500 mls @ 125 mls/hr IV .Q4H JAN Stop: 04/22/22 05:44 Last Infusion: 03/23/22 10:13 Dose: 0 mls/hr Documented By: Infusion: 03/23/22 10:12 Dose: 0 mls/hr Documented By: Admin: 03/23/22 06:13 Dose: 125 mls/hr Documented By: CYNTHIA Promethazine HCl 12.5 mg/ (Sodium Chloride) 50.5 mls @ 202 mls/hr IV NOW STA Stop: 03/23/22 06:42 Last Infusion: 03/23/22 07:38 Dose: 0 mls/hr Documented By: Admin: 03/23/22 07:16 Dose: 202 mls/hr Documented By: TITO Ioversol (Optiray 350 100ml) 91 ml IV ONCE ONE Stop: 03/23/22 04:49 Last Admin: 03/23/22 04:49 Dose: 91 ml Documented By: LATONIA Ondansetron HCl (Ondansetron Inj 2 Mg/Ml 2 Ml Vial) 4 mg IV NOW STA Stop: 03/23/22 03:39 Last Admin: 03/23/22 03:46 Dose: 4 mg Documented By: CYNTHIA Imaging Data Radiologist's Impression: Abdomen/Pelvis CT 03/23/22 03:38 CT OF THE ABDOMEN AND PELVIS WITH CONTRAST CLINICAL HISTORY: Abdominal pain and bloating. Evaluate for small bowel obstruction. COMPARISON STUDY: CT of the abdomen and pelvis April 02, 2021. TECHNIQUE: Following IV administration of 91 mL of Optiray, axial images of the abdomen and pelvis were obtained from the lung bases to the proximal femurs. Images were reviewed in the axial, sagittal, and coronal planes. IV contrast was administered without complication. Automated exposure control was utilized for the study. A dose lowering technique was utilized adhering to the principles of ALARA. CT DOSE: 304.39 mGy.cm FINDINGS: Subpleural opacities within the lower lungs favor atelectasis. No pneumatosis, free air or portal venous gas is present. Small amount of abdominal and pelvic ascites is present. Liver, spleen, adrenal glands, kidneys and pancreas are unremarkable. There is no biliary or pancreatic ductal dilatation. Moderate plaque of the abdominal aorta and branch vessels is noted. The majority of the small bowel is moderately dilated and fluid-filled. Transition point is within the distal ileum, likely at a small bowel anastomosis on axial image 364 of 481. Terminal ileum is decompressed. Colon is relatively decompressed as well. Major vasculature is patent. No acute fracture or suspicious lesion within the visualized skeletal structures is identified. Ventral hernia contains several small bowel loops but this does not result in the small bowel obstruction. IMPRESSION: Findings consistent with a small bowel obstruction with transition point within the distal ileum, likely at the small bowel anastomosis. Small amount of associated ascites. ACT 112: Negative or not required by law. Electronically signed by: Vignesh Sylvester M.D. 03/23/2022 7:24 AM Discharge Plan Visit Data Chief Complaint: Abdominal Pain ED Provider: Raissa Aleman Discharge Problem: Small bowel obstruction Patient Disposition: Admitted As Inpatient Discharge Instructions Interventions: ED Discharge Assessment Last Done: 03/23/22 08:36
[2022-03-23 04:07] LABS: Albumin Globulin Ratio 1.3 (0.9-2); Albumin Level 4.5 gm/dl (3.4-5.0); BUN Creatinine Ratio 22.1 (10-20); Bilirubin,Total 0.6 mg/dl (0.2-1.0); Calcium 10.5 mg/dl (8.5-10.1); Creatinine Clr Calc Pharmacy 57.8 ml/min; Est GFR (African American) 83.3 ml/min; Est GFR (Non-African American) 71.9 ml/min; Globulin 3.4 gm/dl (2.5-4.0); Total Protein 7.9 gm/dl (6.0-8.3)
[2022-03-23] MEDS ORDERED: OPTIRAY 350 100ml IV ONE (04:48)
[2022-03-23] MEDS ORDERED: SODIUM CHLORIDE 0.9% 500 ML IV SCH (05:45)
[2022-03-23] MEDS ORDERED: PROMETHAZINE HCL 12.5 MG in SODIUM CHLORIDE 0.9% 50 ML IV STA (06:28)
--- NOTE | 2022-03-23 06:54 | History & Physical Report ---
Date of Service March 23, 2022 Assessment & Plan (1) Small bowel obstruction: Plan: Patient with history of recurrent small bowel obstructions, managed conservatively in the past. She has NGT to low continuous suction, still with some nausea and abdominal pain. No perforation noted on imaging -Admit to medical with telemetry -maintain NPO -LR at 80mL/hr x 2 liters -Check electrolytes and replete as needed -Zofran and Phenergan as needed for nausea -Dilaudid as needed for pain -General surgery consultation appreciated (2) HTN (hypertension), benign: Plan: Blood pressure well controlled at 131/72 -Hold PO metoprolol -Metoprolol 5mg IV q 6 hours -Monitor (3) Recurrent deep vein thrombosis (DVT): Plan: Patient on Apixaban anticoagulation -Hold oral agents -Lovenox 1mg/kg BID for continued anticoagulation (4) GERD (gastroesophageal reflux disease): Plan: Chronic -Protonix 40mg IV daily (5) Anxiety: Plan: Chronic -Lorazepam 0.5mg IV TID PRN F/E/N - LR at 80mL/hr, monitor electrolytes and replete as needed, NPO for now Ppx - Lovenox 1mg/kg BID Code - DNR/DNI per chart review Dispo - Admit to medical with telemetry History of Present Illness Chief Complaint: abdominal pain Primary Care Provider: Judy Wood MD Brooke Morris is a 61yo female with history of Paulino fundoplication, GERD, prior SBOs, recurrent DVT on Apixaban anticoagulation presenting with abdominal pain and SBO. Patient began to develop diffuse abdominal pain yesterday AM while in taoism. The pain progressed throughout the day. She developed nausea with dry heaving as well as subjective fevers and chills. She feels that her abdomen is bloated. Denies chest pain, palpitations, cough, SOB. Denies vomiting, diarrhea but has occasional constipation. Upon arrival patient afebrile, HD stable. NGT placed to low continuous suction. Patient still with nausea and abdominal pain. ER Course: Dilaudid, Zofran, NSS, NGT Allergies Allergy/AdvReac Type Severity Reaction Status Date / Time amitriptyline Allergy Intermediate SWELLING Verified 01/26/22 08:13 pregabalin Allergy Intermediate confusion, Verified 01/26/22 08:13 forgetfullness,itchy rabeprazole Allergy Intermediate SWELLING Verified 01/26/22 08:13 Tricyclic Compounds Allergy Intermediate SWELLING Verified 01/26/22 08:13 morphine Allergy Mild SEVERE Verified 01/26/22 08:13 ITCHING, SHORTNESS OF BREATH gabapentin AdvReac Intermediate "HIGHER Verified 01/26/22 08:13 DOSES" CAUSE BLURRED VISION, DIZZINESS,NAUSEA ciprofloxacin AdvReac Mild gi upset Verified 01/26/22 08:13 Home Medications Medication Instructions Recorded Confirmed Type ascorbic acid (vitamin C) 500 mg 500 mg PO DAILY 08/22/18 03/23/22 History tablet bisacodyl 5 mg tablet,delayed 10 mg PO HS 08/22/18 03/23/22 History release (Dulcolax (bisacodyl)) docusate sodium 100 mg capsule 100 mg PO BID 08/22/18 03/23/22 History (Colace) simethicone 80 mg chewable tablet 80 mg PO BID 08/22/18 03/23/22 History cholecalciferol (vitamin D3) 100 4,000 units PO DAILY 08/24/19 03/23/22 History mcg (4,000 unit) tablet promethazine 25 mg tablet 25 mg PO Q6H PRN NAUSEA/VOMITING 06/25/21 03/23/22 Rx #30 tabs valacyclovir 1 gram tablet 1,000 mg PO Q8H 7 days #21 tabs 09/15/21 01/26/22 Rx apixaban 5 mg tablet (Eliquis) 5 mg PO BID #180 tabs 12/22/21 03/23/22 Rx metoprolol succinate 25 mg 25 mg PO DAILY #90 tabs 12/22/21 03/23/22 Rx tablet,extended release 24 hr omeprazole 40 mg capsule,delayed 40 mg PO DAILY #90 caps 01/26/22 03/23/22 Rx release lorazepam 1 mg tablet 2.5 mg PO BID PRN anxiety #60 tabs 02/20/22 03/23/22 Rx Past Med/Surg History Medical History Anxiety Anxiety disorder Chronic constipation Depressive disorder Diffuse abdominal pain GERD (gastroesophageal reflux disease) History of thrombophlebitis Lumbar disc disease Lumbar disc herniation Lumbar radiculopathy Peripheral arterial disease Recurrent deep vein thrombosis (DVT) SBO (small bowel obstruction) URI (upper respiratory infection) Surgical History History of colon resection History of hysterectomy History of lumbar surgery History of Earlene fundoplication Family History Mother Heart disease Sister Heart disease Denies family history of Ovarian cancer Prostate cancer Myocardial infarction Breast cancer Colorectal cancer Social History Smoking Status: Never smoker Second Hand Exposure: No; Hx Alcohol Use: No Hx Substance Use: No Preferred Language: Niuean Communication Ability: Effective Energy Economist Required: No Beliefs That Will Affect Care: None marital status: Current Living Situation: Spouse current occupational status: other 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 Has not returned since back pain. How many Children do You have: 2 Feels Safe at Home: Yes Childhood Exposure to Second-Hand Smoke: Yes caffeine: Yes (2 cups of coffee QAM) Dental Care, Regularly: Yes Physical Activity Frequency: Daily Physical Activity Frequency Comment: Daily walking and and occasional house cleaning Seatbelt Use: always Sunscreen Use: Yes Assistive Devices: Glasses Review of Systems Review of Systems: All systems reviewed & are unremarkable except as noted in HPI & below Physical Exam Physical Exam: General: patient resting comfortably, NAD, non-toxic in appearance, AA&O x 4 Skin: warm, dry, intact, no rashes or lesions HEENT: NC/AT, PERRL, EOMI, anicteric sclera, conjunctiva without injection, external ear normal to inspection and nontender, nares patent, moist mucus membranes, dentition intact, no oropharyngeal lesions, neck supple, trachea midline, no LAD, no thyromegaly, no JVD Heart: +S1/S2, regular, no m/r/g Lungs: equal air entry bilaterally, no rales/rhonchi/wheezes Abd: +BS, soft, ND, tender to palpation, no masses/organomegaly/ascites Ext: warm, 2+ pulses in UE/LE bilaterally, no clubbing/cyanosis or edema Neuro: nonfocal, patient AA&O x 4, speech intact, no facial droop, moving all extremities on command with equal strength 5/5 Results & Data Results & Data ([facility]) Vital Signs (Past 12 Hours) Vital Signs Temp Pulse Pulse Resp BP Pulse Ox O2 Del Method 03/23/22 05:00 82 16 131/72 97 03/23/22 03:52 Room Air 03/23/22 03:23 36.5 C 82 21 99 Laboratory Results Laboratory Results WBC 11.97 K/ul (4.8-10.8) H 03/23/22 03:25 RBC 5.14 M/uL (3.93-5.22) 03/23/22 03:25 Hgb 14.8 g/dl (12.0-16.0) 03/23/22 03:25 Hct 43.9 % (34.1-44.9) 03/23/22 03:25 MCV 85.4 fL (80.0-100.0) 03/23/22 03:25 MCH 28.8 pg (25.0-34.0) 03/23/22 03:25 MCHC 33.7 g/dL (32.0-36.0) 03/23/22 03:25 RDW Std Deviation 38.9 fL (36.4-46.3) 03/23/22 03:25 RDW Coeff of Niya 12.5 % (11.5-14.5) 03/23/22 03:25 Plt Count 238 K/uL (130-400) 03/23/22 03:25 MPV 10.2 fL (9.4-12.3) 03/23/22 03:25 Immature Gran % (Auto) 0.3 % 03/23/22 03:25 Neut % (Auto) 89.3 % 03/23/22 03:25 Lymph % (Auto) 5.5 % 03/23/22 03:25 Ocean % (Auto) 4.5 % 03/23/22 03:25 Eos % (Auto) 0.1 % 03/23/22 03:25 Baso % (Auto) 0.3 % 03/23/22 03:25 Neut # (Auto) 10.68 K/uL (1.4-6.5) H 03/23/22 03:25 Lymph # (Auto) 0.66 K/uL (1.2-3.4) L 03/23/22 03:25 Ocean # (Auto) 0.54 K/uL (0.24-0.82) 03/23/22 03:25 Eos # (Auto) 0.01 K/uL (0-0.50) 03/23/22 03:25 Baso # (Auto) 0.04 K/uL (0-0.2) 03/23/22 03:25 Immature Gran # (Auto) 0.04 K/uL (0.00-0.02) H 03/23/22 03:25 Sodium 135 mmol/L (136-145) L 03/23/22 03:25 Potassium 4.0 mmol/L (3.5-5.1) 03/23/22 03:25 Chloride 98 mmol/L (98-107) 03/23/22 03:25 Carbon Dioxide 27 mmol/L (21-32) 03/23/22 03:25 Anion Gap 10 (3-11) 03/23/22 03:25 BUN 19 mg/dl (6-23) 03/23/22 03:25 Creatinine 0.86 mg/dl (0.6-1.2) 03/23/22 03:25 Est Cr Clr Drug Dosing 57.8 ml/min 03/23/22 03:25 Est GFR ( Amer) 83.3 ml/min 03/23/22 03:25 Est GFR (Non-Af Amer) 71.9 ml/min 03/23/22 03:25 BUN/Creatinine Ratio 22.1 (10-20) H 03/23/22 03:25 Glucose 143 mg/dl (70-99(Fasting)) H 03/23/22 03:25 Calcium 10.5 mg/dl (8.5-10.1) H 03/23/22 03:25 Total Bilirubin 0.6 mg/dl (0.2-1.0) 03/23/22 03:25 AST 31 U/L (13-39) 03/23/22 03:25 ALT 18 U/L (7-52) 03/23/22 03:25 Alkaline Phosphatase 83 U/L (34-104) 03/23/22 03:25 Total Protein 7.9 gm/dl (6.0-8.3) 03/23/22 03:25 Albumin 4.5 gm/dl (3.4-5.0) 03/23/22 03:25 Globulin 3.4 gm/dl (2.5-4.0) 03/23/22 03:25 Albumin/Globulin Ratio 1.3 (0.9-2) 03/23/22 03:25 Lipase 19 U/L (11-82) 03/23/22 03:25 SARS-CoV-2, RNA, NAAT NEGATIVE (NEGATIVE) 03/23/22 06:[address] Abdomen: Findings consistent with small bowel obstruction with transition point in the pelvis at the site of anastomotic sutures. No evidence of bowel perforation. Code Status & VTE Plan VTE Prophylaxis Plan VTE Prophylaxis will be ordered: Yes PG Care Time/CCT Total # of Minutes Spent Total Time Spent with Patient: Total time spent is greater than 50% in coordination of care (as documented) at patient's floor/unit and/or counseling patient: Coding Level of Care Code 91628 Initial Inpt Care Lvl 3 Diagnoses Small bowel obstruction K56.609 HTN (hypertension), benign I10 Recurrent deep vein thrombosis (DVT) I82.409 GERD (gastroesophageal reflux disease) K21.9 Anxiety F41.9
--- NOTE | 2022-03-23 07:00 | XRay Report ---
KUB CLINICAL HISTORY: NGT placement COMPARISON STUDY: CT of the abdomen and pelvis performed earlier today. FINDINGS: Tip of nasogastric tube is within the gastric fundus. Contrast within the collecting system s is from recent contrast-enhanced CT. Dilated small bowel loops are noted within visualized portions of the abdomen. IMPRESSION: 1. Tip of nasogastric tube within the gastric fundus. 2. Findings consistent with a small bowel obstruction, better depicted on recent CT. ACT 112: Negative or not required by law. Electronically signed by: Vignesh Sylvester M.D. 03/23/2022 6:59 AM
--- NOTE | 2022-03-23 07:26 | CT Scan Report ---
CT OF THE ABDOMEN AND PELVIS WITH CONTRAST CLINICAL HISTORY: Abdominal pain and bloating. Evaluate for small bowel obstruction. COMPARISON STUDY: CT of the abdomen and pelvis April 02, 2021. TECHNIQUE: Following IV administration of 91 mL of Optiray, axial images of the abdomen and pelvis we re obtained from the lung bases to the proximal femurs. Images were reviewed in the axial, sagittal, and coronal planes. IV contrast was administered without complication. Automated exposure control wa s utilized for the study. A dose lowering technique was utilized adhering to the principles of ALARA . CT DOSE: 304.39 mGy.cm FINDINGS: Subpleural opacities within the lower lungs favor atelectasis. No pneumatosis, free air or portal venous gas is present. Small amount of abdominal and pelvic ascites is present. Liver, spleen, adrenal glands, kidneys and pancreas are unremarkable. There is no biliary or pancreatic ductal dila tation. Moderate plaque of the abdominal aorta and branch vessels is noted. The majority of the small bowel is moderately dilated and fluid-filled. Transition point is within the distal ileum, likely at a small bowel anastomosis on axial image 364 of 481. Terminal ileum is decompressed. Colon is relati vely decompressed as well. Major vasculature is patent. No acute fracture or suspicious lesion within the visualized skeletal structures is identified. Ventral hernia contains several small bowel loops but this does not result in the small bowel obstruction. IMPRESSION: Findings consistent with a small bowel obstruction with transition point within the dist al ileum, likely at the small bowel anastomosis. Small amount of associated ascites. ACT 112: Negative or not required by law. Electronically signed by: Vignesh Sylvester M.D. 03/23/2022 7:24 AM
[2022-03-23] MEDS ORDERED: ONDANSETRON INJ 2 MG/ML 2 ML VIAL IV PRN (09:11)
[2022-03-23] MEDS ORDERED: HYDROmorphone INJ 0.5 MG/0.5 ML SYR IV PRN (09:11)
[2022-03-23] MEDS ORDERED: LORazepam 2 MG/2 ML SYR IV PRN (09:11)
[2022-03-23] MEDS ORDERED: PROMETHAZINE HCL 12.5 MG in SODIUM CHLORIDE 0.9% 50 ML IV PRN (09:11)
[2022-03-23] MEDS: LACTATED RINGER'S 1,000 ML IV SCH ×2 (09:24→21:59)
[2022-03-23] MEDS ORDERED: LORazepam 0.5 MG in SYRINGE 0.25 ML IV PRN (09:31)
--- NOTE | 2022-03-23 10:26 | Surgery Consultation ---
Date of Consultation March 23, 2022 Assessment & Plan (1) Small bowel obstruction: Plan 61 year-old female with history of recurrent small bowel obstructions and surgical history of Earlene fundoplication 12 years ago and then a colon resection with colostomy and then colostomy reversal who presented to ED with generalized abdominal pain with bloating and nausea. CT scan consistent with SBO with transition point likely at small bowel anastomosis site. No leukocytosis, afebrile, hemodynamically stable, now passing gas. Plan: Discussed with patient her CT scan showing SBO with transition point likely at prior small bowel anastomosis site. Recommend conservative management as she has had in the past with prior SBO episodes. NPO, NGT to LIS, bowel rest, IV fluids, pain management as needed and IV Tylenol scheduled as she wants to limit narcotic given her constipation history. Continue Lovenox given history of recurrent DVT Encouraged oob to chair and ambulation to increase gi motility WIll continue to follow Discussed with Dr. Harris who evaluated patient independently. See addendum for further recommendations/plan. Supervising Physician Co-Signing Physician Notes I have seen and examined the patient personally and agree with the above assessment plan. In brief 61-year-old woman with recurrent small bowel obstruction. She states that she has started passing gas last night and into today. We will remove the NG tube and keep her n.p.o. for now. We will continue to monitor her. No surgical intervention required at this time. History of Present Illness Reason for Consultation: SBO Requesting Physician: Jessie Chaves DO Attending Physician: Jessie Chaves DO History of Present Illness Brooke is a 61 year-old female with history of recurrent SBO, chronic constipation, recurrent DVT, HTN, GERD, Anxiety, PAD, lumbar radiculopathy with history of Earlene fundoplication 12 years ago , colonic resection with RLQ colostomy for chronic constipation and then colostomy reversal who presented to ED with complaint of generalized abdominal pain, bloating, and nausea that started yesterday around noon. Last bowel movement was last evening. History of prior SBO treated conservatively in March 2021. States the pain was about 8/10 upon presenting to the ED. Pain currently 7/10 but has not had pain medication recently. Is not starting to pass gas. NGT was placed on admission and very little output. States she is still nauseated. Unable to vomit due to the Earlene fundoplication. Urinating without difficulty. Allergies Allergy/AdvReac Type Severity Reaction Status Date / Time amitriptyline Allergy Intermediate SWELLING Verified 03/23/22 07:46 pregabalin Allergy Intermediate confusion, Verified 03/23/22 07:46 forgetfullness,itchy rabeprazole Allergy Intermediate SWELLING Verified 03/23/22 07:46 Tricyclic Compounds Allergy Intermediate SWELLING Verified 03/23/22 07:46 morphine Allergy Mild SEVERE Verified 03/23/22 07:46 ITCHING, SHORTNESS OF BREATH gabapentin AdvReac Intermediate "HIGHER Verified 03/23/22 07:46 DOSES" CAUSE BLURRED VISION, DIZZINESS,NAUSEA ciprofloxacin AdvReac Mild gi upset Verified 03/23/22 07:46 Home Medications Medication Instructions Recorded Confirmed Type ascorbic acid (vitamin C) 500 mg 500 mg PO DAILY 08/22/18 03/23/22 History tablet bisacodyl 5 mg tablet,delayed 10 mg PO HS 08/22/18 03/23/22 History release (Dulcolax (bisacodyl)) docusate sodium 100 mg capsule 100 mg PO BID 08/22/18 03/23/22 History (Colace) simethicone 80 mg chewable tablet 80 mg PO BID 08/22/18 03/23/22 History cholecalciferol (vitamin D3) 100 4,000 units PO DAILY 08/24/19 03/23/22 History mcg (4,000 unit) tablet promethazine 25 mg tablet 25 mg PO Q6H PRN NAUSEA/VOMITING 06/25/21 03/23/22 Rx #30 tabs apixaban 5 mg tablet (Eliquis) 5 mg PO BID #180 tabs 12/22/21 03/23/22 Rx metoprolol succinate 25 mg 25 mg PO DAILY #90 tabs 12/22/21 03/23/22 Rx tablet,extended release 24 hr omeprazole 40 mg capsule,delayed 40 mg PO DAILY #90 caps 01/26/22 03/23/22 Rx release lorazepam 1 mg tablet 2.5 mg PO BID PRN anxiety #60 tabs 02/20/22 03/23/22 Rx Patient History Medical History Anxiety Anxiety disorder Chronic constipation Depressive disorder Diffuse abdominal pain GERD (gastroesophageal reflux disease) History of thrombophlebitis Lumbar disc disease Lumbar disc herniation Lumbar radiculopathy Peripheral arterial disease Recurrent deep vein thrombosis (DVT) SBO (small bowel obstruction) URI (upper respiratory infection) Surgical History History of colon resection History of hysterectomy History of lumbar surgery History of Earlene fundoplication Family History Mother Heart disease Sister Heart disease Denies family history of Ovarian cancer Prostate cancer Myocardial infarction Breast cancer Colorectal cancer Social History Smoking Status: Never smoker Second Hand Exposure: No; Hx Alcohol Use: No Hx Substance Use: No Preferred Language: Arabic Communication Ability: Effective Electronics Lead Required: No Beliefs That Will Affect Care: None marital status: Current Living Situation: Spouse current occupational status: other 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 How many Children do You have: 2 Feels Safe at Home: Yes Childhood Exposure to Second-Hand Smoke: Yes caffeine: Yes (2 cups of coffee QAM) Dental Care, Regularly: Yes Physical Activity Frequency: Daily Physical Activity Frequency Comment: Daily walking and and occasional house cleaning Seatbelt Use: always Sunscreen Use: Yes Assistive Devices: Denture - Upper, Denture - Lower and Glasses Review of Systems Review of Systems: All systems reviewed & are unremarkable except as noted in HPI & below Physical Exam Constitutional: well developed, well nourished and cooperative; no acute distress Neck: normal visual inspection and trachea midline Respiratory: normal respiratory effort, lungs clear to auscultation Cardiovascular: RRR, no murmur, no edema Gastrointestinal (Abdomen): Inspection/Auscultation: abdomen normal to inspection, + abdomen distended (mildly distended), + abdominal surgical scar (Small midline laparotomy and RLQ ) and + hypoactive bowel sounds (present in LLQ); + abnormal bowel sounds Percussion/Palpation: + abdomen tender (LLQ) and abdomen soft; no guarding, abdomen not rigid and abdomen not firm Skin: no rashes, warm and dry Psychiatric: Orientation: alert and oriented x 3 Results & Data ([facility]) Vital Signs (Past 12 Hours) Vital Signs Temp Pulse Pulse Resp BP BP Pulse Ox 03/23/22 08:36 72 18 130/72 97 03/23/22 07:00 72 18 131/75 96 03/23/22 05:00 82 16 131/72 97 03/23/22 03:52 03/23/22 03:23 36.5 C 82 21 99 O2 Del Method 03/23/22 08:36 Room Air 03/23/22 07:00 Room Air 03/23/22 05:00 03/23/22 03:52 Room Air 03/23/22 03:23 Laboratory Results 03/23/22 03/23/22 03/23/22 Range/Units 09:44 06:14 03:25 WBC (4.8-10.8) K/ul RBC (3.93-5.22) M/uL Hgb (12.0-16.0) g/dl Hct (34.1-44.9) % MCV (80.0-100.0) fL MCH (25.0-34.0) pg MCHC (32.0-36.0) g/dL RDW Std Deviation (36.4-46.3) fL RDW Coeff of Niya (11.5-14.5) % Plt Count (130-400) K/uL MPV (9.4-12.3) fL Immature Gran % (Auto) % Neut % (Auto) % Lymph % (Auto) % Moca % (Auto) % Eos % (Auto) % Baso % (Auto) % Neut # (Auto) (1.4-6.5) K/uL Lymph # (Auto) (1.2-3.4) K/uL Moca # (Auto) (0.24-0.82) K/uL Eos # (Auto) (0-0.50) K/uL Baso # (Auto) (0-0.2) K/uL Immature Gran # (Auto) (0.00-0.02) K/uL Sodium 135 L (136-145) mmol/L Potassium 4.0 (3.5-5.1) mmol/L Chloride 98 (98-107) mmol/L Carbon Dioxide 27 (21-32) mmol/L Anion Gap 10 (3-11) BUN 19 (6-23) mg/dl Creatinine 0.86 (0.6-1.2) mg/dl Est Cr Clr Drug Dosing 57.8 ml/min Est GFR ( Amer) 83.3 ml/min Est GFR (Non-Af Amer) 71.9 ml/min BUN/Creatinine Ratio 22.1 H (10-20) Glucose 143 H (70-99(Fasting)) mg/dl Calcium 10.5 H (8.5-10.1) mg/dl Phosphorus 3.9 (2.5-4.9) mg/dl Magnesium 1.7 (1.7-2.4) mg/dl Total Bilirubin 0.6 (0.2-1.0) mg/dl AST 31 (13-39) U/L ALT 18 (7-52) U/L Alkaline Phosphatase 83 (34-104) U/L Total Protein 7.9 (6.0-8.3) gm/dl Albumin 4.5 (3.4-5.0) gm/dl Globulin 3.4 (2.5-4.0) gm/dl Albumin/Globulin Ratio 1.3 (0.9-2) Lipase 19 (11-82) U/L SARS-CoV-2, RNA, NAAT NEGATIVE (NEGATIVE) 03/23/22 Range/Units 03:25 WBC 11.97 H (4.8-10.8) K/ul RBC 5.14 (3.93-5.22) M/uL Hgb 14.8 (12.0-16.0) g/dl Hct 43.9 (34.1-44.9) % MCV 85.4 (80.0-100.0) fL MCH 28.8 (25.0-34.0) pg MCHC 33.7 (32.0-36.0) g/dL RDW Std Deviation 38.9 (36.4-46.3) fL RDW Coeff of Niya 12.5 (11.5-14.5) % Plt Count 238 (130-400) K/uL MPV 10.2 (9.4-12.3) fL Immature Gran % (Auto) 0.3 % Neut % (Auto) 89.3 % Lymph % (Auto) 5.5 % Moca % (Auto) 4.5 % Eos % (Auto) 0.1 % Baso % (Auto) 0.3 % Neut # (Auto) 10.68 H (1.4-6.5) K/uL Lymph # (Auto) 0.66 L (1.2-3.4) K/uL Moca # (Auto) 0.54 (0.24-0.82) K/uL Eos # (Auto) 0.01 (0-0.50) K/uL Baso # (Auto) 0.04 (0-0.2) K/uL Immature Gran # (Auto) 0.04 H (0.00-0.02) K/uL Sodium (136-145) mmol/L Potassium (3.5-5.1) mmol/L Chloride (98-107) mmol/L Carbon Dioxide (21-32) mmol/L Anion Gap (3-11) BUN (6-23) mg/dl Creatinine (0.6-1.2) mg/dl Est Cr Clr Drug Dosing ml/min Est GFR ( Amer) ml/min Est GFR (Non-Af Amer) ml/min BUN/Creatinine Ratio (10-20) Glucose (70-99(Fasting)) mg/dl Calcium (8.5-10.1) mg/dl Phosphorus (2.5-4.9) mg/dl Magnesium (1.7-2.4) mg/dl Total Bilirubin (0.2-1.0) mg/dl AST (13-39) U/L ALT (7-52) U/L Alkaline Phosphatase (34-104) U/L Total Protein (6.0-8.3) gm/dl Albumin (3.4-5.0) gm/dl Globulin (2.5-4.0) gm/dl Albumin/Globulin Ratio (0.9-2) Lipase (11-82) U/L SARS-CoV-2, RNA, NAAT (NEGATIVE) Diagnostic Findings CT OF THE ABDOMEN AND PELVIS WITH CONTRAST CLINICAL HISTORY: Abdominal pain and bloating. Evaluate for small bowel obstruction. COMPARISON STUDY: CT of the abdomen and pelvis April 02, 2021. TECHNIQUE: Following IV administration of 91 mL of Optiray, axial images of the abdomen and pelvis were obtained from the lung bases to the proximal femurs. Images were reviewed in the axial, sagittal, and coronal planes. IV contrast was administered without complication. Automated exposure control was utilized for the study. A dose lowering technique was utilized adhering to the principles of ALARA. CT DOSE: 304.39 mGy.cm FINDINGS: Subpleural opacities within the lower lungs favor atelectasis. No pneumatosis, free air or portal venous gas is present. Small amount of abdominal and pelvic ascites is present. Liver, spleen, adrenal glands, kidneys and pancreas are unremarkable. There is no biliary or pancreatic ductal dilatation. Moderate plaque of the abdominal aorta and branch vessels is noted. The majority of the small bowel is moderately dilated and fluid-filled. Transition point is within the distal ileum, likely at a small bowel anastomosis on axial image 364 of 481. Terminal ileum is decompressed. Colon is relatively decompressed as well. Major vasculature is patent. No acute fracture or suspicious lesion within the visualized skeletal structures is identified. Ventral hernia contains several small bowel loops but this does not result in the small bowel obstruction. IMPRESSION: Findings consistent with a small bowel obstruction with transition point within the distal ileum, likely at the small bowel anastomosis. Small amount of associated ascites. KUB CLINICAL HISTORY: NGT placement COMPARISON STUDY: CT of the abdomen and pelvis performed earlier today. FINDINGS: Tip of nasogastric tube is within the gastric fundus. Contrast within the collecting systems is from recent contrast-enhanced CT. Dilated small bowel loops are noted within visualized portions of the abdomen. IMPRESSION: 1. Tip of nasogastric tube within the gastric fundus. 2. Findings consistent with a small bowel obstruction, better depicted on recent CT.
[2022-03-23 10:33] LABS: Magnesium 1.7 mg/dl (1.7-2.4); Phosphorus 3.9 mg/dl (2.5-4.9)
[2022-03-23] MEDS: ENOXAPARIN INJ 60 MG/0.6 ML SYR SQ SCH ×2 (10:57→22:00)
[2022-03-23] MEDS ORDERED: PANTOprazole 40 MG in SYRINGE 0 ML IV SCH (11:00)
[2022-03-23] MEDS: METOPROLOL TARTRATE 1 MG/ML VIAL IV SCH ×3 (11:25→23:55)
[2022-03-23] MEDS: ACETAMINOPHEN 1,000 MG/100 ML VIAL IV SCH ×2 (11:41→20:00)
--- NOTE | 2022-03-23 17:20 | Medical Student Progress Note ---
Date of Service March 23, 2022 Assessment & Plan (1) Small bowel obstruction: Plan: 61 yo F hx of colostomy and reversal, colon resection, cory fundoplication, and GERD who was admitted for abdominal pain. (1) SBO: NPO; lactated ringers 80 ml/Hr x 2 liters CBC and BMP QAM zofran/phenergan for nausea prn dilaudid for pain Q2h; tylenol for pain Q8h Gen consult: ambulate and use chair when possible Trial clear fluids after passing gas or if clinical picture improving before removing NGT Reassess in the AM (2) HTN controlled; hold PO metoprolol; IV metoprolol 5 mg IV q6; monitor (3) Recurrent deep vein thrombosis (DVT): Plan: Patient on Apixaban anticoagulation hold apixaban -Lovenox 1mg/kg BID for continued anticoagulation (4) GERD (gastroesophageal reflux disease): -Protonix 40mg IV daily (5) Anxiety: -Lorazepam 0.5mg IV TID PRN F/E/N - LR at 80mL/hr, monitor electrolytes and replete as needed, NPO for now Ppx - Lovenox 1mg/kg BID Code - DNR/DNI per chart review Dispo - Admit to medical with telemetry Admission and Anticipated Discharge Date Admission Date: March 23, 2022 Supervising Attestation I personally examined the patient and verified all bolanos points of history and exam, discussed case, and agree with decision making with A Nuris MS3 feeling better a little hungry less pain vitals noted nad heent nc at mmm breathig unlabored no accessory muscles good effort. Abdomen soft may be mildly distended at worst, very mildly tender no guarding rebound or rigidity. SBOlikely adhesional. Already improving. Clear liquid diet. Continue supportive care, serial exams. Otherwise as above. Subjective Pt had hard dry BM last night but no flatus. Pt has nausea and diffuse abdominal pain. No vomiting, diarrhea, shortness of breath, difficulty urinating. As the day progressed she trialed clear liquids. Review of Systems Review of Systems: as per HPI Physical Exam Physical Exam: GA: sick, dry heaving, pale Lungs: shallow breaths; clear to auscultation bilaterally Cardio: RRR no MRG Abdominal: diffuse discomfort to light palpation Results & Data ([facility]) Vital Signs (Past 12 Hours) Vital Signs Temp Pulse Pulse Pulse Resp BP BP 03/23/22 15:18 36.9 C 82 20 123/76 03/23/22 14:19 77 03/23/22 09:14 71 03/23/22 11:10 36.8 C 94 H 16 139/81 03/23/22 10:28 36.6 C 80 17 128/70 03/23/22 08:36 72 18 130/72 03/23/22 07:00 72 18 BP Pulse Ox O2 Del Method 03/23/22 15:18 97 Room Air 03/23/22 14:19 03/23/22 09:14 03/23/22 11:10 97 Room Air 03/23/22 10:28 98 Room Air 03/23/22 08:36 97 Room Air 03/23/22 07:00 131/75 96 Room Air
[2022-03-23 21:42] LABS: Appearance Urine Cloudy (Clear); Bacteria Urine Automated 1+ (Negative); Bilirubin Urine Negative (Negative); Blood Urine Trace (Negative); Color Urine Yellow; Glucose Urine UA Negative (Negative); Ketones Urine Negative (Negative); Leukocyte Esterase Urine 2+ (Negative); Nitrite Urine Negative (Negative); Protein Urine Negative (Negative); Urobilinogen Urine Negative (Negative); pH Urine 5.5 (4.5-7.5)
[2022-03-23 21:58] LABS: RBC Urine Automated 0-4 /hpf (0-4)
--- NOTE | 2022-03-23 22:02 | Electrocardiogram Report ---
Test Reason : Blood Pressure : / mmHG Vent. Rate : 072 BPM Atrial Rate : 072 BPM P-R Int : 128 ms QRS Dur : 076 ms QT Int : 402 ms P-R-T Axes : -20 -05 -65 degrees QTc Int : 440 ms Poor data quality, interpretation may be adversely affected Normal sinus rhythm Septal infarct , age undetermined Nonspecific T wave abnormality T wave abnormality, consider anterior ischemia Abnormal ECG When compared with ECG of 24-AUG-2017 18:54, Septal infarct is now Present Nonspecific T wave abnormality, worse in Inferior leads T wave inversion now evident in Anterior leads Confirmed by Higinio Sorenson ([id number]) on 03/23/2022 10:01:55 PM Referred By: REFERRED SELF Confirmed By:Higinio Sorenson
[2022-03-23] MEDS: SIMETHICONE 80 MG CHEW PO PRN (23:55)
[2022-03-24] MEDS: ACETAMINOPHEN 1,000 MG/100 ML VIAL IV SCH (03:12)
[2022-03-24] MEDS: METOPROLOL TARTRATE 1 MG/ML VIAL IV SCH (05:05)
[2022-03-24 06:09] LABS: Hematocrit (blood only) 36.3 % (34.1-44.9); Hemoglobin 12.1 g/dl (12.0-16.0); Mean Corpuscular Hemoglobin 28.5 pg (25.0-34.0); Mean Corpuscular Hgb Conc 33.3 g/dL (32.0-36.0); Mean Corpuscular Volume 85.4 fL (80.0-100.0); Mean Platelet Volume 9.9 fL (9.4-12.3); Platelet Count 195 K/uL (130-400); RDW Coefficient of Variation 12.8 % (11.5-14.5); RDW Standard Deviation 39.6 fL (36.4-46.3); Red Blood Count 4.25 M/uL (3.93-5.22); White Blood Count 4.11 K/ul (4.8-10.8)
[2022-03-24 06:46] LABS: BUN Creatinine Ratio 23.3 (10-20); Calcium 8.5 mg/dl (8.5-10.1); Creatinine Clr Calc Pharmacy 82.9 ml/min; Est GFR (African American) 112.4 ml/min; Potassium 3.7 mmol/L (3.5-5.1)
[2022-03-24] MEDS ORDERED: DOCUSATE SODIUM 100 MG CAP PO SCH (09:00)
[2022-03-24] MEDS ORDERED: ACETAMINOPHEN 325 MG TAB PO PRN (09:10)
--- NOTE | 2022-03-24 10:28 | Surgery Progress Note ---
Date of Service March 24, 2022 Assessment & Plan (1) Small bowel obstruction: Plan 61 year-old female with history of recurrent small bowel obstructions and surgical history of Earlene fundoplication 12 years ago and then a colon resection with colostomy and then colostomy reversal who presented to ED with generalized abdominal pain with bloating and nausea. CT scan consistent with SBO with transition point likely at small bowel anastomosis site. 03/24/2022: Pain mostly resolved + bowel function No n,v tolerated clear liquids Plan: Advance to full liquids for lunch and then low fiber stop IV Tylenol, add po Tylenol as needed continue ambulation continue current medical management okay from surgical standpoint for discharge this evening Dr. Harris has seen and examined pt, agrees with above. Admission and Anticipated Discharge Date Admission Date: March 23, 2022 Supervising Physician Co-Signing Physician Notes I have seen and examined the patient personally and agree with the above assessment plan. She is significantly improved this morning. She has had multiple bowel movements and continues to pass flatus. She is tolerating a clear liquid diet. Advance diet as tolerated. She would really like to go home this evening, and from a surgical standpoint she may be discharged later on [facility]. Call with any questions or concerns. Subjective feeling much better today having some abdominal cramping but pain has mostly resolved no n,v tolerated clear liquids small bowel movement this am Physical Exam Constitutional: WD/WN, vitals as above no acute distress and not ill appearing Respiratory: normal respiratory effort; no respiratory distress, no labored breathing and no retractions Gastrointestinal (Abdomen): Inspection/Auscultation: abdomen normal to inspection, + abdominal surgical scar (midline infraumbilical and right paramidline) and + hypoactive bowel sounds; abdomen not distended and + abnormal bowel sounds Percussion/Palpation: abdomen soft; abdomen nontender, no guarding and abdomen not rigid Skin: no rashes, warm and dry Psychiatric: A+Ox3, euthymic affect Results & Data ([facility]) Vital Signs (Past 12 Hours) Vital Signs Temp Pulse Pulse Resp BP Pulse Ox O2 Del Method 03/24/22 08:04 36.6 C 72 18 122/72 99 Room Air 03/24/22 06:50 88 03/24/22 06:20 68 03/24/22 04:41 37.1 C 75 20 129/73 96 Room Air 03/24/22 00:51 77 03/23/22 23:55 36.8 C 81 20 115/70 96 Room Air Laboratory Results 03/24/22 03/24/22 03/23/22 Range/Units 05:47 05:47 20:17 WBC 4.11 L (4.8-10.8) K/ul RBC 4.25 (3.93-5.22) M/uL Hgb 12.1 (12.0-16.0) g/dl Hct 36.3 (34.1-44.9) % MCV 85.4 (80.0-100.0) fL MCH 28.5 (25.0-34.0) pg MCHC 33.3 (32.0-36.0) g/dL RDW Std Deviation 39.6 (36.4-46.3) fL RDW Coeff of Niya 12.8 (11.5-14.5) % Plt Count 195 (130-400) K/uL MPV 9.9 (9.4-12.3) fL Sodium 136 (136-145) mmol/L Potassium 3.7 (3.5-5.1) mmol/L Chloride 107 (98-107) mmol/L Carbon Dioxide 25 (21-32) mmol/L Anion Gap 4 (3-11) BUN 14 (6-23) mg/dl Creatinine 0.60 (0.6-1.2) mg/dl Est Cr Clr Drug Dosing 82.9 ml/min Est GFR ( Amer) 112.4 ml/min Est GFR (Non-Af Amer) 97.0 ml/min BUN/Creatinine Ratio 23.3 H (10-20) Glucose 87 (70-99(Fasting)) mg/dl Calcium 8.5 D (8.5-10.1) mg/dl Phosphorus (2.5-4.9) mg/dl Magnesium (1.7-2.4) mg/dl Urine Color Yellow Urine Appearance Cloudy A (Clear) Urine pH 5.5 (4.5-7.5) Ur Specific [place] 1.020 (1.000-1.030) Urine Protein Negative (Negative) Urine Glucose (UA) Negative (Negative) Urine Ketones Negative (Negative) Urine Blood Trace H (Negative) Urine Nitrite Negative (Negative) Urine Bilirubin Negative (Negative) Urine Urobilinogen Negative (Negative) Ur Leukocyte Esterase 2+ H (Negative) Urine WBC (Auto) 1-5 (0-5) /hpf Urine RBC (Auto) 0-4 (0-4) /hpf U Hyaline Cast (Auto) 1-5 (0-5) /lpf U Epithel Cells (Auto) 10-20 H (0-5) /lpf Urine Bacteria (Auto) 1+ H (Negative) Urine Yeast Not Reportable 03/23/22 Range/Units 09:44 WBC (4.8-10.8) K/ul RBC (3.93-5.22) M/uL Hgb (12.0-16.0) g/dl Hct (34.1-44.9) % MCV (80.0-100.0) fL MCH (25.0-34.0) pg MCHC (32.0-36.0) g/dL RDW Std Deviation (36.4-46.3) fL RDW Coeff of Niya (11.5-14.5) % Plt Count (130-400) K/uL MPV (9.4-12.3) fL Sodium (136-145) mmol/L Potassium (3.5-5.1) mmol/L Chloride (98-107) mmol/L Carbon Dioxide (21-32) mmol/L Anion Gap (3-11) BUN (6-23) mg/dl Creatinine (0.6-1.2) mg/dl Est Cr Clr Drug Dosing ml/min Est GFR ( Amer) ml/min Est GFR (Non-Af Amer) ml/min BUN/Creatinine Ratio (10-20) Glucose (70-99(Fasting)) mg/dl Calcium (8.5-10.1) mg/dl Phosphorus 3.9 (2.5-4.9) mg/dl Magnesium 1.7 (1.7-2.4) mg/dl Urine Color Urine Appearance (Clear) Urine pH (4.5-7.5) Ur Specific [place] (1.000-1.030) Urine Protein (Negative) Urine Glucose (UA) (Negative) Urine Ketones (Negative) Urine Blood (Negative) Urine Nitrite (Negative) Urine Bilirubin (Negative) Urine Urobilinogen (Negative) Ur Leukocyte Esterase (Negative) Urine WBC (Auto) (0-5) /hpf Urine RBC (Auto) (0-4) /hpf U Hyaline Cast (Auto) (0-5) /lpf U Epithel Cells (Auto) (0-5) /lpf Urine Bacteria (Auto) (Negative) Urine Yeast
[2022-03-24] MEDS ORDERED: PANTOprazole 40 MG TAB PO SCH (10:45)
[2022-03-24] MEDS ORDERED: ONDANSETRON 4 MG OD TAB PO PRN (10:46)
[2022-03-24] MEDS ORDERED: PROMETHAZINE HCL 12.5 MG/10 ML UDP PO PRN (10:48)
[2022-03-24] MEDS: ENOXAPARIN INJ 60 MG/0.6 ML SYR SQ SCH (11:58)
--- NOTE | 2022-03-24 15:04 | Medical Student Progress Note ---
Date of Service March 24, 2022 Assessment & Plan (1) Small bowel obstruction: Plan: 61 yo F hx of colostomy and reversal, colon resection, cory fundoplication, and GERD who was admitted for abdominal pain. (1) SBO: NPO; lactated ringers 80 ml/Hr x 2 liters CBC and BMP QAM zofran/phenergan for nausea prn dilaudid for pain Q2h; tylenol for pain Q8h Gen consult: ambulate and use chair when possible Trial clear fluids after passing gas or if clinical picture improving before removing NGT Reassess in the AM (2) HTN controlled; hold PO metoprolol; IV metoprolol 5 mg IV q6; monitor (3) Recurrent deep vein thrombosis (DVT): Plan: Patient on Apixaban anticoagulation hold apixaban -Lovenox 1mg/kg BID for continued anticoagulation (4) GERD (gastroesophageal reflux disease): -Protonix 40mg IV daily (5) Anxiety: -Lorazepam 0.5mg IV TID PRN F/E/N - LR at 80mL/hr, monitor electrolytes and replete as needed, NPO for now Ppx - Lovenox 1mg/kg BID Code - DNR/DNI per chart review Dispo - Admit to medical with telemetry Admission and Anticipated Discharge Date Admission Date: March 23, 2022 Subjective Today pt is doing better. Flatus positive. Eating jello. Drinking fluids. Has mild abdominal pain. No nausea. Pt is interested in options to remove adhesions as outpatient. On docusate sodium po and simethicone po. Review of Systems Review of Systems: as per HPI Results & Data ([facility]) Vital Signs (Past 12 Hours) Vital Signs Temp Pulse Pulse Resp BP Pulse Ox O2 Del Method 03/24/22 12:34 37.2 C 80 17 151/83 H 96 Room Air 03/24/22 08:04 36.6 C 72 18 122/72 99 Room Air 03/24/22 06:50 88 03/24/22 06:20 68 03/24/22 04:41 37.1 C 75 20 129/73 96 Room Air
[2022-03-24] MEDS: SIMETHICONE 80 MG CHEW PO PRN (16:17)
--- NOTE | 2022-03-24 17:28 | Discharge Summary ---
Date of Service March 24, 2022 Admission HPI Per Admitting Provider Brooke Morris is a 61yo female with history of Paulino fundoplication, GERD, prior SBOs, recurrent DVT on Apixaban anticoagulation presenting with abdominal pain and SBO. Patient began to develop diffuse abdominal pain yesterday AM while in [facility]. The pain progressed throughout the day. She developed nausea with dry heaving as well as subjective fevers and chills. She feels that her abdomen is bloated. Denies chest pain, palpitations, cough, SOB. Denies vomiting, diarrhea but has occasional constipation. Upon arrival patient afebrile, HD stable. NGT placed to low continuous suction. Patient still with nausea and abdominal pain. ER Course: Dilaudid, Zofran, NSS, NGT Admission Exam Per Admitting Provider General: patient resting comfortably, NAD, non-toxic in appearance, AA&O x 4 Skin: warm, dry, intact, no rashes or lesions HEENT: NC/AT, PERRL, EOMI, anicteric sclera, conjunctiva without injection, external ear normal to inspection and nontender, nares patent, moist mucus membranes, dentition intact, no oropharyngeal lesions, neck supple, trachea midline, no LAD, no thyromegaly, no JVD Heart: +S1/S2, regular, no m/r/g Lungs: equal air entry bilaterally, no rales/rhonchi/wheezes Abd: +BS, soft, ND, tender to palpation, no masses/organomegaly/ascites Ext: warm, 2+ pulses in UE/LE bilaterally, no clubbing/cyanosis or edema Neuro: nonfocal, patient AA&O x 4, speech intact, no facial droop, moving all extremities on command with equal strength 5/5 Principal Diagnosis Small Bowel Obstruction Discharge Exam Constitutional well developed; no acute distress Neck normal visual inspection Respiratory normal respiratory effort, lungs clear to auscultation Cardiovascular RRR, no murmur, no edema Gastrointestinal (Abdomen) slight tenderness to deep palpation, no rigidity or guarding. +bowel sounds Skin no rashes, warm and dry Psychiatric A+Ox3, euthymic affect Discharge Data Allergies Allergy/AdvReac Type Severity Reaction Status Date / Time amitriptyline Allergy Intermediate SWELLING Verified 03/23/22 07:46 pregabalin Allergy Intermediate confusion, Verified 03/23/22 07:46 forgetfullness,itchy rabeprazole Allergy Intermediate SWELLING Verified 03/23/22 07:46 Tricyclic Compounds Allergy Intermediate SWELLING Verified 03/23/22 07:46 morphine Allergy Mild SEVERE Verified 03/23/22 07:46 ITCHING, SHORTNESS OF BREATH gabapentin AdvReac Intermediate "HIGHER Verified 03/23/22 07:46 DOSES" CAUSE BLURRED VISION, DIZZINESS,NAUSEA ciprofloxacin AdvReac Mild gi upset Verified 03/23/22 07:46 Consultations 03/23/22 05:38 ED Decision to Admit Stat 03/23/22 09:11 Consult General Surgery Routine Ordered Studies 03/23/22 03:38 CT abd pelvis IV con only Stat Hospital Course (1) Small bowel obstruction: Ivan Cox is a 61 y/o female with abdominal pain and PMH of recurrent small bowel obstructions (managed conservatively in the past) following cory fundoplication, colostomy with reversal, and hysterectomy. She was admitted and placed NPO and started on IVF. NGT placed with low continuous suction. She was given zofran and phergan PRN for nausea and dilaudid for pain. General surgery consult was completed, recommended conservative management based on patient presentation and no perforation noted on imaging. During work up, UA was positive for leuk est, neg nitrites: culture preliminarily grew gram neg. bacilli. Discussed result with patient but considering lack of any urinary symptoms, decided against antibiotic treatment at this time. After less than 24 hours, patient noted decrease in pain and nausea- was started on clear fluids. The next morning, patient noted she had been passing flatus and had a small bowel movement. Diet was progressed further to full liquid and patient also had some chicken breast- noted she had some gas but still denied any nausea. Patient felt comfortable with improvement of symptoms and was able to be discharged on 03/24. Total Time Total Time Spent Total Time Spent (In Minutes): <30 Discharge Plan Discharge Items Patient Disposition: Home - Self-Care Reason For Visit: SBO Discharge Diagnosis: Small Bowel Obstruction Activity: Per Instructions section Non-emergency contact: Primary Care Provider Call non-emergency contact if: your symptoms worsen and your pain is not controlled Follow-up/Referrals: Judy Wood MD [Primary Care Provider] - 04/01/22 11:30 am Diet: Regular Addtl Attending Provider Instructions: You presented to the ER with abdominal pain on 03/23/22 and were diagnosed with a small bowel obstruction. You were initially made to eat nothing by mouth and an NG tube was placed. Within the first 24 hours you responded well to treatment with both nausea and abdominal pain decreased. You were then started on clear liquids and tolerated it well- with no nausea and some mild pain. As you noted in your past small bowel obstructions, you had some pain that came and went after restarting your diet. As we discussed, there is no food in particular that you ate that caused this obstruction- as unfortunately it is due to adhesions from your prior abdominal surgeries. You can continue to eat what you choose without concern that it will cause another bowel obstruction. Please reach out to your primary care doctor to schedule a hospital follow up appointment in the next 1-2 weeks. Pending Studies at Discharge: No Stand-Alone Forms: My [facility], Smoking Cessation Medications and DC Order Prescriptions: Continued ascorbic acid (vitamin C) 500 mg tablet 500 mg PO DAILY docusate sodium [Colace] 100 mg capsule 100 mg PO BID bisacodyl [Dulcolax (bisacodyl)] 5 mg tablet,delayed release (DR/EC) 10 mg PO HS simethicone 80 mg tablet,chewable 80 mg PO BID promethazine 25 mg tablet 25 mg PO Q6H PRN (Reason: NAUSEA/VOMITING) Qty: 30 1RF Eliquis 5 mg tablet 5 mg PO BID Qty: 180 1RF metoprolol succinate 25 mg tablet extended release 24 hr 25 mg PO DAILY Qty: 90 1RF lorazepam 1 mg tablet 2.5 mg PO BID PRN (Reason: anxiety) Qty: 60 0RF omeprazole 40 mg capsule,delayed release(DR/EC) 40 mg PO DAILY Qty: 90 1RF cholecalciferol (vitamin D3) 4,000 unit tablet 4,000 units PO DAILY Discharge Orders: Discharge Order (Routine); Ordered 03/24/22 Ordered By: Sharon Maria Admission Data Admit Date/Time: 03/23/22 06:48 Attending Provider: Brian Leigh Admit Provider: Jessie Chaves Primary Care Provider: Judy Wood Other Providers: Jessie Chaves ; Fabiano Rodriguez Supervising Physician Co-Signing Physician Notes I personally examined the patient and verified all bolanos points of history and exam, discussed case, and agree with decision making with Dr Maria. Feeling better. Eating better. Would like to go home. Vitals noted, in general she is awake and alert pleasant no distress. HEENT normocephalic atraumatic mucous membranes moist. Breathing unlabored no accessory muscle use good effort. Skin shows no rashes no pallor or icterus. Neuro without focal deficits. Abdomen soft no guarding rebound or rigidity, diffuse mild tenderness probably better than yesterday definitely not worse, and patient notes this is within the normal range of what she feels when she is improving from a bowel obstruction. Adhesional small bowel obstructionadvancing diet, anticipate home later today. otherwise as above
--- NOTE | 2022-03-24 17:56 | Billing Data ---
Date of Service March 24, 2022 Coding Level of Care Code D/C DAY MANAGEMENT <30 MINS
[2022-03-24] MEDS ORDERED: bisacodyL 5 MG TABEC PO SCH (21:00)
[2022-03-25] MEDS ORDERED: METOPROLOL SUCC 25MG EXT REL TAB PO SCH (09:00)
== END 2022-03-24 18:36 | disposition home or self-care (01) | DRG 390 ==
LOC: ED 03:20 → 2W 06:48 → SUATTDRO 06:48 → 2W 08:36